=== PATIENT | male | born 1930 | race Caucasian/White ===

== ENCOUNTER 2018-06-04 13:57 | Inpatient (IN) | payer MEDICARE, OTHER ==
[2018-06-04] MEDS ORDERED: SODIUM CHLORIDE 0.9% 1,000 ML IV STA (14:31)
[2018-06-04] MEDS ORDERED: SODIUM CHLORIDE 0.9% 500 ML IV STA (14:31)
[2018-06-04 15:08] LABS: Basophils # (A) 0.1 k/uL (0-0.2); Basophils % (A) 1 %; Eosinophils # (A) 0.7 k/uL (0-0.7); Eosinophils % (A) 9 %; HCT 24.5 % (39.0-53.0); HGB 7.4 gm/dL (13.0-17.5); Hypochromasia Moderate; Lymphocytes % (A) 13 %; MCH 31.9 pg (25.0-35.0); MCHC 30.3 g/dL (31.0-37.0); MCV 105.2 fL (80.0-100.0); Macrocytosis Moderate; Monocytes # (A) 0.4 k/uL (0-1.0); Monocytes % (A) 5 %; Neutrophils # (A) 5.4 k/uL (1.3-7.7); Neutrophils % (A) 70 %; Platelet Count 215 k/uL (150-450); RBC 2.33 m/uL (4.30-5.90); RDW 13.7 % (11.5-15.5); WBC 7.7 k/uL (3.8-10.6)
[2018-06-04 15:15] LABS: INR 1.1 (<1.2); Prothrombin Time 10.9 sec (9.0-12.0)
[2018-06-04 15:16] LABS: Albumin 3.2 g/dL (3.5-5.0); Calcium 7.5 mg/dL (8.4-10.2); Potassium 5.8 mmol/L (3.5-5.1); Total Bilirubin 0.3 mg/dL (0.2-1.3); Total Protein 5.4 g/dL (6.3-8.2)
--- NOTE | 2018-06-04 15:24 | XR ---
EXAMINATION TYPE: XR chest 2V DATE OF EXAM: 06/04/2018 COMPARISON: Prior chest x-ray 09/05/2016 HISTORY: Weakness and dizziness TECHNIQUE: Frontal and lateral views of the chest are obtained. FINDINGS: There is no focal air space opacity, pleural effusion, or pneumothorax seen. The cardiac silhouette size is within normal limits. The osseous structures are intact. There are overlying car diac leads. Acromioclavicular joint arthropathy noted. IMPRESSION: No acute cardiopulmonary process.
--- NOTE | 2018-06-04 15:29 | CT ---
EXAMINATION TYPE: CT brain wo con DATE OF EXAM: 06/04/2018 COMPARISON: 09/15/2016 HISTORY: Weakness and confusion. CT DLP: 993.3 mGycm Automated exposure control for dose reduction was used. TECHNIQUE: CT scan of the head is performed without contrast. FINDINGS: There is no acute intracranial hemorrhage or midline shift identified. Stable punctate hy perattenuated focus within the right frontal lobe appears intraparenchymal but is unchanged from the exam of 09/05/2016. This therefore could relate to possible developmental venous anomaly or dystrophic cortical calcification. There is diffuse ventricular and sulcal prominence consistent with diffuse a ge-related cerebral atrophy. There is low-attenuation in the periventricular white matter consistent with chronic small vessel ischemic change. Mild mucosal thickening is seen within the ethmoid sinuse s. The globes are intact and the remaining visualized sinuses are clear. There is an old fracture def ormity of the left lamina papyracea. Small left frontal probable osteoma is present on image 15 of se [email or web address] [email or web address]. IMPRESSION: 1. No acute intracranial process. Chronic changes similar to the prior of 09/05/2016 including focus o f right frontal hyperattenuation that is unchanged and may represent a dystrophic calcification or de velopmental venous anomaly.
[2018-06-04 16:06] LABS: Appearance,Urine Clear (Clear); Bilirubin,Urine Negative (Negative); Blood,Urine Small (Negative); Color,Urine Yellow; Glucose,Urine (UA) Negative (Negative); Ketones,Urine Negative (Negative); Leukocyte Esterase,Urine Negative (Negative); Mucus,Urine Rare /hpf; Nitrite,Urine Negative (Negative); PH, Urine 5.5 (5.0-8.0); Protein,Urine 1+ (Negative); Urobilinogen,Urine <2.0 mg/dL (<2.0); WBC,Urine 1 /hpf (0-5)
--- NOTE | 2018-06-04 17:26 | ED ---
General Adult HPI - General Chief complaint: Dizziness Stated complaint: Confusion/weakness Time Seen by Provider: 06/04/18 14:29 Source: patient Mode of arrival: ambulatory Limitations: no limitations - History of Present Illness Initial comments: 88 years old male comes in with the dizziness feeling weak for the last 5 days he's is daughter said he has been sleeping more his energy is down he is a pretty active radiate he walks he works out, there are no new medications but he did add that he had a diarrhea off-and-on for a long time he denies any headache no chest pain or shortness of breath no abdominal pain no frequency urgency dysuria - Related Data Home Medications Medication Instructions Recorded Confirmed Naproxen [Naprosyn] 375 mg PO Q12HR 12/19/15 06/04/18 Perindopril Erbumine 12 mg PO DAILY 12/19/15 06/04/18 Simvastatin [Zocor] 20 mg PO HS 12/19/15 06/04/18 Cholecalciferol [Vitamin D3] 1,000 unit PO DAILY 09/05/16 06/04/18 Ferrous Sulfate [Feosol] 325 mg PO DAILY 09/05/16 06/04/18 Mayra Root 1 tab PO DAILY 09/05/16 06/04/18 Vitamin B Complex 1 cap PO DAILY 09/05/16 06/04/18 Krill Oil 500 mg PO DAILY 06/04/18 06/04/18 Omeprazole [PriLOSEC] 40 mg PO DAILY 06/04/18 06/04/18 Allergies Allergy/AdvReac Type Severity Reaction Status Date / Time No Known Allergies Allergy Verified 06/04/18 14:53 Review of Systems ROS Statement: Those systems with pertinent positive or pertinent negative responses have been documented in the HPI. ROS Other: All systems not noted in ROS Statement are negative. Past Medical History Past Medical History: Hyperlipidemia, Hypertension, Osteoarthritis (OA) Additional Past Medical History / Comment(s): bowel obstructions 3 or 4 times, cervical spine, hands arthiritis, back pain, asthma as child, sinusitis, diverticulitis, vitamin D deficiency. History of Any Multi-Drug Resistant Organisms: None Reported Past Surgical History: Adenoidectomy, Appendectomy, Bowel Resection, Joint Replacement, Tonsillectomy Additional Past Surgical History / Comment(s): bowel resections x 3, total R hip arthroplasty, cataract removal with lens implants bilaterally, colonoscopy, circumcism. Past Anesthesia/Blood Transfusion Reactions: No Reported Reaction Additional Past Anesthesia/Blood Transfusion Reaction / Comment(s): Pt has received blood without reaction. Past Psychological History: No Psychological Hx Reported Smoking Status: Former smoker Past Alcohol Use History: Occasional Past Drug Use History: None Reported - Past Family History Father Family Medical History: Coronary Artery Disease (CAD) Additional Family Medical History / Comment(s): Father at 75 of heart problems. Mother Family Medical History: No Reported History Additional Family Medical History / Comment(s): Mother was healthy. She at 71 yrs in MVA. General Exam - General Exam Comments Initial Comments: General: The patient is awake and alert, in no distress, and does not appear acutely ill. He does look a little pale and tired and very sharp for a RAKAN years old male Skin: Skin is warm and dry and no rashes or lesions are noted. Eye: Pupils are equal, round and reactive to light, extra-ocular movements are intact; there is normal conjunctiva bilaterally. Ears, nose, mouth and throat: There are moist mucous membranes and no oral lesions. Neck: The neck is supple, there is no tenderness or JVD. Cardiovascular: There is a regular rate and rhythm. No murmur, rub or gallop is appreciated. Respiratory: To auscultation bilateral, no wheezing no rhonchi no distress respiratory chavez noticed Gastrointestinal: Soft, non-distended, non-tender abdomen without masses or organomegaly noted. There is no rebound or guarding present. Bowel sounds are unremarkable. Back: There is no tenderness to palpation in the midline. There is no obvious deformity. Musculoskeletal: Normal ROM, no tenderness, There is no pedal edema. There is no calf tenderness or swelling. No cords were appreciated. Neurological: CN II-XII intact, Cranial nerves III through XII are intact. There are no obvious motor or sensory deficits. Coordination appears grossly intact. Speech is normal. Psychiatric: Cooperative, appropriate mood & affect, normal judgment. Limitations: no limitations Course Vital Signs 06/04/18 06/04/18 06/04/18 14:01 16:11 16:27 Temperature 98.0 F Pulse Rate 47 L 58 L Pulse Rate [ 66 Left Sitting Pulse Oximetery ] Pulse Rate [ 69 Left Standing Pulse Oximetery ] Pulse Rate [ 65 Left Supine Pulse Oximetery ] Respiratory 20 18 Rate Blood Pressure 93/51 92/51 Blood Pressure 120/58 [Right Arm Sitting] Blood Pressure 120/58 [Right Arm Standing] Blood Pressure 88/53 [Right Arm Supine] O2 Sat by Pulse 97 99 Oximetry 06/04/18 17:05 Temperature Pulse Rate 62 Pulse Rate [ Left Sitting Pulse Oximetery ] Pulse Rate [ Left Standing Pulse Oximetery ] Pulse Rate [ Left Supine Pulse Oximetery ] Respiratory 16 Rate Blood Pressure 104/52 Blood Pressure [Right Arm Sitting] Blood Pressure [Right Arm Standing] Blood Pressure [Right Arm Supine] O2 Sat by Pulse 100 Oximetry EKG Findings - EKG Comments: EKG Findings:: EKG is normal sinus rhythm with first-degree AV block ventricular rate is 68 ID interval is 210 QRS duration is 88 QT/QTc is 372/395. This EKG does not reveal any ST elevation or ST depression Medical Decision Making - Lab Data Result diagrams: 06/04/18 14:58 06/04/18 14:58 Lab Results 06/04/18 06/04/18 06/04/18 Range/Units 14:58 14:58 14:58 WBC 7.7 (3.8-10.6) k/uL RBC 2.33 L (4.30-5.90) m/uL Hgb 7.4 L (13.0-17.5) gm/dL Hct 24.5 L (39.0-53.0) % MCV 105.2 H (80.0-100.0) fL MCH 31.9 (25.0-35.0) pg MCHC 30.3 L (31.0-37.0) g/dL RDW 13.7 (11.5-15.5) % Plt Count 215 (150-450) k/uL Neutrophils % 70 % Lymphocytes % 13 % Monocytes % 5 % Eosinophils % 9 % Basophils % 1 % Neutrophils # 5.4 (1.3-7.7) k/uL Lymphocytes # 1.0 (1.0-4.8) k/uL Monocytes # 0.4 (0-1.0) k/uL Eosinophils # 0.7 (0-0.7) k/uL Basophils # 0.1 (0-0.2) k/uL Hypochromasia Moderate Macrocytosis Moderate PT (9.0-12.0) sec INR (<1.2) Sodium 143 (137-145) mmol/L Potassium 5.8 H (3.5-5.1) mmol/L Chloride 123 H* (98-107) mmol/L Carbon Dioxide 6 L* (22-30) mmol/L Anion Gap 14 mmol/L BUN 77 H (9-20) mg/dL Creatinine 5.50 H* (0.66-1.25) mg/dL Est GFR (CKD-EPI)AfAm 10 (>60 ml/min/1.73 sqM) Est GFR (CKD-EPI)NonAf 9 (>60 ml/min/1.73 sqM) Glucose 91 (74-99) mg/dL Plasma Lactic Acid Gustavo <0.5 L (0.7-2.0) mmol/L Calcium 7.5 L (8.4-10.2) mg/dL Total Bilirubin 0.3 (0.2-1.3) mg/dL AST 24 (17-59) U/L ALT 42 (21-72) U/L Alkaline Phosphatase 52 (38-126) U/L Troponin I (0.000-0.034) ng/mL Total Protein 5.4 L (6.3-8.2) g/dL Albumin 3.2 L (3.5-5.0) g/dL Urine Color Urine Appearance (Clear) Urine pH (5.0-8.0) Ur Specific [place] (1.001-1.035) Urine Protein (Negative) Urine Glucose (UA) (Negative) Urine Ketones (Negative) Urine Blood (Negative) Urine Nitrite (Negative) Urine Bilirubin (Negative) Urine Urobilinogen (<2.0) mg/dL Ur Leukocyte Esterase (Negative) Urine WBC (0-5) /hpf Urine Mucus (None) /hpf 06/04/18 06/04/18 06/04/18 Range/Units 14:58 14:58 15:55 WBC (3.8-10.6) k/uL RBC (4.30-5.90) m/uL Hgb (13.0-17.5) gm/dL Hct (39.0-53.0) % MCV (80.0-100.0) fL MCH (25.0-35.0) pg MCHC (31.0-37.0) g/dL RDW (11.5-15.5) % Plt Count (150-450) k/uL Neutrophils % % Lymphocytes % % Monocytes % % Eosinophils % % Basophils % % Neutrophils # (1.3-7.7) k/uL Lymphocytes # (1.0-4.8) k/uL Monocytes # (0-1.0) k/uL Eosinophils # (0-0.7) k/uL Basophils # (0-0.2) k/uL Hypochromasia Macrocytosis PT 10.9 (9.0-12.0) sec INR 1.1 (<1.2) Sodium (137-145) mmol/L Potassium (3.5-5.1) mmol/L Chloride (98-107) mmol/L Carbon Dioxide (22-30) mmol/L Anion Gap mmol/L BUN (9-20) mg/dL Creatinine (0.66-1.25) mg/dL Est GFR (CKD-EPI)AfAm (>60 ml/min/1.73 sqM) Est GFR (CKD-EPI)NonAf (>60 ml/min/1.73 sqM) Glucose (74-99) mg/dL Plasma Lactic Acid Gustavo (0.7-2.0) mmol/L Calcium (8.4-10.2) mg/dL Total Bilirubin (0.2-1.3) mg/dL AST (17-59) U/L ALT (21-72) U/L Alkaline Phosphatase (38-126) U/L Troponin I <0.012 (0.000-0.034) ng/mL Total Protein (6.3-8.2) g/dL Albumin (3.5-5.0) g/dL Urine Color Yellow Urine Appearance Clear (Clear) Urine pH 5.5 (5.0-8.0) Ur Specific [place] 1.010 (1.001-1.035) Urine Protein 1+ H (Negative) Urine Glucose (UA) Negative (Negative) Urine Ketones Negative (Negative) Urine Blood Small H (Negative) Urine Nitrite Negative (Negative) Urine Bilirubin Negative (Negative) Urine Urobilinogen <2.0 (<2.0) mg/dL Ur Leukocyte Esterase Negative (Negative) Urine WBC 1 (0-5) /hpf Urine Mucus Rare H (None) /hpf Critical Care Time Total Critical Care Time: 30 Critical Care Time: Plan reassessment noticed his hemoglobin is 7.4 previous about 16 months ago he was 11.1 she agrees 6 reflecting severe metabolic acidosis creatinine is 5.5. His creatinine [facility] and [facility] was 1.5-6 is unremarkable and head CT revealed no acute changes and he be admitted to Dr. Golden service with a nephrology consult he is can get aggressive fluid fluid resuscitation hopefully that would fix the hyperkalemia and metabolic acidosis will consult nephrology recent acute renal failure him a will go ahead and now transfuse her 1 unit because for the further hydration his hemoglobin is current for the last 7 Disposition Clinical Impression: Metabolic acidosis, Acute renal failure, Bradycardia, Hypotension Disposition: ADMITTED IP TO THIS HOSP Condition: Good Referrals: Garfield Hanna DO [Primary Care Provider] - 1-2 days
[2018-06-04] MEDS ORDERED: NALOXONE 0.4 MG/ML 1 ML VIAL IV PRN (17:27)
[2018-06-04] MEDS ORDERED: ONDANSETRON 4 MG/2 ML VIAL IVP PRN (17:27)
[2018-06-04] MEDS ORDERED: DEXTROSE 50%-WATER 50 ML SYRINGE IVP STA (17:50)
[2018-06-04] MEDS ORDERED: INSULIN REGULAR 100 UNIT/ML VIAL IV ONE (17:51)
[2018-06-04] MEDS ORDERED: SODIUM BICARBONATE 150 MEQ in DEXTROSE 5% IN WATER 1,000 ML IV ONE ×2 (18:00)
[2018-06-04] MEDS: SODIUM CHLORIDE 0.9% 1,000 ML IV SCH (18:07)
[2018-06-04 20:44] VITALS: BMI 22.1
[2018-06-04] MEDS ORDERED: ATROPINE SULFATE 0.1 MG/ML 10ML SYRINGE IV STA ×2 (23:21→23:34)
[2018-06-04] MEDS ORDERED: DOPamine DRIP 800 MG in DEXTROSE/WATER 1 500ML.BAG IV SCH (23:30)
[2018-06-04] MEDS: ATORVASTATIN 10 MG TAB PO SCH (23:38)
[2018-06-05 01:21] LABS: HCT 29.6 % (39.0-53.0); Hypochromasia Moderate; MCH 32.2 pg (25.0-35.0); MCHC 31.1 g/dL (31.0-37.0); MCV 103.8 fL (80.0-100.0); Macrocytosis Slight; Mean Platelet Volume 7.5; Platelet Count 221 k/uL (150-450); RBC 2.85 m/uL (4.30-5.90); RDW 14.3 % (11.5-15.5); WBC 7.4 k/uL (3.8-10.6)
[2018-06-05 01:22] LABS: HGB 9.2 gm/dL (13.0-17.5)
[2018-06-05] MEDS: SODIUM BICARBONATE 150 MEQ in DEXTROSE 5% IN WATER 1,000 ML IV SCH ×2 (02:42)
[2018-06-05 03:03] LABS: Glucose,Whole Blood 99 mg/dL (75-99)
[2018-06-05] MEDS: SODIUM CHLORIDE 0.9% 1,000 ML IV SCH ×3 (03:52→15:17)
[2018-06-05 05:10] LABS: Basophils # (A) 0.1 k/uL (0-0.2); Basophils % (A) 1 %; Eosinophils # (A) 0.7 k/uL (0-0.7); Eosinophils % (A) 7 %; HCT 28.7 % (39.0-53.0); HGB 8.9 gm/dL (13.0-17.5); Hypochromasia Slight; Lymphocytes # (A) 1.1 k/uL (1.0-4.8); Lymphocytes % (A) 11 %; MCH 31.6 pg (25.0-35.0); MCV 102.1 fL (80.0-100.0); Macrocytosis Slight; Mean Platelet Volume 7.3; Monocytes # (A) 0.7 k/uL (0-1.0); Monocytes % (A) 7 %; Neutrophils # (A) 7.3 k/uL (1.3-7.7); Neutrophils % (A) 73 %; Platelet Count 234 k/uL (150-450); RBC 2.81 m/uL (4.30-5.90); RDW 14.3 % (11.5-15.5); WBC 9.9 k/uL (3.8-10.6)
[2018-06-05 05:28] LABS: Albumin 3.3 g/dL (3.5-5.0); Calcium 7.6 mg/dL (8.4-10.2); Magnesium 1.2 mg/dL (1.6-2.3); Phosphorus 5.4 mg/dL (2.5-4.5); Potassium 4.2 mmol/L (3.5-5.1); Total Bilirubin 0.4 mg/dL (0.2-1.3); Total Protein 5.5 g/dL (6.3-8.2)
[2018-06-05] MEDS ORDERED: Magnesium Replacement Protocol 1 EACH MISC MISCELLANE PRN (05:36)
[2018-06-05] MEDS: MAGNESIUM SULFATE-D5W PMX 1 GM in DEXTROSE/WATER 1 100ML.BAG IVPB SCH ×3 (05:49→08:26)
[2018-06-05] MEDS: DOPamine DRIP 800 MG in DEXTROSE/WATER 1 500ML.BAG IV SCH (05:51)
[2018-06-05] MEDS ORDERED: ceFAZolin 1,000 MG in SODIUM CHLORIDE 0.9% IRRIGATIO 250 ML IRRIGATION ONE (08:04)
[2018-06-05] MEDS ORDERED: ceFAZolin IN SWFI 2 GM/20 ML SYRINGE IVP ONE (08:04)
[2018-06-05] MEDS ORDERED: SODIUM CHLORIDE 0.9% 1,000 ML IV SCH (08:15)
--- NOTE | 2018-06-05 08:40 | P.NPCON ---
History of Present Illness - Reason for Consult acute renal failure, metabolic acidosis - History of Present Illness Reason for consultation: Acute kidney injury History of present illness: Patient is a 88-year-old male seen in renal consultation for acute kidney injury and electrolyte imbalance. Patient presented to the hospital with generalized weakness and dizziness. His blood pressure was in the systolic 90s. He was noted to be in first-degree heart block. Potassium was 5.8 and bicarb level was 6. Creatinine was 5.5 on admission. Patient was subsequently started on sodium bicarbonate drip in the hyperkalemia was medically treated with IV insulin and D50. Potassium level is 4.2 this morning. Bicarb level is up to 10. Creatinine is down to 4.6. He is currently maintained on dopamine and is scheduled to get a pacemaker today. He admits to good urine output. Denies any hematuria or dysuria. He does admit to taking 1-2 tabs of Naprosyn on a daily basis for the last 10 years. He does have chronic kidney disease with creatinine in the range of 1.4-1.5. He is also maintained on lisinopril as an outpatient which is currently held. Overall he is feeling better. Patient is overall quite active for his age and exercises quite regularly. Vital signs are stable. General: The patient appeared well nourished and normally developed. HEENT: Head exam is unremarkable. Neck is without jugular venous distension. LUNGS: Lungs are clear to auscultation and percussion. Breath sounds decreased. HEART: Rate and Rhythm are regular. First and second heart sounds normal. No murmurs, rubs or gallops. ABDOMEN: Abdominal exam reveals normal bowel sounds. Non-tender and non- distended. No evidence of peritonitis. EXTREMITITES: No clubbing, cyanosis, or edema. Past Medical History Past Medical History: Hyperlipidemia, Hypertension, Osteoarthritis (OA), Prostate Disorder Additional Past Medical History / Comment(s): bowel obstructions 3 or 4 times, cervical spine, hands arthiritis, back pain, asthma as child, sinusitis, diverticulitis, vitamin D deficiency. History of Any Multi-Drug Resistant Organisms: None Reported Past Surgical History: Adenoidectomy, Appendectomy, Bowel Resection, Joint Replacement, Prostate Surgery, Tonsillectomy Additional Past Surgical History / Comment(s): bowel resections x 3, total R hip arthroplasty, cataract removal with lens implants bilaterally, colonoscopy, circumcism. Past Anesthesia/Blood Transfusion Reactions: No Reported Reaction Additional Past Anesthesia/Blood Transfusion Reaction / Comment(s): Pt has received blood without reaction. Past Psychological History: No Psychological Hx Reported Additional Psychological History / Comment(s): Pt resides alone. He has alot of family and friend support. 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 He uses no assistive device. He drives. Smoking Status: Former smoker Past Alcohol Use History: Occasional Additional Past Alcohol Use History / Comment(s): Pt quit smoking in 1990. He had smoked lighly for 30 yrs, usually 5-10 cigarettes a day. Past Drug Use History: None Reported - Past Family History Father Family Medical History: Coronary Artery Disease (CAD) Additional Family Medical History / Comment(s): Father at 75 of heart problems. Mother Family Medical History: No Reported History Additional Family Medical History / Comment(s): Mother was healthy. She at 71 yrs in MVA. Medications and Allergies Home Medications Medication Instructions Recorded Confirmed Type Naproxen [Naprosyn] 375 mg PO Q12HR 12/19/15 06/04/18 History Perindopril Erbumine 12 mg PO DAILY 12/19/15 06/04/18 History Simvastatin [Zocor] 20 mg PO HS 12/19/15 06/04/18 History Cholecalciferol [Vitamin D3] 1,000 unit PO DAILY 09/05/16 06/04/18 History Ferrous Sulfate [Feosol] 325 mg PO DAILY 09/05/16 06/04/18 History Mayra Root 1 tab PO DAILY 09/05/16 06/04/18 History Vitamin B Complex 1 cap PO DAILY 09/05/16 06/04/18 History Krill Oil 500 mg PO DAILY 06/04/18 06/04/18 History Omeprazole [PriLOSEC] 40 mg PO DAILY 06/04/18 06/04/18 History Allergies Allergy/AdvReac Type Severity Reaction Status Date / Time No Known Allergies Allergy Verified 06/04/18 14:53 Physical Exam Vitals: Vital Signs Temp Pulse Pulse Pulse Pulse Resp BP 06/05/18 07:00 51 L 22 140/55 06/05/18 06:30 52 L 20 136/54 06/05/18 06:00 60 23 06/05/18 05:30 53 L 19 122/70 06/05/18 05:00 59 L 18 152/59 06/05/18 04:30 55 L 15 119/70 06/05/18 04:00 69 46 H 94/52 06/05/18 03:40 66 06/05/18 03:35 97.6 F 51 L 21 165/64 06/05/18 00:00 96.7 F L 67 17 06/04/18 23:02 96.8 F L 54 L 16 104/46 06/04/18 21:03 96.8 F L 55 L 18 105/53 06/04/18 20:33 96.8 F L 58 L 18 95/54 06/04/18 20:23 96.8 F L 60 18 99/50 06/04/18 20:00 96.8 F L 60 16 06/04/18 18:20 97.2 F L 66 18 96/66 06/04/18 18:01 55 L 18 91/50 06/04/18 17:05 62 16 104/52 06/04/18 16:27 58 L 18 92/51 06/04/18 16:11 66 69 65 06/04/18 14:01 98.0 F 47 L 20 93/51 BP BP BP Pulse Ox 06/05/18 07:00 96 06/05/18 06:30 98 06/05/18 06:00 99 06/05/18 05:30 95 06/05/18 05:00 100 06/05/18 04:30 99 06/05/18 04:00 100 06/05/18 03:40 06/05/18 03:35 99 06/05/18 00:00 119/56 95 06/04/18 23:02 06/04/18 21:03 99 06/04/18 20:33 100 06/04/18 20:23 95 06/04/18 20:00 99/50 95 06/04/18 18:20 96 06/04/18 18:01 97 06/04/18 17:05 100 06/04/18 16:27 99 06/04/18 16:11 120/58 120/58 88/53 06/04/18 14:01 97 Intake and Output 06/04/18 06/05/18 06/05/18 22:59 06:59 14:59 Intake Total 200 1910 100 Output Total 280 460 200 Balance -80 1450 -100 Intake: IV 700 100 Dextrose 5% in Water 1, 600 000 ml @ 150 mls/hr IV . Q7H40M LORI with Sodium Bicarb (1 Meq/ml) 150 ml Rx#:[id number] Magnesium Sulfate-D5w Pmx 100 100 1 gm In Dextrose/Water 1 100ml.bag @ 100 mls/hr IVPB Q1H LORI Rx#: [id number] Intake, IV Titration 900 Amount Dextrose 5% in Water 1, 900 000 ml @ 150 mls/hr IV . Q7H40M ONE with Sodium Bicarb (1 Meq/ml) 150 ml Rx#:[id number] Oral 200 Blood Product 0 310 Rc As-1 Unit 0 310 [id number] Output: Urine 280 460 200 Other: Voiding Method Urinal Urinal # Bowel Movements 1 Weight 68.039 kg 71 kg Results - Lab Results Most recent lab results Calcium 7.6 mg/dL (8.4-10.2) L 06/05/18 04:42 Phosphorus 5.4 mg/dL (2.5-4.5) H 06/05/18 04:42 Magnesium 1.2 mg/dL (1.6-2.3) L 06/05/18 04:42 06/05/18 04:42 06/05/18 04:42 Assessment and Plan Plan: Assessment: 1. Nonoliguric acute kidney injury secondary to ATN secondary to hypotension and further worsened with the use of NSAIDs and ZARIA inhibitor. Creatinine was 5.5 on admission and is down to 4.6 today. 2. Chronic kidney disease stage III with baseline creatinine in the range of 1.4-1.5 secondary to nephrosclerosis. 3. Hyperkalemia secondary to acute kidney injury and metabolic acidosis. Resolved. 4. Metabolic acidosis secondary to acute kidney injury. Improving. 5. Bradycardia secondary to heart block scheduled for pacemaker today. Currently maintained on dopamine. 6. Anemia. Rule out iron deficiency. No signs of active bleeding. 7. Hypertension with chronic kidney disease. Controlled. 8. Hypomagnesemia from poor oral intake as well as GI losses. Patient admits to chronic diarrhea. Plan: Continue sodium bicarbonate drip to be run at 100 mL an hour. I will add oral sodium bicarbonate 650 mg twice daily. Check iron studies. Magnesium be replaced. Avoid nephrotoxic agents. Continue to hold lisinopril for now. Repeat electrolytes in the morning. Thank you for the consultation. I will continue to follow the patient with you during his hospital stay.
--- NOTE | 2018-06-05 08:42 | CONS ---
CONSULTATION CHIEF COMPLAINT: Exertional fatigue and tiredness. This is an 88-year-old gentleman with history of dyslipidemia, gastroesophageal reflux disease who exercises regularly, over the last 10 days has been finding himself more fatigued and tired and unable to do his regular routine of exercises. Yesterday his daughters asked him to come to the hospital where he was found to have symptomatic bradycardia for which he is admitted and Cardiology had been consulted. He has intermittent episodes of high-grade AV block with second-degree heart block with heart rates dropping into the 30s and 40s. I saw him early this morning. Patient did not have any syncope. I started him on dopamine and admitted him to ICU and since being admitted to the intensive care unit, the patient had been doing well. The patient has anemia with a hemoglobin of 7.4 and also has renal insufficiency which is probably related to the AV block. He denies chest pain. There is no prior history of coronary artery disease or congestive heart failure. There is no history of valvular heart disease. His TSH is normal at 4.1. PAST MEDICAL HISTORY: Negative for hypertension, diabetes, dyslipidemia. MEDICATIONS: Medications include simvastatin 20 mg daily, Prilosec 40 mg daily, Naprosyn, iron, vitamin B, and Krill Oil. ALLERGIES: There are no known drug allergies. FAMILY HISTORY: Negative for premature coronary artery disease. SOCIAL HISTORY: Negative for current smoking, EtOH abuse, or drug abuse. REVIEW OF SYSTEMS: HEENT is unremarkable. CARDIAC: As described above. RESPIRATORY: Negative. GI: Negative. GENITOURINARY: Significant for renal insufficiency. PSYCHOSOCIAL: Negative. ENDOCRINE: Negative. HEMATOLOGICAL: Negative. DERM: Negative. CONSTITUTIONAL: Negative. ONCOLOGICAL: Negative. Rest of the system review is not relevant. PHYSICAL EXAMINATION: On exam, he is comfortable at rest. Vital signs are stable. There is no jugular venous distention. Carotid upstroke is diminished. There is no bruit. Chest exam reveals good air entry bilaterally. Heart exam reveals first and second heart sounds. No gallop. Abdomen is soft. Examination of extremities did not reveal any edema. Peripheral pulses are felt. NURSE INTERN exam did not reveal focal neurological deficits. A chest x-ray does not reveal pulmonary congestion. Echo is pending at this time. ASSESSMENT: 1. Symptomatic second-degree heart block. 2. History of dyslipidemia. PLAN: Patient will undergo a permanent pacemaker today. His renal insufficiency is probably related to hypotension and hypoperfusion related to intermittent episodes of high-grade AV block with hypotension. I am going to treat him with gentle hydration and we will obtain a 2-D echo. SARAH BETH / BARB: [id number] /
--- NOTE | 2018-06-05 10:22 | ECHOF ---
Referral Reason:[facility] MEASUREMENTS -------- HEIGHT: 175.3 cm WEIGHT: 70.8 kg BP: RVIDd: 4.2 cm (< 3.3) IVSd: 1.3 cm (0.6 - 1.1) LVIDd: 3.7 cm (3.9 - 5.3) LVPWd: 1.3 cm (0.6 - 1.1) IVSs: 1.7 cm LVIDs: 2.2 cm LVPWs: 1.6 cm Ao Diam: 3.9 cm (2.0 - 3.7) AV Cusp: 1.7 cm (1.5 - 2.6) LA Diam: 2.3 cm (2.7 - 3.8) MV EXCURSION: 14.230 mm (> 18.000) MV EF SLOPE: 52 mm/s (70 - 150) EPSS: 0.5 cm MV E Franck: 1.00 m/s MV DecT: 262 ms MV A Franck: 1.08 m/s MV E/A Ratio: 0.93 AV maxP.70 mmHg AV meanP.60 mmHg RAP: 5.00 mmHg RVSP: 15.73 mmHg FINDINGS -------- Resting bradycardia (HR<60bpm). This was a technically good study. The left ventricular size is normal. There is mild concentric left ventricular hypertrophy. Overa ll left ventricular systolic function is normal with, an EF between 55 - 60 %. The right ventricle is severely enlarged. The left atrium is normal in size. The right atrium is normal in size. Aortic valve is trileaflet and is mildly thickened. There is mild aortic stenosis present. Peak/m nikhil gradient across the Aortic Valve is 17.70mmHg / 9.60mmHg. The mitral valve leaflets are mildly thickened. Mild mitral regurgitation is present. Mild tricuspid regurgitation present. The right ventricular systolic pressure, as measured by Doppl er, is 15.73mmHg. Pulmonic valve appears structurally normal. 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 The pericardium is normal. CONCLUSIONS -------- 1. Resting bradycardia (HR<60bpm). 2. This was a technically good study. 3. The left ventricular size is normal. 4. There is mild concentric left ventricular hypertrophy. 5. Overall left ventricular systolic function is normal with, an EF between 55 - 60 %. 6. The right ventricle is severely enlarged. 7. The left atrium is normal in size. 8. The right atrium is normal in size. 9. Aortic valve is trileaflet and is mildly thickened. 10. There is mild aortic stenosis present. 11. Peak/mean gradient across the Aortic Valve is 17.70mmHg / 9.60mmHg. 12. The mitral valve leaflets are mildly thickened. 13. Mild mitral regurgitation is present. 14. Mild tricuspid regurgitation present. 15. The right ventricular systolic pressure, as measured by Doppler, is 15.73mmHg. 16. Pulmonic valve appears structurally normal. 17. 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 Normal inferior vena cava with normal inspiratory collapse consistent with estimated right atrial pressure of 5 mmHg. 19. The pericardium is normal. [employer]BER: Sariah Rivers RDCS
--- NOTE | 2018-06-05 13:33 | P.HPIM ---
History of Present Illness 88-year-old pleasant gentleman came in with complaints of not feeling well and tired for about a week which is getting much and much worse or denied any nausea vomiting. Patient is found to have highly elevated BUN and creatinine is baseline creatinine is around 1.5 and patient with creatinine of 5.5 and now around 4.6 patient is on IV fluids and IV bicarbonate supplementation patient has severe acidosis with the BM going up to 73 and bicarbonate of 10 patient's potassium was elevated at 46 and patient was in and out of the first-degree AV block and secondary debridement type II AV block initially cardiology was planning on a pacemaker but patient was a symptomatically and that this is probably as a result of multiple other provided abnormalities including elevated potassium mostly contributing to the patient has hyperchloremia as well. Nephrology was consulted. Patient does take nonsteroidal anti- inflammatory set home for his pain and lisinopril both of which have contributed to his acute renal failure. Patient does have a urine output which is alert and liver. Review of Systems REVIEW OF SYSTEMS: CONSTITUTIONAL: As mentioned in HPI HEENT: No recent visual problems or hearing problems. Denied any sore throat. CARDIOVASCULAR: No chest pain, orthopnea, PND, no palpitations, no syncope. PULMONARY: No shortness of breath, no cough, no hemoptysis. GASTROINTESTINAL: No diarrhea, no nausea, no vomiting, no abdominal pain. Normoactive bowel sounds. NEUROLOGICAL: No headaches, no weakness, no numbness. HEMATOLOGICAL: Denies any bleeding or petechiae. GENITOURINARY: Denies any burning micturition, frequency, or urgency. MUSCULOSKELETAL/RHEUMATOLOGICAL: Denies any joint pain, swelling, or any muscle pain. ENDOCRINE: Denies any polyuria or polydipsia. The rest of the 14-point review of systems is negative. Past Medical History Past Medical History: Hyperlipidemia, Hypertension, Osteoarthritis (OA), Prostate Disorder Additional Past Medical History / Comment(s): bowel obstructions 3 or 4 times, cervical spine, hands arthiritis, back pain, asthma as child, sinusitis, diverticulitis, vitamin D deficiency. History of Any Multi-Drug Resistant Organisms: None Reported Past Surgical History: Adenoidectomy, Appendectomy, Bowel Resection, Joint Replacement, Prostate Surgery, Tonsillectomy Additional Past Surgical History / Comment(s): bowel resections x 3, total R hip arthroplasty, cataract removal with lens implants bilaterally, colonoscopy, circumcism. Past Anesthesia/Blood Transfusion Reactions: No Reported Reaction Additional Past Anesthesia/Blood Transfusion Reaction / Comment(s): Pt has received blood without reaction. Past Psychological History: No Psychological Hx Reported Additional Psychological History / Comment(s): Pt resides alone. He has alot of family and friend support. 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 He uses no assistive device. He drives. Smoking Status: Former smoker Past Alcohol Use History: Occasional Additional Past Alcohol Use History / Comment(s): Pt quit smoking in 1990. He had smoked lighly for 30 yrs, usually 5-10 cigarettes a day. Past Drug Use History: None Reported - Past Family History Father Family Medical History: Coronary Artery Disease (CAD) Additional Family Medical History / Comment(s): Father at 75 of heart problems. Mother Family Medical History: No Reported History Additional Family Medical History / Comment(s): Mother was healthy. She at 71 yrs in MVA. Medications and Allergies Home Medications Medication Instructions Recorded Confirmed Type Naproxen [Naprosyn] 375 mg PO Q12HR 12/19/15 06/04/18 History Perindopril Erbumine 12 mg PO DAILY 12/19/15 06/04/18 History Simvastatin [Zocor] 20 mg PO HS 12/19/15 06/04/18 History Cholecalciferol [Vitamin D3] 1,000 unit PO DAILY 09/05/16 06/04/18 History Ferrous Sulfate [Feosol] 325 mg PO DAILY 09/05/16 06/04/18 History Mayra Root 1 tab PO DAILY 09/05/16 06/04/18 History Vitamin B Complex 1 cap PO DAILY 09/05/16 06/04/18 History Krill Oil 500 mg PO DAILY 06/04/18 06/04/18 History Omeprazole [PriLOSEC] 40 mg PO DAILY 06/04/18 06/04/18 History Allergies Allergy/AdvReac Type Severity Reaction Status Date / Time No Known Allergies Allergy Verified 06/04/18 14:53 Physical Exam Vitals: Vital Signs Temp Pulse Pulse Pulse Pulse Pulse Resp 06/05/18 12:00 68 24 06/05/18 11:00 60 25 H 06/05/18 10:00 06/05/18 09:00 47 L 23 06/05/18 08:34 97.9 F 18 06/05/18 08:10 97.7 F 70 18 06/05/18 08:00 97.7 F 79 22 06/05/18 07:00 51 L 22 06/05/18 06:30 52 L 20 06/05/18 06:00 60 23 06/05/18 05:30 53 L 19 06/05/18 05:00 59 L 18 06/05/18 04:30 55 L 15 06/05/18 04:00 69 46 H 06/05/18 03:40 66 06/05/18 03:35 97.6 F 51 L 21 06/05/18 00:00 96.7 F L 67 17 06/04/18 23:02 96.8 F L 54 L 16 06/04/18 21:03 96.8 F L 55 L 18 06/04/18 20:33 96.8 F L 58 L 18 06/04/18 20:23 96.8 F L 60 18 06/04/18 20:00 96.8 F L 60 16 06/04/18 18:20 97.2 F L 66 18 06/04/18 18:01 55 L 18 06/04/18 17:05 62 16 06/04/18 16:27 58 L 18 06/04/18 16:11 66 69 65 06/04/18 14:01 98.0 F 47 L 20 BP BP BP BP Pulse Ox 06/05/18 12:00 114/57 100 06/05/18 11:00 114/57 100 06/05/18 10:00 96/55 06/05/18 09:00 82/50 98 06/05/18 08:34 92/56 06/05/18 08:10 92/56 06/05/18 08:00 130/47 98 06/05/18 07:00 140/55 96 06/05/18 06:30 136/54 98 06/05/18 06:00 99 06/05/18 05:30 122/70 95 06/05/18 05:00 152/59 100 06/05/18 04:30 119/70 99 06/05/18 04:00 94/52 100 06/05/18 03:40 06/05/18 03:35 165/64 99 06/05/18 00:00 119/56 95 06/04/18 23:02 104/46 06/04/18 21:03 105/53 99 06/04/18 20:33 95/54 100 06/04/18 20:23 99/50 95 06/04/18 20:00 99/50 95 06/04/18 18:20 96/66 96 06/04/18 18:01 91/50 97 06/04/18 17:05 104/52 100 06/04/18 16:27 92/51 99 06/04/18 16:11 120/58 120/58 88/53 06/04/18 14:01 93/51 97 Intake and Output 06/04/18 06/05/18 06/05/18 22:59 06:59 14:59 Intake Total 200 1910 600 Output Total 280 460 725 Balance -80 1450 -125 Intake: IV 700 600 Dextrose 5% in Water 1, 600 500 000 ml @ 150 mls/hr IV . Q7H40M LORI with Sodium Bicarb (1 Meq/ml) 150 ml Rx#:[id number] Magnesium Sulfate-D5w Pmx 100 100 1 gm In Dextrose/Water 1 100ml.bag @ 100 mls/hr IVPB Q1H LORI Rx#: [id number] Intake, IV Titration 900 Amount Dextrose 5% in Water 1, 900 000 ml @ 150 mls/hr IV . Q7H40M ONE with Sodium Bicarb (1 Meq/ml) 150 ml Rx#:[id number] Oral 200 Blood Product 0 310 Rc As-1 Unit 0 310 [id number] Output: Urine 280 460 725 Other: Voiding Method Urinal Urinal Urinal # Voids 1 # Bowel Movements 1 Weight 68.039 kg 71 kg PHYSICAL EXAMINATION: GENERAL: The patient is alert and oriented x3, not in any acute distress. Well developed, well nourished. HEENT: Pupils are round and equally reacting to light. EOMI. No scleral icterus. No conjunctival pallor. Normocephalic, atraumatic. No pharyngeal erythema. No thyromegaly. CARDIOVASCULAR: S1 and S2 present. No murmurs, rubs, or gallops. PULMONARY: Chest is clear to auscultation, no wheezing or crackles. ABDOMEN: Soft, nontender, nondistended, normoactive bowel sounds. No palpable organomegaly. MUSCULOSKELETAL: No joint swelling or deformity. EXTREMITIES: No cyanosis, clubbing, or pedal edema. NEUROLOGICAL: Gross neurological examination did not reveal any focal deficits. SKIN: No rashes. Results CBC & Chem 7: 06/05/18 04:42 06/05/18 04:42 Labs: Abnormal Lab Results - Last 24 Hours (Table) 06/04/18 06/04/18 06/04/18 Range/Units 14:58 14:58 14:58 RBC 2.33 L (4.30-5.90) m/uL Hgb 7.4 L (13.0-17.5) gm/dL Hct 24.5 L (39.0-53.0) % MCV 105.2 H (80.0-100.0) fL MCHC 30.3 L (31.0-37.0) g/dL Potassium 5.8 H (3.5-5.1) mmol/L Chloride 123 H* (98-107) mmol/L Carbon Dioxide 6 L* (22-30) mmol/L BUN 77 H (9-20) mg/dL Creatinine 5.50 H* (0.66-1.25) mg/dL Glucose (74-99) mg/dL Plasma Lactic Acid Gustavo <0.5 L (0.7-2.0) mmol/L Calcium 7.5 L (8.4-10.2) mg/dL Phosphorus (2.5-4.5) mg/dL Magnesium (1.6-2.3) mg/dL Total Protein 5.4 L (6.3-8.2) g/dL Albumin 3.2 L (3.5-5.0) g/dL Urine Protein (Negative) Urine Blood (Negative) Urine Mucus (None) /hpf Crossmatch 06/04/18 06/04/18 06/05/18 Range/Units 15:55 17:38 00:47 RBC 2.85 L (4.30-5.90) m/uL Hgb 9.2 L D (13.0-17.5) gm/dL Hct 29.6 L (39.0-53.0) % MCV 103.8 H (80.0-100.0) fL MCHC (31.0-37.0) g/dL Potassium (3.5-5.1) mmol/L Chloride (98-107) mmol/L Carbon Dioxide (22-30) mmol/L BUN (9-20) mg/dL Creatinine (0.66-1.25) mg/dL Glucose (74-99) mg/dL Plasma Lactic Acid Gustavo (0.7-2.0) mmol/L Calcium (8.4-10.2) mg/dL Phosphorus (2.5-4.5) mg/dL Magnesium (1.6-2.3) mg/dL Total Protein (6.3-8.2) g/dL Albumin (3.5-5.0) g/dL Urine Protein 1+ H (Negative) Urine Blood Small H (Negative) Urine Mucus Rare H (None) /hpf Crossmatch See Detail 06/05/18 06/05/18 Range/Units 04:42 04:42 RBC 2.81 L (4.30-5.90) m/uL Hgb 8.9 L (13.0-17.5) gm/dL Hct 28.7 L (39.0-53.0) % MCV 102.1 H (80.0-100.0) fL MCHC (31.0-37.0) g/dL Potassium (3.5-5.1) mmol/L Chloride 117 H (98-107) mmol/L Carbon Dioxide 10 L* (22-30) mmol/L BUN 73 H (9-20) mg/dL Creatinine 4.60 H (0.66-1.25) mg/dL Glucose 100 H (74-99) mg/dL Plasma Lactic Acid Gustavo (0.7-2.0) mmol/L Calcium 7.6 L (8.4-10.2) mg/dL Phosphorus 5.4 H (2.5-4.5) mg/dL Magnesium 1.2 L (1.6-2.3) mg/dL Total Protein 5.5 L (6.3-8.2) g/dL Albumin 3.3 L (3.5-5.0) g/dL Urine Protein (Negative) Urine Blood (Negative) Urine Mucus (None) /hpf Crossmatch Thrombosis Risk Factor Assmnt - Choose All That Apply Any of the Below Risk Factors Present?: No Other Risk Factors: No Thrombosis Risk Factor Assessment Level: Very Low Risk Assessment and Plan Plan: -Acute renal failure: Most probably prerenal azotemia, acute tubular necrosis nonoliguric cannot be ruled out and patient is getting IV fluids in the form of IV bicarbonate in D5. This is secondary to nonsteroidal anti-inflammatory medications and ZARIA inhibitor. 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
[2018-06-05] MEDS: B COMPLEX-VIT C-VIT E-ZINC 1 EACH TAB PO SCH (14:43)
[2018-06-05] MEDS: SODIUM BICARBONATE TAB 650 MG TAB PO SCH ×2 (14:43→20:41)
[2018-06-05] MEDS: CHOLECALCIFEROL 1,000 UNIT TAB PO SCH (14:43)
[2018-06-05] MEDS: FERROUS SULFATE 325 MG TAB PO SCH (14:44)
[2018-06-05] MEDS: PANTOPRAZOLE 40 MG TABLET PO SCH (14:44)
[2018-06-05] MEDS ORDERED: MAGNESIUM SULFATE-D5W PMX 1 GM in DEXTROSE/WATER 1 100ML.BAG IVPB SCH (15:00)
[2018-06-05 15:56] LABS: Iron Saturation 36.12 (15.00-50.00)
[2018-06-05 19:36] LABS: Hemoglobin A1C 4.3 % (4.0-6.0)
[2018-06-05] MEDS: ATORVASTATIN 10 MG TAB PO SCH (20:41)
[2018-06-06 04:50] LABS: Calcium 7.4 mg/dL (8.4-10.2); Magnesium 1.9 mg/dL (1.6-2.3); Phosphorus 4.4 mg/dL (2.5-4.5); Potassium 3.5 mmol/L (3.5-5.1)
[2018-06-06 05:00] LABS: Basophils # (A) 0.1 k/uL (0-0.2); Basophils % (A) 1 %; Eosinophils # (A) 0.6 k/uL (0-0.7); Eosinophils % (A) 7 %; HCT 26.4 % (39.0-53.0); HGB 8.7 gm/dL (13.0-17.5); Lymphocytes # (A) 0.9 k/uL (1.0-4.8); Lymphocytes % (A) 11 %; MCH 31.9 pg (25.0-35.0); MCHC 32.8 g/dL (31.0-37.0); MCV 97.3 fL (80.0-100.0); Mean Platelet Volume 7.3; Monocytes # (A) 0.7 k/uL (0-1.0); Monocytes % (A) 8 %; Neutrophils # (A) 6.1 k/uL (1.3-7.7); Neutrophils % (A) 73 %; Platelet Count 220 k/uL (150-450); RBC 2.72 m/uL (4.30-5.90); RDW 14.5 % (11.5-15.5); WBC 8.4 k/uL (3.8-10.6)
--- NOTE | 2018-06-06 07:04 | XR ---
EXAMINATION TYPE: XR chest 1V portable DATE OF EXAM: 06/06/2018 HISTORY: SOB. REFERENCE: Previous study dated 06/04/2018. FINDINGS: There are postsurgical changes on the right side of the neck. Heart size is upper limits of normal. Pleural spaces are clear. No focal airspace disease is seen. IMPRESSION: NO ACUTE CARDIOPULMONARY ABNORMALITY.
[2018-06-06] MEDS: SODIUM CHLORIDE 0.9% 1,000 ML IV SCH ×3 (07:12→17:29)
[2018-06-06] MEDS ORDERED: Potassium Replacement Protocol 1 EACH MISC MISCELLANE PRN (07:20)
[2018-06-06] MEDS: DOPamine DRIP 800 MG in DEXTROSE/WATER 1 500ML.BAG IV SCH (07:34)
[2018-06-06] MEDS: MAGNESIUM SULFATE-D5W PMX 1 GM in DEXTROSE/WATER 1 100ML.BAG IVPB SCH ×3 (07:52→12:11)
--- NOTE | 2018-06-06 07:52 | P.PN ---
Subjective Progress Note Date: 06/06/18 Principal diagnosis: Symptomatic bradycardia This is a pleasant 88-year-old gentleman who was admitted to the hospital yesterday with symptomatic bradycardia. He was found to be in high degree AV block. When I reviewed the rhythm strip today it seems that the patient is in complete heart block but he is maintaining a heart rate in the 50s and blood pressure, on dopamine. The patient was not on any AV sabrina guillermo agents before he presented to the hospital. The echocardiogram revealed normal LV function with mild aortic stenosis. Clinically he denies having any chest pain or discomfort, shortness of breath, dizziness or lightheadedness and he never had any syncope. When he presented to the hospital he was in acute on chronic renal failure. Nephrology on the case. The patient was going to have a permanent pacemaker yesterday but that is on hold at this point because we feel that the acute renal failure could be contributing to his heart block and bradycardia. Objective - Vital Signs Vital signs: Vital Signs Temp 98.1 F 06/06/18 04:00 Pulse 53 L 06/06/18 07:00 Resp 14 06/06/18 07:00 BP 133/66 06/06/18 07:00 Pulse Ox 98 06/06/18 07:00 Intake & Output 06/05/18 06/06/18 06/06/18 18:59 06:59 18:59 Intake Total 2530.765 5866 285.725 Output Total 875 850 Balance 667.163 350 285.725 Weight 71.2 kg Intake: IV 1400 1200 100 Dextrose 5% in Water 1, 1200 1200 100 000 ml @ 100 mls/hr IV . [id number] LORI with Sodium Bicarb (1 Meq/ml) 150 ml Rx#:[id number] Magnesium Sulfate-D5w Pmx 200 1 gm In Dextrose/Water 1 100ml.bag @ 100 mls/hr IVPB Q1H LORI Rx#: [id number] Intake, IV Titration 142.163 185.725 Amount DOPamine DRIP 800 mg In 142.163 185.725 Dextrose/Water 1 500ml. bag @ 2.5 MCG/KG/MIN 6.37 mls/hr IV .Q24H LORI Rx#: [id number] Output: Urine 875 850 Other: Voiding Method Urinal Toilet Urinal # Voids 1 2 # Bowel Movements 0 - Constitutional General appearance: Present: no acute distress - Respiratory Respiratory: bilateral: CTA - Cardiovascular Rhythm: regular Heart sounds: normal: S1, S2 - Labs CBC & Chem 7: 06/06/18 04:11 06/06/18 04:11 Labs: Abnormal Lab Results - Last 24 Hours (Table) 06/06/18 06/06/18 Range/Units 04:11 04:11 RBC 2.72 L (4.30-5.90) m/uL Hgb 8.7 L (13.0-17.5) gm/dL Hct 26.4 L (39.0-53.0) % Lymphocytes # 0.9 L (1.0-4.8) k/uL Chloride 110 H (98-107) mmol/L Carbon Dioxide 18 L (22-30) mmol/L BUN 66 H (9-20) mg/dL Creatinine 4.04 H (0.66-1.25) mg/dL Glucose 104 H (74-99) mg/dL Calcium 7.4 L (8.4-10.2) mg/dL Assessment and Plan Assessment: Assessment #1 advanced AV block. Third degree AV block #2 symptomatic bradycardia secondary to the above #3 acute on chronic renal failure #4 mild aortic stenosis Plan #1 continue the dopamine drip over the weekend #2 continue monitor the heart rhythm and the heart rate as well #3 possible permanent pacemaker on Friday if the patient did not get out of the complete heart block. Thank you for allowing us participate in his care and we'll continue following up with him
[2018-06-06] MEDS: SODIUM BICARBONATE 150 MEQ in DEXTROSE 5% IN WATER 1,000 ML IV SCH ×6 (07:53→08:13)
--- NOTE | 2018-06-06 08:41 | P.PN ---
Subjective Progress Note Date: 06/06/18 Principal diagnosis: This is an 88-year-old male seen in consultation because of acute kidney injury from hypotension from GI losses chronic diarrhea, Royal inhibitors and additionally nonsteroidal. He also had severe hyperkalemia as well as non-gap metabolic acidosis. Currently on IV D5W with bicarb drip as well as dopamine. He is awake alert oriented. He is feeling better no nausea vomiting. 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 No dizziness no chest pain no abdominal pain no fever chills. Does feel somewhat short of breath but improved significantly. He was able to eat normally yesterday. Objective - Vital Signs Vital signs: Vital Signs Temp 98.1 F 06/06/18 04:00 Pulse 53 L 06/06/18 07:00 Resp 14 06/06/18 07:00 BP 133/66 06/06/18 07:00 Pulse Ox 98 06/06/18 07:00 Intake & Output 06/05/18 06/06/18 06/06/18 18:59 06:59 18:59 Intake Total 9663.952 8075 285.725 Output Total 875 850 Balance 667.163 350 285.725 Weight 71.2 kg Intake: IV 1400 1200 100 Dextrose 5% in Water 1, 1200 1200 100 000 ml @ 100 mls/hr IV . [id number] LORI with Sodium Bicarb (1 Meq/ml) 150 ml Rx#:[id number] Magnesium Sulfate-D5w Pmx 200 1 gm In Dextrose/Water 1 100ml.bag @ 100 mls/hr IVPB Q1H LORI Rx#: [id number] Intake, IV Titration 142.163 185.725 Amount DOPamine DRIP 800 mg In 142.163 185.725 Dextrose/Water 1 500ml. bag @ 2.5 MCG/KG/MIN 6.37 mls/hr IV .Q24H LORI Rx#: [id number] Output: Urine 875 850 Other: Voiding Method Urinal Toilet Urinal # Voids 1 2 # Bowel Movements 0 On examination is awake alert oriented comfortable A chin exam no JVP neck is supple no facial asymmetry Lungs clear to auscultation percussion good air entry bilaterally. Heart sounds unremarkable for any murmur rub gallop. Abdomen soft nontender Extremity examination reveals no edema Neurologically awake alert oriented Normal sinus rhythm on the monitor. Currently on dopamine - Labs CBC & Chem 7: 06/06/18 04:11 06/06/18 04:11 Labs: Abnormal Lab Results - Last 24 Hours (Table) 06/06/18 06/06/18 Range/Units 04:11 04:11 RBC 2.72 L (4.30-5.90) m/uL Hgb 8.7 L (13.0-17.5) gm/dL Hct 26.4 L (39.0-53.0) % Lymphocytes # 0.9 L (1.0-4.8) k/uL Chloride 110 H (98-107) mmol/L Carbon Dioxide 18 L (22-30) mmol/L BUN 66 H (9-20) mg/dL Creatinine 4.04 H (0.66-1.25) mg/dL Glucose 104 H (74-99) mg/dL Calcium 7.4 L (8.4-10.2) mg/dL Assessment and Plan Assessment: Impression 1. Acute kidney injury from volume depletion from chronic diarrhea with additional low blood pressure from blood pressure medications including lisinopril and from use of nonsteroidals. Creatinine is improved urine output is picking up. 2. Hyperkalemia Kidney injury resolved. 3. Non-gap acidosis and a smaller amount of Acidosis from acute kidney injury, bicarb has improved to 18, gap is 15. Currently on IV bicarb. 4. Hypomagnesemia from GI losses improved with replacement 5. Echocardiogram shows 55-60% ejection fraction with right ventricular enlargement and no evidence of pulmonary hypertension 6. Anemia, secondary to see daily and ulceration is 36% on 06/05/2018 yesterday. Therefore no iron deficiency 7. Chronic kidney disease Baseline creatinine is 1.39 as of 03/26/2017 UA shows 1+ proteinuria. Likely nephrosclerosis. Recommendation. 1. Discontinue IV bicarbonate drip and maintain normal saline at 75 mL an hour. 2. Check orthostatic changes. 3. Sodium bicarb currently on 650 BID , will increase to 4 times a day. 4. Maintain strict I's and O's. 5. Consider discontinuation off dopamine as Ejection fraction is 55-60%
[2018-06-06] MEDS: PANTOPRAZOLE 40 MG TABLET PO SCH (08:46)
[2018-06-06] MEDS: B COMPLEX-VIT C-VIT E-ZINC 1 EACH TAB PO SCH (08:46)
[2018-06-06] MEDS: FERROUS SULFATE 325 MG TAB PO SCH (08:48)
[2018-06-06] MEDS: POTASSIUM CHLORIDE ER 20 MEQ TAB.ER PO SCH ×2 (08:49→12:13)
[2018-06-06] MEDS: SODIUM BICARBONATE TAB 650 MG TAB PO SCH ×4 (09:10→21:58)
[2018-06-06] MEDS: CHOLECALCIFEROL 1,000 UNIT TAB PO SCH (09:10)
[2018-06-06] MEDS: ATORVASTATIN 10 MG TAB PO SCH (20:35)
[2018-06-07 04:49] LABS: Basophils # (A) 0.1 k/uL (0-0.2); Basophils % (A) 1 %; Eosinophils # (A) 0.6 k/uL (0-0.7); Eosinophils % (A) 7 %; HCT 27.5 % (39.0-53.0); Lymphocytes # (A) 0.9 k/uL (1.0-4.8); Lymphocytes % (A) 11 %; MCHC 32.7 g/dL (31.0-37.0); MCV 97.8 fL (80.0-100.0); Mean Platelet Volume 7.1; Monocytes # (A) 0.7 k/uL (0-1.0); Monocytes % (A) 9 %; Neutrophils # (A) 5.5 k/uL (1.3-7.7); Neutrophils % (A) 71 %; Platelet Count 217 k/uL (150-450); RBC 2.81 m/uL (4.30-5.90); RDW 14.3 % (11.5-15.5); WBC 7.8 k/uL (3.8-10.6)
[2018-06-07 05:03] LABS: Calcium 7.3 mg/dL (8.4-10.2)
[2018-06-07] MEDS: DOPamine DRIP 800 MG in DEXTROSE/WATER 1 500ML.BAG IV SCH (06:35)
[2018-06-07] MEDS: FERROUS SULFATE 325 MG TAB PO SCH (08:28)
[2018-06-07] MEDS: PANTOPRAZOLE 40 MG TABLET PO SCH (08:28)
[2018-06-07] MEDS: CHOLECALCIFEROL 1,000 UNIT TAB PO SCH (08:28)
[2018-06-07] MEDS: B COMPLEX-VIT C-VIT E-ZINC 1 EACH TAB PO SCH (08:28)
[2018-06-07] MEDS: SODIUM BICARBONATE TAB 650 MG TAB PO SCH ×4 (08:28→23:45)
--- NOTE | 2018-06-07 09:47 | P.PN ---
Subjective Principal diagnosis: This is an 88-year-old male seen in consultation because of acute kidney injury from hypotension from GI losses chronic diarrhea( small bowel resection in the past) and , Royal inhibitors, complete heart block and additionally nonsteroidal. He also had severe hyperkalemia as well as non-gap metabolic acidosis. was on IV D5W with bicarb drip as well as dopamine because of the complete heart block. IV bicarbonate drip was discontinued yesterday he was started on oral bicarb. His creatinine continued to improve. He is awake alert oriented. He is feeling better no nausea vomiting. 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 No dizziness no chest pain no abdominal pain no fever chills. Does feel somewhat short of breath but improved significantly. He was able to eat normally yesterday and continues to eat about really more than 50% of his meals. He is on IV normal saline at 75 an hour.. Objective - Vital Signs Vital signs: Vital Signs Temp 98.1 F 06/07/18 08:00 Pulse 45 L 06/07/18 08:00 Resp 17 06/07/18 08:00 BP 150/70 06/07/18 08:00 Pulse Ox 92 L 06/07/18 07:00 Intake & Output 06/06/18 06/07/18 06/07/18 18:59 06:59 18:59 Intake Total 2553.750 825 150 Output Total 1325 245 Balance 2553.750 -500 -95 Weight 68.9 kg Intake: IV 1150 825 150 Dextrose 5% in Water 1, 200 000 ml @ 100 mls/hr IV . [id number] [facility] with Sodium Bicarb (1 Meq/ml) 150 ml Rx#:[id number] Magnesium Sulfate-D5w Pmx 200 1 gm In Dextrose/Water 1 100ml.bag @ 100 mls/hr IVPB Q1H [facility] Rx#: [id number] Sodium Chloride 0.9% 1, 750 825 150 000 ml @ 75 mls/hr IV . [id number] [facility] Rx#:[id number] Intake, IV Titration 393.750 Amount DOPamine DRIP 800 mg In 318.750 Dextrose/Water 1 500ml. bag @ 2.5 MCG/KG/MIN 6.37 mls/hr IV .Q24H [facility] Rx#: [id number] Sodium Chloride 0.9% 1, 75 000 ml @ 75 mls/hr IV . [id number] [facility] Rx#:[id number] Oral 1010 Output: Urine 1325 245 Other: Voiding Method Toilet Toilet Urinal # Voids 1 # Bowel Movements 1 Vital signs are stable. General: The patient appeared well nourished and normally developed. HEENT: Head exam is unremarkable. Neck is without jugular venous distension. LUNGS: Lungs are significant for some minimal wheezing at end of expiration, otherwise clear to auscultation and percussion. HEART: Rate and Rhythm are regular. First and second heart sounds normal. No murmurs, rubs or gallops. ABDOMEN: Abdominal exam reveals normal bowel sounds. Non-tender and non- distended. No evidence of peritonitis. EXTREMITITES: No clubbing, cyanosis, or edema. - Labs CBC & Chem 7: 06/07/18 03:57 06/07/18 03:57 Labs: Abnormal Lab Results - Last 24 Hours (Table) 06/07/18 06/07/18 Range/Units 03:57 03:57 RBC 2.81 L (4.30-5.90) m/uL Hgb 9.0 L (13.0-17.5) gm/dL Hct 27.5 L (39.0-53.0) % Lymphocytes # 0.9 L (1.0-4.8) k/uL Chloride 110 H (98-107) mmol/L Carbon Dioxide 19 L (22-30) mmol/L BUN 54 H (9-20) mg/dL Creatinine 3.70 H (0.66-1.25) mg/dL Glucose 100 H (74-99) mg/dL Calcium 7.3 L (8.4-10.2) mg/dL Assessment and Plan Assessment: Impression 1. Acute kidney injury from volume depletion from chronic diarrhea(small bowel resection in the past) with additional low blood pressure from blood pressure secondary to complete heart block, as well as medications including lisinopril and from use of nonsteroidals. Creatinine is improved urine output is picking up. 2. Hyperkalemia secondary to acute Kidney injury resolved. 3. Non-gap acidosis and a smaller amount of Acidosis from acute kidney injury, bicarb had improved to 18, gap is 15 as of yesterday when his intravenous bicarb drip was discontinued and he was started on oral bicarb, and the bicarb now is 19 and a gap is 12. 4. Hypomagnesemia from GI losses improved with replacement 5. Echocardiogram shows 55-60% ejection fraction with right ventricular enlargement and no evidence of pulmonary hypertension 6. Anemia, secondary to chronic kidney disease with iron saturation is 36% on 06/05/2018. 7. Chronic kidney disease Baseline creatinine is 1.39 as of 03/26/2017 UA shows 1+ proteinuria. Likely nephrosclerosis. 8. Complete heart block, not resolved after mild hyperkalemia has been resolved 3 days ago. Recommendation. 1. Discontinue IV normal saline and keep KVO at 25 mL an hour 2. Check orthostatic changes. 3. Continue Sodium bicarb currently on 650 4 times a day. 4. Maintain strict I's and O's. 5. Maintain daily electrolytes BUN/creatinine checks
--- NOTE | 2018-06-07 10:15 | XR ---
EXAMINATION TYPE: XR chest 1V DATE OF EXAM: 06/07/2018 HISTORY: chf. REFERENCE: Previous study dated 06/06/2018. FINDINGS: The lungs are clear. Pleural spaces are clear. Heart size is upper limits of normal. IMPRESSION: NO ACUTE CARDIOPULMONARY ABNORMALITY.
[2018-06-07] MEDS: SODIUM CHLORIDE 0.9% 1,000 ML IV SCH (11:02)
--- NOTE | 2018-06-07 12:01 | P.PN ---
Subjective Progress Note Date: 06/07/18 Principal diagnosis: Symptomatic bradycardia This is a pleasant 88-year-old gentleman who was admitted to the hospital yesterday with symptomatic bradycardia. He was found to be in high degree AV block. When I reviewed the rhythm strip today it seems that the patient is in complete heart block but he is maintaining a heart rate in the 50s and blood pressure, on dopamine. The patient was not on any AV sabrina guillermo agents before he presented to the hospital. The echocardiogram revealed normal LV function with mild aortic stenosis. Clinically he denies having any chest pain or discomfort, shortness of breath, dizziness or lightheadedness and he never had any syncope. When he presented to the hospital he was in acute on chronic renal failure. Nephrology on the case. The patient continues to be in complete heart block and continues to maintain heart rate in the 40s on dopamine drip. The creatinine has been trending down. He needs to have a permanent pacemaker implantation in the next 24-48 hours. Objective - Vital Signs Vital signs: Vital Signs Temp 98.1 F 06/07/18 08:00 Pulse 49 L 06/07/18 11:00 Resp 14 06/07/18 11:00 BP 144/57 06/07/18 11:00 Pulse Ox 99 06/07/18 11:00 Intake & Output 06/06/18 06/07/18 06/07/18 18:59 06:59 18:59 Intake Total 2553.750 825 320 Output Total 1325 345 Balance 2553.750 -500 -25 Weight 68.9 kg 68.9 kg Intake: IV 1150 825 320 Dextrose 5% in Water 1, 200 000 ml @ 100 mls/hr IV . [id number] [facility] with Sodium Bicarb (1 Meq/ml) 150 ml Rx#:[id number] Magnesium Sulfate-D5w Pmx 200 1 gm In Dextrose/Water 1 100ml.bag @ 100 mls/hr IVPB Q1H [facility] Rx#: [id number] Sodium Chloride 0.9% 1, 20 000 ml @ 20 mls/hr IV . Q24H [facility] Rx#:[id number] Sodium Chloride 0.9% 1, 750 825 300 000 ml @ 75 mls/hr IV . [id number] [facility] Rx#:[id number] Intake, IV Titration 393.750 Amount DOPamine DRIP 800 mg In 318.750 Dextrose/Water 1 500ml. bag @ 2.5 MCG/KG/MIN 6.37 mls/hr IV .Q24H [facility] Rx#: [id number] Sodium Chloride 0.9% 1, 75 000 ml @ 75 mls/hr IV . [id number] [facility] Rx#:[id number] Oral 1010 Output: Urine 1325 345 Other: Voiding Method Toilet Toilet Bedside Commode Urinal Urinal # Voids 1 # Bowel Movements 1 - Constitutional General appearance: Present: no acute distress - Respiratory Respiratory: bilateral: CTA - Cardiovascular Rhythm: regular Heart sounds: normal: S1, S2 - Labs CBC & Chem 7: 06/07/18 03:57 06/07/18 03:57 Labs: Abnormal Lab Results - Last 24 Hours (Table) 06/07/18 06/07/18 Range/Units 03:57 03:57 RBC 2.81 L (4.30-5.90) m/uL Hgb 9.0 L (13.0-17.5) gm/dL Hct 27.5 L (39.0-53.0) % Lymphocytes # 0.9 L (1.0-4.8) k/uL Chloride 110 H (98-107) mmol/L Carbon Dioxide 19 L (22-30) mmol/L BUN 54 H (9-20) mg/dL Creatinine 3.70 H (0.66-1.25) mg/dL Glucose 100 H (74-99) mg/dL Calcium 7.3 L (8.4-10.2) mg/dL Assessment and Plan Assessment: Assessment #1 advanced AV block. Third degree AV block #2 symptomatic bradycardia secondary to the above #3 acute on chronic renal failure #4 mild aortic stenosis Plan #1 continue the dopamine drip over the weekend #2 continue monitor the heart rhythm and the heart rate as well #3 permanent pacemaker on Friday if the patient did not get out of the complete heart block. Thank you for allowing us participate in his care and we'll continue following up with him
--- NOTE | 2018-06-07 15:51 | P.PN ---
Subjective Progress Note Date: 06/06/18 Principal diagnosis: Acute kidney injury Mr. Lezama is an 88-year-old male with a past medical history of hypertension, hyperlipidemia, prostate disorder coming in the hospital with a chief complaint of not feeling well and being tired for about 1 week. At the time of admission patient was found to have elevated BUN and creatinine and creatinine was 5.5 ( baseline 1-1.5). He was started on IV fluids and a bicarb drip. He was also found to have third-degree AV block and has been started on dopamine drip. Today patient is in the ICU lying comfortably in the bed appears to be no acute distress. Patient is still on 5 mics of dopamine drip and his heart rate is being maintained around 50s to 60s. Patient's creatinine has been slowly trending down. He still continues to feel weak and tired and also dizzy at times. Review of systems Constitutional; fatigue and weakness generalized Cardiovascular- no chest pain or palpitations but complains of dizziness at times Respiratory-No complaints of cough or difficulty in breathing GI_no abdominal pain nausea vomiting or diarrhea Objective - Vital Signs Vital signs: Vital Signs Temp 98.1 F 06/06/18 04:00 Pulse 49 L 06/06/18 11:00 Resp 16 06/06/18 11:00 BP 103/79 06/06/18 10:00 Pulse Ox 96 06/06/18 11:00 Intake & Output 06/05/18 06/06/18 06/06/18 18:59 06:59 18:59 Intake Total 2890.151 7158 714.500 Output Total 875 850 Balance 667.163 350 714.500 Weight 71.2 kg Intake: IV 1400 1200 200 Dextrose 5% in Water 1, 1200 1200 200 000 ml @ 100 mls/hr IV . [id number] [facility] with Sodium Bicarb (1 Meq/ml) 150 ml Rx#:[id number] Magnesium Sulfate-D5w Pmx 200 1 gm In Dextrose/Water 1 100ml.bag @ 100 mls/hr IVPB Q1H [facility] Rx#: [id number] Intake, IV Titration 142.163 304.500 Amount DOPamine DRIP 800 mg In 142.163 229.500 Dextrose/Water 1 500ml. bag @ 2.5 MCG/KG/MIN 6.37 mls/hr IV .Q24H [facility] Rx#: [id number] Sodium Chloride 0.9% 1, 75 000 ml @ 75 mls/hr IV . [id number] [facility] Rx#:[id number] Oral 210 Output: Urine 875 850 Other: Voiding Method Urinal Toilet Toilet Urinal # Voids 1 2 1 # Bowel Movements 0 1 - Exam GENERAL: The patient is alert and oriented x3, not in any acute distress. Well developed, well nourished. HEENT: Pupils are round and equally reacting to light. EOMI. No scleral icterus. No conjunctival pallor. Normocephalic, atraumatic. No pharyngeal erythema. No thyromegaly. CARDIOVASCULAR: S1 and S2 present. Bradycardia PULMONARY: Chest is clear to auscultation, no wheezing or crackles. ABDOMEN: Soft, nontender, nondistended, normoactive bowel sounds. No palpable organomegaly. MUSCULOSKELETAL: No joint swelling or deformity. EXTREMITIES: No cyanosis, clubbing, or pedal edema. NEUROLOGICAL: Gross neurological examination did not reveal any focal deficits. SKIN: No rashes. - Labs CBC & Chem 7: 06/06/18 04:11 06/06/18 12:43 Labs: Abnormal Lab Results - Last 24 Hours (Table) 06/06/18 06/06/18 Range/Units 04:11 04:11 RBC 2.72 L (4.30-5.90) m/uL Hgb 8.7 L (13.0-17.5) gm/dL Hct 26.4 L (39.0-53.0) % Lymphocytes # 0.9 L (1.0-4.8) k/uL Chloride 110 H (98-107) mmol/L Carbon Dioxide 18 L (22-30) mmol/L BUN 66 H (9-20) mg/dL Creatinine 4.04 H (0.66-1.25) mg/dL Glucose 104 H (74-99) mg/dL Calcium 7.4 L (8.4-10.2) mg/dL Assessment and Plan Assessment: ASSESSMENT Acute kidney injury - prerenal- history of chronic diarrhea Severe metabolic acidosis secondary to #1 Third-degree AV block Anemia of chronic kidney disease Hypertension Hyperkalemia Hyperphosphatemia Hypomagnesemia Mild protein calorie malnutrition Osteoarthritis multiple joints Prostrated disorder History of bowel obstructions status post bowel resection Plan: Patient to be continued on bicarbonate drip. He is on 5 mics of dopamine drip for third-degree heart block, his heart rate has been between 50s to 60s. All blood pressure medications and nephrotoxic agents have been on hold. We'll continue with the current medication regimen. Further recommendations to follow depending on the progress of the patient.
--- NOTE | 2018-06-07 15:51 | P.PN ---
Subjective Progress Note Date: 06/07/18 Principal diagnosis: Acute kidney injury Mr. Lezama is an 88-year-old male with a past medical history of hypertension, hyperlipidemia, prostate disorder coming in the hospital with a chief complaint of not feeling well and being tired for about 1 week. At the time of admission patient was found to have elevated BUN and creatinine and creatinine was 5.5 ( baseline 1-1.5). He was started on IV fluids and a bicarb drip. He was also found to have third-degree AV block and has been started on dopamine drip. Today patient is in the ICU lying comfortably in the bed appears to be no acute distress. Patient is still on 5 mics of dopamine drip and his heart rate is being maintained around 50s to 60s. Patient's creatinine has been slowly trending down. He still continues to feel weak and tired and also dizzy at times. Review of systems Constitutional; fatigue and weakness generalized Cardiovascular- no chest pain or palpitations but complains of dizziness at times Respiratory-No complaints of cough or difficulty in breathing GI-no abdominal pain nausea vomiting or diarrhea Objective - Vital Signs Vital signs: Vital Signs Temp 98.1 F 06/07/18 12:00 Pulse 64 06/07/18 15:00 Resp 21 06/07/18 15:00 BP 150/72 06/07/18 15:00 Pulse Ox 95 06/07/18 15:00 Intake & Output 06/06/18 06/07/18 06/07/18 18:59 06:59 18:59 Intake Total 2553.750 825 400 Output Total 1325 645 Balance 2553.750 -500 -245 Weight 68.9 kg 68.9 kg Intake: IV 1150 825 400 Dextrose 5% in Water 1, 200 000 ml @ 100 mls/hr IV . [id number] [facility] with Sodium Bicarb (1 Meq/ml) 150 ml Rx#:[id number] Magnesium Sulfate-D5w Pmx 200 1 gm In Dextrose/Water 1 100ml.bag @ 100 mls/hr IVPB Q1H [facility] Rx#: [id number] Sodium Chloride 0.9% 1, 100 000 ml @ 20 mls/hr IV . Q24H [facility] Rx#:[id number] Sodium Chloride 0.9% 1, 750 825 300 000 ml @ 75 mls/hr IV . [id number] [facility] Rx#:[id number] Intake, IV Titration 393.750 Amount DOPamine DRIP 800 mg In 318.750 Dextrose/Water 1 500ml. bag @ 2.5 MCG/KG/MIN 6.37 mls/hr IV .Q24H [facility] Rx#: [id number] Sodium Chloride 0.9% 1, 75 000 ml @ 75 mls/hr IV . [id number] [facility] Rx#:[id number] Oral 1010 Output: Urine 1325 645 Other: Voiding Method Toilet Toilet Bedside Commode Urinal Urinal # Voids 1 # Bowel Movements 1 - Exam GENERAL: The patient is alert and oriented x3, not in any acute distress. Well developed, well nourished. HEENT: Pupils are round and equally reacting to light. EOMI. No scleral icterus. No conjunctival pallor. Normocephalic, atraumatic. No pharyngeal erythema. No thyromegaly. CARDIOVASCULAR: S1 and S2 present. Bradycardia PULMONARY: Chest is clear to auscultation, no wheezing or crackles. ABDOMEN: Soft, nontender, nondistended, normoactive bowel sounds. No palpable organomegaly. MUSCULOSKELETAL: No joint swelling or deformity. EXTREMITIES: No cyanosis, clubbing, or pedal edema. NEUROLOGICAL: Gross neurological examination did not reveal any focal deficits. SKIN: No rashes. - Labs CBC & Chem 7: 06/07/18 03:57 06/07/18 03:57 Labs: Abnormal Lab Results - Last 24 Hours (Table) 06/07/18 06/07/18 Range/Units 03:57 03:57 RBC 2.81 L (4.30-5.90) m/uL Hgb 9.0 L (13.0-17.5) gm/dL Hct 27.5 L (39.0-53.0) % Lymphocytes # 0.9 L (1.0-4.8) k/uL Chloride 110 H (98-107) mmol/L Carbon Dioxide 19 L (22-30) mmol/L BUN 54 H (9-20) mg/dL Creatinine 3.70 H (0.66-1.25) mg/dL Glucose 100 H (74-99) mg/dL Calcium 7.3 L (8.4-10.2) mg/dL Assessment and Plan Assessment: ASSESSMENT Acute kidney injury - prerenal- history of chronic diarrhea Severe metabolic acidosis secondary to #1 Third-degree AV block Anemia of chronic kidney disease Hypertension Hyperkalemia Hyperphosphatemia Hypomagnesemia Mild protein calorie malnutrition Osteoarthritis multiple joints Prostrate disorder History of bowel obstructions status post bowel resection Plan:Bicarbonate drip has been discontinued. He is on 5 mics of dopamine drip for third-degree heart block, his heart rate has been between 50s to 60s. All blood pressure medications and nephrotoxic agents have been on hold. We'll continue with the current medication regimen. Further recommendations to follow depending on the progress of the patient. Treatment plan was discussed with the patient and her daughter at the bedside in detail today.
[2018-06-07] MEDS: ATORVASTATIN 10 MG TAB PO SCH (20:40)
[2018-06-08] MEDS: DOPamine DRIP 800 MG in DEXTROSE/WATER 1 500ML.BAG IV SCH (00:46)
[2018-06-08 04:18] LABS: Basophils % (A) 0 %; Eosinophils # (A) 0.6 k/uL (0-0.7); Eosinophils % (A) 6 %; HCT 28.3 % (39.0-53.0); HGB 9.1 gm/dL (13.0-17.5); Lymphocytes # (A) 0.8 k/uL (1.0-4.8); Lymphocytes % (A) 8 %; MCH 31.2 pg (25.0-35.0); MCHC 32.2 g/dL (31.0-37.0); MCV 97.1 fL (80.0-100.0); Mean Platelet Volume 6.8; Monocytes # (A) 0.9 k/uL (0-1.0); Monocytes % (A) 9 %; Neutrophils # (A) 7.3 k/uL (1.3-7.7); Neutrophils % (A) 75 %; Platelet Count 217 k/uL (150-450); RBC 2.92 m/uL (4.30-5.90); RDW 14.2 % (11.5-15.5); WBC 9.7 k/uL (3.8-10.6)
[2018-06-08 04:32] LABS: Calcium 7.5 mg/dL (8.4-10.2); Magnesium 1.7 mg/dL (1.6-2.3); Potassium 4.6 mmol/L (3.5-5.1)
[2018-06-08] MEDS: ACETAMINOPHEN TAB 325 MG TAB PO PRN (07:57)
--- NOTE | 2018-06-08 08:56 | P.PN ---
Subjective Progress Note Date: 06/08/18 Principal diagnosis: Symptomatic bradycardia This is a pleasant 88-year-old gentleman who was admitted to the hospital yesterday with symptomatic bradycardia. He was found to be in high degree AV block. When I reviewed the rhythm strip today it seems that the patient is in complete heart block but he is maintaining a heart rate in the 50s and blood pressure, on dopamine. The patient was not on any AV sabrina guillermo agents before he presented to the hospital. The echocardiogram revealed normal LV function with mild aortic stenosis. When he presented to the hospital he was in acute on chronic renal failure. Nephrology on the case. Clinically he denies having any chest pain or discomfort, shortness of breath, dizziness or lightheadedness and he never had any syncope. For the last 12 hours, he has been maintaining normal sinus rhythm and heart rate in the 80s. But he is on dopamine. I am going to DC the dopamine and monitor the heart rate for the next 12-24 hours and assess the need for pacemaker. Objective - Vital Signs Vital signs: Vital Signs Temp 97.9 F 06/08/18 04:00 Pulse 82 06/08/18 08:00 Resp 25 H 06/08/18 08:00 BP 154/84 06/08/18 08:00 Pulse Ox 97 06/08/18 08:00 Intake & Output 06/07/18 06/08/18 06/08/18 18:59 06:59 18:59 Intake Total 460 606.975 Output Total 645 1000 Balance -185 -393.025 Weight 68.9 kg Intake: IV 460 240 Sodium Chloride 0.9% 1, 160 240 000 ml @ 20 mls/hr IV . Q24H [facility] Rx#:[id number] Sodium Chloride 0.9% 1, 300 000 ml @ 75 mls/hr IV . [id number] [facility] Rx#:[id number] Intake, IV Titration 366.975 Amount DOPamine DRIP 800 mg In 366.975 Dextrose/Water 1 500ml. bag @ 2.5 MCG/KG/MIN 6.37 mls/hr IV .Q24H [facility] Rx#: [id number] Output: Urine 645 1000 Other: Voiding Method Bedside Commode Bedside Commode Urinal Urinal # Bowel Movements 1 1 - Constitutional General appearance: Present: no acute distress - Respiratory Respiratory: bilateral: CTA - Cardiovascular Rhythm: regular Heart sounds: normal: S1, S2 - Labs CBC & Chem 7: 06/08/18 03:44 06/08/18 03:44 Labs: Abnormal Lab Results - Last 24 Hours (Table) 06/05/18 06/08/18 06/08/18 Range/Units 04:42 03:44 03:44 RBC 2.92 L (4.30-5.90) m/uL Hgb 9.1 L (13.0-17.5) gm/dL Hct 28.3 L (39.0-53.0) % Lymphocytes # 0.8 L (1.0-4.8) k/uL BUN 53 H (9-20) mg/dL Creatinine 3.40 H (0.66-1.25) mg/dL Calcium 7.5 L (8.4-10.2) mg/dL Ferritin 421.3 H (22.0-322.0) ng/mL Assessment and Plan Assessment: Assessment #1 advanced AV block. Third degree AV block #2 symptomatic bradycardia secondary to the above #3 acute on chronic renal failure #4 mild aortic stenosis Plan #1 we'll DC the dopamine and continue monitor the heart rate and heart rhythm #2 we'll assess the need for pacemaker in the next 12-24 hours. Thank you for allowing us participate in his care and we'll continue following up with him
--- NOTE | 2018-06-08 11:56 | P.PN ---
Subjective Progress Note Date: 06/08/18 Mr. Lezama is an 88-year-old male with a past medical history of hypertension, hyperlipidemia, prostate disorder coming in the hospital with a chief complaint of not feeling well and being tired for about 1 week. At the time of admission patient was found to have elevated BUN and creatinine and creatinine was 5.5 ( baseline 1-1.5). He was started on IV fluids and a bicarb drip. He was also found to have third-degree AV block and has been started on dopamine drip. The patient was seen and examined at the bedside on rounds with Dr. Hanna. Patient states he is feeling better. He denies chest pain or pressure. Denies shortness of breath. He remains on a dopamine drip at 5mcg. Case discussed with Dr. Bernard who states patient may require PPM insertion tomorrow. Creatinine has improved to 3.40 from 3.70 yesterday. BUN is 53. Hemoglobin is 9.1. Objective - Vital Signs Vital signs: Vital Signs Temp 97.9 F 06/08/18 04:00 Pulse 82 06/08/18 08:00 Resp 25 H 06/08/18 08:00 BP 154/84 06/08/18 08:00 Pulse Ox 97 06/08/18 08:00 Intake & Output 06/07/18 06/08/18 06/08/18 18:59 06:59 18:59 Intake Total 460 606.975 Output Total 645 1000 Balance -185 -393.025 Weight 68.9 kg Intake: IV 460 240 Sodium Chloride 0.9% 1, 160 240 000 ml @ 20 mls/hr IV . Q24H [facility] Rx#:[id number] Sodium Chloride 0.9% 1, 300 000 ml @ 75 mls/hr IV . [id number] [facility] Rx#:[id number] Intake, IV Titration 366.975 Amount DOPamine DRIP 800 mg In 366.975 Dextrose/Water 1 500ml. bag @ 2.5 MCG/KG/MIN 6.37 mls/hr IV .Q24H [facility] Rx#: [id number] Output: Urine 645 1000 Other: Voiding Method Bedside Commode Bedside Commode Urinal Urinal # Bowel Movements 1 1 - Exam GENERAL: This is a 88-year-old male in no apparent distress at the time of examination. Pleasant and cooperative. HEENT: Head is atraumatic, normocephalic. Pupils are equal, round, and reactive to light. Sclerae anicteric. Conjunctivae are clear. Mucus membranes of the mouth are moist. Neck is supple. RESPIRATORY: Clear to ausculation. No wheezes, rales, or rhonchi. No use of accessory muscles. Patient maintaining oxygen saturation greater than 92%. No chest wall tenderness is noted on palpation or with deep breathing. CARDIOVASCULAR: Regular rate and rhythm. S1 and S2 noted. No JVD noted. No S3 or S4 noted. GASTROINTESTINAL: No distention noted. Abdomen soft and round. Normal active bowel sounds auscultated x 4 quadrants. No pain or tenderness noted upon palpation. INTEGUMENTARY: No cyanosis. No jaundice. No rashes noted. No cellulitis noted. EXTREMITIES: 2+ peripheral pulses. No evidence of peripheral edema. No calf tenderness noted. NEUROLOGIC: Cranial nerves II-XII intact. PSYCHIATRIC: Awake, alert, and oriented X 3. Appropriate affect. Intact judgement and insight. - Labs CBC & Chem 7: 06/08/18 03:44 06/08/18 03:44 Labs: Abnormal Lab Results - Last 24 Hours (Table) 06/05/18 06/08/18 06/08/18 Range/Units 04:42 03:44 03:44 RBC 2.92 L (4.30-5.90) m/uL Hgb 9.1 L (13.0-17.5) gm/dL Hct 28.3 L (39.0-53.0) % Lymphocytes # 0.8 L (1.0-4.8) k/uL BUN 53 H (9-20) mg/dL Creatinine 3.40 H (0.66-1.25) mg/dL Calcium 7.5 L (8.4-10.2) mg/dL Ferritin 421.3 H (22.0-322.0) ng/mL Assessment and Plan Plan: ASSESSMENT: Complete heart block, currently on dopamine drip, may require PPM Acute kidney injury, creatinine 5.5 on admission from volume depletion secondary to chronic diarrhea along with hypotension, lisinopril, and NSAIDs, improving Hyperkalemia, potassium 5.8 on admission, secondary to above, resolved Chronic kidney disease, baseline creatinine 1.39, nephro following History of bowel obstructions s/p small bowel resections with subsequent chronic diarrhea Anemia, secondary to chronic kidney disease, stable Hypomagnesemia, improved PLAN: Cardiology on consult. Appreciate recommendations and input Possible PPM within the next 24 hours Nephrology on consult. Appreciate recommendations and input Home meds as appropriate Monitor labs GI prophylaxis: Protonix 40 mg PO Daily DVT prophylaxis: SCDs to bilateral lower extremities Monitor vital signs and address as appropriate Further recommendations pending patient's course Nurse practitioner note has been reviewed by physician. Signing provider agrees with the documented findings, assessment, and plan of care.
[2018-06-08] MEDS: SODIUM BICARBONATE TAB 650 MG TAB PO SCH ×3 (14:42→21:04)
[2018-06-08] MEDS: CHOLECALCIFEROL 1,000 UNIT TAB PO SCH (14:45)
[2018-06-08] MEDS: FERROUS SULFATE 325 MG TAB PO SCH (14:46)
[2018-06-08] MEDS: B COMPLEX-VIT C-VIT E-ZINC 1 EACH TAB PO SCH (14:46)
[2018-06-08] MEDS: PANTOPRAZOLE 40 MG TABLET PO SCH (14:46)
[2018-06-08] MEDS ORDERED: MAGNESIUM SULFATE-D5W PMX 1 GM in DEXTROSE/WATER 1 100ML.BAG IVPB ONE (15:54)
--- NOTE | 2018-06-08 20:06 | PN ---
PROGRESS NOTE Patient is seen for followup for acute kidney injury. Renal function has improved with creatinine going down from about 5.51 on initial admission to 3.4 now. The patient had been on dopamine, which is now discontinued. His heart rate has been at about 70s and 60s now. The blood pressure, however, remains on the lower side. The patient has had good urine output. EXAMINATION: On examination this morning blood pressure was 121/77, heart rate about 65 per minute. Patient is afebrile. Examination of the heart: S1, S2. Examination lungs: Bilateral breath sounds are heard. Abdomen is soft, nontender. Examination lower extremities shows no significant edema. BRICK MOLDER HAND exam is grossly intact. LABS: Sodium 141, potassium 4.6, chloride 107, BUN 53, serum creatinine 3.4, hemoglobin 9.1 g/dL. ASSESSMENT: 1. Acute kidney injury secondary to hypotension hypoperfusion and some degree of hypovolemia, currently improved. IV fluids are now discontinued. The patient has had fair oral intake. 2. Hypokalemia associated acute kidney injury, now resolved. 3. Non anion gap metabolic acidosis from renal failure, now improved. 4. 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 5. Heart block not resolved after hyperkalemia was corrected. The patient is being followed by Cardiology. PLAN: Continue to avoid nephrotoxic agents. Consider pacemaker if patient remains bradycardic. I will continue with the sodium bicarb for now and repeat labs in a.m. MMODL / IJN: [id number] /
[2018-06-08] MEDS: ATORVASTATIN 10 MG TAB PO SCH (20:17)
[2018-06-09 04:06] LABS: Basophils # (A) 0.1 k/uL (0-0.2); Basophils % (A) 1 %; Eosinophils # (A) 0.5 k/uL (0-0.7); Eosinophils % (A) 6 %; HCT 24.2 % (39.0-53.0); Lymphocytes # (A) 1.1 k/uL (1.0-4.8); Lymphocytes % (A) 13 %; MCH 31.7 pg (25.0-35.0); MCHC 31.6 g/dL (31.0-37.0); MCV 100.4 fL (80.0-100.0); Macrocytosis Slight; Monocytes # (A) 0.8 k/uL (0-1.0); Monocytes % (A) 9 %; Neutrophils # (A) 6.3 k/uL (1.3-7.7); Neutrophils % (A) 70 %; Platelet Count 214 k/uL (150-450); RBC 2.41 m/uL (4.30-5.90); RDW 14.1 % (11.5-15.5)
[2018-06-09 04:07] LABS: HGB 7.6 gm/dL (13.0-17.5)
[2018-06-09] MEDS: ACETAMINOPHEN TAB 325 MG TAB PO PRN ×3 (04:24→20:37)
[2018-06-09 04:25] LABS: Calcium 7.5 mg/dL (8.4-10.2); Magnesium 1.8 mg/dL (1.6-2.3); Potassium 4.6 mmol/L (3.5-5.1)
[2018-06-09] MEDS: DOPamine DRIP 800 MG in DEXTROSE/WATER 1 500ML.BAG IV SCH ×2 (04:25→11:00)
[2018-06-09] MEDS: MAGNESIUM SULFATE-D5W PMX 1 GM in DEXTROSE/WATER 1 100ML.BAG IVPB SCH ×2 (06:32→07:55)
[2018-06-09] MEDS: SODIUM CHLORIDE 0.9% 1,000 ML IV SCH ×2 (07:11→13:53)
[2018-06-09] MEDS: CHOLECALCIFEROL 1,000 UNIT TAB PO SCH (07:55)
[2018-06-09] MEDS: FERROUS SULFATE 325 MG TAB PO SCH (07:56)
[2018-06-09] MEDS: PANTOPRAZOLE 40 MG TABLET PO SCH (07:56)
[2018-06-09] MEDS: B COMPLEX-VIT C-VIT E-ZINC 1 EACH TAB PO SCH (07:56)
[2018-06-09] MEDS: SODIUM BICARBONATE TAB 650 MG TAB PO SCH ×4 (07:56→22:55)
--- NOTE | 2018-06-09 08:08 | P.PN ---
Subjective Progress Note Date: 06/09/18 Principal diagnosis: Symptomatic bradycardia This is a pleasant 88-year-old gentleman who was admitted to the hospital yesterday with symptomatic bradycardia. He was found to be in high degree AV block. When I reviewed the rhythm strip today it seems that the patient is in complete heart block but he is maintaining a heart rate in the 50s and blood pressure, on dopamine. The patient was not on any AV sabrina guillermo agents before he presented to the hospital. The echocardiogram revealed normal LV function with mild aortic stenosis. When he presented to the hospital he was in acute on chronic renal failure. Nephrology on the case. Clinically he denies having any chest pain or discomfort, shortness of breath, dizziness or lightheadedness and he never had any syncope. For the last 24 hours, he has been maintaining normal sinus rhythm and heart rate in the 80s. He is off dopamine. The dopamine was stopped yesterday morning. I do feel that the patient probably does not need a permanent pacemaker at this point. He has been maintaining normal sinus rhythm with first -degree AV block. The creatinine continues to be around 3.5. The patient can be transferred out of the unit. Objective - Vital Signs Vital signs: Vital Signs Temp 98.2 F 06/09/18 04:00 Pulse 56 L 06/09/18 07:00 Resp 14 06/09/18 07:00 BP 117/63 06/09/18 07:00 Pulse Ox 97 06/09/18 07:00 Intake & Output 06/08/18 06/09/18 06/09/18 18:59 06:59 18:59 Intake Total 827.725 340 100 Output Total 425 225 Balance 827.725 -85 -125 Weight 69.7 kg Intake: IV 210 100 Sodium Chloride 0.9% 1, 210 100 000 ml @ 20 mls/hr IV . Q24H [facility] Rx#:[id number] Intake, IV Titration 117.725 100 Amount DOPamine DRIP 800 mg In 117.725 Dextrose/Water 1 500ml. bag @ 2.5 MCG/KG/MIN 6.37 mls/hr IV .Q24H [facility] Rx#: [id number] Magnesium Sulfate-D5w Pmx 100 1 gm In Dextrose/Water 1 100ml.bag @ 100 mls/hr IVPB Q1H [facility] Rx#: [id number] Oral 500 240 Output: Urine 425 225 Other: Voiding Method Bedside Commode Urinal # Voids 1 # Bowel Movements 1 - Constitutional General appearance: Present: no acute distress - Respiratory Respiratory: bilateral: CTA - Cardiovascular Rhythm: regular Heart sounds: normal: S1, S2 - Labs CBC & Chem 7: 06/09/18 03:40 06/09/18 03:40 Labs: Abnormal Lab Results - Last 24 Hours (Table) 06/09/18 06/09/18 Range/Units 03:40 03:40 RBC 2.41 L (4.30-5.90) m/uL Hgb 7.6 L D (13.0-17.5) gm/dL Hct 24.2 L (39.0-53.0) % MCV 100.4 H (80.0-100.0) fL Chloride 108 H (98-107) mmol/L Carbon Dioxide 20 L (22-30) mmol/L BUN 56 H (9-20) mg/dL Creatinine 3.50 H (0.66-1.25) mg/dL Calcium 7.5 L (8.4-10.2) mg/dL Assessment and Plan Assessment: Assessment #1 advanced AV block. Third degree AV block #2 symptomatic bradycardia secondary to the above #3 acute on chronic renal failure #4 mild aortic stenosis Plan # Continue holding any AV sabrina guillermo agents #2 the patient has been off dopamine for the last 24 hours and he has been maintaining normal sinus mechanism with first-degree AV block #3 probably there is no need for permanent pacemaker. The patient can be transferred out of the unit. We'll continue monitor the heart rhythm for additional 24 hours. Thank you for allowing us participate in his care and we'll continue following up with him
--- NOTE | 2018-06-09 12:30 | P.PN ---
Subjective Progress Note Date: 06/09/18 Mr. Lezama is an 88-year-old male with a past medical history of hypertension, hyperlipidemia, prostate disorder coming in the hospital with a chief complaint of not feeling well and being tired for about 1 week. At the time of admission patient was found to have elevated BUN and creatinine and creatinine was 5.5 ( baseline 1-1.5). He was started on IV fluids and a bicarb drip. He was also found to have third-degree AV block and has been started on dopamine drip. 06/08/2018 The patient was seen and examined at the bedside on rounds with Dr. Hanna. Patient states he is feeling better. He denies chest pain or pressure. Denies shortness of breath. He remains on a dopamine drip at 5mcg. Case discussed with Dr. Bernard who states patient may require PPM insertion tomorrow. Creatinine has improved to 3.40 from 3.70 yesterday. BUN is 53. Hemoglobin is 9.1. 06/09/2018 Patient examined this morning by Dr. Hanna at the bedside in the ICU. Patient has been off dopamine since yesterday. Has been maintaining SR overnight. Dr. Hanna spoke with Dr. Bernard who stated patient may not require pacemaker. However , patient recently was found to be in 2nd/3rd degree heart block with a heart rate in the 30s when sleeping. Dopamine was restarted. Patient to undergo PPM insertion tomorrow. Hemoglobin is 7.6 today, down from 7.1. No obvious signs of bleeding noted. Creatinine is 3.50 today. BUN 56. Nephro is following. Objective - Vital Signs Vital signs: Vital Signs Temp 98.2 F 06/09/18 08:00 Pulse 43 L 06/09/18 10:00 Resp 14 06/09/18 10:00 BP 105/43 06/09/18 10:00 Pulse Ox 95 06/09/18 10:00 Intake & Output 06/08/18 06/09/18 06/09/18 18:59 06:59 18:59 Intake Total 827.725 340 160 Output Total 425 225 Balance 827.725 -85 -65 Weight 69.7 kg Intake: IV 210 100 60 Sodium Chloride 0.9% 1, 210 100 60 000 ml @ 20 mls/hr IV . Q24H [facility] Rx#:[id number] Intake, IV Titration 117.725 100 Amount DOPamine DRIP 800 mg In 117.725 Dextrose/Water 1 500ml. bag @ 2.5 MCG/KG/MIN 6.37 mls/hr IV .Q24H [facility] Rx#: [id number] Magnesium Sulfate-D5w Pmx 100 1 gm In Dextrose/Water 1 100ml.bag @ 100 mls/hr IVPB Q1H [facility] Rx#: [id number] Oral 500 240 Output: Urine 425 225 Other: Voiding Method Bedside Commode Bedside Commode Urinal Urinal # Voids 1 1 # Bowel Movements 1 1 - Exam GENERAL: This is a 88-year-old male in no apparent distress at the time of examination. Pleasant and cooperative. HEENT: Head is atraumatic, normocephalic. Pupils are equal, round, and reactive to light. Sclerae anicteric. Conjunctivae are clear. Mucus membranes of the mouth are moist. Neck is supple. RESPIRATORY: Clear to ausculation. No wheezes, rales, or rhonchi. No use of accessory muscles. Patient maintaining oxygen saturation greater than 92%. No chest wall tenderness is noted on palpation or with deep breathing. CARDIOVASCULAR: Regular rate and rhythm at time of exam, however now in 2nd/3rd degree heart block. S1 and S2 noted. No JVD noted. No S3 or S4 noted. GASTROINTESTINAL: No distention noted. Abdomen soft and round. Normal active bowel sounds auscultated x 4 quadrants. No pain or tenderness noted upon palpation. INTEGUMENTARY: No cyanosis. No jaundice. No rashes noted. No cellulitis noted. EXTREMITIES: 2+ peripheral pulses. No evidence of peripheral edema. No calf tenderness noted. NEUROLOGIC: Cranial nerves II-XII intact. PSYCHIATRIC: Awake, alert, and oriented X 3. Appropriate affect. Intact judgement and insight. - Labs CBC & Chem 7: 06/09/18 03:40 06/09/18 03:40 Labs: Abnormal Lab Results - Last 24 Hours (Table) 06/09/18 06/09/18 Range/Units 03:40 03:40 RBC 2.41 L (4.30-5.90) m/uL Hgb 7.6 L D (13.0-17.5) gm/dL Hct 24.2 L (39.0-53.0) % MCV 100.4 H (80.0-100.0) fL Chloride 108 H (98-107) mmol/L Carbon Dioxide 20 L (22-30) mmol/L BUN 56 H (9-20) mg/dL Creatinine 3.50 H (0.66-1.25) mg/dL Calcium 7.5 L (8.4-10.2) mg/dL Assessment and Plan Plan: ASSESSMENT: Complete heart block, currently on dopamine drip, PPM insertion in near future Acute kidney injury, creatinine 5.5 on admission from volume depletion secondary to chronic diarrhea along with hypotension, lisinopril, and NSAIDs, improving Hyperkalemia, potassium 5.8 on admission, secondary to above, resolved Chronic kidney disease, baseline creatinine 1.39, nephro following History of bowel obstructions s/p small bowel resections with subsequent chronic diarrhea Anemia, secondary to chronic kidney disease, stable Hypomagnesemia, improved PLAN: Cardiology on consult. Appreciate recommendations and input PPM insertion tomorrow. NPO after midnight Nephrology on consult. Appreciate recommendations and input Home meds as appropriate Monitor labs GI prophylaxis: Protonix 40 mg PO Daily DVT prophylaxis: SCDs to bilateral lower extremities Monitor vital signs and address as appropriate Further recommendations pending patient's course Nurse practitioner note has been reviewed by physician. Signing provider agrees with the documented findings, assessment, and plan of care.
--- NOTE | 2018-06-09 12:31 | PN ---
PROGRESS NOTE Patient is seen for followup for acute kidney injury secondary to hypotension and hypoperfusion. Renal function improved slightly from admission with creatinine going down from 5.5 on admission to 3.5 now. Serum creatinine was 3.4 yesterday. Dopamine was turned off; however, heart rate went down into the 30s and patient is scheduled for pacemaker placement tomorrow. Hemoglobin was lower at 7.6 today. No evidence of active bleeding noted. Overall, patient feels fairly well. He has been eating. PHYSICAL EXAMINATION: Blood pressure is 105/43, heart rate 43-62 per minute. He is afebrile. Examination of the heart, S1, S2. Examination of the lungs, bilateral breath sounds are heard. Abdomen is soft, nontender. Examination of the lower extremities shows no evidence of edema. BILLBOARD ERECTOR exam is grossly intact. LABS: Shows sodium 139, potassium 4.6, chloride 108, BUN of 56, serum creatinine 3.5, hemoglobin 7.6 g/dL. ASSESSMENT: 1. Acute kidney injury secondary to hypotension and hypoperfusion, currently nonoliguric and improving. However, creatinine is about the same as yesterday. This may be secondary to repeat episode of bradycardia as well as a significant anemia with hemoglobin at 7.6. There are no nephrotoxic agents on board. Will continue with the dopamine and try to maintain adequate heart rate and blood pressure. Continue off of IV fluids. 2. Bradycardia. Schedule for pacemaker placement either today or tomorrow. 3. Non anion gap metabolic acidosis from renal failure, currently improved. 4. Hyperkalemia associated with acute kidney injury, currently resolved. 5. Anemia with no active bleeding noted. Rule out iron deficiency. PLAN: 1. Check iron studies for workup for anemia. MMODL / IJN: [id number] /
[2018-06-09] MEDS ORDERED: DARBEPOETIN ALFA 40 MCG/0.4 ML SYRINGE SQ SCH (13:00)
--- NOTE | 2018-06-09 14:30 | US ---
EXAMINATION TYPE: US kidneys/renal and bladder DATE OF EXAM: 06/09/2018 COMPARISON: CT 2016 CLINICAL HISTORY: RF. Renal failure, exam done portable. EXAM MEASUREMENTS: Right Kidney: 9.6 x 5.5 x 4.8 cm Left Kidney: 9.9 x 5.2 x 5.2 cm Right Kidney: multiple small cortical cysts with largest measuring 1.3cm Left Kidney: multiple small cortical cysts with largest measuring 1.1cm, 2.1 x 3.0 x 2.2cm cystic are a inferior pole Bladder: wnl Bilateral Jets seen: yes There is no evidence for hydronephrosis at this point in time. No nephrolithiasis is seen. Cortical medullary differentiation is maintained. Cystic focus in the medullary portion of the lower pole left kidney may represent a parapelvic cyst. Additional cortical cysts are suspected but are not clearly simple cystic due to technique. The urinary bladder is anechoic. Bilateral ureteral jets are seen. IMPRESSION: Exam is somewhat limited technically. Probable cortical cysts, parapelvic cyst as described. No defin ite hydronephrosis.
[2018-06-09] MEDS: ATORVASTATIN 10 MG TAB PO SCH (20:38)
[2018-06-10 05:10] LABS: Basophils # (A) 0.1 k/uL (0-0.2); Basophils % (A) 1 %; Eosinophils # (A) 0.6 k/uL (0-0.7); Eosinophils % (A) 6 %; HCT 27.2 % (39.0-53.0); HGB 8.6 gm/dL (13.0-17.5); Lymphocytes % (A) 10 %; MCH 31.1 pg (25.0-35.0); MCHC 31.7 g/dL (31.0-37.0); MCV 98.2 fL (80.0-100.0); Mean Platelet Volume 6.9; Monocytes # (A) 0.9 k/uL (0-1.0); Monocytes % (A) 9 %; Neutrophils # (A) 7.3 k/uL (1.3-7.7); Neutrophils % (A) 73 %; Platelet Count 253 k/uL (150-450); RBC 2.77 m/uL (4.30-5.90); RDW 13.8 % (11.5-15.5)
[2018-06-10 05:34] LABS: Calcium 8.1 mg/dL (8.4-10.2); Potassium 4.7 mmol/L (3.5-5.1)
[2018-06-10] MEDS ORDERED: ceFAZolin IN SWFI 2 GM/20 ML SYRINGE IVP ONE (09:10)
[2018-06-10] MEDS ORDERED: ceFAZolin 1,000 MG in SODIUM CHLORIDE 0.9% IRRIGATIO 250 ML IRRIGATION ONE (09:11)
[2018-06-10] MEDS ORDERED: LIDOCAINE 1% INJ 10MG/ML (20 ML MDV) ONE ×2 (09:35)
[2018-06-10] MEDS ORDERED: MIDAZOLAM 2 MG/2 ML VIAL ONE (09:50)
[2018-06-10] MEDS ORDERED: fentaNYL (PF) 50 MCG/ML 2 ML AMP ONE (09:50)
[2018-06-10] MEDS ORDERED: ONDANSETRON 4 MG/2 ML VIAL ONE (09:51)
[2018-06-10] MEDS ORDERED: LIDOCAINE 1% INJ 10MG/ML (20 ML MDV) SQ ONE (09:52)
[2018-06-10] MEDS ORDERED: ONDANSETRON 4 MG/2 ML VIAL IVP ONE (09:52)
[2018-06-10] MEDS ORDERED: MIDAZOLAM 2 MG/2 ML VIAL IVP ONE (09:55)
--- NOTE | 2018-06-10 10:48 | P.PCN ---
Date of Procedure: 06/10/18 Preoperative Diagnosis: High degree AV block with severe bradycardia and intermittent junctional rhythm Postoperative Diagnosis: The same Procedure(s) Performed: Permanent pacemaker implantation, dual-chamber Description of Procedure: HISTORY: This is a 88-year-old gentleman who was admitted to the hospital with hypotension and bradycardia with episodes of intermittent high degree AV block and intermittent junctional rhythm. Patient also had probably acute on chronic renal failure with acidosis. Patient was monitored on dopamine drip for several days. Though her creatinine and renal function improved somewhat, patient continued to have intermittent junctional rhythm and high degree AV block alternating with sinus rhythm with first-degree heart block. Patient is advised to have permanent pacemaker. CONSENT:I have discussed the risks, benefits and alternative therapies for the above-mentioned procedure and for both sedation/analgesia as well as necessary blood product administration, if indicated, as they pertain to this patient. The patient has indicated understanding and acceptance of the risks and procedures discussed. PROCEDURE: Patient was brought to the lab in a fasting state. Patient was prepped and draped in the usual fashion. Patient was given IV sedation with fentanyl and Versed. The skin below the left clavicle was infiltrated with lidocaine. An incision was made parallel to deltopectoral groove was deepened until the pectoral fascia was exposed. A pocket was created by blunt dissection and cautery. 2 sticks were performed blindly into extrathoracic portion of the axillary vein and 2 sheaths were advanced over the guidewires and left in subclavian vein. Conscious Sedation: Versed 0.5 mg Fentanyl 0 g Duration 45minutes LEADS: ATRIAL: This is manufactured by [employer]. Model number is [id number]. Serial number is [id number] VENTRICULAR: This is manufactured by [employer]. Model number is [id number]. Serial number is [id number] THE DEVICE: This is manufactured by [employer]. Model number is [id number] and the serial number is [id number]. The ventricular lead is maneuvered l with help of a straight and curved stylets into the left ventricle apical region. The lead was screwed in. Satisfactory position was obtained and threshold measurements were made. The atrial lead was then maneuvered into the right atrial appendage. And thresholds were obtained. THRESHOLDS: ATRIUM:. 0.5 at pulse width of 0.5. Impedance is 6 and 54. P-wave: 2.3 VENTRICLE:. The minimal patient threshold was less than 1 at pulse width of 0.5. The impedance is 955 R-wave:, 4.5 The leads and pulse generator remained in the pocket after it was washed with antibiotics. Pocket was closed in the usual fashion. The fascia was closed with 2-0 Prolene ,the subcutaneous tissue was closed with 3-0 Prolene and the skin was closed with 4-0 Prolene. PROGRAMMING: MODE: He AAIR with mode switch to DDDR. RATE: 60 to 130 OUTPUT: Atrium : 3.5V Ventricle: 3.5 V. FINAL IMPRESSION: #1 successful implantation of dual-chamber permanent pacemaker. The whole procedure was done under fluoroscopy COMPLICATIONS: None PLAN:. Patient will be monitored on the telemetry unit. Prophylactic antibiotics will be continued. Chest x-ray in the morning.
[2018-06-10] MEDS: CHOLECALCIFEROL 1,000 UNIT TAB PO SCH (11:26)
[2018-06-10] MEDS: B COMPLEX-VIT C-VIT E-ZINC 1 EACH TAB PO SCH (11:26)
[2018-06-10] MEDS: PANTOPRAZOLE 40 MG TABLET PO SCH (11:26)
[2018-06-10] MEDS: SODIUM BICARBONATE TAB 650 MG TAB PO SCH ×4 (11:26→22:01)
[2018-06-10] MEDS: FERROUS SULFATE 325 MG TAB PO SCH (11:27)
--- NOTE | 2018-06-10 11:56 | P.PN ---
Subjective Progress Note Date: 06/10/18 Principal diagnosis: Symptomatic bradycardia This is a pleasant 88-year-old gentleman who was admitted to the hospital yesterday with symptomatic bradycardia. He was found to be in high degree AV block. When I reviewed the rhythm strip today it seems that the patient is in complete heart block but he is maintaining a heart rate in the 50s and blood pressure, on dopamine. The patient was not on any AV sabrina guillermo agents before he presented to the hospital. The echocardiogram revealed normal LV function with mild aortic stenosis. When he presented to the hospital he was in acute on chronic renal failure. Nephrology on the case. The patient underwent a permanent pacemaker implantation today. He is doing good and he is asymptomatic. 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 The Hemoglobin continues to be around 8 and the creatinine continues to be on 3.5. Objective - Vital Signs Vital signs: Vital Signs Temp 98.9 F 06/10/18 08:00 Pulse 82 06/10/18 11:08 Resp 20 06/10/18 11:08 BP 114/62 06/10/18 11:08 Pulse Ox 97 06/10/18 11:08 Intake & Output 06/09/18 06/10/18 06/10/18 18:59 06:59 18:59 Intake Total 320 620 60 Output Total 1825 855 375 Balance -1505 -235 -315 Weight 67.2 kg 67.2 kg 67.9 kg Intake: IV 220 120 60 Sodium Chloride 0.9% 1, 220 120 60 000 ml @ 20 mls/hr IV . Q24H [facility] Rx#:[id number] Intake, IV Titration 100 Amount DOPamine DRIP 800 mg In 0 Dextrose/Water 1 500ml. bag @ 2.5 MCG/KG/MIN 6.37 mls/hr IV .Q24H [facility] Rx#: [id number] Magnesium Sulfate-D5w Pmx 100 1 gm In Dextrose/Water 1 100ml.bag @ 100 mls/hr IVPB Q1H [facility] Rx#: [id number] Oral 500 Output: Urine 1825 855 375 Other: Voiding Method Indwelling Catheter Indwelling Catheter Indwelling Catheter # Voids 1 # Bowel Movements 1 - Constitutional General appearance: Present: no acute distress - Respiratory Respiratory: bilateral: CTA - Cardiovascular Rhythm: regular Heart sounds: normal: S1, S2 - Labs CBC & Chem 7: 06/10/18 04:13 06/10/18 04:13 Labs: Abnormal Lab Results - Last 24 Hours (Table) 06/10/18 06/10/18 Range/Units 04:13 04:13 RBC 2.77 L (4.30-5.90) m/uL Hgb 8.6 L (13.0-17.5) gm/dL Hct 27.2 L (39.0-53.0) % Carbon Dioxide 20 L (22-30) mmol/L BUN 56 H (9-20) mg/dL Creatinine 3.50 H (0.66-1.25) mg/dL Calcium 8.1 L (8.4-10.2) mg/dL Assessment and Plan Assessment: Assessment #1 advanced AV block. Third degree AV block #2 symptomatic bradycardia secondary to the above #3 acute on chronic renal failure #4 mild aortic stenosis Plan #1 DC dopamine #2 continue monitor the heart rate and blood pressure #3 monitor the hemoglobin and kidney function #4 follow-up with the patient
[2018-06-10] MEDS ORDERED: IV FLUID CONTINUATION 1,000 ML IV ONE (12:37)
[2018-06-10] MEDS ORDERED: SODIUM CHLORIDE 0.9% 250 ML IV ONE (12:45)
--- NOTE | 2018-06-10 14:05 | P.PN ---
Subjective Progress Note Date: 06/10/18 Mr. Lezama is an 88-year-old male with a past medical history of hypertension, hyperlipidemia, prostate disorder coming in the hospital with a chief complaint of not feeling well and being tired for about 1 week. At the time of admission patient was found to have elevated BUN and creatinine and creatinine was 5.5 ( baseline 1-1.5). He was started on IV fluids and a bicarb drip. He was also found to have third-degree AV block and has been started on dopamine drip. 06/08/2018 The patient was seen and examined at the bedside on rounds with Dr. Hanna. Patient states he is feeling better. He denies chest pain or pressure. Denies shortness of breath. He remains on a dopamine drip at 5mcg. Case discussed with Dr. Bernard who states patient may require PPM insertion tomorrow. Creatinine has improved to 3.40 from 3.70 yesterday. BUN is 53. Hemoglobin is 9.1. 06/09/2018 Patient examined this morning by Dr. Hanna at the bedside in the ICU. Patient has been off dopamine since yesterday. Has been maintaining SR overnight. Dr. Hanna spoke with Dr. Bernard who stated patient may not require pacemaker. However , patient recently was found to be in 2nd/3rd degree heart block with a heart rate in the 30s when sleeping. Dopamine was restarted. Patient to undergo PPM insertion tomorrow. Hemoglobin is 7.6 today, down from 7.1. No obvious signs of bleeding noted. Creatinine is 3.50 today. BUN 56. Nephro is following. 06/10/2018 Patient examined this morning by Dr. Hanna. Patient is awake and alert. Remains in the ICU. Remains on dopamine drip. Patient is scheduled for permanent pacemaker insertion this morning. Creatinine remains at 3.50 today. BUN 56. Hemoglobin 8.6. Objective - Vital Signs Vital signs: Vital Signs Temp 98.9 F 06/10/18 08:00 Pulse 82 06/10/18 11:08 Resp 20 06/10/18 11:08 BP 114/62 06/10/18 11:08 Pulse Ox 97 06/10/18 11:08 Intake & Output 06/09/18 06/10/18 06/10/18 18:59 06:59 18:59 Intake Total 320 620 60 Output Total 1825 855 375 Balance -1505 -235 -315 Weight 67.2 kg 67.2 kg 67.9 kg Intake: IV 220 120 60 Sodium Chloride 0.9% 1, 220 120 60 000 ml @ 20 mls/hr IV . Q24H [facility] Rx#:[id number] Intake, IV Titration 100 Amount DOPamine DRIP 800 mg In 0 Dextrose/Water 1 500ml. bag @ 2.5 MCG/KG/MIN 6.37 mls/hr IV .Q24H [facility] Rx#: [id number] Magnesium Sulfate-D5w Pmx 100 1 gm In Dextrose/Water 1 100ml.bag @ 100 mls/hr IVPB Q1H [facility] Rx#: [id number] Oral 500 Output: Urine 7100 859 130 Other: Voiding Method Indwelling Catheter Indwelling Catheter Indwelling Catheter # Voids 1 # Bowel Movements 1 - Exam GENERAL: This is a 88-year-old male in no apparent distress at the time of examination. Pleasant and cooperative. HEENT: Head is atraumatic, normocephalic. Pupils are equal, round, and reactive to light. Sclerae anicteric. Conjunctivae are clear. Mucus membranes of the mouth are moist. Neck is supple. RESPIRATORY: Clear to ausculation. No wheezes, rales, or rhonchi. No use of accessory muscles. Patient maintaining oxygen saturation greater than 92%. No chest wall tenderness is noted on palpation or with deep breathing. CARDIOVASCULAR: Regular rate and rhythm. S1 and S2 noted. No JVD noted. No S3 or S4 noted. GASTROINTESTINAL: No distention noted. Abdomen soft and round. Normal active bowel sounds auscultated x 4 quadrants. No pain or tenderness noted upon palpation. INTEGUMENTARY: No cyanosis. No jaundice. No rashes noted. No cellulitis noted. EXTREMITIES: 2+ peripheral pulses. No evidence of peripheral edema. No calf tenderness noted. NEUROLOGIC: Cranial nerves II-XII intact. PSYCHIATRIC: Awake, alert, and oriented X 3. Appropriate affect. Intact judgement and insight. 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 Appreciate recommendations and input PPM insertion today Nephrology on consult. Appreciate recommendations and input Home meds as appropriate Monitor labs GI prophylaxis: Protonix 40 mg PO Daily DVT prophylaxis: SCDs to bilateral lower extremities Monitor vital signs and address as appropriate Further recommendations pending patient's course Nurse practitioner note has been reviewed by physician. Signing provider agrees with the documented findings, assessment, and plan of care.
[2018-06-10] MEDS: ceFAZolin IN SWFI 2 GM/20 ML SYRINGE IVP SCH ×2 (16:11→20:06)
[2018-06-10] MEDS: SODIUM CHLORIDE 0.9% 1,000 ML IV SCH (16:12)
[2018-06-10] MEDS: ATORVASTATIN 10 MG TAB PO SCH (20:06)
[2018-06-10] MEDS: ACETAMINOPHEN TAB 325 MG TAB PO PRN (22:01)
[2018-06-11] MEDS: ceFAZolin IN SWFI 2 GM/20 ML SYRINGE IVP SCH ×2 (01:32→08:49)
[2018-06-11] MEDS: ACETAMINOPHEN TAB 325 MG TAB PO PRN ×2 (04:02→23:07)
[2018-06-11 05:00] LABS: Basophils % (A) 0 %; Eosinophils # (A) 0.5 k/uL (0-0.7); Eosinophils % (A) 6 %; HCT 24.9 % (39.0-53.0); HGB 7.9 gm/dL (13.0-17.5); Hypochromasia Slight; Lymphocytes # (A) 0.9 k/uL (1.0-4.8); Lymphocytes % (A) 10 %; MCH 31.5 pg (25.0-35.0); MCHC 31.6 g/dL (31.0-37.0); MCV 99.8 fL (80.0-100.0); Mean Platelet Volume 6.9; Monocytes # (A) 0.8 k/uL (0-1.0); Monocytes % (A) 9 %; Neutrophils # (A) 6.5 k/uL (1.3-7.7); Neutrophils % (A) 73 %; Platelet Count 217 k/uL (150-450); RDW 13.9 % (11.5-15.5)
[2018-06-11 05:26] LABS: Calcium 7.9 mg/dL (8.4-10.2); Magnesium 1.6 mg/dL (1.6-2.3); Potassium 3.8 mmol/L (3.5-5.1)
[2018-06-11] MEDS: MAGNESIUM SULFATE-D5W PMX 1 GM in DEXTROSE/WATER 1 100ML.BAG IVPB SCH ×2 (06:21→08:49)
[2018-06-11] MEDS ORDERED: POTASSIUM CHLORIDE ER 20 MEQ TAB.ER PO SCH (07:00)
--- NOTE | 2018-06-11 08:35 | P.PN ---
Subjective Progress Note Date: 06/11/18 Principal diagnosis: Symptomatic bradycardia This is a pleasant 88-year-old gentleman who was admitted to the hospital yesterday with symptomatic bradycardia. He was found to be in high degree AV block. When I reviewed the rhythm strip today it seems that the patient is in complete heart block but he is maintaining a heart rate in the 50s and blood pressure, on dopamine. The patient was not on any AV sabrina guillermo agents before he presented to the hospital. The echocardiogram revealed normal LV function with mild aortic stenosis. When he presented to the hospital he was in acute on chronic renal failure. Nephrology on the case. The patient underwent a permanent pacemaker implantation yesterday. He is doing good and he is asymptomatic. Of dopamine for the last 24 hours. The patient can be transferred to selective floor. Objective - Vital Signs Vital signs: Vital Signs Temp 98.5 F 06/11/18 04:00 Pulse 68 06/11/18 07:00 Resp 20 06/11/18 07:00 BP 118/60 06/11/18 07:00 Pulse Ox 100 06/11/18 06:00 Intake & Output 06/10/18 06/11/18 06/11/18 18:59 06:59 18:59 Intake Total 841.800 970 20 Output Total 1195 700 150 Balance -353.200 270 -130 Weight 67.9 kg Intake: IV 570 220 20 Sodium Chloride 0.9% 1, 220 220 20 000 ml @ 20 mls/hr IV . Q24H [facility] Rx#:[id number] Sodium Chloride 0.9% 250 250 ml @ 999 mls/hr IV .Q16M [facility] Rx#:[id number] Intake, IV Titration 271.800 Amount DOPamine DRIP 800 mg In 271.800 Dextrose/Water 1 500ml. bag @ 2.5 MCG/KG/MIN 6.37 mls/hr IV .Q24H [facility] Rx#: [id number] Oral 750 Output: Urine 1195 700 150 Other: Voiding Method Indwelling Catheter Indwelling Catheter - Constitutional General appearance: Present: no acute distress - Respiratory Respiratory: bilateral: CTA - Cardiovascular Rhythm: regular Heart sounds: normal: S1, S2 - Labs CBC & Chem 7: 06/11/18 04:23 06/11/18 04:23 Labs: Abnormal Lab Results - Last 24 Hours (Table) 06/11/18 06/11/18 Range/Units 04:23 04:23 RBC 2.50 L (4.30-5.90) m/uL Hgb 7.9 L (13.0-17.5) gm/dL Hct 24.9 L (39.0-53.0) % Lymphocytes # 0.9 L (1.0-4.8) k/uL Sodium 135 L (137-145) mmol/L Carbon Dioxide 17 L (22-30) mmol/L BUN 49 H (9-20) mg/dL Creatinine 3.50 H (0.66-1.25) mg/dL Calcium 7.9 L (8.4-10.2) mg/dL Assessment and Plan Assessment: Assessment #1 advanced AV block. Third degree AV block #2 symptomatic bradycardia secondary to the above #3 acute on chronic renal failure #4 mild aortic stenosis Plan #1 the patient can be transferred into selective unit #2 continue monitor the heart rate and blood pressure #3 monitor the hemoglobin and kidney function #4 follow-up with the patient
[2018-06-11] MEDS: DOPamine DRIP 800 MG in DEXTROSE/WATER 1 500ML.BAG IV SCH (08:43)
[2018-06-11] MEDS: B COMPLEX-VIT C-VIT E-ZINC 1 EACH TAB PO SCH (08:49)
[2018-06-11] MEDS: SODIUM BICARBONATE TAB 650 MG TAB PO SCH (08:49)
[2018-06-11] MEDS: FERROUS SULFATE 325 MG TAB PO SCH (08:49)
[2018-06-11] MEDS: PANTOPRAZOLE 40 MG TABLET PO SCH (08:49)
[2018-06-11] MEDS: CHOLECALCIFEROL 1,000 UNIT TAB PO SCH (08:49)
--- NOTE | 2018-06-11 09:58 | XR ---
EXAMINATION TYPE: XR chest 2V DATE OF EXAM: 06/11/2018 COMPARISON: Prior chest 06/07/2018 HISTORY: Lead placement check TECHNIQUE: Frontal and lateral views of the chest are obtained. FINDINGS: Generator has been placed in the left pectoral region, there are leads in the right atrium and ventricle. No evident pneumothorax or pleural effusion. Cardiac mediastinal silhouette, pulmonar y vascularity and cookie are stable. Prominent lung volumes suggest COPD. IMPRESSION: No evident complication status post pacemaker placement. IMPRESSION: No acute cardiopulmonary process.
--- NOTE | 2018-06-11 10:00 | P.PN ---
Subjective Progress Note Date: 06/11/18 Mr. Lezama is an 88-year-old male with a past medical history of hypertension, hyperlipidemia, prostate disorder coming in the hospital with a chief complaint of not feeling well and being tired for about 1 week. At the time of admission patient was found to have elevated BUN and creatinine and creatinine was 5.5 ( baseline 1-1.5). He was started on IV fluids and a bicarb drip. He was also found to have third-degree AV block and has been started on dopamine drip. 06/08/2018 The patient was seen and examined at the bedside on rounds with Dr. Hanna. Patient states he is feeling better. He denies chest pain or pressure. Denies shortness of breath. He remains on a dopamine drip at 5mcg. Case discussed with Dr. Bernard who states patient may require PPM insertion tomorrow. Creatinine has improved to 3.40 from 3.70 yesterday. BUN is 53. Hemoglobin is 9.1. 06/09/2018 Patient examined this morning by Dr. Hanna at the bedside in the ICU. Patient has been off dopamine since yesterday. Has been maintaining SR overnight. Dr. Hanna spoke with Dr. Bernard who stated patient may not require pacemaker. However , patient recently was found to be in 2nd/3rd degree heart block with a heart rate in the 30s when sleeping. Dopamine was restarted. Patient to undergo PPM insertion tomorrow. Hemoglobin is 7.6 today, down from 7.1. No obvious signs of bleeding noted. Creatinine is 3.50 today. BUN 56. Nephro is following. 06/10/2018 Patient examined this morning by Dr. Hanna. Patient is awake and alert. Remains in the ICU. Remains on dopamine drip. Patient is scheduled for permanent pacemaker insertion this morning. Creatinine remains at 3.50 today. BUN 56. Hemoglobin 8.6. 06/11/2018 Patient seen and examined at the bedside. Patient underwent PPM insertion yesterday. Incision is healing well. No drainage. Vital signs remain stable. Creatinine remains at 3.50 today. Nephrology is following. Magnesium is 1.6 and is being replaced. Patient has indwelling urinary catheter due to retention. Patient is anxious to be discharged home. Objective - Vital Signs Vital signs: Vital Signs Temp 98.4 F 06/11/18 08:00 Pulse 68 06/11/18 09:00 Resp 14 06/11/18 09:00 BP 149/69 06/11/18 09:00 Pulse Ox 91 L 06/11/18 09:00 Intake & Output 06/10/18 06/11/18 06/11/18 18:59 06:59 18:59 Intake Total 841.800 970 220 Output Total 1195 700 250 Balance -353.200 270 -30 Weight 67.9 kg Intake: IV 570 220 220 Magnesium Sulfate-D5w Pmx 200 1 gm In Dextrose/Water 1 100ml.bag @ 100 mls/hr IVPB Q1H [facility] Rx#: [id number] Sodium Chloride 0.9% 1, 220 220 20 000 ml @ 20 mls/hr IV . Q24H [facility] Rx#:[id number] Sodium Chloride 0.9% 250 250 ml @ 999 mls/hr IV .Q16M [facility] Rx#:[id number] Intake, IV Titration 271.800 Amount DOPamine DRIP 800 mg In 271.800 Dextrose/Water 1 500ml. bag @ 2.5 MCG/KG/MIN 6.37 mls/hr IV .Q24H [facility] Rx#: [id number] Oral 750 Output: Urine 1195 700 250 Other: Voiding Method Indwelling Catheter Indwelling Catheter Indwelling Catheter - Exam GENERAL: This is a 88-year-old male in no apparent distress at the time of examination. Pleasant and cooperative. HEENT: Head is atraumatic, normocephalic. Pupils are equal, round, and reactive to light. Sclerae anicteric. Conjunctivae are clear. Mucus membranes of the mouth are moist. Neck is supple. RESPIRATORY: Clear to ausculation. No wheezes, rales, or rhonchi. No use of accessory muscles. Patient maintaining oxygen saturation greater than 92%. No chest wall tenderness is noted on palpation or with deep breathing. CARDIOVASCULAR: Regular rate and rhythm. S1 and S2 noted. No JVD noted. No S3 or S4 noted. GASTROINTESTINAL: No distention noted. Abdomen soft and round. Normal active bowel sounds auscultated x 4 quadrants. No pain or tenderness noted upon palpation. INTEGUMENTARY: No cyanosis. No jaundice. No rashes noted. No cellulitis noted. EXTREMITIES: 2+ peripheral pulses. No evidence of peripheral edema. No calf tenderness noted. NEUROLOGIC: Cranial nerves II-XII intact. PSYCHIATRIC: Awake, alert, and oriented X 3. Appropriate affect. Intact judgement and insight. - Labs CBC & Chem 7: 06/11/18 04:23 06/11/18 04:23 Labs: Abnormal Lab Results - Last 24 Hours (Table) 06/11/18 06/11/18 Range/Units 04:23 04:23 RBC 2.50 L (4.30-5.90) m/uL Hgb 7.9 L (13.0-17.5) gm/dL Hct 24.9 L (39.0-53.0) % Lymphocytes # 0.9 L (1.0-4.8) k/uL Sodium 135 L (137-145) mmol/L Carbon Dioxide 17 L (22-30) mmol/L BUN 49 H (9-20) mg/dL Creatinine 3.50 H (0.66-1.25) mg/dL Calcium 7.9 L (8.4-10.2) mg/dL Assessment and Plan Plan: ASSESSMENT: Complete heart block s/p PPM, POD #1 Acute kidney injury, creatinine 5.5 on admission from volume depletion secondary to chronic diarrhea along with hypotension, lisinopril, and NSAIDs, improving Hyperkalemia, potassium 5.8 on admission, secondary to above, resolved Chronic kidney disease, baseline creatinine 1.39, nephro following History of bowel obstructions s/p small bowel resections with subsequent chronic diarrhea Anemia, secondary to chronic kidney disease, stable Hypomagnesemia Urinary retention requiring indwelling urinary catheter PLAN: Cardiology on consult. Appreciate recommendations and input Anticipate transfer to selective care unit today Nephrology on consult. Appreciate recommendations and input Discontinue urinary catheter and attempt voiding trial Home meds as appropriate Monitor labs GI prophylaxis: Protonix 40 mg PO Daily DVT prophylaxis: SCDs to bilateral lower extremities Monitor vital signs and address as appropriate Further recommendations pending patient's course Possible discharge this afternoon or tomorrow depending consulting providers clearance Nurse practitioner note has been reviewed by physician. Signing provider agrees with the documented findings, assessment, and plan of care.
--- NOTE | 2018-06-11 10:21 | ECHOF ---
Referral Reason:r/o pericardial effusion MEASUREMENTS -------- HEIGHT: 175.3 cm WEIGHT: 67.6 kg BP: 132/66 FINDINGS -------- Paced rhythm. Limited Study Done to R/O Pericardial Effusion for Pacemaker done 06/10/2018. CONCLUSIONS -------- 1. Limited Study Done to R/O Pericardial Effusion for Pacemaker done 06/10/2018. BUSINESS SERVICES ASSOCIATE: Candida Terry RDCS
[2018-06-11] MEDS ORDERED: TAMSULOSIN 0.4 MG CAP.ER.24H PO STA (14:23)
--- NOTE | 2018-06-11 17:51 | PN ---
PROGRESS NOTE Patient is seen for followup for acute kidney injury. His renal function remains impaired, with serum creatinine staying at 3.5 mg/dL. On admission it was 5.5. Previous creatinine in 2017 was 1.5 and 1.39. Patient was admitted with hypotension and bradycardia. He is status post pacemaker. He has had good urine output. He has not received any nephrotoxic medications. He is currently off of IV fluids. On examination today, patient is comfortable. Blood pressure 124/67 and this morning 117/62, heart rate of 68 per minute. Patient is afebrile. EXAMINATION OF THE HEART: S1, S2. EXAMINATION OF LUNGS: Bilateral breath sounds are heard. ABDOMEN: Soft, non-tender. Examination of lower extremities shows no significant edema. 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 Labs show sodium 135, potassium 3.8, BUN 49, serum creatinine 3.5, hemoglobin 7.9 g/dL. ASSESSMENT: 1. Acute kidney injury secondary to hypotension, bradycardia, currently stable. Renal function is not worsening; however, it has not improved any further. Creatinine has been staying at 3.5. There are no nephrotoxic medications on board. Blood pressure is currently not low. Patient remains anemic, which can add to the acute kidney injury. He is off of IV fluids and he has had an indwelling Caceres catheter, which would rule out any urine retention. 2. Bradycardia, status post pacemaker placement. 3. Hyperkalemia on admission, currently improved. 4. Anemia with adequate iron studies, maintained on Aranesp. PLAN: Patient will need followup as outpatient. Continue with the sodium bicarb and Flomax and repeat labs in a.m. Patient can likely be discharged tomorrow with followup as outpatient. MMODL / IJN: [id number] /
[2018-06-11] MEDS: ATORVASTATIN 10 MG TAB PO SCH (22:43)
[2018-06-12 06:46] VITALS: TEMP 98.4
[2018-06-12] MEDS: PANTOPRAZOLE 40 MG TABLET PO SCH (06:48)
[2018-06-12 07:16] LABS: Basophils # (A) 0.1 k/uL (0-0.2); Basophils % (A) 1 %; Eosinophils # (A) 0.5 k/uL (0-0.7); Eosinophils % (A) 6 %; HCT 25.1 % (39.0-53.0); HGB 7.8 gm/dL (13.0-17.5); Hypochromasia Slight; Lymphocytes # (A) 0.9 k/uL (1.0-4.8); Lymphocytes % (A) 11 %; MCH 31.1 pg (25.0-35.0); MCHC 31.2 g/dL (31.0-37.0); MCV 99.5 fL (80.0-100.0); Mean Platelet Volume 7.2; Monocytes # (A) 0.8 k/uL (0-1.0); Monocytes % (A) 10 %; Neutrophils # (A) 5.6 k/uL (1.3-7.7); Neutrophils % (A) 71 %; Platelet Count 223 k/uL (150-450); RBC 2.52 m/uL (4.30-5.90); RDW 13.7 % (11.5-15.5); WBC 7.9 k/uL (3.8-10.6)
[2018-06-12 07:26] LABS: Potassium 4.2 mmol/L (3.5-5.1)
[2018-06-12] MEDS ORDERED: SODIUM CHLORIDE 0.9% 1,000 ML IV SCH (08:00)
[2018-06-12] MEDS: SODIUM CHLORIDE 0.9% 1,000 ML IV SCH ×2 (08:13→09:41)
[2018-06-12] MEDS: SODIUM BICARBONATE TAB 650 MG TAB PO SCH ×4 (08:13→12:40)
[2018-06-12] MEDS ORDERED: TAMSULOSIN 0.4 MG CAP.ER.24H PO SCH (08:30)
[2018-06-12] MEDS ORDERED: SODIUM CHLORIDE 0.9% 250 ML IV ONE (09:22)
[2018-06-12] MEDS: FERROUS SULFATE 325 MG TAB PO SCH (09:40)
[2018-06-12] MEDS: B COMPLEX-VIT C-VIT E-ZINC 1 EACH TAB PO SCH (09:40)
[2018-06-12] MEDS: CHOLECALCIFEROL 1,000 UNIT TAB PO SCH (09:40)
--- NOTE | 2018-06-12 11:51 | P.DS ---
Providers Date of admission: 06/04/18 17:27 Expected date of discharge: 06/12/18 Attending physician: Garfield Hanna Consults: 06/04/18 17:27 Consult Physician Stat Consulting Provider: Norbert Delacruz Consult Reason/Comments: Bradycardia Do you want consulting provider notified?: Yes Consult Physician Stat Consulting Provider: Brenda Leonardo Reason/Comments: Renal failure, metabolic acidosis, hyperkalemia Do you want consulting provider notified?: Yes Primary care physician: Garfield Hanna [facility] Course: Mr. Lezama is an 88-year-old male with a past medical history of hypertension, hyperlipidemia, prostate disorder coming in the hospital with a chief complaint of not feeling well and being tired for about 1 week. At the time of admission patient was found to have elevated BUN and creatinine and creatinine was 5.5 ( baseline 1-1.5). He was started on IV fluids and a bicarb drip. He was also found to have third-degree AV block and has been started on dopamine drip. The patient underwent permanent pacemaker insertion on 06/10/2018. He is hemodynamically stable. His creatinine has improved to 3.6-3.7. His ZARIA inhibitor has been discontinued. Patient encouraged to avoid NSAIDS. He is to remain on sodium bicarb tablets at the time of discharge and follow up outpatient with Dr. Leonardo. Patient to repeat BMP at follow up appointment with Dr. Hanna. Patient did have urinary retention while in the hospital. He required an indwelling urinary catheter. he was started on flomax. Catheter was discontinued and patient was able to void via urinal. He was deemed stable for discharge per Dr. Hanna. He is to follow up on an outpatient basis with Dr. Hanna, Dr. Leonardo, and Dr. Bernard DISCHARGE DIAGNOSIS: Complete heart block s/p PPM, POD #1 Acute kidney injury, creatinine 5.5 on admission from volume depletion secondary to chronic diarrhea along with hypotension, lisinopril, and NSAIDs, improving Hyperkalemia, potassium 5.8 on admission, secondary to above, resolved Chronic kidney disease, baseline creatinine 1.39, nephro following History of bowel obstructions s/p small bowel resections with subsequent chronic diarrhea Anemia, secondary to chronic kidney disease, stable Hypomagnesemia, improved with supplementation Urinary retention requiring indwelling urinary catheter, catheter now removed and patient voiding on his own, flomax started Nurse practitioner note has been reviewed by physician. Signing provider agrees with the documented findings, assessment, and plan of care. Patient Condition at Discharge: Stable Plan - Discharge Summary Discharge Rx Participant: Yes New Discharge Prescriptions: New Sodium Bicarbonate Tab 650 mg PO QID #120 tab Tamsulosin [Flomax] 0.4 mg PO PC-BRKFST #30 tab Continue Simvastatin [Zocor] 20 mg PO HS Ferrous Sulfate [Iron (65 MG Elemental)] 325 mg PO DAILY Cholecalciferol [Vitamin D3] 1,000 unit PO DAILY Vitamin B Complex 1 cap PO DAILY Mayra Root 1 tab PO DAILY Krill Oil 500 mg PO DAILY Omeprazole [PriLOSEC] 40 mg PO DAILY Discontinued Naproxen [Naprosyn] 375 mg PO Q12HR Perindopril Erbumine 12 mg PO DAILY Discharge Medication List Simvastatin [Zocor] 20 mg PO HS 12/19/15 [History] Cholecalciferol [Vitamin D3] 1,000 unit PO DAILY 09/05/16 [History] Ferrous Sulfate [Iron (65 MG Elemental)] 325 mg PO DAILY 09/05/16 [History] Mayra Root 1 tab PO DAILY 09/05/16 [History] Vitamin B Complex 1 cap PO DAILY 09/05/16 [History] Krill Oil 500 mg PO DAILY 06/04/18 [History] Omeprazole [PriLOSEC] 40 mg PO DAILY 06/04/18 [History] Sodium Bicarbonate Tab 650 mg PO QID #120 tab 06/12/18 [Rx] Tamsulosin [Flomax] 0.4 mg PO PC-BRKFST #30 tab 06/12/18 [Rx] Follow up Appointment(s)/Referral(s): Mohan Ang MD [STAFF PHYSICIAN] - 1 Week Brenda Leonardo MD [STAFF PHYSICIAN] - 1 Week Garfield Hanna DO [Primary Care Provider] - 06/19/18 2:00 pm (Friday) Activity/Diet/Wound Care/Special Instructions: Patient to have BMP to assess kidney function at follow up appointment with Dr. Hanna Discharge Disposition: HOME SELF-CARE
--- NOTE | 2018-06-12 12:34 | PN ---
PROGRESS NOTE Patient is seen for followup for acute kidney injury. He was admitted to the hospital with hypotension and bradycardia. He had been on dopamine. He is currently status post pacemaker. Serum creatinine improved from 5.5 on initial admission to about 3.5. Today it is at 3.7. Blood pressure remains on the lower side. There is no evidence of urine retention. Patient is not on any other nephrotoxic medications. His hemoglobin remains low and there is no active bleeding noted. He has been eating okay. Since his creatinine went up today, I will start him on gentle IV hydration. PHYSICAL EXAMINATION: This morning, blood pressure was 98/54. It looks like a repeat blood pressure was as low as 77/55 and following that we have a pressure of 137/70, heart rate 104 per minute, patient is afebrile. Examination of the, heart S1, S2. Examination of the lungs, bilateral breath sounds are heard. Abdomen is soft, nontender. Examination of the lower extremities shows no evidence of edema. 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 LABS: Reveal sodium of 137, potassium 4.2, chloride 109, BUN 50, serum creatinine 3.7, hemoglobin 7.8 g/dL. ASSESSMENT: 1. Acute kidney injury secondary to hypotension, hypoperfusion currently improved. However, serum creatinine is slightly higher than yesterday. There is no evidence of major fluid overload. I will start gentle IV hydration. We should repeat labs tomorrow. If he remains hypotensive, patient should probably not be discharged today. 2. Bradycardia status post pacemaker placement. 3. Anemia with no active bleeding noted. Iron saturation was not low. It was at 36%. Patient is maintained on Aranesp. 4. Chronic kidney disease with previous creatinine at 1.3-1.4 mg/dL in 2016 and 2017, mainly secondary to nephrosclerosis. UA shows 1+ protein. 5. Anemia with no active bleeding noted. Iron replete. Maintained on Protonix and maintained on Aranesp. 6. Metabolic acidosis, currently on oral sodium bicarb. 7. History of benign prostatic hypertrophy, currently on Flomax. PLAN: Start gentle IV hydration. Repeat labs in a.m.. MMODL / IJN: [id number] /
[2018-06-12 13:39] VITALS: BP 111/58; PULSE 82; RESP 16
--- NOTE | 2018-06-12 14:29 | P.PN ---
Subjective Progress Note Date: 06/12/18 A pleasant 88-year-old gentleman who was admitted to the hospital with symptomatic bradycardia. He was found to be in a high degree AV block. Rhythm strips are reviewed and showed complete heart block with heart rates in the 50s and adequate blood pressure and dopamine. The patient was not on any AV sabrina guillermo agents and subsequently underwent permanent pacemaker implantation. Initially this morning, patient's blood pressure was low with a systolic in the 80s shortly after patient sat up to the side of the bed. According to the patient he does have hypotension initially upon rising in the morning. Recheck blood pressure was in the 130s. Upon examination, patient is resting comfortably. He denies complaints of dizziness, lightheadedness, shortness of breath. Objective - Vital Signs Vital signs: Vital Signs Temp 98.4 F 06/12/18 08:00 Pulse 104 H 06/12/18 08:00 Resp 14 06/12/18 08:00 BP 137/70 06/12/18 08:30 Pulse Ox 95 06/12/18 08:16 Intake & Output 06/11/18 06/12/18 06/12/18 18:59 06:59 18:59 Intake Total 800 240 118 Output Total 500 0 Balance 300 240 118 Weight 67.9 kg 67.2 kg Intake: IV 320 Magnesium Sulfate-D5w Pmx 200 1 gm In Dextrose/Water 1 100ml.bag @ 100 mls/hr IVPB Q1H LORI Rx#: [id number] Sodium Chloride 0.9% 1, 120 000 ml @ 20 mls/hr IV . Q24H LORI Rx#:[id number] Oral 480 240 118 Output: Urine 500 0 Other: Voiding Method Urinal Urinal # Voids 1 1 - Exam PHYSICAL EXAMINATION: HEENT: Head is atraumatic, normocephalic. Pupils equal, round. Neck is supple. There is no elevated jugular venous pressure. HEART EXAMINATION: Heart sounds regular, S1 and S2 normal. No murmur or gallop heard. CHEST EXAMINATION: Lungs are clear to auscultation and precussion. No chest wall tenderness is noted on palpation or with deep breathing. LIC site with dressing dry and intact, no evidence of hematoma. ABDOMEN: Soft, nontender. Bowel sounds are heard. No organomegaly noted. EXTREMITIES: 2+ peripheral pulses with no evidence of peripheral edema and no calf tenderness noted. NEUROLOGIC patient is awake, alert and oriented x3. . 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 he will be discharged on Keflex 500 mg by mouth 3 times a day for 3 days. 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 He was counseled on site care and activity restrictions. He was also counseled on the importance of rising slowly from a supine or sitting position due to drop in blood pressure. PLASTIC SURGERY SPECIALIST note has been reviewed, I agree with a documented findings and plan of care. Patient was seen and examined.
[2018-06-12] MEDS ORDERED: PSYLLIUM HUSK 100% 6 GM PACKET PO SCH (15:00)
== END 2018-06-12 16:10 | disposition home or self-care (01) | DRG 242 ==
LOC: EC 13:57 → 6SEL 17:27 → 6ICU 06-05 03:33 → 6SEL 06-11 17:33
PROVIDERS: ADMIT Family Medicine; ATTEND Family Medicine
PROC: 30233N1 Transfusion of Nonautologous Red Blood Cells into Peripheral Vein, Percutaneous Approach (ICD-10-PCS; 2018-06-04)
PROC: 02HL3JZ Insertion of Pacemaker Lead into Left Ventricle, Percutaneous Approach (ICD-10-PCS; 2018-06-10)
PROC: 02H63JZ Insertion of Pacemaker Lead into Right Atrium, Percutaneous Approach (ICD-10-PCS; 2018-06-10)
PROC: 0JH606Z Insertion of Pacemaker, Dual Chamber into Chest Subcutaneous Tissue and Fascia, Open Approach (ICD-10-PCS; principal; 2018-06-10 09:15)
DX: I44.2 Atrioventricular block, complete (principal); N17.0 Acute kidney failure with tubular necrosis; E44.1 Mild protein-calorie malnutrition; E87.2 Acidosis; D63.1 Anemia in chronic kidney disease; E78.5 Hyperlipidemia, unspecified; E83.39 Other disorders of phosphorus metabolism; E83.42 Hypomagnesemia; E86.1 Hypovolemia; E87.5 Hyperkalemia; E87.8 Other disorders of electrolyte and fluid balance, not elsewhere classified; I12.9 Hypertensive chronic kidney disease with stage 1 through stage 4 chronic kidney disease, or unspecified chronic kidney disease; I35.0 Nonrheumatic aortic (valve) stenosis; I95.1 Orthostatic hypotension; K21.9 Gastro-esophageal reflux disease without esophagitis; K52.9 Noninfective gastroenteritis and colitis, unspecified; M15.9 Polyosteoarthritis, unspecified; N18.3 Chronic kidney disease, stage 3 (moderate); N40.1 Benign prostatic hyperplasia with lower urinary tract symptoms; R33.8 Other retention of urine; T39.395A Adverse effect of other nonsteroidal anti-inflammatory drugs [NSAID], initial encounter; T46.4X5A Adverse effect of angiotensin-converting-enzyme inhibitors, initial encounter; K57.90 Diverticulosis of intestine, part unspecified, without perforation or abscess without bleeding; E55.9 Vitamin D deficiency, unspecified; Z68.21 Body mass index [BMI] 21.0-21.9, adult; Z87.891 Personal history of nicotine dependence; Z96.641 Presence of right artificial hip joint; Z90.49 Acquired absence of other specified parts of digestive tract; Z79.899 Other long term (current) drug therapy; Z98.42 Cataract extraction status, left eye; Z98.41 Cataract extraction status, right eye; Z96.1 Presence of intraocular lens; Z82.49 Family history of ischemic heart disease and other diseases of the circulatory system; Y92.009 Unspecified place in unspecified non-institutional (private) residence as the place of occurrence of the external cause
CPT/HCPCS: 33208; 36415; 70450; 71045; 71046; 76770; 80048; 80053; 81001; 82728; 83036; 83540; 83550; 83605; 83735; 83880; 84100; 84132; 84484; 85025; 85027; 85610; 86850; 86900; 86901; 86920; 93005; 93306; 93308; 94760; 96361; 96365; 96375; 99291

== ENCOUNTER 2018-06-12 21:03 | Inpatient (IN) | payer MEDICARE, OTHER ==
[2018-06-12] MEDS ORDERED: ONDANSETRON 4 MG/2 ML VIAL IVP STA (21:16)
[2018-06-12] MEDS ORDERED: SODIUM CHLORIDE 0.9% 500 ML IV STA (21:16)
[2018-06-12] MEDS ORDERED: HYDROmorphone 0.5 MG/0.5 ML SYRINGE IVP STA (21:16)
--- NOTE | 2018-06-12 21:19 | ED ---
General Adult HPI - General Chief complaint: Abdominal Pain Stated complaint: Diarrhea Time Seen by Provider: 06/12/18 21:05 Source: patient, RN notes reviewed Mode of arrival: wheelchair Limitations: no limitations - History of Present Illness Initial comments: This is an 88-year-old male who presents emergency Department after having been discharged from the hospital today. Patient received a pacemaker while he was here. Patient states he had breakfast this morning and since then he has had abdominal pain. Patient states he had a bowel movement earlier this morning but none since. Patient states he did pass a little gas about 4:00 but no more gas since then. Patient states his some nausea but no vomiting. Patient denies fever chills. Patient states she's had multiple abdominal surgeries and bowel obstructions in the past. Patient states this does feel like a bowel obstruction to him. Patient denies any palpitations chest pain or difficulty breathing. Patient denies headache patient denies numbness weakness. Patient denies lightheadedness dizziness or near syncopal episode. - Related Data Home Medications Medication Instructions Recorded Confirmed Simvastatin [Zocor] 20 mg PO HS 12/19/15 06/12/18 Cholecalciferol [Vitamin D3] 1,000 unit PO DAILY 09/05/16 06/12/18 Ferrous Sulfate [Iron (65 MG 325 mg PO DAILY 09/05/16 06/12/18 Elemental)] Mayra Root 1 tab PO DAILY 09/05/16 06/12/18 Vitamin B Complex 1 cap PO DAILY 09/05/16 06/12/18 Krill Oil 500 mg PO DAILY 06/04/18 06/12/18 Omeprazole [PriLOSEC] 40 mg PO DAILY 06/04/18 06/12/18 Psyllium Husk 100% [Metamucil 6 gm PO ONCE 06/12/18 06/12/18 Packet] Previous Rx's Medication Instructions Recorded Cephalexin [Keflex] 500 mg PO TID #9 cap 06/12/18 Sodium Bicarbonate Tab 650 mg PO QID #120 tab 06/12/18 Tamsulosin [Flomax] 0.4 mg PO PC-BRKFST #30 tab 06/12/18 Allergies Allergy/AdvReac Type Severity Reaction Status Date / Time No Known Allergies Allergy Verified 06/12/18 21:24 Review of Systems ROS Statement: Those systems with pertinent positive or pertinent negative responses have been documented in the HPI. ROS Other: All systems not noted in ROS Statement are negative. Past Medical History Past Medical History: Hyperlipidemia, Hypertension, Osteoarthritis (OA), Prostate Disorder Additional Past Medical History / Comment(s): bowel obstructions 3 or 4 times, cervical spine, hands arthiritis, back pain, asthma as child, sinusitis, diverticulitis, vitamin D deficiency. History of Any Multi-Drug Resistant Organisms: None Reported Past Surgical History: Adenoidectomy, Appendectomy, Bowel Resection, Joint Replacement, Prostate Surgery, Tonsillectomy Additional Past Surgical History / Comment(s): bowel resections x 3, total R hip arthroplasty, cataract removal with lens implants bilaterally, colonoscopy, circumcism. Past Anesthesia/Blood Transfusion Reactions: No Reported Reaction Additional Past Anesthesia/Blood Transfusion Reaction / Comment(s): Pt has received blood without reaction. Past Psychological History: No Psychological Hx Reported Smoking Status: Former smoker Past Alcohol Use History: Occasional Past Drug Use History: None Reported - Past Family History Father Family Medical History: Coronary Artery Disease (CAD) Additional Family Medical History / Comment(s): Father at 75 of heart problems. Mother Family Medical History: No Reported History Additional Family Medical History / Comment(s): Mother was healthy. She at 71 yrs in MVA. General Exam - General Exam Comments Initial Comments: GENERAL: Patient is well-developed and well-nourished. Patient is nontoxic and well- hydrated and is in mild distress. ENT: Neck is soft and supple. No significant lymphadenopathy is noted. Oropharynx is clear. Moist mucous membranes. Neck has full range of motion without eliciting any pain. EYES: The sclera were anicteric and conjunctiva were pink and moist. Extraocular movements were intact and pupils were equal round and reactive to light. Eyelids were unremarkable. PULMONARY: Unlabored respirations. Good breath sounds bilaterally. No audible rales rhonchi or wheezing was noted. CARDIOVASCULAR: There is a regular rate and rhythm without any murmurs gallops or rubs. ABDOMEN: Soft and nontender with decreased bowel sounds. No palpable organomegaly was noted. There is no palpable pulsatile mass. Patient has no tenderness on palpation SKIN: Skin is clear with no lesions or rashes and otherwise unremarkable. NEUROLOGIC: Patient is alert and oriented x3. Cranial nerves II through XII are grossly intact. Motor and sensory are also intact. Normal speech, volume and content. Symmetrical smile. MUSCULOSKELETAL: Normal extremities with adequate strength and full range of motion. No lower extremity swelling or edema. No calf tenderness. LYMPHATICS: No significant lymphadenopathy is noted PSYCHIATRIC: Normal psychiatric evaluation. Normal interpersonal interactions appears functionally intact in deals appropriately with others. No signs of depression. No signs of anxiety Limitations: no limitations Course Vital Signs 06/12/18 06/12/18 06/12/18 21:06 22:40 23:37 Temperature 97.8 F Pulse Rate 84 72 64 Respiratory 18 16 16 Rate Blood Pressure 136/74 117/55 128/69 O2 Sat by Pulse 96 96 96 Oximetry Medical Decision Making - Medical Decision Making Patient's liver enzymes are elevated CAT scan of the abdomen did not show anything acute. Ultrasound did not show anything acute Hepatitis panel results were pending. I spoke with [facility] [place] Divisionist accepted the admission. Patient was admitted I wrote admitting orders. I consult the GI. - Lab Data Result diagrams: 06/12/18 21:22 06/12/18 21:22 Lab Results 06/12/18 06/12/18 06/12/18 Range/Units 21:22 21:22 21:22 WBC 8.9 (3.8-10.6) k/uL RBC 2.73 L (4.30-5.90) m/uL Hgb 8.6 L (13.0-17.5) gm/dL Hct 26.8 L (39.0-53.0) % MCV 98.3 (80.0-100.0) fL MCH 31.5 (25.0-35.0) pg MCHC 32.0 (31.0-37.0) g/dL RDW 13.9 (11.5-15.5) % Plt Count 246 (150-450) k/uL Neutrophils % 78 % Lymphocytes % 8 % Monocytes % 9 % Eosinophils % 3 % Basophils % 1 % Neutrophils # 6.9 (1.3-7.7) k/uL Lymphocytes # 0.7 L (1.0-4.8) k/uL Monocytes # 0.8 (0-1.0) k/uL Eosinophils # 0.2 (0-0.7) k/uL Basophils # 0.1 (0-0.2) k/uL Sodium 136 L (137-145) mmol/L Potassium 4.9 (3.5-5.1) mmol/L Chloride 104 (98-107) mmol/L Carbon Dioxide 19 L (22-30) mmol/L Anion Gap 13 mmol/L BUN 52 H (9-20) mg/dL Creatinine 3.60 H (0.66-1.25) mg/dL Est GFR (CKD-EPI)AfAm 16 (>60 ml/min/1.73 sqM) Est GFR (CKD-EPI)NonAf 14 (>60 ml/min/1.73 sqM) Glucose 104 H (74-99) mg/dL Plasma Lactic Acid Gustavo 0.8 (0.7-2.0) mmol/L Calcium 8.6 (8.4-10.2) mg/dL Total Bilirubin 2.0 H (0.2-1.3) mg/dL AST 1036 H (17-59) U/L ALT 119 H (21-72) U/L Alkaline Phosphatase 429 H (38-126) U/L Total Protein 5.8 L (6.3-8.2) g/dL Albumin 3.4 L (3.5-5.0) g/dL Amylase 97 (30-110) U/L Lipase 698 H (23-300) U/L Disposition Clinical Impression: Pancreatitis, Abdominal pain, Ileus, Hepatitis Disposition: ADMITTED IP TO THIS [facility] Referrals: Garfield Hanna DO [Primary Care Provider] - 1-2 days Time of Disposition: 23:53
[2018-06-12 21:31] LABS: Basophils # (A) 0.1 k/uL (0-0.2); Basophils % (A) 1 %; Eosinophils # (A) 0.2 k/uL (0-0.7); Eosinophils % (A) 3 %; HCT 26.8 % (39.0-53.0); HGB 8.6 gm/dL (13.0-17.5); Lymphocytes # (A) 0.7 k/uL (1.0-4.8); Lymphocytes % (A) 8 %; MCH 31.5 pg (25.0-35.0); MCV 98.3 fL (80.0-100.0); Mean Platelet Volume 7.2; Monocytes # (A) 0.8 k/uL (0-1.0); Monocytes % (A) 9 %; Neutrophils # (A) 6.9 k/uL (1.3-7.7); Neutrophils % (A) 78 %; Platelet Count 246 k/uL (150-450); RBC 2.73 m/uL (4.30-5.90); RDW 13.9 % (11.5-15.5); WBC 8.9 k/uL (3.8-10.6)
[2018-06-12 21:42] LABS: Albumin 3.4 g/dL (3.5-5.0); Calcium 8.6 mg/dL (8.4-10.2); Potassium 4.9 mmol/L (3.5-5.1); Total Protein 5.8 g/dL (6.3-8.2)
--- NOTE | 2018-06-12 22:46 | CT ---
EXAMINATION TYPE: CT abdomen pelvis wo con DATE OF EXAM: 06/12/2018 COMPARISON: 12/20/2015 HISTORY: Nausea and constipation. CT DLP: 973 mGycm Automated exposure control for dose reduction was used. TECHNIQUE: Multiple axial sections were obtained from the diaphragm to the floor the pelvis with no contrast. FINDINGS: There is coarse interstitial density at the lung bases consistent with fibrosis. There is no pleural effusion. There is no pericardial effusion. Liver shows no focal defect. There are clips from cholecystectomy. Spleen appears normal. There is no pancreatic mass. Bile ducts are not dilated. There is a 5 mm calcification in the region of the dist al common bile duct. There is stranding around the kidneys. There is some prominence of the left and right renal pelvis bu t the ureters are not dilated. There is a 2 cm cortical cyst on the medial left kidney. There is no r etroperitoneal adenopathy. There are multiple sigmoid diverticula. There is no evidence of diverticul itis. There is mild retained fecal material in the large bowel. There is gas-filled rectum. There are some small bowel distended loops with a few fluid levels. These measure up to 3 cm. There is no sign of free air. There is no ascites. Bladder distends smoothly. There is right hip prosthesis. There is no free fluid in the pelvis. I see no bony destructive process. There is no compression fracture. Th ere are small right renal cortical cysts. There is previous surgery on the right colon. There is no e vidence of an abscess. IMPRESSION: There is evidence of mild small bowel ileus. Small bowel is less dilated than old exam. Sigmoid diver ticulosis. Mild constipation. Mild prominence of the renal collecting systems consistent with previou s episodes of obstruction. There is clearing of a small calculus in the lower pole left kidney compar ed to old exam. Pulmonary fibrotic changes at the lung bases appear slightly worse than old exam. IMPRESSION:
--- NOTE | 2018-06-12 23:50 | US ---
EXAMINATION TYPE: US liver DATE OF EXAM: 06/12/2018 COMPARISON: NONE CLINICAL HISTORY: Pain. patient sleeping, pain per order EXAM MEASUREMENTS: Liver Length: 14.4 cm Gallbladder Wall: Surgically absent CBD: 0.6 cm Right Kidney: 9.0 x 4.6 x 5.2 cm Pancreas: limited portions seen appear wnl Liver: intercostal imaging due to bowel gas appears wnl Gallbladder: Surgically absent Evidence for sonographic Mata's sign: no CBD: wnl Right Kidney: multiple cystic areas seen, largest at inferior pole = 1.4cm IMPRESSION: There are multiple small right renal simple cortical cysts. No hydronephrosis. No focal l iver defect. No dilated ducts.
[2018-06-12] MEDS ORDERED: SODIUM CHLORIDE 0.9% 1,000 ML IV ONE (23:53)
[2018-06-13 03:26] LABS: Appearance,Urine Clear (Clear); Bacteria,Urine Rare /hpf; Bilirubin,Urine Negative (Negative); Blood,Urine Trace (Negative); Color,Urine Yellow; Glucose,Urine (UA) Negative (Negative); Ketones,Urine Negative (Negative); Leukocyte Esterase,Urine Negative (Negative); Mucus,Urine Rare /hpf; Nitrite,Urine Negative (Negative); PH, Urine 5.5 (5.0-8.0); Protein,Urine Trace (Negative); RBC,Urine <1 /hpf (0-5); Specific Gravity,Urine 1.009 (1.001-1.035); Squamous Epithelial Cell,Urine <1 /hpf (0-4); Urobilinogen,Urine <2.0 mg/dL (<2.0); WBC,Urine 1 /hpf (0-5)
[2018-06-13 06:34] LABS: Hepatitis A AB IgM Index 0.01; Hepatitis A Antibody IgM NEGATIVE
--- NOTE | 2018-06-13 11:36 | P.CRDCN ---
History of Present Illness Consult date: 06/13/18 Chief complaint: Abdominal discomfort History of present illness: This is a pleasant 88-year-old gentleman who just was discharged from the hospital after he was admitted with symptomatic bradycardia and evidence of advanced AV block where the patient received permanent pacemaker implantation and was discharged from the hospital in stable medical condition yesterday. The patient was discharged from 6 E. He presented back to the hospital complaining of abdominal discomfort started right after he arrived home. No nausea or vomiting. No fever or chills. No chest pain or chest discomfort. No shortness of breath. No dizziness or lightheadedness. And no syncope. The patient stated that he was unable to pass any gas is. Because of that he presented to the emergency room and initial diagnosed as was a small bowel obstruction which apparently has resolved. The patient stated that he was able to pass gas is now. His discomfort in the abdomen has resolved completely. From the cardiac vascular standpoint overview, the patient is stable. He is asymptomatic and he is hemodynamically stable. Past Medical History Past Medical History: Hyperlipidemia, Hypertension, Osteoarthritis (OA), Prostate Disorder Additional Past Medical History / Comment(s): bowel obstructions 3 or 4 times, cervical spine, hands arthiritis, back pain, asthma as child, sinusitis, diverticulitis, vitamin D deficiency. Heart Block... History of Any Multi-Drug Resistant Organisms: None Reported Past Surgical History: Adenoidectomy, Appendectomy, Bowel Resection, Joint Replacement, Prostate Surgery, Tonsillectomy Additional Past Surgical History / Comment(s): bowel resections x 3, total R hip arthroplasty, cataract removal with lens implants bilaterally, colonoscopy, circumcism. Pacemaker insertion Past Anesthesia/Blood Transfusion Reactions: No Reported Reaction Additional Past Anesthesia/Blood Transfusion Reaction / Comment(s): Pt has received blood without reaction. Past Psychological History: No Psychological Hx Reported Additional Psychological History / Comment(s): Pt resides alone. He has alot of family and friend support. 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 He uses no assistive device. He drives. Smoking Status: Former smoker Past Alcohol Use History: Occasional Additional Past Alcohol Use History / Comment(s): Pt quit smoking in 1990. He had smoked lighly for 30 yrs, usually 5-10 cigarettes a day. Past Drug Use History: None Reported - Past Family History Father Family Medical History: Coronary Artery Disease (CAD) Additional Family Medical History / Comment(s): Father at 75 of heart problems. Mother Family Medical History: No Reported History Additional Family Medical History / Comment(s): Mother was healthy. She at 71 yrs in MVA. Medications and Allergies Home Medications Medication Instructions Recorded Confirmed Type Simvastatin [Zocor] 20 mg PO HS 12/19/15 06/12/18 History Cholecalciferol [Vitamin D3] 1,000 unit PO DAILY 09/05/16 06/12/18 History Ferrous Sulfate [Iron (65 MG 325 mg PO DAILY 09/05/16 06/12/18 History Elemental)] Mayra Root 1 tab PO DAILY 09/05/16 06/12/18 History Vitamin B Complex 1 cap PO DAILY 09/05/16 06/12/18 History Krill Oil 500 mg PO DAILY 06/04/18 06/12/18 History Omeprazole [PriLOSEC] 40 mg PO DAILY 06/04/18 06/12/18 History Cephalexin [Keflex] 500 mg PO TID #9 cap 06/12/18 06/12/18 Rx Psyllium Husk 100% [Metamucil 6 gm PO ONCE 06/12/18 06/12/18 History Packet] Sodium Bicarbonate Tab 650 mg PO QID #120 tab 06/12/18 06/12/18 Rx Tamsulosin [Flomax] 0.4 mg PO PC-BRKFST #30 tab 06/12/18 06/12/18 Rx Allergies Allergy/AdvReac Type Severity Reaction Status Date / Time No Known Allergies Allergy Verified 06/12/18 21:24 Physical Exam Vitals: Vital Signs Temp Pulse Pulse Resp BP BP Pulse Ox 06/13/18 05:00 97.4 F L 80 16 122/57 96 06/13/18 01:25 98.6 F 99 16 106/59 95 06/13/18 00:27 97.9 F 98 18 137/64 97 06/12/18 23:37 64 16 128/69 96 06/12/18 22:40 72 16 117/55 96 06/12/18 21:06 97.8 F 84 18 136/74 96 Intake and Output 06/12/18 06/13/18 06/13/18 22:59 06:59 14:59 Intake Total 600 Balance 600 Intake: Intake, IV Titration 600 Amount Sodium Chloride 0.9% 1, 600 000 ml @ 100 mls/hr IV . Q10H ONE Rx#:[id number] Other: Voiding Method Toilet Toilet Urinal Urinal # Voids 2 Weight 70.76 kg - Constitutional General appearance: no acute distress - Respiratory Respiratory: bilateral: rales - Cardiovascular Rhythm: regular Heart sounds: normal: S1, S2 Abnormal Heart Sounds: systolic murmur Results 06/12/18 21:22 06/12/18 21:22 Cardiac Enzymes 06/12/18 Range/Units 21:22 AST 1036 H (17-59) U/L CBC 06/12/18 Range/Units 21:22 WBC 8.9 (3.8-10.6) k/uL RBC 2.73 L (4.30-5.90) m/uL Hgb 8.6 L (13.0-17.5) gm/dL Hct 26.8 L (39.0-53.0) % Plt Count 246 (150-450) k/uL Comprehensive Metabolic Panel 06/12/18 Range/Units 21:22 Sodium 136 L (137-145) mmol/L Potassium 4.9 (3.5-5.1) mmol/L Chloride 104 (98-107) mmol/L Carbon Dioxide 19 L (22-30) mmol/L BUN 52 H (9-20) mg/dL Creatinine 3.60 H (0.66-1.25) mg/dL Glucose 104 H (74-99) mg/dL Calcium 8.6 (8.4-10.2) mg/dL AST 1036 H (17-59) U/L ALT 119 H (21-72) U/L Alkaline Phosphatase 429 H (38-126) U/L Total Protein 5.8 L (6.3-8.2) g/dL Albumin 3.4 L (3.5-5.0) g/dL Intake and Output 06/12/18 06/13/18 06/13/18 22:59 06:59 14:59 Intake Total 600 Balance 600 Intake: Intake, IV Titration 600 Amount Sodium Chloride 0.9% 1, 600 000 ml @ 100 mls/hr IV . Q10H ONE Rx#:[id number] Other: Voiding Method Toilet Toilet Urinal Urinal # Voids 2 Weight 70.76 kg 06/12/18 21:22 06/12/18 21:22 Assessment and Plan Assessment: Assessment #1 abdominal discomfort which has resolved #2 possible small bowel obstruction which has resolved as well #3 status post permanent pacemaker implantation #4 chronic kidney disease seems to be stable #5 mild aortic stenosis #6 multiple comorbid conditions Plan #1 from the cardiovascular standpoint of view, the patient is asymptomatic #2 he is also hemodynamically stable at this point. #3 we'll continue following up with him on when necessary case. Thank you for allowing us participate in his care
[2018-06-13 12:11] LABS: Hepatitis B Core IgM Non-Reactive (Non-Reactive)
[2018-06-13] MEDS: SODIUM BICARBONATE TAB 650 MG TAB PO SCH ×2 (17:44→21:29)
[2018-06-13] MEDS: ATORVASTATIN 10 MG TAB PO SCH (21:29)
[2018-06-13] MEDS: SODIUM CHLORIDE 0.9% 1,000 ML IV SCH (21:29)
--- NOTE | 2018-06-13 22:06 | P.HPIM ---
History of Present Illness H&P Date: 06/13/18 Chief Complaint: Abdominal pain Patient is a 88-year-old male with a known history of hypertension, hyperlipidemia and history of pacemaker placement, discharged on 06/12/2018, and also previous history of bowel obstruction 3-4 times with bowel resections 3 presently ER with complaints of abdominal pain. Patient states he had breakfast this morning and since then he has had abdominal pain. Patient states he had a bowel movement earlier this morning but none since. Patient states he did pass a little gas about 4:00 but no more gas since then. Patient states his some nausea but no vomiting. Patient denies fever chills. Patient states she's had multiple abdominal surgeries and bowel obstructions in the past. Patient states this does feel like a bowel obstruction to him. Patient denies any palpitations chest pain or difficulty breathing. Patient denies headache patient denies numbness weakness. Patient denies lightheadedness dizziness or near syncopal episode. Patient is currently passing gas and bowel obstruction has resolved. Patient was also having elevated liver enzymes and lipase. CT of abdomen pelvis there is evidence of mild small bowel ileus. Small bowel is less dilated and old exam. Ultrasound liver there are multiple small right renal simple cortical cyst. No hydronephrosis. No focal liver defect. No dilated ducts. Hepatitis panel negative. Cardiology and GI was consulted. Review of Systems Constitutional: Patient denies any fever or chills . No generalized weakness or weight loss. Abdomen: Patient does have nausea and no episodes of vomiting. Abdominal pain left lower quadrant. No diarrhea. Cardiovascular: Patient denies any chest pain or short of breath no palpitations. Respiratory: patient denied any cough is from production. No shortness of breath Neurologic: Patient denied any numbness or tingling headache. Musculoskeletal: Patient denies any complaints of joint swelling or deformity. Skin: Negative Psychiatric: Negative Endocrine: No heat or cold intolerance. No recent weight gain. Genitourinary: No dysuria or hematuria. All other 14 point ROS negative except the above Past Medical History Past Medical History: Hyperlipidemia, Hypertension, Osteoarthritis (OA), Prostate Disorder Additional Past Medical History / Comment(s): bowel obstructions 3 or 4 times, cervical spine, hands arthiritis, back pain, asthma as child, sinusitis, diverticulitis, vitamin D deficiency. Heart Block... History of Any Multi-Drug Resistant Organisms: None Reported Past Surgical History: Adenoidectomy, Appendectomy, Bowel Resection, Joint Replacement, Prostate Surgery, Tonsillectomy Additional Past Surgical History / Comment(s): bowel resections x 3, total R hip arthroplasty, cataract removal with lens implants bilaterally, colonoscopy, circumcism. Pacemaker insertion Past Anesthesia/Blood Transfusion Reactions: No Reported Reaction Additional Past Anesthesia/Blood Transfusion Reaction / Comment(s): Pt has received blood without reaction. Past Psychological History: No Psychological Hx Reported Additional Psychological History / Comment(s): Pt resides alone. He has alot of family and friend support. 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 He uses no assistive device. He drives. Smoking Status: Former smoker Past Alcohol Use History: Occasional Additional Past Alcohol Use History / Comment(s): Pt quit smoking in 1990. He had smoked lighly for 30 yrs, usually 5-10 cigarettes a day. Past Drug Use History: None Reported - Past Family History Father Family Medical History: Coronary Artery Disease (CAD) Additional Family Medical History / Comment(s): Father at 75 of heart problems. Mother Family Medical History: No Reported History Additional Family Medical History / Comment(s): Mother was healthy. She at 71 yrs in MVA. Medications and Allergies Home Medications Medication Instructions Recorded Confirmed Type Simvastatin [Zocor] 20 mg PO HS 12/19/15 06/12/18 History Cholecalciferol [Vitamin D3] 1,000 unit PO DAILY 09/05/16 06/12/18 History Ferrous Sulfate [Iron (65 MG 325 mg PO DAILY 09/05/16 06/12/18 History Elemental)] Mayra Root 1 tab PO DAILY 09/05/16 06/12/18 History Vitamin B Complex 1 cap PO DAILY 09/05/16 06/12/18 History Krill Oil 500 mg PO DAILY 06/04/18 06/12/18 History Omeprazole [PriLOSEC] 40 mg PO DAILY 06/04/18 06/12/18 History Cephalexin [Keflex] 500 mg PO TID #9 cap 06/12/18 06/12/18 Rx Psyllium Husk 100% [Metamucil 6 gm PO ONCE 06/12/18 06/12/18 History Packet] Sodium Bicarbonate Tab 650 mg PO QID #120 tab 06/12/18 06/12/18 Rx Tamsulosin [Flomax] 0.4 mg PO PC-BRKFST #30 tab 06/12/18 06/12/18 Rx Allergies Allergy/AdvReac Type Severity Reaction Status Date / Time No Known Allergies Allergy Verified 06/12/18 21:24 Physical Exam Vitals: Vital Signs Temp Pulse Pulse Resp BP BP Pulse Ox 06/13/18 05:00 97.4 F L 80 16 122/57 96 06/13/18 01:25 98.6 F 99 16 106/59 95 06/13/18 00:27 97.9 F 98 18 137/64 97 06/12/18 23:37 64 16 128/69 96 06/12/18 22:40 72 16 117/55 96 06/12/18 21:06 97.8 F 84 18 136/74 96 Intake and Output 06/12/18 06/13/18 06/13/18 22:59 06:59 14:59 Intake Total 600 Balance 600 Intake: Intake, IV Titration 600 Amount Sodium Chloride 0.9% 1, 600 000 ml @ 100 mls/hr IV . Q10H ONE Rx#:[id number] Other: Voiding Method Toilet Toilet Urinal Urinal # Voids 2 Weight 70.76 kg PHYSICAL EXAMINATION: Patient is lying in the bed comfortably, no acute distress, awake alert and oriented.. HEENT: Normocephalic. Neck is supple. Pupils reactive. Nostrils clear. Oral cavity is moist. Ears reveal no drainage. Neck reveals no JVD, carotid bruits, or thyromegaly. CHEST EXAMINATION: Trachea is central. Symmetrical expansion. Lung edwards clear to auscultation and percussion. CARDIAC: Normal S1, S2 with no gallops. No murmurs ABDOMEN: Soft. Bowel sounds sluggish. No organomegaly. No abdominal bruits. Extremities: reveal no edema. No clubbing or cyanosis Neurologically awake, alert, oriented x3 with well-coordinated movements. No focal deficits noted Skin: No rash or skin lesions. Psychiatric: Coperative. Nonsuicidal Musculoskeletal: No joint swelling or deformity. Normal range of motion. Results CBC & Chem 7: 06/12/18 21:22 06/12/18 21:22 Labs: Abnormal Lab Results - Last 24 Hours (Table) 07/13/18 07/13/18 07/14/18 Range/Units 21:22 21:22 02:37 RBC 2.73 L (4.30-5.90) m/uL Hgb 8.6 L (13.0-17.5) gm/dL Hct 26.8 L (39.0-53.0) % Lymphocytes # 0.7 L (1.0-4.8) k/uL Sodium 136 L (137-145) mmol/L Carbon Dioxide 19 L (22-30) mmol/L BUN 52 H (9-20) mg/dL Creatinine 3.60 H (0.66-1.25) mg/dL Glucose 104 H (74-99) mg/dL Total Bilirubin 2.0 H (0.2-1.3) mg/dL AST 1036 H (17-59) U/L ALT 119 H (21-72) U/L Alkaline Phosphatase 429 H (38-126) U/L Total Protein 5.8 L (6.3-8.2) g/dL Albumin 3.4 L (3.5-5.0) g/dL Lipase 698 H (23-300) U/L Urine Protein Trace H (Negative) Urine Blood Trace H (Negative) Urine Bacteria Rare H (None) /hpf Urine Mucus Rare H (None) /hpf Thrombosis Risk Factor Assmnt - DVT/VTE Prophylaxis DVT/VTE Prophylaxis: Pharmacologic Prophylaxis ordered - Choose All That Apply Any of the Below Risk Factors Present?: Yes Each Risk Factor Represents 3 Points: Age 75 years or older Other congenital or acquired thrombophilia - If yes, enter type in comment: No Thrombosis Risk Factor Assessment Total Risk Factor Score: 3 Thrombosis Risk Factor Assessment Level: Moderate Risk Assessment and Plan Assessment: Acute small bowel ileus. Possible obstruction Elevated liver enzymes./Transaminitis. 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 On 06/11/2018 Chronic kidney disease with baseline creatinine 1.39 stage III Previous history of bowel resection due to obstruction multiple times Anemia of chronic disease Hypertension Hyperlipidemia Osteoarthritis History of diverticulitis Previous history of smoking DVT prophylaxis Plan: Patient be continued on IV hydration. Patient is able to pass gas now. Will be started on clear liquid diet. Hepatitis panel negative. GI was consulted. We'll repeat CMP tomorrow. Continue the pain management and bowel regimen. Continue with home medications and further recommendations based on the clinical course. Prognosis is guarded. Time with Patient: Greater than 30
[2018-06-14] MEDS: SODIUM CHLORIDE 0.9% 1,000 ML IV SCH ×2 (06:20→10:29)
[2018-06-14] MEDS: SODIUM BICARBONATE TAB 650 MG TAB PO SCH ×4 (08:08→21:07)
[2018-06-14] MEDS: PANTOPRAZOLE 40 MG TABLET PO SCH (08:08)
[2018-06-14] MEDS: CHOLECALCIFEROL 1,000 UNIT TAB PO SCH (08:08)
[2018-06-14] MEDS: B COMPLEX-VIT C-VIT E-ZINC 1 EACH TAB PO SCH (08:08)
[2018-06-14] MEDS: TAMSULOSIN 0.4 MG CAP.ER.24H PO SCH (08:08)
[2018-06-14 10:52] LABS: Albumin 3.1 g/dL (3.5-5.0); Calcium 8.1 mg/dL (8.4-10.2); Potassium 4.3 mmol/L (3.5-5.1); Total Bilirubin 1.4 mg/dL (0.2-1.3); Total Protein 5.4 g/dL (6.3-8.2)
--- NOTE | 2018-06-14 13:51 | P.PN ---
Subjective Progress Note Date: 06/14/18 Principal diagnosis: Small bowel ileus Patient is a 88-year-old male with a known history of hypertension, hyperlipidemia and history of pacemaker placement, discharged on 06/12/2018, and also previous history of bowel obstruction 3-4 times with bowel resections 3 presently ER with complaints of abdominal pain. Patient states he had breakfast this morning and since then he has had abdominal pain. Patient states he had a bowel movement earlier this morning but none since. Patient states he did pass a little gas about 4:00 but no more gas since then. Patient states his some nausea but no vomiting. Patient denies fever chills. Patient states she's had multiple abdominal surgeries and bowel obstructions in the past. Patient states this does feel like a bowel obstruction to him. Patient denies any palpitations chest pain or difficulty breathing. Patient denies headache patient denies numbness weakness. Patient denies lightheadedness dizziness or near syncopal episode. Patient is currently passing gas and bowel obstruction has resolved. Patient was also having elevated liver enzymes and lipase. CT of abdomen pelvis there is evidence of mild small bowel ileus. Small bowel is less dilated and old exam. Ultrasound liver there are multiple small right renal simple cortical cyst. No hydronephrosis. No focal liver defect. No dilated ducts. Hepatitis panel negative. Cardiology and GI was consulted. 06/14/2018 Patient says that his abdominal pain is much improved now. Tolerating liquid diet and was advanced to soft diet now. Liver enzymes are trending down. Patient is being followed by GI and cardiology. No complains of chest pain or shortness of breath. No fever no chills. No nausea no vomiting All other review of systems negative except the above. Active Medications Generic Name Dose Route Start Last Admin Trade Name Freq PRN Reason Stop Dose Admin Atorvastatin Calcium 10 mg 06/13/18 21:00 06/13/18 21:29 Lipitor PO 10 mg HS LORI Administration Cholecalciferol 1,000 unit 06/14/18 09:00 06/14/18 08:08 Vitamin D3 PO 1,000 unit DAILY LORI Administration Sodium Chloride 1,000 mls @ 75 mls/hr 06/13/18 13:45 06/14/18 10:29 Saline 0.9% IV 75 mls/hr .[id number] LORI Administration Pantoprazole Sodium 40 mg 06/14/18 07:30 06/14/18 08:08 Protonix PO 40 mg [id number] LORI Administration Sodium Bicarbonate 650 mg 06/13/18 18:00 06/14/18 13:03 Sodium Bicarbonate Tab PO 650 mg QID LORI Administration Tamsulosin HCl 0.4 mg 06/14/18 08:30 06/14/18 08:08 Flomax PO 0.4 mg PC-BRKFST LORI Administration Vitamin B Complex/Vit C/Vit E/Zinc 1 each 06/14/18 09:00 06/14/18 08:08 Z-Bec PO 1 each DAILY LORI Administration Objective - Vital Signs Vital signs: Vital Signs Temp 98.1 F 06/14/18 06:59 Pulse 64 06/14/18 06:59 Resp 16 06/14/18 06:59 BP 121/60 06/14/18 06:59 Pulse Ox 95 06/14/18 06:59 Intake & Output 06/13/18 06/14/18 06/14/18 18:59 06:59 18:59 Intake Total 800 600 Output Total 890 120 Balance -90 600 -120 Intake: Intake, IV Titration 800 600 Amount Sodium Chloride 0.9% 1, 800 000 ml @ 100 mls/hr IV . Q10H ONE Rx#:[id number] Sodium Chloride 0.9% 1, 600 000 ml @ 75 mls/hr IV . [id number] LORI Rx#:[id number] Output: Urine 890 120 Other: Voiding Method Toilet Toilet Toilet Urinal Urinal Urinal # Voids 2 # Bowel Movements 1 - Exam PHYSICAL EXAMINATION: Patient is lying in the bed comfortably, no acute distress, awake alert and oriented.. HEENT: Normocephalic. Neck is supple. Pupils reactive. Nostrils clear. Oral cavity is moist. Ears reveal no drainage. Neck reveals no JVD, carotid bruits, or thyromegaly. CHEST EXAMINATION: Trachea is central. Symmetrical expansion. Lung edwards clear to auscultation and percussion. CARDIAC: Normal S1, S2 with no gallops. No murmurs ABDOMEN: Soft. Bowel sounds sluggish. No organomegaly. No abdominal bruits. Extremities: reveal no edema. No clubbing or cyanosis Neurologically awake, alert, oriented x3 with well-coordinated movements. No focal deficits noted Skin: No rash or skin lesions. Psychiatric: Coperative. Nonsuicidal Musculoskeletal: No joint swelling or deformity. Normal range of motion. - Labs CBC & Chem 7: 06/12/18 21:22 06/14/18 10:25 Labs: Abnormal Lab Results - Last 24 Hours (Table) 06/14/18 Range/Units 10:25 Chloride 110 H (98-107) mmol/L Carbon Dioxide 20 L (22-30) mmol/L BUN 37 H (9-20) mg/dL Creatinine 3.17 H (0.66-1.25) mg/dL Calcium 8.1 L (8.4-10.2) mg/dL Total Bilirubin 1.4 H (0.2-1.3) mg/dL AST 474 H (17-59) U/L ALT 93 H (21-72) U/L Alkaline Phosphatase 541 H (38-126) U/L Total Protein 5.4 L (6.3-8.2) g/dL Albumin 3.1 L (3.5-5.0) g/dL Assessment and Plan Assessment: Acute small bowel ileus. Possible obstruction. Improved now started on diet. Elevated liver enzymes./Transaminitis. 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 On 06/11/2018 Chronic kidney disease with baseline creatinine 1.39 stage III Previous history of bowel resection due to obstruction multiple times Anemia of chronic disease Hypertension Hyperlipidemia Osteoarthritis History of diverticulitis Previous history of smoking DVT prophylaxis Plan: Patient be continued on IV hydration. Patient is able to pass gas now. Tolerated liquid diet and advance to soft.. Hepatitis panel negative. GI was consulted. We'll repeat CMP tomorrow. Continue the pain management and bowel regimen. Continue with home medications and further recommendations based on the clinical course. Prognosis is guarded. Time with Patient: Greater than 30
[2018-06-14] MEDS ORDERED: traMADol 50 MG TAB PO PRN (17:11)
[2018-06-14] MEDS: ATORVASTATIN 10 MG TAB PO SCH (21:07)
[2018-06-14 22:12] VITALS: RESP 18
[2018-06-15 06:31] VITALS: BP 108/56; PULSE 102; TEMP 98.3
[2018-06-15] MEDS: SODIUM BICARBONATE TAB 650 MG TAB PO SCH ×2 (08:19→13:32)
[2018-06-15] MEDS: B COMPLEX-VIT C-VIT E-ZINC 1 EACH TAB PO SCH (08:19)
[2018-06-15] MEDS: CHOLECALCIFEROL 1,000 UNIT TAB PO SCH (08:19)
[2018-06-15] MEDS: TAMSULOSIN 0.4 MG CAP.ER.24H PO SCH (08:19)
[2018-06-15] MEDS: PANTOPRAZOLE 40 MG TABLET PO SCH (08:19)
[2018-06-15 08:33] LABS: Albumin 2.6 g/dL (3.5-5.0); Calcium 7.7 mg/dL (8.4-10.2); Potassium 4.2 mmol/L (3.5-5.1); Total Bilirubin 0.8 mg/dL (0.2-1.3); Total Protein 4.6 g/dL (6.3-8.2)
[2018-06-15 08:45] LABS: Basophils # (A) 0.1 k/uL (0-0.2); Basophils % (A) 1 %; Eosinophils # (A) 0.6 k/uL (0-0.7); Eosinophils % (A) 8 %; HGB 7.3 gm/dL (13.0-17.5); Hypochromasia Marked; Lymphocytes # (A) 0.8 k/uL (1.0-4.8); Lymphocytes % (A) 12 %; MCH 30.9 pg (25.0-35.0); MCHC 30.4 g/dL (31.0-37.0); MCV 101.9 fL (80.0-100.0); Macrocytosis Slight; Mean Platelet Volume 7.1; Monocytes # (A) 0.7 k/uL (0-1.0); Monocytes % (A) 10 %; Neutrophils # (A) 4.9 k/uL (1.3-7.7); Neutrophils % (A) 68 %; Platelet Count 289 k/uL (150-450); RBC 2.35 m/uL (4.30-5.90); RDW 14.1 % (11.5-15.5); WBC 7.1 k/uL (3.8-10.6)
[2018-06-15 09:15] LABS: Amylase 35 U/L (30-110); Lipase 78 U/L (23-300)
--- NOTE | 2018-06-15 12:52 | P.DS ---
Providers Date of admission: 06/12/18 23:53 Expected date of discharge: 06/15/18 Attending physician: Hugh Laurent Consults: 06/12/18 23:53 Consult Physician Urgent Consulting Provider: Steven Bingham Consult Reason/Comments: Hepatitis, pancreatitis, ileus, abdominal pain Do you want consulting provider notified?: Yes Primary care physician: [facility] Course: 88-year-old male who was just discharged from the hospital on 2017 for NICK and third degree heart block requiring PPM insertion. The patient states he was discharged home and then began having abdominal pain and quit passing gas. The patient has had multiple abdominal surgeries and prior bowel obstructions, so he presented to the ER for further evaluation. The patient's liver enzymes were elevated at the time of admission. AST 1036 and ALT 119. Amylase was within normal limits at 97. Lipase was elevated at 698. CT abdomen and pelvis were completed revealing evidence of mild small bowel ileus, small bowel is less dilated than old exam. Sigmoid diverticulosis. US of liver was completed revealing multiple small right renal simple cortical cysts. No hydronephrosis. No focal liver defect. No dilated ducts. GI was consulted to evaluate patient. No acute intervention was recommended from their standpoint. Hepatitis panel was nonreactive. Liver enzymes are trending downward. The patient's abdominal pain has resolved. The patient has been up ambulating. The patient states he has had bowel movements since admission and feels he is back to his baseline. The patient was started on a clear liquid and advanced as tolerated. He was deemed stable for discharge. DISCHARGE DIAGNOSIS: Acute small bowel ileus, resolved at time of discharge Transaminitis, hepatitis panel negative, liver enzymes trending downward, etiology unknown Elevated lipase, etiology unknown, possible pancreatitis, resolved at time of discharge Recent hospitalization for complete heart block with permanent pacemaker insertion History of multiple bowel sections with multiple abdominal surgeries and bowel resections Chronic kidney disease, currently stage IV Anemia of chronic disease secondary to CKD Hypertension Hyperlipidemia History of urinary retention Nurse practitioner note has been reviewed by physician. Signing provider agrees with the documented findings, assessment, and plan of care. Plan - Discharge Summary Discharge Rx Participant: No New Discharge Prescriptions: Continue Simvastatin [Zocor] 20 mg PO HS Ferrous Sulfate [Iron (65 MG Elemental)] 325 mg PO DAILY Cholecalciferol [Vitamin D3] 1,000 unit PO DAILY Vitamin B Complex 1 cap PO DAILY Mayra Root 1 tab PO DAILY Krill Oil 500 mg PO DAILY Omeprazole [PriLOSEC] 40 mg PO DAILY Sodium Bicarbonate Tab 650 mg PO QID #120 tab Tamsulosin [Flomax] 0.4 mg PO PC-BRKFST #30 tab Psyllium Husk 100% [Metamucil Packet] 6 gm PO ONCE Discontinued Cephalexin [Keflex] 500 mg PO TID #9 cap Discharge Medication List Simvastatin [Zocor] 20 mg PO HS 12/19/15 [History] Cholecalciferol [Vitamin D3] 1,000 unit PO DAILY 09/05/16 [History] Ferrous Sulfate [Iron (65 MG Elemental)] 325 mg PO DAILY 09/05/16 [History] Mayra Root 1 tab PO DAILY 09/05/16 [History] Vitamin B Complex 1 cap PO DAILY 09/05/16 [History] Krill Oil 500 mg PO DAILY 06/04/18 [History] Omeprazole [PriLOSEC] 40 mg PO DAILY 06/04/18 [History] Psyllium Husk 100% [Metamucil Packet] 6 gm PO ONCE 06/12/18 [History] Sodium Bicarbonate Tab 650 mg PO QID #120 tab 06/12/18 [Rx] Tamsulosin [Flomax] 0.4 mg PO PC-BRKFST #30 tab 06/12/18 [Rx] Follow up Appointment(s)/Referral(s): Steven Bingham MD [STAFF PHYSICIAN] - 1 Week Garfield Hanna DO [Primary Care Provider] - 1-2 days [facility] Visiting Nurse, [NON-STAFF] - Activity/Diet/Wound Care/Special Instructions: Patient to repeat CMP and CBC at follow up appointment with Dr. Hanna Discharge Disposition: HOME SELF-CARE
--- NOTE | 2018-06-15 14:33 | P.CONS ---
History of Present Illness - Reason for Consult Consult date: 06/14/18 Pancreatitis/ileus. - History of Present Illness Patient is a 88-year-old male with a known history of hypertension, hyperlipidemia and history of pacemaker placement, discharged on 06/12/2018, and also previous history of bowel obstruction 3-4 times with bowel resections 3 presently ER with complaints of abdominal pain. Patient states he had breakfast this morning and since then he has had abdominal pain. Patient states he had a bowel movement earlier this morning but none since. Patient states he did pass a little gas about 4:00 but no more gas since then. Patient states his some nausea but no vomiting. Patient denies fever chills. Patient states she's had multiple abdominal surgeries and bowel obstructions in the past. Patient states this does feel like a bowel obstruction to him. Patient denies any palpitations chest pain or difficulty breathing. Patient denies headache patient denies numbness weakness. Patient denies lightheadedness dizziness or near syncopal episode. Patient is currently passing gas and bowel obstruction has resolved. Patient was also having elevated liver enzymes and lipase. CT of abdomen pelvis there is evidence of mild small bowel ileus. Small bowel is less dilated and old exam. Ultrasound liver there are multiple small right renal simple cortical cyst. No hydronephrosis. No focal liver defect. No dilated ducts. Hepatitis panel negative. Review of Systems Constitutional: Denies fever, chills or unintentional weight loss Neurologic: No headaches, double vision, slurring in the speech or other sensory or motor changes Cardiopulmonary: No chest pains, shortness of breath or palpitations Gastrointestinal: See present illness above Genitourinary: No hematuria, dysuria or frequency Musculoskeletal: No joint swelling or pain Skin: No rashes Endocrine: No diabetes or thyroid disease Hematologic: No bleeding tendency or anemia Psychiatry: No anxiety or depression Past Medical History Past Medical History: Hyperlipidemia, Hypertension, Osteoarthritis (OA), Prostate Disorder Additional Past Medical History / Comment(s): bowel obstructions 3 or 4 times, cervical spine, hands arthiritis, back pain, asthma as child, sinusitis, diverticulitis, vitamin D deficiency. Heart Block... History of Any Multi-Drug Resistant Organisms: None Reported Past Surgical History: Adenoidectomy, Appendectomy, Bowel Resection, Joint Replacement, Prostate Surgery, Tonsillectomy Additional Past Surgical History / Comment(s): bowel resections x 3, total R hip arthroplasty, cataract removal with lens implants bilaterally, colonoscopy, circumcism. Pacemaker insertion Past Anesthesia/Blood Transfusion Reactions: No Reported Reaction Additional Past Anesthesia/Blood Transfusion Reaction / Comm: Pt has received blood without reaction. Past Psychological History: No Psychological Hx Reported Additional Psychological History / Comment(s): Pt resides alone. He has alot of family and friend support. 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 He uses no assistive device. He drives. Smoking Status: Former smoker Past Alcohol Use History: Occasional Additional Past Alcohol Use History / Comment(s): Pt quit smoking in 1990. He had smoked lighly for 30 yrs, usually 5-10 cigarettes a day. Past Drug Use History: None Reported - Past Family History Father Family Medical History: Coronary Artery Disease (CAD) Additional Family Medical History / Comment(s): Father at 75 of heart problems. Mother Family Medical History: No Reported History Additional Family Medical History / Comment(s): Mother was healthy. She at 71 yrs in MVA. Medications and Allergies Home Medications Medication Instructions Recorded Confirmed Type Simvastatin [Zocor] 20 mg PO HS 12/19/15 06/12/18 History Cholecalciferol [Vitamin D3] 1,000 unit PO DAILY 09/05/16 06/12/18 History Ferrous Sulfate [Iron (65 MG 325 mg PO DAILY 09/05/16 06/12/18 History Elemental)] Mayra Root 1 tab PO DAILY 09/05/16 06/12/18 History Vitamin B Complex 1 cap PO DAILY 09/05/16 06/12/18 History Krill Oil 500 mg PO DAILY 06/04/18 06/12/18 History Omeprazole [PriLOSEC] 40 mg PO DAILY 06/04/18 06/12/18 History Psyllium Husk 100% [Metamucil 6 gm PO ONCE 06/12/18 06/12/18 History Packet] Sodium Bicarbonate Tab 650 mg PO QID #120 tab 06/12/18 06/12/18 Rx Tamsulosin [Flomax] 0.4 mg PO PC-BRKFST #30 tab 06/12/18 06/12/18 Rx Allergies Allergy/AdvReac Type Severity Reaction Status Date / Time No Known Allergies Allergy Verified 06/12/18 21:24 Physical Exam Vitals: Vital Signs Temp Pulse Resp BP Pulse Ox 06/14/18 06:59 98.1 F 64 16 121/60 95 06/13/18 21:15 97.9 F 72 18 117/69 94 L 06/13/18 14:18 97.8 F 63 16 111/58 96 Intake and Output 06/13/18 06/14/18 06/14/18 22:59 06:59 14:59 Intake Total 600 Output Total 350 120 Balance -350 600 -120 Intake: Intake, IV Titration 600 Amount Sodium Chloride 0.9% 1, 600 000 ml @ 75 mls/hr IV . [id number] [facility] Rx#:[id number] Output: Urine 350 120 Other: Voiding Method Toilet Toilet Toilet Urinal Urinal Urinal # Voids 1 2 # Bowel Movements 1 General: Appeared stated age, very pleasant in no acute distress Head and neck: Normocephalic and atraumatic, conjunctivae pink and sclerae are not icteric, mucous membranes moist and pink. No masses in the neck or tracheal shifts Lungs: Clear to auscultation with no dullness to percussion Heart: Regular, no murmurs, gallops or friction rubs Abdomen: Soft, no masses or organomegalies. No tenderness. Bowel sounds present Extremities: No clubbing, cyanosis or edema Neurologic: Alert and oriented 3. Cranial nerves grossly intact, no gross sensory or motor abnormalities Results CBC & Chem 7: 06/15/18 07:20 06/15/18 07:20 Labs: Abnormal Lab Results - Last 24 Hours (Table) 06/14/18 Range/Units 10:25 Chloride 110 H (98-107) mmol/L Carbon Dioxide 20 L (22-30) mmol/L BUN 37 H (9-20) mg/dL Creatinine 3.17 H (0.66-1.25) mg/dL Calcium 8.1 L (8.4-10.2) mg/dL Total Bilirubin 1.4 H (0.2-1.3) mg/dL AST 474 H (17-59) U/L ALT 93 H (21-72) U/L Alkaline Phosphatase 541 H (38-126) U/L Total Protein 5.4 L (6.3-8.2) g/dL Albumin 3.1 L (3.5-5.0) g/dL Assessment and Plan Assessment: Ileus, transaminitis and elevated lipase and this clinical setting, raises the possibility of hypotension and hypoperfusion and hyper-oxygenation. I doubt we are dealing with primary liver or pancreatic disease. Plan: I agree with current management. Will monitor the progress and the changes in his biochemical profile with supportive therapy. Further plans will be made accordingly.
--- NOTE | 2018-06-18 07:52 | CDI ---
Last Revision, October 2017 Documentation Clarification Form Date: 06/18/18 From: Mary Jane Agapito Inna Quinn, Balance Wheel Facer Hours-8:30 am & 5 pm M-Prakash Admit Date: 06/12/2018 11:53:00 PM Patient Name: Austin Lezama Visit Number: [id number] Discharge Date: 06/15/18 ATTENTION: The Clinical Documentation Specialists (CDI) and [facility] Coding Staff appreciate your assistance in clarifying documentation. Please respond to the clarification below the line at the bottom and electronically sign. The CDI & [facility] Coding staff will review the response and follow-up if needed. Please note: Queries are made part of the Legal Health Record. If you have any questions, please contact the author of this message via ITS. Dr. Garfield Hanna DS Documentation states recently discharged from the hospital on 06/12/18 for NICK and third degree heart block requiring PPM insertion. Currently has ileus, acute pancreatitis and HTN CKD Stage 4 Abnormal Cr: 3.60, 3.17, 3.01 Treatment: IV fluids Clinical significance of diagnostic testing and treatment CANNOT be assumed or coded without physician documentation of significance if any. Please clarify what abnormal laboratory signifies: Acute kidney injury Acute tubular necrosis Unable to determine Other, please specify Please continue to document in your progress notes and discharge summary in order to capture severity of illness and risk of mortality. Include clinical findings that support your diagnosis. MTDD
== END 2018-06-15 14:30 | disposition home health service (06) | DRG 388 ==
LOC: EC 21:03 → 5MS5E 23:53
PROVIDERS: ADMIT Family Medicine; ATTEND Family Medicine
DX: K56.7 Ileus, unspecified (principal); K85.90 Acute pancreatitis without necrosis or infection, unspecified; N18.4 Chronic kidney disease, stage 4 (severe); N17.9 Acute kidney failure, unspecified; D63.1 Anemia in chronic kidney disease; I35.0 Nonrheumatic aortic (valve) stenosis; N28.1 Cyst of kidney, acquired; I12.9 Hypertensive chronic kidney disease with stage 1 through stage 4 chronic kidney disease, or unspecified chronic kidney disease; E78.5 Hyperlipidemia, unspecified; K57.30 Diverticulosis of large intestine without perforation or abscess without bleeding; N42.9 Disorder of prostate, unspecified; E55.9 Vitamin D deficiency, unspecified; M19.042 Primary osteoarthritis, left hand; M19.041 Primary osteoarthritis, right hand; J45.909 Unspecified asthma, uncomplicated; R74.0 Nonspecific elevation of levels of transaminase and lactic acid dehydrogenase [LDH]; Z79.899 Other long term (current) drug therapy; Z95.0 Presence of cardiac pacemaker; Z90.49 Acquired absence of other specified parts of digestive tract; Z87.891 Personal history of nicotine dependence; Z96.641 Presence of right artificial hip joint; Z98.42 Cataract extraction status, left eye; Z98.41 Cataract extraction status, right eye; Z96.1 Presence of intraocular lens; Z82.49 Family history of ischemic heart disease and other diseases of the circulatory system
CPT/HCPCS: 36415; 74176; 76705; 80053; 80074; 81001; 82150; 83605; 83690; 85025; 96361; 96374; 96375; 99285

== ENCOUNTER → 2018-09-16 | Outpatient (CLI) | payer MEDICARE, OTHER ==
[2018-09-16 13:25] LABS: Amorphous Sediment,Urine Rare /hpf; Appearance,Urine Clear (Clear); Bilirubin,Urine Negative (Negative); Blood,Urine Trace (Negative); Calcium 8.3 mg/dL (8.4-10.2); Color,Urine Yellow; Glucose,Urine (UA) Negative (Negative); Ketones,Urine Negative (Negative); Leukocyte Esterase,Urine Negative (Negative); Mucus,Urine Rare /hpf; Nitrite,Urine Negative (Negative); Potassium 5.3 mmol/L (3.5-5.1); Protein,Urine Trace (Negative); Specific Gravity,Urine 1.011 (1.001-1.035); Urobilinogen,Urine <2.0 mg/dL (<2.0); WBC,Urine 2 /hpf (0-5)
[2018-09-16 13:36] LABS: Basophils % (A) 1 %; Eosinophils # (A) 0.4 k/uL (0-0.7); Eosinophils % (A) 6 %; HGB 7.5 gm/dL (13.0-17.5); Hypochromasia Marked; Lymphocytes # (A) 0.9 k/uL (1.0-4.8); Lymphocytes % (A) 14 %; MCH 31.4 pg (25.0-35.0); MCV 104.4 fL (80.0-100.0); Macrocytosis Slight; Mean Platelet Volume 7.3; Monocytes # (A) 0.4 k/uL (0-1.0); Monocytes % (A) 7 %; Neutrophils # (A) 4.5 k/uL (1.3-7.7); Neutrophils % (A) 70 %; Platelet Count 205 k/uL (150-450); RBC 2.39 m/uL (4.30-5.90); RDW 14.3 % (11.5-15.5); WBC 6.5 k/uL (3.8-10.6)
== END | disposition home or self-care (01) ==
LOC: LABWHC1 11:52
PROVIDERS: ATTEND Internal Medicine Nephrology
DX: N39.0 Urinary tract infection, site not specified (principal); D64.9 Anemia, unspecified; N17.9 Acute kidney failure, unspecified
CPT/HCPCS: 36415; 80048; 81001; 85025

== ENCOUNTER 2018-11-05 08:02 | Inpatient (IN) | payer MEDICARE, OTHER ==
[2018-11-05] MEDS ORDERED: ASPIRIN 81 MG PO STA (09:00)
[2018-11-05] MEDS ORDERED: NITROGLYCERIN OINT 1 INCH/GM PACKET TOPICAL STA (09:00)
--- NOTE | 2018-11-05 09:11 | ED ---
General Adult HPI - General Chief complaint: Recheck/Abnormal Lab/Rx Stated complaint: kidney problems Time Seen by Provider: 11/05/18 08:05 Source: patient, RN notes reviewed Mode of arrival: wheelchair Limitations: no limitations - History of Present Illness Initial comments: This is an 88-year-old male presents emergency department stating that he was told to come in last night because his kidney function was worse. Patient states he didn't want to drink is having no symptoms. Patient states he woke up this morning with chest pressure and he decided to come in to the emergency department. Patient denies any fever chills or cough per patient denies any difficulty breathing shortness of breath per patient denies any abdominal pain patient's nausea vomiting diarrhea. Patient states the pain does not radiate anywhere. Patient denies any leg swelling or calf pain. Patient states the pain is a pressure. Patient denies any diaphoretic episode with the chest pain. Patient states the pain does seem to worsen with lying down and taking a deep breath. - Related Data Home Medications Medication Instructions Recorded Confirmed Simvastatin [Zocor] 20 mg PO HS 12/19/15 11/05/18 Krill Oil 500 mg PO DAILY 06/04/18 11/05/18 Acetaminophen [Tylenol] 650 mg PO DAILY PRN 09/18/18 11/05/18 Sodium Bicarbonate Tab 1,300 mg PO Q4H 09/18/18 11/05/18 Isosorbide Mononitrate ER [Imdur] 15 mg PO DAILY 11/05/18 11/05/18 Metoprolol Succinate [Toprol XL] 12.5 mg PO DAILY 11/05/18 11/05/18 Psyllium Husk 100% [Metamucil 6 gm PO DAILY 11/05/18 11/05/18 Packet] Previous Rx's Medication Instructions Recorded Tamsulosin [Flomax] 0.4 mg PO PC-BRKFST #30 tab 06/12/18 Allergies Allergy/AdvReac Type Severity Reaction Status Date / Time No Known Allergies Allergy Verified 11/05/18 08:52 Review of Systems ROS Statement: Those systems with pertinent positive or pertinent negative responses have been documented in the HPI. ROS Other: All systems not noted in ROS Statement are negative. Past Medical History Past Medical History: Blood Disorder, Hyperlipidemia, Hypertension, Osteoarthritis (OA), Prostate Disorder Additional Past Medical History / Comment(s): bowel obstructions 3 or 4 times, cervical spine, hands arthiritis, back pain, asthma as child, sinusitis, diverticulitis, vitamin D deficiency. Heart Block. ANEMIA. History of Any Multi-Drug Resistant Organisms: None Reported Past Surgical History: Adenoidectomy, Appendectomy, Bowel Resection, Joint Replacement, Prostate Surgery, Tonsillectomy Additional Past Surgical History / Comment(s): bowel resections x 3, total R hip arthroplasty, cataract removal with lens implants bilaterally, colonoscopy, circumcism. Pacemaker insertion Past Anesthesia/Blood Transfusion Reactions: No Reported Reaction Additional Past Anesthesia/Blood Transfusion Reaction / Comment(s): Pt has received blood without reaction. Past Psychological History: No Psychological Hx Reported Smoking Status: Former smoker Past Drug Use History: None Reported - Past Family History Father Family Medical History: Coronary Artery Disease (CAD) Additional Family Medical History / Comment(s): Father at 75 of heart problems. Mother Family Medical History: No Reported History Additional Family Medical History / Comment(s): Mother was healthy. She at 71 yrs in MVA. General Exam - General Exam Comments Initial Comments: GENERAL: Patient is well-developed and well-nourished. Patient is nontoxic and well- hydrated and is in mild distress. ENT: Neck is soft and supple. No significant lymphadenopathy is noted. Oropharynx is clear. Moist mucous membranes. Neck has full range of motion without eliciting any pain. EYES: The sclera were anicteric and conjunctiva were pink and moist. Extraocular movements were intact and pupils were equal round and reactive to light. Eyelids were unremarkable. PULMONARY: Unlabored respirations. Good breath sounds bilaterally. No audible rales rhonchi or wheezing was noted. CARDIOVASCULAR: There is a regular rate and rhythm without any murmurs gallops or rubs. ABDOMEN: Soft and nontender with normal bowel sounds. SKIN: Skin is clear with no lesions or rashes and otherwise unremarkable. NEUROLOGIC: Patient is alert and oriented x3. Cranial nerves II through XII are grossly intact. Motor and sensory are also intact. Normal speech, volume and content. Symmetrical smile. MUSCULOSKELETAL: Normal extremities with adequate strength and full range of motion. LYMPHATICS: No significant lymphadenopathy is noted PSYCHIATRIC: Normal psychiatric evaluation. Limitations: no limitations Course Vital Signs 11/05/18 11/05/18 11/05/18 08:05 08:25 08:30 Temperature 97.3 F L Pulse Rate 74 88 Respiratory 16 18 Rate Blood Pressure 131/79 118/71 118/71 O2 Sat by Pulse 99 Oximetry 11/05/18 11/05/18 09:31 10:30 Temperature Pulse Rate 90 86 Respiratory 17 18 Rate Blood Pressure 147/90 120/84 O2 Sat by Pulse Oximetry Medical Decision Making - Medical Decision Making EKG shows sinus rhythm at 85 bpm IA interval is 286 QRS is 84 QT interval 376 QTC is 447. Patient's EKG shows no ST segment elevation or depression. Her repeat EKG was done and showed the patient in and out of 5 paced rhythm the rate was 75 beats a minute IA interval is 266 QRS is 86 QT interval 32 QTC is 426. Patient's EKG that was not patient did not show any ST segment elevation was unchanged from previous EKG. Chest x-ray shows no acute abnormality. I replace magnesium with 2 g of magnesium I spoke with Dr. Hanna she agreed to admit the patient admitted the patient I wrote admitting orders. - Lab Data Result diagrams: 11/05/18 08:40 11/05/18 08:40 Lab Results 11/05/18 11/05/18 11/05/18 Range/Units 08:40 08:40 08:40 WBC 7.5 (3.8-10.6) k/uL RBC 2.89 L (4.30-5.90) m/uL Hgb 9.2 L (13.0-17.5) gm/dL Hct 30.2 L (39.0-53.0) % MCV 104.6 H (80.0-100.0) fL MCH 32.0 (25.0-35.0) pg MCHC 30.6 L (31.0-37.0) g/dL RDW 14.2 (11.5-15.5) % Plt Count 240 (150-450) k/uL Neutrophils % 75 % Lymphocytes % 10 % Monocytes % 8 % Eosinophils % 5 % Basophils % 1 % Neutrophils # 5.6 (1.3-7.7) k/uL Lymphocytes # 0.7 L (1.0-4.8) k/uL Monocytes # 0.6 (0-1.0) k/uL Eosinophils # 0.3 (0-0.7) k/uL Basophils # 0.0 (0-0.2) k/uL Hypochromasia Marked Macrocytosis Moderate PT (9.0-12.0) sec INR (<1.2) APTT (22.0-30.0) sec Sodium 144 (137-145) mmol/L Potassium 4.7 (3.5-5.1) mmol/L Chloride 118 H (98-107) mmol/L Carbon Dioxide 8 L* (22-30) mmol/L Anion Gap 18 mmol/L BUN 99 H (9-20) mg/dL Creatinine 9.09 H* (0.66-1.25) mg/dL Est GFR (CKD-EPI)AfAm 5 (>60 ml/min/1.73 sqM) Est GFR (CKD-EPI)NonAf 5 (>60 ml/min/1.73 sqM) Glucose 92 (74-99) mg/dL Calcium 6.8 L (8.4-10.2) mg/dL Magnesium 0.9 L* (1.6-2.3) mg/dL Total Bilirubin 0.5 (0.2-1.3) mg/dL AST 31 (17-59) U/L ALT 33 (21-72) U/L Alkaline Phosphatase 72 (38-126) U/L Total Creatine Kinase 502 H (55-170) U/L CK-MB (CK-2) 9.2 H (0.0-2.4) ng/mL CK-MB (CK-2) Rel Index 1.8 Troponin I 0.045 H* (0.000-0.034) ng/mL Total Protein 6.4 (6.3-8.2) g/dL Albumin 3.5 (3.5-5.0) g/dL 11/05/18 Range/Units 08:40 WBC (3.8-10.6) k/uL RBC (4.30-5.90) m/uL Hgb (13.0-17.5) gm/dL Hct (39.0-53.0) % MCV (80.0-100.0) fL MCH (25.0-35.0) pg MCHC (31.0-37.0) g/dL RDW (11.5-15.5) % Plt Count (150-450) k/uL Neutrophils % % Lymphocytes % % Monocytes % % Eosinophils % % Basophils % % Neutrophils # (1.3-7.7) k/uL Lymphocytes # (1.0-4.8) k/uL Monocytes # (0-1.0) k/uL Eosinophils # (0-0.7) k/uL Basophils # (0-0.2) k/uL Hypochromasia Macrocytosis PT 12.1 H (9.0-12.0) sec INR 1.2 H (<1.2) APTT 27.5 (22.0-30.0) sec Sodium (137-145) mmol/L Potassium (3.5-5.1) mmol/L Chloride (98-107) mmol/L Carbon Dioxide (22-30) mmol/L Anion Gap mmol/L BUN (9-20) mg/dL Creatinine (0.66-1.25) mg/dL Est GFR (CKD-EPI)AfAm (>60 ml/min/1.73 sqM) Est GFR (CKD-EPI)NonAf (>60 ml/min/1.73 sqM) Glucose (74-99) mg/dL Calcium (8.4-10.2) mg/dL Magnesium (1.6-2.3) mg/dL Total Bilirubin (0.2-1.3) mg/dL AST (17-59) U/L ALT (21-72) U/L Alkaline Phosphatase (38-126) U/L Total Creatine Kinase (55-170) U/L CK-MB (CK-2) (0.0-2.4) ng/mL CK-MB (CK-2) Rel Index Troponin I (0.000-0.034) ng/mL Total Protein (6.3-8.2) g/dL Albumin (3.5-5.0) g/dL Disposition Clinical Impression: Acute on chronic renal failure, Chest pain, Hypomagnesemia Disposition: ADMITTED IP TO THIS [facility] Time of Disposition: 11:26
[2018-11-05 09:15] LABS: Basophils % (A) 1 %; Eosinophils # (A) 0.3 k/uL (0-0.7); Eosinophils % (A) 5 %; HCT 30.2 % (39.0-53.0); HGB 9.2 gm/dL (13.0-17.5); Hypochromasia Marked; Lymphocytes # (A) 0.7 k/uL (1.0-4.8); Lymphocytes % (A) 10 %; MCHC 30.6 g/dL (31.0-37.0); MCV 104.6 fL (80.0-100.0); Macrocytosis Moderate; Mean Platelet Volume 7.5; Monocytes # (A) 0.6 k/uL (0-1.0); Monocytes % (A) 8 %; Neutrophils # (A) 5.6 k/uL (1.3-7.7); Neutrophils % (A) 75 %; Platelet Count 240 k/uL (150-450); RBC 2.89 m/uL (4.30-5.90); RDW 14.2 % (11.5-15.5); WBC 7.5 k/uL (3.8-10.6)
[2018-11-05 09:23] LABS: INR 1.2 (<1.2); Partial Thromboplastin Time 27.5 sec (22.0-30.0); Prothrombin Time 12.1 sec (9.0-12.0)
[2018-11-05 09:24] LABS: Albumin 3.5 g/dL (3.5-5.0); Calcium 6.8 mg/dL (8.4-10.2); Potassium 4.7 mmol/L (3.5-5.1); Total Bilirubin 0.5 mg/dL (0.2-1.3); Total Protein 6.4 g/dL (6.3-8.2)
[2018-11-05 09:43] LABS: Magnesium 0.9 mg/dL (1.6-2.3)
--- NOTE | 2018-11-05 09:45 | XR ---
EXAMINATION TYPE: XR chest 2V DATE OF EXAM: 11/05/2018 COMPARISON: 06/11/2018 HISTORY: 80-year-old male with chest pain TECHNIQUE: PA and lateral views FINDINGS: Left anterior chest wall pacemaker generator with right atrial and right ventricular leads. Heart rem ains upper limits of normal in size with mild diffuse interstitial prominence. No consolidation, pneu mothorax, or pleural effusion. Strandy atelectasis in the lower lungs. Cholecystectomy clips. IMPRESSION: Stable appearance to the 2-lead pacemaker generator along the left chest wall. Borderline heart size. No acute process seen.
[2018-11-05 09:49] LABS: Creatine Kinase MB 9.2 ng/mL (0.0-2.4)
[2018-11-05 09:54] LABS: Troponin I 0.045 ng/mL (0.000-0.034)
[2018-11-05] MEDS: MAGNESIUM SULFATE-D5W PMX 1 GM in DEXTROSE/WATER 1 100ML.BAG IVPB SCH ×4 (12:28→18:05)
[2018-11-05] MEDS ORDERED: NITROGLYCERIN OINT 1 INCH/GM PACKET TOPICAL SCH (13:00)
[2018-11-05] MEDS: NITROGLYCERIN SL TABS 0.4 MG TAB SUBLINGUAL PRN ×2 (14:10→14:20)
[2018-11-05] MEDS ORDERED: ACETAMINOPHEN TAB 325 MG TAB PO PRN (14:13)
[2018-11-05] MEDS ORDERED: MORPHINE SULFATE 2 MG/ML SYRINGE IVP PRN (14:24)
[2018-11-05] MEDS ORDERED: HYDROcodone/APAP 5-325MG 1 EACH TAB PO PRN (14:24)
--- NOTE | 2018-11-05 15:42 | P.NPCON ---
History of Present Illness - Reason for Consult acute renal failure - History of Present Illness Reason for consultation: Acute kidney injury on chronic kidney disease History of present illness: Patient is a 88-year-old male seen in renal consultation for acute kidney injury on chronic kidney disease. Patient's creatinine in March 2017 was 1.39. Patient was admitted in May 2018 with acute kidney injury at that time his creatinine was 5.5 and improved to 3 with IV hydration. Patient had blood work done 2 days ago and was advised to go to the hospital due to worsening renal function. His creatinine 2 days ago was 8.8. Patient decided not to come to the hospital and was scheduled to receive IV hydration as an outpatient. However yesterday patient developed midsternal chest pain which he describes as pressure and decided to come to the hospital. He has been seen by cardiology and is started on IV heparin and nitro drip due to concern for an acute myocardial infarction. Oral intake has been fair. No vomiting or diarrhea. Denies shortness of breath. Chest x-ray is not suggestive of fluid overload. His bicarb is 8 and creatinine is 9.09 today. He admits to good urine output. No hematuria or dysuria. Denies use of NSAIDs. Vital signs are stable. General: The patient appeared well nourished and normally developed. HEENT: Head exam is unremarkable. Neck is without jugular venous distension. LUNGS: Lungs are clear to auscultation and percussion. Breath sounds decreased. HEART: Rate and Rhythm are regular. First and second heart sounds normal. No murmurs, rubs or gallops. ABDOMEN: Abdominal exam reveals normal bowel sounds. Non-tender and non- distended. No evidence of peritonitis. EXTREMITITES: No clubbing, cyanosis, or edema. Past Medical History Past Medical History: Blood Disorder, Hyperlipidemia, Hypertension, Osteoarthritis (OA), Prostate Disorder Additional Past Medical History / Comment(s): bowel obstructions 3 or 4 times, cervical spine, hands arthiritis, back pain, asthma as child, sinusitis, diverticulitis, vitamin D deficiency. Heart Block. ANEMIA. History of Any Multi-Drug Resistant Organisms: None Reported Past Surgical History: Adenoidectomy, Appendectomy, Bowel Resection, Joint Replacement, Prostate Surgery, Tonsillectomy Additional Past Surgical History / Comment(s): bowel resections x 3, total R hip arthroplasty, cataract removal with lens implants bilaterally, colonoscopy, circumcism. Pacemaker insertion Past Anesthesia/Blood Transfusion Reactions: No Reported Reaction Additional Past Anesthesia/Blood Transfusion Reaction / Comment(s): Pt has received blood without reaction. Type of Cardiac Device: Permanent Pacemaker Device Placement Date:: 06/11/18 Smoking Status: Former smoker - Past Family History Father Family Medical History: Coronary Artery Disease (CAD) Additional Family Medical History / Comment(s): Father at 75 of heart problems. Mother Family Medical History: No Reported History Additional Family Medical History / Comment(s): Mother was healthy. She at 71 yrs in MVA. Medications and Allergies Home Medications Medication Instructions Recorded Confirmed Type Simvastatin [Zocor] 20 mg PO HS 12/19/15 11/05/18 History Krill Oil 500 mg PO DAILY 06/04/18 11/05/18 History Tamsulosin [Flomax] 0.4 mg PO PC-BRKFST #30 tab 06/12/18 11/05/18 Rx Acetaminophen [Tylenol] 650 mg PO DAILY PRN 09/18/18 11/05/18 History Sodium Bicarbonate Tab 1,300 mg PO Q4H 09/18/18 11/05/18 History Isosorbide Mononitrate ER [Imdur] 15 mg PO DAILY 11/05/18 11/05/18 History Metoprolol Succinate [Toprol XL] 12.5 mg PO DAILY 11/05/18 11/05/18 History Psyllium Husk 100% [Metamucil 6 gm PO DAILY 11/05/18 11/05/18 History Packet] Allergies Allergy/AdvReac Type Severity Reaction Status Date / Time No Known Allergies Allergy Verified 11/05/18 08:52 Physical Exam Vitals: Vital Signs Temp Pulse Pulse Resp BP BP Pulse Ox 11/05/18 15:24 81 18 118/63 97 11/05/18 14:20 83 18 92/52 98 11/05/18 14:10 77 18 115/59 96 11/05/18 13:40 97 F L 81 18 126/69 98 11/05/18 13:00 90 18 124/65 11/05/18 12:30 19 112/56 11/05/18 12:00 84 18 114/67 11/05/18 11:31 91 17 103/80 11/05/18 10:30 86 18 120/84 11/05/18 09:31 90 17 147/90 11/05/18 08:30 88 18 118/71 11/05/18 08:25 118/71 11/05/18 08:05 97.3 F L 74 16 131/79 99 Intake and Output 11/05/18 11/05/18 11/05/18 06:59 14:59 22:59 Other: Weight 65.771 kg Results - Lab Results Most recent lab results Calcium 6.8 mg/dL (8.4-10.2) L 11/05/18 08:40 Magnesium 0.9 mg/dL (1.6-2.3) L* 11/05/18 08:40 11/05/18 08:40 11/05/18 08:40 Assessment and Plan Plan: Assessment: 1. Acute kidney injury mostly prerenal secondary to hypotension. Blood pressure was in the 90s on admission. Creatinine 9.09. Rule out retention and obstructive uropathy. 2. Chronic kidney disease. Creatinine in March 2017 was 1.39. Recently his creatinine has been in the range of 3-5. Etiology is nephrosclerosis. 3. Severe metabolic acidosis secondary to acute kidney injury. 4. Severe hypomagnesemia secondary to GI losses. Patient admits to chronic diarrhea. 5. Acute non-ST elevated myocardial infarction. Patient will be started on heparin and nitro drip per cardiology. Plan: Start bicarb drip at 100 mL an hour. Check urinalysis. Monitor postvoid residuals. Check renal ultrasound. Replace magnesium. 4 g IV today. Continue to assess on daily basis for need for renal replacement therapy. Thank you for the consultation. I will continue to follow patient with you during his hospital stay.
[2018-11-05 15:56] LABS: Creatine Kinase MB 7.4 ng/mL (0.0-2.4)
[2018-11-05] MEDS ORDERED: MAGNESIUM SULFATE-D5W PMX 1 GM in DEXTROSE/WATER 1 100ML.BAG IVPB SCH (16:00)
[2018-11-05] MEDS ORDERED: SODIUM BICARBONATE TAB 650 MG TAB PO SCH (16:00)
[2018-11-05] MEDS ORDERED: HEPARIN SODIUM,PORCINE 5,000 UNIT/ML 1 ML VIAL IV PRN (16:01)
[2018-11-05] MEDS ORDERED: HEPARIN SODIUM,PORCINE 5,000 UNIT/ML 1 ML VIAL IV ONE (16:01)
--- NOTE | 2018-11-05 16:07 | P.CRDCN ---
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 Patient actually refused to come to the hospital because he felt okay. This morning patient developed some chest discomfort which she described as a pressure sensation in the middle of his chest. EKG performed on arrival here showed a normal sinus rhythm with first- degree AV block, some ST depression was noted in the anterior lateral leads. Subsequent EKG showed an atrial paced rhythm with prolonged AV conduction. Chest x-ray showed stable appearance of the pacemaker leads, new acute process. Blood pressure 124/60, heart rate in the 70s to 80s, 98% on room air. White blood cell count 7.5, hemoglobin 9.2, platelet count 240. Sodium 144, potassium 4.7, chloride 118, CO2 8 creatinine 9.0 and BUN 99. Mag 0.9. Troponin 0.045. Shortly after arrival to the cardiac unit, patient started to complain of some midsternal chest pain which premature the emergency room had resolved itself. A repeat EKG was then performed which showed a normal sinus rhythm with first-degree AV block and ST-T wave changes noted in the anterior lateral leads. Patient was initiated on IV heparin as well as IV nitroglycerin drip. At this time we will just maximize his medications. did have an echocardiogram with Doppler study performed in May of this year which revealed a normal left ventricular systolic function. We will repeat an echo this admission as well. Past Medical History Past Medical History: Blood Disorder, Hyperlipidemia, Hypertension, Osteoarthritis (OA), Prostate Disorder Additional Past Medical History / Comment(s): bowel obstructions 3 or 4 times, cervical spine, hands arthiritis, back pain, asthma as child, sinusitis, diverticulitis, vitamin D deficiency. Heart Block. ANEMIA. History of Any Multi-Drug Resistant Organisms: None Reported Past Surgical History: Adenoidectomy, Appendectomy, Bowel Resection, Joint Replacement, Prostate Surgery, Tonsillectomy Additional Past Surgical History / Comment(s): bowel resections x 3, total R hip arthroplasty, cataract removal with lens implants bilaterally, colonoscopy, circumcism. Pacemaker insertion Past Anesthesia/Blood Transfusion Reactions: No Reported Reaction Additional Past Anesthesia/Blood Transfusion Reaction / Comment(s): Pt has received blood without reaction. Type of Cardiac Device: Permanent Pacemaker Device Placement Date:: 06/11/18 Smoking Status: Former smoker - Past Family History Father Family Medical History: Coronary Artery Disease (CAD) Additional Family Medical History / Comment(s): Father at 75 of heart problems. Mother Family Medical History: No Reported History Additional Family Medical History / Comment(s): Mother was healthy. She at 71 yrs in MVA. Medications and Allergies Home Medications Medication Instructions Recorded Confirmed Type Simvastatin [Zocor] 20 mg PO HS 12/19/15 11/05/18 History Krill Oil 500 mg PO DAILY 06/04/18 11/05/18 History Tamsulosin [Flomax] 0.4 mg PO PC-BRKFST #30 tab 06/12/18 11/05/18 Rx Acetaminophen [Tylenol] 650 mg PO DAILY PRN 09/18/18 11/05/18 History Sodium Bicarbonate Tab 1,300 mg PO Q4H 09/18/18 11/05/18 History Isosorbide Mononitrate ER [Imdur] 15 mg PO DAILY 11/05/18 11/05/18 History Metoprolol Succinate [Toprol XL] 12.5 mg PO DAILY 11/05/18 11/05/18 History Psyllium Husk 100% [Metamucil 6 gm PO DAILY 11/05/18 11/05/18 History Packet] Allergies Allergy/AdvReac Type Severity Reaction Status Date / Time No Known Allergies Allergy Verified 11/05/18 08:52 Physical Exam Vitals: Vital Signs Temp Pulse Pulse Resp BP BP Pulse Ox 11/05/18 15:24 81 18 118/63 97 11/05/18 14:20 83 18 92/52 98 11/05/18 14:10 77 18 115/59 96 11/05/18 13:40 97 F L 81 18 126/69 98 11/05/18 13:00 90 18 124/65 11/05/18 12:30 19 112/56 11/05/18 12:00 84 18 114/67 11/05/18 11:31 91 17 103/80 11/05/18 10:30 86 18 120/84 11/05/18 09:31 90 17 147/90 11/05/18 08:30 88 18 118/71 11/05/18 08:25 118/71 11/05/18 08:05 97.3 F L 74 16 131/79 99 Intake and Output 11/05/18 11/05/18 11/05/18 06:59 14:59 22:59 Other: Weight 65.771 kg PHYSICAL EXAMINATION: GENERAL: 88-year-old gentleman in no acute distress at the time of my examination HEENT: Head is atraumatic, normocephalic. Pupils equal, round. Sclera anicteric. Conjunctiva are clear. Mucous membranes of the mouth are moist. Neck is supple. There is no elevated jugular venous pressure. Carotid bruit is heard. HEART EXAMINATION: Heart S1 and S2 with soft systolic murmur is heard. CHEST EXAMINATION: And circumflex clear with mild diminished air entry to the bases. ABDOMEN: Soft, nontender. Bowel sounds are heard. No organomegaly noted. EXTREMITIES: 2+ peripheral pulses with no evidence of peripheral edema and no calf tenderness noted. NEUROLOGIC patient is awake, alert and oriented 3 . Results 11/05/18 08:40 11/05/18 08:40 Cardiac Enzymes 11/05/18 11/05/18 Range/Units 08:40 08:40 AST 31 (17-59) U/L CK-MB (CK-2) 9.2 H (0.0-2.4) ng/mL Troponin I 0.045 H* (0.000-0.034) ng/mL Coagulation 11/05/18 Range/Units 08:40 PT 12.1 H (9.0-12.0) sec APTT 27.5 (22.0-30.0) sec CBC 11/05/18 Range/Units 08:40 WBC 7.5 (3.8-10.6) k/uL RBC 2.89 L (4.30-5.90) m/uL Hgb 9.2 L (13.0-17.5) gm/dL Hct 30.2 L (39.0-53.0) % Plt Count 240 (150-450) k/uL Comprehensive Metabolic Panel 11/05/18 Range/Units 08:40 Sodium 144 (137-145) mmol/L Potassium 4.7 (3.5-5.1) mmol/L Chloride 118 H (98-107) mmol/L Carbon Dioxide 8 L* (22-30) mmol/L BUN 99 H (9-20) mg/dL Creatinine 9.09 H* (0.66-1.25) mg/dL Glucose 92 (74-99) mg/dL Calcium 6.8 L (8.4-10.2) mg/dL AST 31 (17-59) U/L ALT 33 (21-72) U/L Alkaline Phosphatase 72 (38-126) U/L Total Protein 6.4 (6.3-8.2) g/dL Albumin 3.5 (3.5-5.0) g/dL Current Medications Generic Name Dose Route Start Last Admin Trade Name Freq PRN Reason Stop Dose Admin Acetaminophen 650 mg 11/05/18 14:13 Tylenol Tab PO DAILY PRN MILD Pain Hydrocodone Bitart/Acetaminophen 1 each 11/05/18 14:24 [place] 5-325 PO Q6HR PRN Pain Scale 1 to 5 Aspirin 325 mg 11/06/18 09:00 Aspirin PO DAILY [facility] Atorvastatin Calcium 10 mg 11/05/18 21:00 Lipitor PO HS [facility] Sodium Bicarbonate 150 ml/ 1,150 mls @ 100 mls/hr 11/05/18 15:45 Dextrose/Water IV .[id number] [facility] Magnesium Sulfate/Dextrose 1 100 mls @ 100 mls/hr 11/05/18 16:00 gm/ IV Solution IVPB 11/05/18 17:59 Q1H [facility] Isosorbide Mononitrate 15 mg 11/06/18 09:00 Imdur PO DAILY [facility] Metoprolol Succinate 12.5 mg 11/06/18 09:00 Toprol Xl PO DAILY [facility] Morphine Sulfate 2 mg 11/05/18 14:24 11/05/18 14:54 Morphine Sulfate (Inj) IVP 2 mg Q4HR PRN Administration Pain Scale 6 to 10 Nitroglycerin 0.4 mg 11/05/18 11:27 11/05/18 14:20 Nitrostat SUBLINGUAL 0.4 mg Q5M PRN Administration Chest Pain Psyllium Hydrophilic Mucilloid 6 gm 11/06/18 09:00 Metamucil PO DAILY [facility] Tamsulosin HCl 0.4 mg 11/06/18 08:30 Flomax PO PC-BRKFST LORI Intake and Output 11/05/18 11/05/18 11/05/18 06:59 14:59 22:59 Other: Weight 65.771 kg Patient Weight 11/06/18 06:59 Weight 65.771 kg 11/05/18 08:40 11/05/18 08:40 EKG Interpretations (text) Initial EKG showed a normal sinus rhythm with first-degree AV block and mild ST depression noted in the anterior lateral leads. Subsequent EKG performed while the patient was having chest discomfort did show normal sinus rhythm with first- degree AV block and ST-T wave changes in the anterior lateral leads. Assessment and Plan Plan: Assessment and plan #1 acute on chronic kidney disease, creatinine 9.09, creatinine in March 2017 was 1.39. Nephrology following. #2 severe hypomagnesemia, patient does have chronic diarrhea #3 acute coronary syndrome, patient will be initiated on IV heparin and nitroglycerin. #4 hypertension #5 hyperlipidemia #6 prior pacemaker implantation Plan We will start the patient on IV heparin and IV nitroglycerin drips. Patient is also being started on bicarb by nephrology. Magnesium will be replaced. We will decrease the patient's aspirin to 81 mg daily, continue Lipitor, hold Imdur for now as we are starting the nitroglycerin drip. We'll also interrogate the patient's device while he is here. If blood pressure tolerates we will initiate low-dose beta guillermo. Further recommendations to follow. DNP note has been reviewed, I agree with a documented findings and plan of care. Patient was seen and examined.
[2018-11-05] MEDS ORDERED: NITROGLYCERIN-D5W PMX 50 MG in DEXTROSE/WATER 1 250ML.BAG IV SCH (16:15)
[2018-11-05 16:19] LABS: Troponin I 0.035 ng/mL (0.000-0.034)
[2018-11-05 17:22] LABS: Glucose,Whole Blood 107 mg/dL (75-99)
[2018-11-05] MEDS: HEPARIN SOD,PORK IN 0.45% NACL 25,000 UNIT in 0.45% NACL 1 500ML.BAG IV SCH (17:39)
[2018-11-05 17:55] LABS: Appearance,Urine Cloudy (Clear); Bacteria,Urine Rare /hpf; Bilirubin,Urine Negative (Negative); Blood,Urine Small (Negative); Color,Urine Yellow; Glucose,Urine (UA) Negative (Negative); Ketones,Urine Negative (Negative); Leukocyte Esterase,Urine Negative (Negative); Mucus,Urine Rare /hpf; Nitrite,Urine Negative (Negative); Protein,Urine Trace (Negative); Specific Gravity,Urine 1.008 (1.001-1.035); Squamous Epithelial Cell,Urine <1 /hpf (0-4); Urobilinogen,Urine <2.0 mg/dL (<2.0); WBC,Urine 2 /hpf (0-5)
[2018-11-05 18:00] LABS: Basophils % (A) 0 %; Eosinophils # (A) 0.1 k/uL (0-0.7); Eosinophils % (A) 1 %; HCT 29.1 % (39.0-53.0); HGB 8.7 gm/dL (13.0-17.5); Hypochromasia Marked; Lymphocytes # (A) 0.5 k/uL (1.0-4.8); Lymphocytes % (A) 5 %; MCH 32.2 pg (25.0-35.0); MCHC 29.9 g/dL (31.0-37.0); MCV 107.8 fL (80.0-100.0); Macrocytosis Moderate; Mean Platelet Volume 7.3; Monocytes # (A) 0.8 k/uL (0-1.0); Monocytes % (A) 8 %; Neutrophils # (A) 8.4 k/uL (1.3-7.7); Neutrophils % (A) 84 %; Platelet Count 219 k/uL (150-450); RDW 14.2 % (11.5-15.5); WBC 9.9 k/uL (3.8-10.6)
[2018-11-05 18:03] LABS: INR 1.2 (<1.2); Partial Thromboplastin Time 29.5 sec (22.0-30.0); Prothrombin Time 12.3 sec (9.0-12.0)
[2018-11-05] MEDS: DEXTROSE 5% IN WATER 1,000 ML with SODIUM BICARB (1 MEQ/ML) 150 ML IV SCH (19:37)
[2018-11-05 21:05] LABS: Glucose,Whole Blood 122 mg/dL (75-99)
[2018-11-05] MEDS: COLCHICINE 0.6 MG EACH PO SCH (21:29)
[2018-11-05] MEDS: ATORVASTATIN 10 MG TAB PO SCH (21:29)
--- NOTE | 2018-11-05 21:56 | US ---
EXAMINATION TYPE: US kidneys/renal and bladder DATE OF EXAM: 11/05/2018 COMPARISON: Ultrasound 06/12/2018 CLINICAL HISTORY: frances. EXAM MEASUREMENTS: Right Kidney: 9.8 x 4.9 x 4.5 cm Left Kidney: 10.6 x 5.7 x 5.4 cm Technically difficult exam due to being done portably. Right Kidney: Exophytic simple cyst measures 1.2 x 1.1 x 1.0 cm and another cyst measures 1.2 x 1.2 x 1.0 cm. Negative for hydronephrosis. No nephrolithiasis. Echogenic renal parenchyma redemonstrated. Left Kidney: Cyst measures 2.7 x 2.7 x 1.6 cm. Negative for hydronephrosis. No nephrolithiasis. Echo genic renal parenchyma redemonstrated. Bladder: wnl Bilateral Jets seen: only rt jet seen IMPRESSION: No acute process.
[2018-11-05 22:43] LABS: Creatine Kinase MB 7.2 ng/mL (0.0-2.4); Troponin I 0.031 ng/mL (0.000-0.034)
[2018-11-06 06:08] LABS: Glucose,Whole Blood 112 mg/dL (75-99)
[2018-11-06 07:48] LABS: Basophils % (A) 0 %; Eosinophils # (A) 0.2 k/uL (0-0.7); Eosinophils % (A) 2 %; HCT 24.4 % (39.0-53.0); HGB 7.4 gm/dL (13.0-17.5); Hypochromasia Moderate; Lymphocytes # (A) 0.8 k/uL (1.0-4.8); Lymphocytes % (A) 10 %; MCH 31.9 pg (25.0-35.0); MCHC 30.2 g/dL (31.0-37.0); MCV 105.6 fL (80.0-100.0); Macrocytosis Moderate; Mean Platelet Volume 7.6; Monocytes # (A) 0.8 k/uL (0-1.0); Monocytes % (A) 10 %; Neutrophils # (A) 5.6 k/uL (1.3-7.7); Neutrophils % (A) 75 %; Platelet Count 186 k/uL (150-450); RBC 2.31 m/uL (4.30-5.90); RDW 14.2 % (11.5-15.5); WBC 7.5 k/uL (3.8-10.6)
[2018-11-06 08:21] LABS: ALT 32 U/L (21-72); AST 23 U/L (17-59); Albumin 2.7 g/dL (3.5-5.0); Alkaline Phosphatase 63 U/L (38-126); Anion Gap 16 mmol/L; Blood Urea Nitrogen 99 mg/dL (9-20); Carbon Dioxide 13 mmol/L (22-30); Chloride 108 mmol/L (98-107); Cholesterol <50 mg/dL (<200); Glucose 108 mg/dL (74-99); HDL Cholesterol 28 mg/dL (40-60); LDL Cholesterol,Calculated 11 mg/dL (0-99); Magnesium 1.8 mg/dL (1.6-2.3); Potassium 4.1 mmol/L (3.5-5.1); Sodium 137 mmol/L (137-145); Total Bilirubin 0.3 mg/dL (0.2-1.3); Total Protein 5.1 g/dL (6.3-8.2); Triglycerides 55 mg/dL (<150)
[2018-11-06 08:50] LABS: Calcium 6.3 mg/dL (8.4-10.2)
[2018-11-06] MEDS ORDERED: ASPIRIN 325 MG TAB PO SCH (09:00)
[2018-11-06] MEDS: TAMSULOSIN 0.4 MG CAP.ER.24H PO SCH (09:10)
[2018-11-06] MEDS: COLCHICINE 0.6 MG EACH PO SCH ×2 (09:11→21:50)
[2018-11-06] MEDS: ASPIRIN 325 MG TAB PO SCH (09:11)
[2018-11-06] MEDS: PSYLLIUM HUSK 100% 6 GM PACKET PO SCH (09:12)
[2018-11-06] MEDS: METOPROLOL SUCCINATE (ER) 25 MG TAB.ER.24H PO SCH (09:12)
[2018-11-06] MEDS: DEXTROSE 5% IN WATER 1,000 ML with SODIUM BICARB (1 MEQ/ML) 150 ML IV SCH ×3 (09:20→20:02)
--- NOTE | 2018-11-06 11:03 | ECHOF ---
Referral Reason:LV function MEASUREMENTS -------- HEIGHT: 175.3 cm WEIGHT: 64.4 kg BP: IVSd: 1.5 cm (0.6 - 1.1) LVIDd: 3.3 cm (3.9 - 5.3) LVPWd: 1.8 cm (0.6 - 1.1) IVSs: 2.0 cm LVIDs: 2.9 cm LVPWs: 1.8 cm LA Diam: 3.6 cm (2.7 - 3.8) MV EXCURSION: 18.048 mm (> 18.000) MV EF SLOPE: 99 mm/s (70 - 150) EPSS: 1.7 cm MV E Franck: 1.16 m/s MV DecT: 197 ms MV A Franck: 0.82 m/s MV E/A Ratio: 1.41 RAP: 5.00 mmHg RVSP: 23.42 mmHg FINDINGS -------- Atrial fibrillation. Pacerwire seen in RV and RA. This was a technically adequate study. The left ventricular size is normal. There is moderate concentric left ventricular hypertrophy. O verall left ventricular systolic function is low-normal with, an EF between 50 - 55 %. The right ventricle is normal in size. The left atrial size is normal. The right atrial size is normal. There is mild aortic valve sclerosis. There is no evidence of aortic regurgitation. Mild mitral annular calcification present. Mild mitral regurgitation is present. Mild tricuspid regurgitation present. Right ventricular systolic pressure is normal at < 35 mmHg. The right ventricular systolic pressure, as measured by Doppler, is 23.42mmHg. Trace/mild (physiologic) pulmonic regurgitation. The aortic root size is normal. There is no pericardial effusion. CONCLUSIONS -------- 1. Atrial fibrillation. 2. Pacerwire seen in RV and RA. 3. The left ventricular size is normal. 4. There is moderate concentric left ventricular hypertrophy. 5. Overall left ventricular systolic function is low-normal with, an EF between 50 - 55 %. 6. The left atrial size is normal. 7. There is mild aortic valve sclerosis. 8. Mild mitral annular calcification present. 9. Mild mitral regurgitation is present. 10. Mild tricuspid regurgitation present. 11. Right ventricular systolic pressure is normal at < 35 mmHg. 12. Trace/mild (physiologic) pulmonic regurgitation. 13. The aortic root size is normal. 14. There is no pericardial effusion. TASSEL MAKING MACHINE OPERATOR: Candida Terry RDCS
[2018-11-06] MEDS: ISOSORBIDE MONONITRATE ER 15 MG TAB PO SCH (11:06)
[2018-11-06 12:15] LABS: Glucose,Whole Blood 164 mg/dL (75-99)
--- NOTE | 2018-11-06 13:06 | P.HPIM ---
History of Present Illness H&P Date: 11/06/18 Chief Complaint: chest pain 88-year-old male with a past medical history significant for multiple bowel obstructions with bowel resections, PPM insertion hyperlipidemia, hypertension, and CKD, who presented to the emergency room with a chief complaint of chest pain. Patient does report he was seen at his upper extremity surgeon office two days ago and was instructed to come to the emergency room but patient stated he felt fine and did not come to the ER. However, yesterday morning he woke up with chest pain and decided to come to the emergency room for further evaluation. Patient describes his pain as a burning sensation with occasional heaviness. Patient states the pain does not radiate to his arm or jaw. The pain is not constant. Patient reports it is intermittent. Patient denies dizziness or lightheadedness. Denies shortness of breath. Denies nausea or vomiting. Denies fever or chills. Chest x-ray completed in the emergency room revealed stable appearance of the 2 -lead pacemaker generator along the left chest wall. Borderline heart size. No acute process was visualized. Laboratory data upon admission reveals white count 7.5. Hemoglobin 9.2. Platelet count 240. Sodium 144. Potassium 4.7. BUN 99. Creatinine 9.09. Glucose 92. Magnesium 0.9. Troponin 0.045, 0.035, 0.031 Urinalysis reveals: cloudy urine, trace protein, small blood, rare bacteria and mucus. Negative for leukocyte esterase or nitrite. The patient was admitted to the hospital under the care of Dr. Hanna. Consultations were placed to cardiology and nephrology. REVIEW OF SYSTEMS: Those systems with pertinent positive or pertinent negative responses have been documented in the HPI PHYSICAL EXAM: GENERAL: This is a a 88 -year-old male in no apparent distress at the time of examination. Pleasant and cooperative. HEENT: Head is atraumatic, normocephalic. Pupils are equal, round, and reactive to light. Sclerae anicteric. Conjunctivae are clear. Mucus membranes of the mouth are moist. Neck is supple. RESPIRATORY: Clear to auscultation. No wheezes, rales, or rhonchi. No use of accessory muscles. Patient maintaining oxygen saturation greater than 92%. No chest wall tenderness is noted on palpation or with deep breathing. CARDIOVASCULAR: Regular rate and rhythm. S1 and S2 noted. Systolic murmur auscultated. No JVD noted. No S3 or S4 noted. GASTROINTESTINAL: No distention noted. Abdomen soft and round. Normal active bowel sounds auscultated x 4 quadrants. No pain or tenderness noted upon palpation. INTEGUMENTARY: No cyanosis. No jaundice. No rashes noted. No cellulitis noted. EXTREMITIES: 2+ peripheral pulses. No evidence of peripheral edema. No calf tenderness noted. NEUROLOGIC: Cranial nerves II-XII grossly intact. PSYCHIATRIC: Awake, alert, and oriented X 3. Appropriate affect. Intact judgement and insight. ASSESSMENT: Acute on chronic kidney disease, creatinine 9.09 on admission, most recent creatinine running 3.0-4.0 Anemia of chronic disease Metabolic acidosis secondary to NICK Chest pain and abnormal troponins, acute non-ST elevated myocardial infarction History of permanent pacemaker insertion, 2017 Chronic diarrhea due to multiple bowel obstructions with previous bowel resections Hypomagnesemia, improved with supplementation Hyperlipidemia Hypertension PLAN: Nephrology on consult. Appreciate recommendations and input Possible hemodialysis Continue bicarb drip per nephrology Cardiology on consult. Appreciate recommendations and input Echo ordered. Await results. Continue nitro drip and heparin drip per cardiology Home meds as appropriate Monitor labs GI/DVT prophylaxis Monitor vital signs and address as appropriate Discharge planning: Patient to return home when stable Further recommendations pending patient's course Nurse practitioner note has been reviewed by physician. Signing provider agrees with the documented findings, assessment, and plan of care. Past Medical History Past Medical History: Blood Disorder, Hyperlipidemia, Hypertension, Osteoarthritis (OA), Prostate Disorder Additional Past Medical History / Comment(s): bowel obstructions 3 or 4 times, cervical spine, hands arthiritis, back pain, asthma as child, sinusitis, diverticulitis, vitamin D deficiency. Heart Block. ANEMIA. History of Any Multi-Drug Resistant Organisms: None Reported Past Surgical History: Adenoidectomy, Appendectomy, Bowel Resection, Joint Replacement, Prostate Surgery, Tonsillectomy Additional Past Surgical History / Comment(s): bowel resections x 3, total R hip arthroplasty, cataract removal with lens implants bilaterally, colonoscopy, circumcism. Pacemaker insertion Past Anesthesia/Blood Transfusion Reactions: No Reported Reaction Additional Past Anesthesia/Blood Transfusion Reaction / Comment(s): Pt has received blood without reaction. Type of Cardiac Device: Permanent Pacemaker Device Placement Date:: 06/11/18 Smoking Status: Former smoker - Past Family History Father Family Medical History: Coronary Artery Disease (CAD) Additional Family Medical History / Comment(s): Father at 75 of heart problems. Mother Family Medical History: No Reported History Additional Family Medical History / Comment(s): Mother was healthy. She at 71 yrs in MVA. Medications and Allergies Home Medications Medication Instructions Recorded Confirmed Type Simvastatin [Zocor] 20 mg PO HS 12/19/15 11/05/18 History Krill Oil 500 mg PO DAILY 06/04/18 11/05/18 History Tamsulosin [Flomax] 0.4 mg PO PC-BRKFST #30 tab 06/12/18 11/05/18 Rx Acetaminophen [Tylenol] 650 mg PO DAILY PRN 09/18/18 11/05/18 History Sodium Bicarbonate Tab 1,300 mg PO Q4H 09/18/18 11/05/18 History Isosorbide Mononitrate ER [Imdur] 15 mg PO DAILY 11/05/18 11/05/18 History Metoprolol Succinate [Toprol XL] 12.5 mg PO DAILY 11/05/18 11/05/18 History Psyllium Husk 100% [Metamucil 6 gm PO DAILY 11/05/18 11/05/18 History Packet] Allergies Allergy/AdvReac Type Severity Reaction Status Date / Time No Known Allergies Allergy Verified 11/05/18 08:52 Physical Exam Vitals: Vital Signs Temp Pulse Pulse Resp BP BP Pulse Ox 11/06/18 08:45 97.7 F 63 16 104/53 99 11/06/18 04:00 97.5 F L 68 18 104/63 98 11/06/18 00:00 98.0 F 77 18 118/65 97 11/05/18 20:00 98.5 F 98 18 120/61 99 11/05/18 15:24 81 18 118/63 97 11/05/18 14:20 83 18 92/52 98 11/05/18 14:10 77 18 115/59 96 11/05/18 13:40 97 F L 81 18 126/69 98 11/05/18 13:00 90 18 124/65 11/05/18 12:30 19 112/56 11/05/18 12:00 84 18 114/67 11/05/18 11:31 91 17 103/80 Intake and Output 1211/06/18 11/06/18 22:59 06:59 14:59 Intake Total 240 Output Total 169 250 Balance 71 -250 Intake: Oral 240 Output: Urine 125 250 Post Void Residual 44 Other: Voiding Method Toilet Toilet Toilet Urinal Urinal # Voids 1 Weight 64.5 kg Results CBC & Chem 7: 11/06/18 07:12 11/06/18 07:12 Labs: Abnormal Lab Results - Last 24 Hours (Table) 11/05/18 11/05/18 11/05/18 Range/Units 14:59 16:58 16:58 RBC 2.70 L (4.30-5.90) m/uL Hgb 8.7 L (13.0-17.5) gm/dL Hct 29.1 L (39.0-53.0) % MCV 107.8 H (80.0-100.0) fL MCHC 29.9 L (31.0-37.0) g/dL Neutrophils # 8.4 H (1.3-7.7) k/uL Lymphocytes # 0.5 L (1.0-4.8) k/uL PT 12.3 H (9.0-12.0) sec INR 1.2 H (<1.2) APTT (22.0-30.0) sec Chloride (98-107) mmol/L Carbon Dioxide (22-30) mmol/L BUN (9-20) mg/dL Creatinine (0.66-1.25) mg/dL Glucose (74-99) mg/dL POC Glucose (mg/dL) (75-99) mg/dL Calcium (8.4-10.2) mg/dL Total Creatine Kinase 385 H (55-170) U/L CK-MB (CK-2) 7.4 H (0.0-2.4) ng/mL Troponin I 0.035 H* (0.000-0.034) ng/mL Total Protein (6.3-8.2) g/dL Albumin (3.5-5.0) g/dL HDL Cholesterol (40-60) mg/dL Urine Protein (Negative) Urine Blood (Negative) Urine Bacteria (None) /hpf Urine Mucus (None) /hpf 12/06/18 12/06/18 12/06/18 Range/Units 17:05 17:34 21:02 RBC (4.30-5.90) m/uL Hgb (13.0-17.5) gm/dL Hct (39.0-53.0) % MCV (80.0-100.0) fL MCHC (31.0-37.0) g/dL Neutrophils # (1.3-7.7) k/uL Lymphocytes # (1.0-4.8) k/uL PT (9.0-12.0) sec INR (<1.2) APTT (22.0-30.0) sec Chloride (98-107) mmol/L Carbon Dioxide (22-30) mmol/L BUN (9-20) mg/dL Creatinine (0.66-1.25) mg/dL Glucose (74-99) mg/dL POC Glucose (mg/dL) 107 H 122 H (75-99) mg/dL Calcium (8.4-10.2) mg/dL Total Creatine Kinase (55-170) U/L CK-MB (CK-2) (0.0-2.4) ng/mL Troponin I (0.000-0.034) ng/mL Total Protein (6.3-8.2) g/dL Albumin (3.5-5.0) g/dL HDL Cholesterol (40-60) mg/dL Urine Protein Trace H (Negative) Urine Blood Small H (Negative) Urine Bacteria Rare H (None) /hpf Urine Mucus Rare H (None) /hpf 11/05/18 11/05/18 11/06/18 Range/Units 21:39 21:39 06:06 RBC (4.30-5.90) m/uL Hgb (13.0-17.5) gm/dL Hct (39.0-53.0) % MCV (80.0-100.0) fL MCHC (31.0-37.0) g/dL Neutrophils # (1.3-7.7) k/uL Lymphocytes # (1.0-4.8) k/uL PT (9.0-12.0) sec INR (<1.2) APTT 61.5 H (22.0-30.0) sec Chloride (98-107) mmol/L Carbon Dioxide (22-30) mmol/L BUN (9-20) mg/dL Creatinine (0.66-1.25) mg/dL Glucose (74-99) mg/dL POC Glucose (mg/dL) 112 H (75-99) mg/dL Calcium (8.4-10.2) mg/dL Total Creatine Kinase 353 H (55-170) U/L CK-MB (CK-2) 7.2 H (0.0-2.4) ng/mL Troponin I (0.000-0.034) ng/mL Total Protein (6.3-8.2) g/dL Albumin (3.5-5.0) g/dL HDL Cholesterol (40-60) mg/dL Urine Protein (Negative) Urine Blood (Negative) Urine Bacteria (None) /hpf Urine Mucus (None) /hpf 11/06/18 11/06/18 11/06/18 Range/Units 07:12 07:12 07:12 RBC 2.31 L (4.30-5.90) m/uL Hgb 7.4 L (13.0-17.5) gm/dL Hct 24.4 L (39.0-53.0) % MCV 105.6 H (80.0-100.0) fL MCHC 30.2 L (31.0-37.0) g/dL Neutrophils # (1.3-7.7) k/uL Lymphocytes # 0.8 L (1.0-4.8) k/uL PT (9.0-12.0) sec INR (<1.2) APTT 50.6 H (22.0-30.0) sec Chloride 108 H (98-107) mmol/L Carbon Dioxide 13 L (22-30) mmol/L BUN 99 H (9-20) mg/dL Creatinine 8.86 H* (0.66-1.25) mg/dL Glucose 108 H (74-99) mg/dL POC Glucose (mg/dL) (75-99) mg/dL Calcium 6.3 L* (8.4-10.2) mg/dL Total Creatine Kinase (55-170) U/L CK-MB (CK-2) (0.0-2.4) ng/mL Troponin I (0.000-0.034) ng/mL Total Protein 5.1 L (6.3-8.2) g/dL Albumin 2.7 L (3.5-5.0) g/dL HDL Cholesterol 28 L (40-60) mg/dL Urine Protein (Negative) Urine Blood (Negative) Urine Bacteria (None) /hpf Urine Mucus (None) /hpf Thrombosis Risk Factor Assmnt - Choose All That Apply Any of the Below Risk Factors Present?: Yes Other Risk Factors: Yes Each Risk Factor Represents 3 Points: Age 75 years or older Other congenital or acquired thrombophilia - If yes, enter type in comment: No Thrombosis Risk Factor Assessment Total Risk Factor Score: 3 Thrombosis Risk Factor Assessment Level: Moderate Risk
--- NOTE | 2018-11-06 14:18 | P.PN ---
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 Patient actually refused to come to the hospital because he felt okay. This morning patient developed some chest discomfort which she described as a pressure sensation in the middle of his chest. EKG performed on arrival here showed a normal sinus rhythm with first- degree AV block, some ST depression was noted in the anterior lateral leads. Subsequent EKG showed an atrial paced rhythm with prolonged AV conduction. Chest x-ray showed stable appearance of the pacemaker leads, new acute process. Blood pressure 124/60, heart rate in the 70s to 80s, 98% on room air. White blood cell count 7.5, hemoglobin 9.2, platelet count 240. Sodium 144, potassium 4.7, chloride 118, CO2 8 creatinine 9.0 and BUN 99. Mag 0.9. Troponin 0.045. Shortly after arrival to the cardiac unit, patient started to complain of some midsternal chest pain which premature the emergency room had resolved itself. A repeat EKG was then performed which showed a normal sinus rhythm with first-degree AV block and ST-T wave changes noted in the anterior lateral leads. Patient was initiated on IV heparin as well as IV nitroglycerin drip. At this time we will just maximize his medications. Patient did have an echocardiogram with Doppler study performed in May of this year which revealed a normal left ventricular systolic function. We will repeat an echo this admission as well. 11/06/2018 Patient was seen and examined today, continues to have pain but only with deep breathing. He was initiated on colchicine by Dr. Larson yesterday. He does state that his pain is somewhat improved today. Blood pressure 102/60 with a heart rate in the 60s, 97% on 2 L of oxygen. White blood cell count 7.5 , hemoglobin 7.4, platelet count 186. Sodium 137, potassium 4.1, BUN 99, creatinine 8.8. Magnesium level I.8 today. Echocardiogram with Doppler study was performed which revealed an ejection fraction of 50-55%. No evidence of pericardial effusion. Objective - Vital Signs Vital signs: Vital Signs Temp 97.7 F 11/06/18 11:20 Pulse 63 11/06/18 11:20 Resp 18 11/06/18 11:20 BP 102/68 11/06/18 11:20 Pulse Ox 97 11/06/18 11:20 Intake & Output 11/05/18 11/06/18 11/06/18 18:59 06:59 18:59 Intake Total 240 Output Total 44 375 250 Balance 196 -375 -250 Weight 65.771 kg 64.5 kg Intake: Oral 240 Output: Urine 375 250 Post Void Residual 44 Other: Voiding Method Toilet Toilet Urinal Urinal # Voids 1 - Exam PHYSICAL EXAMINATION: GENERAL: 88-year-old gentleman in no acute distress at the time of my examination HEENT: Head is atraumatic, normocephalic. Pupils equal, round. Sclera anicteric. Conjunctiva are clear. Mucous membranes of the mouth are moist. Neck is supple. There is no elevated jugular venous pressure. Carotid bruit is heard. HEART EXAMINATION: Heart S1 and S2 with soft systolic murmur is heard. CHEST EXAMINATION: And circumflex clear with mild diminished air entry to the bases. ABDOMEN: Soft, nontender. Bowel sounds are heard. No organomegaly noted. EXTREMITIES: 2+ peripheral pulses with no evidence of peripheral edema and no calf tenderness noted. NEUROLOGIC patient is awake, alert and oriented 3 - Labs CBC & Chem 7: 11/06/18 07:12 11/06/18 07:12 Labs: Abnormal Lab Results - Last 24 Hours (Table) 11/05/18 11/05/18 11/05/18 Range/Units 14:59 16:58 16:58 RBC 2.70 L (4.30-5.90) m/uL Hgb 8.7 L (13.0-17.5) gm/dL Hct 29.1 L (39.0-53.0) % MCV 107.8 H (80.0-100.0) fL MCHC 29.9 L (31.0-37.0) g/dL Neutrophils # 8.4 H (1.3-7.7) k/uL Lymphocytes # 0.5 L (1.0-4.8) k/uL PT 12.3 H (9.0-12.0) sec INR 1.2 H (<1.2) APTT (22.0-30.0) sec Chloride (98-107) mmol/L Carbon Dioxide (22-30) mmol/L BUN (9-20) mg/dL Creatinine (0.66-1.25) mg/dL Glucose (74-99) mg/dL POC Glucose (mg/dL) (75-99) mg/dL Calcium (8.4-10.2) mg/dL Total Creatine Kinase 385 H (55-170) U/L CK-MB (CK-2) 7.4 H (0.0-2.4) ng/mL Troponin I 0.035 H* (0.000-0.034) ng/mL Total Protein (6.3-8.2) g/dL Albumin (3.5-5.0) g/dL HDL Cholesterol (40-60) mg/dL Urine Protein (Negative) Urine Blood (Negative) Urine Bacteria (None) /hpf Urine Mucus (None) /hpf 11/05/18 11/05/18 11/05/18 Range/Units 17:05 17:34 21:02 RBC (4.30-5.90) m/uL Hgb (13.0-17.5) gm/dL Hct (39.0-53.0) % MCV (80.0-100.0) fL MCHC (31.0-37.0) g/dL Neutrophils # (1.3-7.7) k/uL Lymphocytes # (1.0-4.8) k/uL PT (9.0-12.0) sec INR (<1.2) APTT (22.0-30.0) sec Chloride (98-107) mmol/L Carbon Dioxide (22-30) mmol/L BUN (9-20) mg/dL Creatinine (0.66-1.25) mg/dL Glucose (74-99) mg/dL POC Glucose (mg/dL) 107 H 122 H (75-99) mg/dL Calcium (8.4-10.2) mg/dL Total Creatine Kinase (55-170) U/L CK-MB (CK-2) (0.0-2.4) ng/mL Troponin I (0.000-0.034) ng/mL Total Protein (6.3-8.2) g/dL Albumin (3.5-5.0) g/dL HDL Cholesterol (40-60) mg/dL Urine Protein Trace H (Negative) Urine Blood Small H (Negative) Urine Bacteria Rare H (None) /hpf Urine Mucus Rare H (None) /hpf 11/05/18 11/05/18 11/06/18 Range/Units 21:39 21:39 06:06 RBC (4.30-5.90) m/uL Hgb (13.0-17.5) gm/dL Hct (39.0-53.0) % MCV (80.0-100.0) fL MCHC (31.0-37.0) g/dL Neutrophils # (1.3-7.7) k/uL Lymphocytes # (1.0-4.8) k/uL PT (9.0-12.0) sec INR (<1.2) APTT 61.5 H (22.0-30.0) sec Chloride (98-107) mmol/L Carbon Dioxide (22-30) mmol/L BUN (9-20) mg/dL Creatinine (0.66-1.25) mg/dL Glucose (74-99) mg/dL POC Glucose (mg/dL) 112 H (75-99) mg/dL Calcium (8.4-10.2) mg/dL Total Creatine Kinase 353 H (55-170) U/L CK-MB (CK-2) 7.2 H (0.0-2.4) ng/mL Troponin I (0.000-0.034) ng/mL Total Protein (6.3-8.2) g/dL Albumin (3.5-5.0) g/dL HDL Cholesterol (40-60) mg/dL Urine Protein (Negative) Urine Blood (Negative) Urine Bacteria (None) /hpf Urine Mucus (None) /hpf 11/06/18 11/06/18 11/06/18 Range/Units 07:12 07:12 07:12 RBC 2.31 L (4.30-5.90) m/uL Hgb 7.4 L (13.0-17.5) gm/dL Hct 24.4 L (39.0-53.0) % MCV 105.6 H (80.0-100.0) fL MCHC 30.2 L (31.0-37.0) g/dL Neutrophils # (1.3-7.7) k/uL Lymphocytes # 0.8 L (1.0-4.8) k/uL PT (9.0-12.0) sec INR (<1.2) APTT 50.6 H (22.0-30.0) sec Chloride 108 H (98-107) mmol/L Carbon Dioxide 13 L (22-30) mmol/L BUN 99 H (9-20) mg/dL Creatinine 8.86 H* (0.66-1.25) mg/dL Glucose 108 H (74-99) mg/dL POC Glucose (mg/dL) (75-99) mg/dL Calcium 6.3 L* (8.4-10.2) mg/dL Total Creatine Kinase (55-170) U/L CK-MB (CK-2) (0.0-2.4) ng/mL Troponin I (0.000-0.034) ng/mL Total Protein 5.1 L (6.3-8.2) g/dL Albumin 2.7 L (3.5-5.0) g/dL HDL Cholesterol 28 L (40-60) mg/dL Urine Protein (Negative) Urine Blood (Negative) Urine Bacteria (None) /hpf Urine Mucus (None) /hpf 11/06/18 Range/Units 12:13 RBC (4.30-5.90) m/uL Hgb (13.0-17.5) gm/dL Hct (39.0-53.0) % MCV (80.0-100.0) fL MCHC (31.0-37.0) g/dL Neutrophils # (1.3-7.7) k/uL Lymphocytes # (1.0-4.8) k/uL PT (9.0-12.0) sec INR (<1.2) APTT (22.0-30.0) sec Chloride (98-107) mmol/L Carbon Dioxide (22-30) mmol/L BUN (9-20) mg/dL Creatinine (0.66-1.25) mg/dL Glucose (74-99) mg/dL POC Glucose (mg/dL) 164 H (75-99) mg/dL Calcium (8.4-10.2) mg/dL Total Creatine Kinase (55-170) U/L CK-MB (CK-2) (0.0-2.4) ng/mL Troponin I (0.000-0.034) ng/mL Total Protein (6.3-8.2) g/dL Albumin (3.5-5.0) g/dL HDL Cholesterol (40-60) mg/dL Urine Protein (Negative) Urine Blood (Negative) Urine Bacteria (None) /hpf Urine Mucus (None) /hpf Assessment and Plan Plan: Assessment and plan #1 acute on chronic kidney disease, creatinine 9.09, creatinine in March 2017 was 1.39. Nephrology following. #2 severe hypomagnesemia, patient does have chronic diarrhea #3 chest pain, pleuritic in nature, rule out possible pericarditis. #4 hypertension #5 hyperlipidemia #6 prior pacemaker implantation Plan Echocardiogram with Doppler study was performed which revealed a normal left ventricular systolic function. No evidence of any pericardial effusion. We will request a sed rate and CRP level. Discontinue nitroglycerin drip DNP note has been reviewed, I agree with a documented findings and plan of care. Patient was seen and examined.
[2018-11-06 16:27] LABS: Glucose,Whole Blood 133 mg/dL (75-99)
[2018-11-06] MEDS ORDERED: CALCIUM GLUCONATE 2,000 MG in SODIUM CHLORIDE 0.9% 100 ML IVPB ONE (17:54)
[2018-11-06] MEDS: HEPARIN SOD,PORK IN 0.45% NACL 25,000 UNIT in 0.45% NACL 1 500ML.BAG IV SCH (18:40)
--- NOTE | 2018-11-06 18:54 | PN ---
PROGRESS NOTE Patient is seen for followup for acute kidney injury which appears to be mainly prerenal. The patient was maintained on IV fluids as an outpatient and his serum creatinine had gone down to about 4 mg/dL in August. The patient's outpatient IV fluids were discontinued about 2 weeks ago and his serum creatinine was elevated again. He was going to be scheduled for outpatient IV hydration. However, patient was admitted as he was complaining of chest pain. He is now maintained on IV fluids. Serum creatinine is slightly lower. The patient has had good urine output. Ultrasound of the kidney shows no evidence of hydronephrosis. The patient was also severely acidotic and he is currently maintained on IV bicarb and there is some improvement in his acidosis. PHYSICAL EXAMINATION: On examination today, blood pressure was 102/68, heart rate 63 per minute. He is afebrile. Examination of the heart S1, S2. Examination of the lungs bilateral breath sounds are heard. Abdomen is soft, nontender. Examination lower extremities shows no evidence of edema. FACE BOSS exam is grossly intact. LAB: Shows sodium 137, potassium 4.1, chloride 108, CO2 is 13, BUN 99, serum creatinine 8.86, calcium 6.3, hemoglobin 7.4 g/dL. ASSESSMENT: 1. Acute kidney injury prerenal currently improving slowly with IV hydration. His UA is quite benign and there is no evidence of hydronephrosis on the ultrasound. I will continue with the IV fluids. The patient is not significantly uremic. We can wait for a renal replacement therapy. There is no indication to start renal replacement therapy at this time unless the renal function does not improve over the next few days. 2. Severe metabolic acidosis and anion gap. Currently maintained on IV bicarb, slowly improving. 3. Anemia with continued drop in hemoglobin. The patient will be maintained on Aranesp. We will also check iron profile. 4. History of benign prostatic hypertrophy. PLAN: Continue with IV bicarb. Repeat labs in a.m. Check phosphorus levels and patient will be set up for IV fluids as outpatient. Check stool for occult blood. Check iron studies and start Aranesp. MMODL / IJN: [id number] /
[2018-11-06] MEDS ORDERED: DARBEPOETIN ALFA 60 MCG/0.3 ML SYRINGE SQ SCH (21:00)
[2018-11-06 21:31] LABS: Glucose,Whole Blood 112 mg/dL (75-99)
[2018-11-06] MEDS: ATORVASTATIN 10 MG TAB PO SCH (21:50)
[2018-11-07 06:22] LABS: Glucose,Whole Blood 122 mg/dL (75-99)
[2018-11-07 06:35] LABS: Basophils % (A) 0 %; Eosinophils # (A) 0.3 k/uL (0-0.7); Eosinophils % (A) 4 %; HCT 24.3 % (39.0-53.0); HGB 7.5 gm/dL (13.0-17.5); Hypochromasia Slight; Lymphocytes # (A) 0.8 k/uL (1.0-4.8); Lymphocytes % (A) 11 %; MCH 31.8 pg (25.0-35.0); MCHC 30.9 g/dL (31.0-37.0); MCV 103.1 fL (80.0-100.0); Macrocytosis Slight; Mean Platelet Volume 8.2; Monocytes # (A) 0.8 k/uL (0-1.0); Monocytes % (A) 11 %; Neutrophils # (A) 5.1 k/uL (1.3-7.7); Neutrophils % (A) 72 %; Platelet Count 202 k/uL (150-450); RBC 2.36 m/uL (4.30-5.90); RDW 14.2 % (11.5-15.5); WBC 7.1 k/uL (3.8-10.6)
[2018-11-07 06:49] LABS: Albumin 2.6 g/dL (3.5-5.0); Calcium 6.5 mg/dL (8.4-10.2); Magnesium 1.4 mg/dL (1.6-2.3); Phosphorus 6.9 mg/dL (2.5-4.5); Potassium 3.7 mmol/L (3.5-5.1); Total Bilirubin 0.3 mg/dL (0.2-1.3)
[2018-11-07] MEDS: COLCHICINE 0.6 MG EACH PO SCH ×2 (09:18→20:13)
[2018-11-07] MEDS: DEXTROSE 5% IN WATER 1,000 ML with SODIUM BICARB (1 MEQ/ML) 150 ML IV SCH ×2 (09:19→20:13)
[2018-11-07] MEDS: ASPIRIN 325 MG TAB PO SCH (09:20)
[2018-11-07] MEDS: ISOSORBIDE MONONITRATE ER 15 MG TAB PO SCH (09:20)
[2018-11-07] MEDS: TAMSULOSIN 0.4 MG CAP.ER.24H PO SCH (09:20)
[2018-11-07] MEDS: METOPROLOL SUCCINATE (ER) 25 MG TAB.ER.24H PO SCH (09:20)
[2018-11-07] MEDS: PSYLLIUM HUSK 100% 6 GM PACKET PO SCH (09:21)
[2018-11-07 10:35] LABS: Iron Saturation 8.1 (15.00-50.00)
[2018-11-07 11:19] LABS: Glucose,Whole Blood 128 mg/dL (75-99)
--- NOTE | 2018-11-07 11:28 | P.PN ---
Subjective Patient is seen in follow-up for acute kidney injury. Renal function is not significantly improved with creatinine at 8.35 today. He is nonoliguric. Denies nausea or vomiting. Oral intake is fair. He is maintained on bicarb drip at 100 mL an hour. Vital signs are stable. General: The patient appeared well nourished and normally developed. HEENT: Head exam is unremarkable. Neck is without jugular venous distension. LUNGS: Lungs are clear to auscultation and percussion. Breath sounds decreased. HEART: Rate and Rhythm are regular. First and second heart sounds normal. No murmurs, rubs or gallops. ABDOMEN: Abdominal exam reveals normal bowel sounds. Non-tender and non- distended. No evidence of peritonitis. EXTREMITITES: No clubbing, cyanosis, or edema. Objective - Vital Signs Vital signs: Vital Signs Temp 97.7 F 11/07/18 08:40 Pulse 70 11/07/18 08:40 Resp 16 11/07/18 08:40 BP 109/68 11/07/18 08:40 Pulse Ox 96 11/07/18 09:10 Intake & Output 11/06/18 11/07/18 11/07/18 18:59 06:59 18:59 Intake Total 394.763 191.201 Output Total 250 502 2 Balance 144.763 -310.799 -2 Weight 70 kg Intake: Intake, IV Titration 394.763 191.201 Amount Heparin Sod,Pork in 0.45% 394.763 191.201 NaCl 25,000 unit In 0.45 % NaCl 1 500ml.bag @ 12 UNITS/KG/HR 15.78 mls/hr IV .Q24H [facility] Rx#: [id number] Output: Urine 250 500 Stool 2 2 Other: Voiding Method Toilet Toilet Toilet Urinal Urinal Urinal - Labs CBC & Chem 7: 11/07/18 05:39 11/07/18 05:39 Labs: Abnormal Lab Results - Last 24 Hours (Table) 11/06/18 11/06/18 11/06/18 Range/Units 07:12 07:12 12:13 RBC (4.30-5.90) m/uL Hgb (13.0-17.5) gm/dL Hct (39.0-53.0) % MCV (80.0-100.0) fL MCHC (31.0-37.0) g/dL Lymphocytes # (1.0-4.8) k/uL ESR 48 H (0-15) mm/hr APTT (22.0-30.0) sec Sodium (137-145) mmol/L Carbon Dioxide (22-30) mmol/L BUN (9-20) mg/dL Creatinine (0.66-1.25) mg/dL Glucose (74-99) mg/dL POC Glucose (mg/dL) 164 H (75-99) mg/dL Calcium (8.4-10.2) mg/dL Phosphorus (2.5-4.5) mg/dL Magnesium (1.6-2.3) mg/dL Iron (65-175) ug/dL TIBC (228-460) ug/dL Iron Saturation (15.00-50.00) C-Reactive Protein 61.3 H (<10.0) mg/L Total Protein (6.3-8.2) g/dL Albumin (3.5-5.0) g/dL 11/06/18 11/06/18 11/07/18 Range/Units 16:23 21:28 05:39 RBC (4.30-5.90) m/uL Hgb (13.0-17.5) gm/dL Hct (39.0-53.0) % MCV (80.0-100.0) fL MCHC (31.0-37.0) g/dL Lymphocytes # (1.0-4.8) k/uL ESR (0-15) mm/hr APTT (22.0-30.0) sec Sodium (137-145) mmol/L Carbon Dioxide (22-30) mmol/L BUN (9-20) mg/dL Creatinine (0.66-1.25) mg/dL Glucose (74-99) mg/dL POC Glucose (mg/dL) 133 H 112 H (75-99) mg/dL Calcium (8.4-10.2) mg/dL Phosphorus (2.5-4.5) mg/dL Magnesium (1.6-2.3) mg/dL Iron 17 L (65-175) ug/dL TIBC 210 L (228-460) ug/dL Iron Saturation 8.10 L (15.00-50.00) C-Reactive Protein (<10.0) mg/L Total Protein (6.3-8.2) g/dL Albumin (3.5-5.0) g/dL 11/07/18 11/07/18 11/07/18 Range/Units 05:39 05:39 05:39 RBC 2.36 L (4.30-5.90) m/uL Hgb 7.5 L (13.0-17.5) gm/dL Hct 24.3 L (39.0-53.0) % MCV 103.1 H (80.0-100.0) fL MCHC 30.9 L (31.0-37.0) g/dL Lymphocytes # 0.8 L (1.0-4.8) k/uL ESR (0-15) mm/hr APTT 44.1 H (22.0-30.0) sec Sodium 136 L (137-145) mmol/L Carbon Dioxide 18 L (22-30) mmol/L BUN 100 H (9-20) mg/dL Creatinine 8.35 H* (0.66-1.25) mg/dL Glucose 101 H (74-99) mg/dL POC Glucose (mg/dL) (75-99) mg/dL Calcium 6.5 L (8.4-10.2) mg/dL Phosphorus 6.9 H (2.5-4.5) mg/dL Magnesium 1.4 L (1.6-2.3) mg/dL Iron (65-175) ug/dL TIBC (228-460) ug/dL Iron Saturation (15.00-50.00) C-Reactive Protein (<10.0) mg/L Total Protein 5.0 L (6.3-8.2) g/dL Albumin 2.6 L (3.5-5.0) g/dL 11/07/18 11/07/18 Range/Units 06:18 11:17 RBC (4.30-5.90) m/uL Hgb (13.0-17.5) gm/dL Hct (39.0-53.0) % MCV (80.0-100.0) fL MCHC (31.0-37.0) g/dL Lymphocytes # (1.0-4.8) k/uL ESR (0-15) mm/hr APTT (22.0-30.0) sec Sodium (137-145) mmol/L Carbon Dioxide (22-30) mmol/L BUN (9-20) mg/dL Creatinine (0.66-1.25) mg/dL Glucose (74-99) mg/dL POC Glucose (mg/dL) 122 H 128 H (75-99) mg/dL Calcium (8.4-10.2) mg/dL Phosphorus (2.5-4.5) mg/dL Magnesium (1.6-2.3) mg/dL Iron (65-175) ug/dL TIBC (228-460) ug/dL Iron Saturation (15.00-50.00) C-Reactive Protein (<10.0) mg/L Total Protein (6.3-8.2) g/dL Albumin (3.5-5.0) g/dL Assessment and Plan Plan: Assessment: 1. Acute kidney injury mostly prerenal secondary to hypotension. Blood pressure was in the 90s on admission. Creatinine 9.09 on admission and is 8.35 today. Only mild improvement in kidney function. No evidence of hydronephrosis noted. No signs of uremia at this time. UA is quite benign with only trace proteinuria. 2. Chronic kidney disease. Creatinine in March 2017 was 1.39. Recently his creatinine has been in the range of 3-5. Etiology is nephrosclerosis. 3. Severe metabolic acidosis secondary to acute kidney injury. Improving the bicarbonate. 4. Severe hypomagnesemia secondary to GI losses. Patient admits to chronic diarrhea. Improved post replacement but still on the lower side. 5. Acute non-ST elevated myocardial infarction. Patient will be started on heparin and nitro drip per cardiology. 6. Anemia of chronic kidney disease. Iron deficiency noted. Maintained on Aranesp. 7. Hyperphosphatemia secondary to acute kidney injury. Plan: Maintain bicarb drip at 100 mL an hour. Replace magnesium. 2 g IV today. Ferrlecit IV 3 doses. Add PhosLo. Continue to assess on daily basis for need for renal replacement therapy. No urgent need at this time.
[2018-11-07] MEDS: CALCIUM ACETATE 667 MG CAP PO SCH ×2 (12:40→17:46)
[2018-11-07] MEDS: MAGNESIUM SULFATE-D5W PMX 1 GM in DEXTROSE/WATER 1 100ML.BAG IVPB SCH ×2 (12:40→13:39)
--- NOTE | 2018-11-07 13:53 | P.PN ---
Subjective On-call hospitalist covering for Dr. Hanna over the weekend This is a pleasant 88 years old female with past medical history of hyperlipidemia, hypertension, ulcer arthritis, recurrent bowel obstruction, chronic back pain and hand arthritis,Patient presents originally with chest pressure. On admission patient was found to have acute kidney injury with worsening creatinine from 1.3 last year to 5.5 in 05/2018. And blood work during this admission showed worsening creatinine to 9.0, and currently 8.35. His been evaluated by nephrology team and is currently on bicarbonate drip. With ongoing workup. He is been evaluated for need for renal replacement therapy. Also cardiology evaluated the patient for possible pleuritic chest pain for pericarditis. His been treated with colchicine with partial improvement in his chest pain. He had normal ejection fraction on echocardiogram with no evidence of pericardial effusion. Nitroglycerin drip was started but then stopped later on. Today patient states that his diarrhea is easing down to 34 times per day. No abdominal pain or nausea vomiting. And he was looks more comfortable with no dyspnea or chest pain. Check for C. diff : Pending Objective - Vital Signs Vital signs: Vital Signs Temp 97.7 F 11/07/18 08:40 Pulse 60 11/07/18 11:50 Resp 16 11/07/18 11:50 BP 90/58 11/07/18 11:50 Pulse Ox 94 L 11/07/18 11:50 Intake & Output 11/06/18 11/07/18 11/07/18 18:59 06:59 18:59 Intake Total 394.763 191.201 Output Total 250 502 2 Balance 144.763 -310.799 -2 Weight 70 kg Intake: Intake, IV Titration 394.763 191.201 Amount Heparin Sod,Pork in 0.45% 394.763 191.201 NaCl 25,000 unit In 0.45 % NaCl 1 500ml.bag @ 12 UNITS/KG/HR 15.78 mls/hr IV .Q24H [facility] Rx#: [id number] Output: Urine 250 500 Stool 2 2 Other: Voiding Method Toilet Toilet Toilet Urinal Urinal Urinal - Exam GENERAL: The patient is alert and oriented x3, not in any acute distress. Well developed, well nourished. HEENT: Pupils are round and equally reacting to light. EOMI. No scleral icterus. No conjunctival pallor. Normocephalic, atraumatic. No pharyngeal erythema. No thyromegaly. CARDIOVASCULAR: S1 and S2 present. No murmurs, rubs, or gallops. PULMONARY: Chest is clear to auscultation, no wheezing or crackles. ABDOMEN: Soft, nontender, nondistended, normoactive bowel sounds. No palpable organomegaly. MUSCULOSKELETAL: No joint swelling or deformity. EXTREMITIES: No cyanosis, clubbing, or pedal edema. NEUROLOGICAL: Gross neurological examination did not reveal any focal deficits. SKIN: No rashes. - Labs CBC & Chem 7: 11/07/18 05:39 11/07/18 05:39 Labs: Abnormal Lab Results - Last 24 Hours (Table) 11/06/18 11/06/18 11/06/18 Range/Units 07:12 07:12 16:23 RBC (4.30-5.90) m/uL Hgb (13.0-17.5) gm/dL Hct (39.0-53.0) % MCV (80.0-100.0) fL MCHC (31.0-37.0) g/dL Lymphocytes # (1.0-4.8) k/uL ESR 48 H (0-15) mm/hr APTT (22.0-30.0) sec Sodium (137-145) mmol/L Carbon Dioxide (22-30) mmol/L BUN (9-20) mg/dL Creatinine (0.66-1.25) mg/dL Glucose (74-99) mg/dL POC Glucose (mg/dL) 133 H (75-99) mg/dL Calcium (8.4-10.2) mg/dL Phosphorus (2.5-4.5) mg/dL Magnesium (1.6-2.3) mg/dL Iron (65-175) ug/dL TIBC (228-460) ug/dL Iron Saturation (15.00-50.00) C-Reactive Protein 61.3 H (<10.0) mg/L Total Protein (6.3-8.2) g/dL Albumin (3.5-5.0) g/dL 11/06/18 11/07/18 11/07/18 Range/Units 21:28 05:39 05:39 RBC 2.36 L (4.30-5.90) m/uL Hgb 7.5 L (13.0-17.5) gm/dL Hct 24.3 L (39.0-53.0) % MCV 103.1 H (80.0-100.0) fL MCHC 30.9 L (31.0-37.0) g/dL Lymphocytes # 0.8 L (1.0-4.8) k/uL ESR (0-15) mm/hr APTT (22.0-30.0) sec Sodium (137-145) mmol/L Carbon Dioxide (22-30) mmol/L BUN (9-20) mg/dL Creatinine (0.66-1.25) mg/dL Glucose (74-99) mg/dL POC Glucose (mg/dL) 112 H (75-99) mg/dL Calcium (8.4-10.2) mg/dL Phosphorus (2.5-4.5) mg/dL Magnesium (1.6-2.3) mg/dL Iron 17 L (65-175) ug/dL TIBC 210 L (228-460) ug/dL Iron Saturation 8.10 L (15.00-50.00) C-Reactive Protein (<10.0) mg/L Total Protein (6.3-8.2) g/dL Albumin (3.5-5.0) g/dL 11/07/18 11/07/18 11/07/18 Range/Units 05:39 05:39 06:18 RBC (4.30-5.90) m/uL Hgb (13.0-17.5) gm/dL Hct (39.0-53.0) % MCV (80.0-100.0) fL MCHC (31.0-37.0) g/dL Lymphocytes # (1.0-4.8) k/uL ESR (0-15) mm/hr APTT 44.1 H (22.0-30.0) sec Sodium 136 L (137-145) mmol/L Carbon Dioxide 18 L (22-30) mmol/L BUN 100 H (9-20) mg/dL Creatinine 8.35 H* (0.66-1.25) mg/dL Glucose 101 H (74-99) mg/dL POC Glucose (mg/dL) 122 H (75-99) mg/dL Calcium 6.5 L (8.4-10.2) mg/dL Phosphorus 6.9 H (2.5-4.5) mg/dL Magnesium 1.4 L (1.6-2.3) mg/dL Iron (65-175) ug/dL TIBC (228-460) ug/dL Iron Saturation (15.00-50.00) C-Reactive Protein (<10.0) mg/L Total Protein 5.0 L (6.3-8.2) g/dL Albumin 2.6 L (3.5-5.0) g/dL 11/07/18 Range/Units 11:17 RBC (4.30-5.90) m/uL Hgb (13.0-17.5) gm/dL Hct (39.0-53.0) % MCV (80.0-100.0) fL MCHC (31.0-37.0) g/dL Lymphocytes # (1.0-4.8) k/uL ESR (0-15) mm/hr APTT (22.0-30.0) sec Sodium (137-145) mmol/L Carbon Dioxide (22-30) mmol/L BUN (9-20) mg/dL Creatinine (0.66-1.25) mg/dL Glucose (74-99) mg/dL POC Glucose (mg/dL) 128 H (75-99) mg/dL Calcium (8.4-10.2) mg/dL Phosphorus (2.5-4.5) mg/dL Magnesium (1.6-2.3) mg/dL Iron (65-175) ug/dL TIBC (228-460) ug/dL Iron Saturation (15.00-50.00) C-Reactive Protein (<10.0) mg/L Total Protein (6.3-8.2) g/dL Albumin (3.5-5.0) g/dL Assessment and Plan Assessment: Acute and chronic kidney disease. Been followed by nephrology team for evaluation for possible renal replacement therapy Severe hypomagnesemia, being replaced Chest pain, pleuritic. Evaluated by cardiology for possible pericarditis Diarrhea. Rule out C. diff History of essential hypertension History of hyperlipidemia Anemia which could be multifactorial Plan: This is a pleasant 88 years old male who presents because of acute on chronic kidney disease and chest pain suspicious for pericarditis. [employer] are following the patient. Continue with pain management and anti- inflammatory therapy. Nephrology team evaluated the patient for possible renal replacement therapy. Labs and medication were reviewed.. Continue same treatment. Continue with symptomatic treatment. Resume home medication. Monitor lytes and vitals. DVT and GI prophylaxis. Further recommendations of the clinical course of the patient DVT prophylaxis: Subcutaneous heparin GI Prophylaxis: Pepcid PT/OT: Pending Prognosis is guarded
[2018-11-07] MEDS: SODIUM FERRIC GLUCONAT-SUCROSE 125 MG in SODIUM CHLORIDE 0.9% 100 ML IVPB SCH (15:03)
--- NOTE | 2018-11-07 16:01 | PN ---
PROGRESS NOTE This is a gentleman with acute on chronic renal failure with a significantly elevated creatinine; also had episodes of chest pain, but the troponin profile does not suggest any significant myocardial injury. He is resting comfortably, feeling much better today. There was a question of pericarditis, but EKG does not support this much. He is on colchicine with clinical improvement. There is no evidence of any rub. I am recommending that we discontinue IV heparin and place him on subcutaneous heparin. His vitals are stable. There is JVD of 1 cm. No carotid bruit. S1, S2 heard normally. Short systolic murmur noted. No rub. Lungs reveal improved air entry. Abdomen and lower extremity exam is unchanged. MMODL / IJN: [id number] /
[2018-11-07 16:24] LABS: Glucose,Whole Blood 125 mg/dL (75-99)
[2018-11-07] MEDS: FAMOTIDINE 20 MG/2 ML VIAL IV SCH (20:13)
[2018-11-07] MEDS: ATORVASTATIN 10 MG TAB PO SCH (20:13)
[2018-11-07] MEDS: HEPARIN SODIUM,PORCINE 5,000 UNIT/ML 1 ML VIAL SQ SCH (20:14)
[2018-11-07 21:12] LABS: Glucose,Whole Blood 123 mg/dL (75-99)
[2018-11-08 06:28] LABS: Glucose,Whole Blood 109 mg/dL (75-99)
[2018-11-08 06:37] LABS: Basophils % (A) 1 %; Eosinophils # (A) 0.4 k/uL (0-0.7); Eosinophils % (A) 7 %; HCT 21.8 % (39.0-53.0); HGB 7.1 gm/dL (13.0-17.5); Lymphocytes # (A) 0.8 k/uL (1.0-4.8); Lymphocytes % (A) 15 %; MCH 32.4 pg (25.0-35.0); MCHC 32.3 g/dL (31.0-37.0); MCV 100.4 fL (80.0-100.0); Macrocytosis Slight; Monocytes # (A) 0.6 k/uL (0-1.0); Monocytes % (A) 12 %; Neutrophils # (A) 3.3 k/uL (1.3-7.7); Neutrophils % (A) 64 %; Platelet Count 192 k/uL (150-450); RBC 2.18 m/uL (4.30-5.90); RDW 14.2 % (11.5-15.5); WBC 5.1 k/uL (3.8-10.6)
[2018-11-08] MEDS: CALCIUM ACETATE 667 MG CAP PO SCH ×3 (06:47→17:08)
[2018-11-08 06:55] LABS: Albumin 2.4 g/dL (3.5-5.0); Magnesium 1.8 mg/dL (1.6-2.3); Phosphorus 6.3 mg/dL (2.5-4.5); Total Bilirubin 0.3 mg/dL (0.2-1.3); Total Protein 4.6 g/dL (6.3-8.2)
[2018-11-08 07:27] LABS: Calcium 6.1 mg/dL (8.4-10.2)
[2018-11-08] MEDS: PSYLLIUM HUSK 100% 6 GM PACKET PO SCH (08:48)
[2018-11-08] MEDS: DEXTROSE 5% IN WATER 1,000 ML with SODIUM BICARB (1 MEQ/ML) 150 ML IV SCH ×2 (08:55→23:52)
[2018-11-08] MEDS: FAMOTIDINE 20 MG/2 ML VIAL IV SCH ×2 (08:56→19:54)
[2018-11-08] MEDS: METOPROLOL SUCCINATE (ER) 25 MG TAB.ER.24H PO SCH (08:56)
[2018-11-08] MEDS: HEPARIN SODIUM,PORCINE 5,000 UNIT/ML 1 ML VIAL SQ SCH ×2 (08:56→19:54)
[2018-11-08] MEDS: TAMSULOSIN 0.4 MG CAP.ER.24H PO SCH (08:57)
[2018-11-08] MEDS: ISOSORBIDE MONONITRATE ER 15 MG TAB PO SCH (08:57)
[2018-11-08] MEDS: COLCHICINE 0.6 MG EACH PO SCH ×2 (08:57→22:21)
[2018-11-08] MEDS: ASPIRIN 81 MG PO SCH (08:57)
[2018-11-08] MEDS ORDERED: POTASSIUM CHLORIDE ER 20 MEQ TAB.ER PO STA (10:14)
[2018-11-08] MEDS ORDERED: CALCIUM GLUCONATE 1,000 MG in SODIUM CHLORIDE 0.9% 100 ML IVPB ONE (10:30)
[2018-11-08] MEDS: SODIUM FERRIC GLUCONAT-SUCROSE 125 MG in SODIUM CHLORIDE 0.9% 100 ML IVPB SCH (10:44)
--- NOTE | 2018-11-08 11:12 | P.PN ---
Subjective Patient is seen in follow-up for acute kidney injury. Renal function is not significantly improved with creatinine at 7.86 today. He is nonoliguric. Denies nausea or vomiting. Oral intake is fair. He is maintained on bicarb drip at 100 mL an hour. Vital signs are stable. General: The patient appeared well nourished and normally developed. HEENT: Head exam is unremarkable. Neck is without jugular venous distension. LUNGS: Lungs are clear to auscultation and percussion. Breath sounds decreased. HEART: Rate and Rhythm are regular. First and second heart sounds normal. No murmurs, rubs or gallops. ABDOMEN: Abdominal exam reveals normal bowel sounds. Non-tender and non- distended. No evidence of peritonitis. EXTREMITITES: No clubbing, cyanosis, or edema. Objective - Vital Signs Vital signs: Vital Signs Temp 98.3 F 11/08/18 08:20 Pulse 64 11/08/18 08:20 Resp 18 11/08/18 08:20 BP 100/61 11/08/18 08:20 Pulse Ox 95 11/08/18 08:55 Intake & Output 11/07/18 11/08/18 11/08/18 18:59 06:59 18:59 Intake Total 1544 Output Total 1502 500 Balance 42 -500 Weight 67.3 kg Intake: Intake, IV Titration 1100 Amount Dextrose 5% in Water 1, 800 000 ml @ 100 mls/hr IV . [id number] LORI with Sodium Bicarb (1 Meq/ml) 150 ml Rx#:[id number] Magnesium Sulfate-D5w Pmx 200 1 gm In Dextrose/Water 1 100ml.bag @ 100 mls/hr IVPB Q1H LORI Rx#: [id number] Sodium Ferric Gluconat- 100 Sucrose 125 mg In Sodium Chloride 0.9% 100 ml @ 100 mls/hr IVPB DAILY LORI Rx#:[id number] Oral 444 Output: Urine 1500 500 Stool 2 Other: Voiding Method Toilet Toilet Toilet Urinal Urinal Urinal - Labs CBC & Chem 7: 11/08/18 05:42 11/08/18 05:42 Labs: Abnormal Lab Results - Last 24 Hours (Table) 11/07/18 11/07/18 11/07/18 Range/Units 11:17 16:22 21:08 RBC (4.30-5.90) m/uL Hgb (13.0-17.5) gm/dL Hct (39.0-53.0) % MCV (80.0-100.0) fL Lymphocytes # (1.0-4.8) k/uL Sodium (137-145) mmol/L Potassium (3.5-5.1) mmol/L Chloride (98-107) mmol/L BUN (9-20) mg/dL Creatinine (0.66-1.25) mg/dL POC Glucose (mg/dL) 128 H 125 H 123 H (75-99) mg/dL Calcium (8.4-10.2) mg/dL Phosphorus (2.5-4.5) mg/dL Total Protein (6.3-8.2) g/dL Albumin (3.5-5.0) g/dL 11/08/18 11/08/18 11/08/18 Range/Units 05:42 05:42 06:08 RBC 2.18 L (4.30-5.90) m/uL Hgb 7.1 L (13.0-17.5) gm/dL Hct 21.8 L (39.0-53.0) % MCV 100.4 H (80.0-100.0) fL Lymphocytes # 0.8 L (1.0-4.8) k/uL Sodium 135 L (137-145) mmol/L Potassium 3.0 L (3.5-5.1) mmol/L Chloride 97 L (98-107) mmol/L BUN 95 H (9-20) mg/dL Creatinine 7.86 H* (0.66-1.25) mg/dL POC Glucose (mg/dL) 109 H (75-99) mg/dL Calcium 6.1 L* (8.4-10.2) mg/dL Phosphorus 6.3 H (2.5-4.5) mg/dL Total Protein 4.6 L (6.3-8.2) g/dL Albumin 2.4 L (3.5-5.0) g/dL Assessment and Plan Plan: Assessment: 1. Acute kidney injury mostly prerenal secondary to hypotension. Blood pressure was in the 90s on admission. Creatinine 9.09 on admission and is 7.86 today. Only mild improvement in kidney function. No evidence of hydronephrosis noted. No signs of uremia at this time. UA is quite benign with only trace proteinuria. 2. Chronic kidney disease. Creatinine in March 2017 was 1.39. Recently his creatinine has been in the range of 3-5. Etiology is nephrosclerosis. 3. Severe metabolic acidosis secondary to acute kidney injury. Improving with IV bicarbonate. 4. Severe hypomagnesemia secondary to GI losses. Patient admits to chronic diarrhea. Improved post replacement. 5. Acute non-ST elevated myocardial infarction. Cardiology following. 6. Anemia of chronic kidney disease. Iron deficiency noted. Maintained on Aranesp. 7. Hyperphosphatemia secondary to acute kidney injury maintained on PhosLo. 8. Hypocalcemia secondary to acute kidney injury. Corrected calcium is 7.3. Plan: Maintain bicarb drip at 100 mL an hour. Ferrlecit IV 3 doses. Second dose today. 1 g IV calcium today. Replace potassium. 60 mg today. Continue to assess on daily basis for need for renal replacement therapy. No urgent need at this time but will likely need to start in the next 24-48 hours if no improvement in renal function.
[2018-11-08 11:37] LABS: Glucose,Whole Blood 135 mg/dL (75-99)
[2018-11-08 16:30] LABS: Glucose,Whole Blood 143 mg/dL (75-99)
[2018-11-08] MEDS: ATORVASTATIN 10 MG TAB PO SCH (19:54)
[2018-11-08 21:23] LABS: Glucose,Whole Blood 119 mg/dL (75-99)
[2018-11-08] MEDS ORDERED: BENZOCAINE/MENTHOL LOZENG 1 EACH LOZENGE MUCOUS MEM PRN (21:54)
[2018-11-08] MEDS ORDERED: LEVOFLOXACIN 500MG-D5W PMX 500 MG in DEXTROSE/WATER 1 100ML.BAG IVPB STA (22:11)
[2018-11-08] MEDS ORDERED: LEVOFLOXACIN 500MG-D5W PMX 500 MG in DEXTROSE/WATER 1 100ML.BAG IVPB SCH (22:15)
--- NOTE | 2018-11-09 00:28 | P.PN ---
Subjective On-call hospitalist covering for Dr. Hanna over the weekend This is a pleasant 88 years old female with past medical history of hyperlipidemia, hypertension, ulcer arthritis, recurrent bowel obstruction, chronic back pain and hand arthritis,Patient presents originally with chest pressure. On admission patient was found to have acute kidney injury with worsening creatinine from 1.3 last year to 5.5 in 05/2018. And blood work during this admission showed worsening creatinine to 9.0, and currently 8.35. His been evaluated by nephrology team and is currently on bicarbonate drip. With ongoing workup. He is been evaluated for need for renal replacement therapy. Also cardiology evaluated the patient for possible pleuritic chest pain for pericarditis. His been treated with colchicine with partial improvement in his chest pain. He had normal ejection fraction on echocardiogram with no evidence of pericardial effusion. Nitroglycerin drip was started but then stopped later on. Today patient states that his diarrhea is easing down to 34 times per day. No abdominal pain or nausea vomiting. And he was looks more comfortable with no dyspnea or chest pain. Check for C. diff : Pending 11/08/2018 Patient is seen and examined by me at bedside. He is lying in bed comfortable no complaint. No chest pain or dyspnea. No urinary complaints or change in bowel habits. No fever. No nausea vomiting. Abdominal exam looks benign. Vital stable. Hemoglobin is a little the low side at 7.1 Creatinine is trending down slowly from 8.3 to 7.8. C. diff is negative. Several consultants are following the patient including deposition operator and sports therapist. No need for urgent dialysis at this time. Occult Blood in stool: Pending Vit B12 & folate : pending Dr. Hanna and his team resume the care of the patient tomorrow. Objective - Vital Signs Vital signs: Vital Signs Temp 98.3 F 11/08/18 08:20 Pulse 64 11/08/18 08:20 Resp 18 11/08/18 08:20 BP 100/61 11/08/18 08:20 Pulse Ox 95 11/08/18 08:55 Intake & Output 11/07/18 11/08/18 11/08/18 18:59 06:59 18:59 Intake Total 1544 Output Total 1502 500 Balance 42 -500 Weight 67.3 kg Intake: Intake, IV Titration 1100 Amount Dextrose 5% in Water 1, 800 000 ml @ 100 mls/hr IV . [id number] LORI with Sodium Bicarb (1 Meq/ml) 150 ml Rx#:[id number] Magnesium Sulfate-D5w Pmx 200 1 gm In Dextrose/Water 1 100ml.bag @ 100 mls/hr IVPB Q1H LORI Rx#: [id number] Sodium Ferric Gluconat- 100 Sucrose 125 mg In Sodium Chloride 0.9% 100 ml @ 100 mls/hr IVPB DAILY LORI Rx#:[id number] Oral 444 Output: Urine 1500 500 Stool 2 Other: Voiding Method Toilet Toilet Toilet Urinal Urinal Urinal - Exam GENERAL: The patient is alert and oriented x3, not in any acute distress. Well developed, well nourished. HEENT: Pupils are round and equally reacting to light. EOMI. No scleral icterus. No conjunctival pallor. Normocephalic, atraumatic. No pharyngeal erythema. No thyromegaly. CARDIOVASCULAR: S1 and S2 present. No murmurs, rubs, or gallops. PULMONARY: Chest is clear to auscultation, no wheezing or crackles. ABDOMEN: Soft, nontender, nondistended, normoactive bowel sounds. No palpable organomegaly. MUSCULOSKELETAL: No joint swelling or deformity. EXTREMITIES: No cyanosis, clubbing, or pedal edema. NEUROLOGICAL: Gross neurological examination did not reveal any focal deficits. SKIN: No rashes. - Labs CBC & Chem 7: 11/08/18 05:42 11/08/18 05:42 Labs: Abnormal Lab Results - Last 24 Hours (Table) 11/07/18 11/07/18 11/08/18 Range/Units 16:22 21:08 05:42 RBC 2.18 L (4.30-5.90) m/uL Hgb 7.1 L (13.0-17.5) gm/dL Hct 21.8 L (39.0-53.0) % MCV 100.4 H (80.0-100.0) fL Lymphocytes # 0.8 L (1.0-4.8) k/uL Sodium (137-145) mmol/L Potassium (3.5-5.1) mmol/L Chloride (98-107) mmol/L BUN (9-20) mg/dL Creatinine (0.66-1.25) mg/dL POC Glucose (mg/dL) 125 H 123 H (75-99) mg/dL Calcium (8.4-10.2) mg/dL Phosphorus (2.5-4.5) mg/dL Total Protein (6.3-8.2) g/dL Albumin (3.5-5.0) g/dL 11/08/18 11/08/18 11/08/18 Range/Units 05:42 06:08 11:34 RBC (4.30-5.90) m/uL Hgb (13.0-17.5) gm/dL Hct (39.0-53.0) % MCV (80.0-100.0) fL Lymphocytes # (1.0-4.8) k/uL Sodium 135 L (137-145) mmol/L Potassium 3.0 L (3.5-5.1) mmol/L Chloride 97 L (98-107) mmol/L BUN 95 H (9-20) mg/dL Creatinine 7.86 H* (0.66-1.25) mg/dL POC Glucose (mg/dL) 109 H 135 H (75-99) mg/dL Calcium 6.1 L* (8.4-10.2) mg/dL Phosphorus 6.3 H (2.5-4.5) mg/dL Total Protein 4.6 L (6.3-8.2) g/dL Albumin 2.4 L (3.5-5.0) g/dL Assessment and Plan Assessment: Acute and chronic kidney disease. Been followed by nephrology team for evaluation for possible renal replacement therapy Severe hypomagnesemia, being replaced Chest pain, pleuritic. Evaluated by cardiology for possible pericarditis Diarrhea. Rule out C. diff History of essential hypertension History of hyperlipidemia Anemia which could be multifactorial Plan: This is a pleasant 88 years old male who presents because of acute on chronic kidney disease and chest pain suspicious for pericarditis. Deposition Operator and cartilage are following the patient. Continue with pain management and anti- inflammatory therapy. Nephrology team evaluated the patient for possible renal replacement therapy. Labs and medication were reviewed.. Continue same treatment. Continue with symptomatic treatment. Resume home medication. Monitor lytes and vitals. DVT and GI prophylaxis. Further recommendations of the clinical course of the patient DVT prophylaxis: Subcutaneous heparin GI Prophylaxis: Pepcid PT/OT: Pending Prognosis is guarded
[2018-11-09] MEDS: CALCIUM ACETATE 667 MG CAP PO SCH ×3 (06:30→18:41)
[2018-11-09 08:08] LABS: Basophils % (A) 1 %; Eosinophils # (A) 0.4 k/uL (0-0.7); Eosinophils % (A) 7 %; HCT 25.7 % (39.0-53.0); HGB 7.9 gm/dL (13.0-17.5); Hypochromasia Slight; Lymphocytes # (A) 0.6 k/uL (1.0-4.8); Lymphocytes % (A) 11 %; MCH 30.6 pg (25.0-35.0); MCHC 30.6 g/dL (31.0-37.0); MCV 100.1 fL (80.0-100.0); Mean Platelet Volume 7.6; Monocytes # (A) 0.6 k/uL (0-1.0); Monocytes % (A) 10 %; Neutrophils % (A) 70 %; Platelet Count 239 k/uL (150-450); RBC 2.57 m/uL (4.30-5.90); RDW 13.9 % (11.5-15.5); WBC 5.7 k/uL (3.8-10.6)
[2018-11-09 08:19] LABS: Albumin 2.7 g/dL (3.5-5.0); Calcium 6.5 mg/dL (8.4-10.2); Magnesium 1.6 mg/dL (1.6-2.3); Potassium 3.4 mmol/L (3.5-5.1); Total Bilirubin 0.3 mg/dL (0.2-1.3)
--- NOTE | 2018-11-09 08:38 | XR ---
EXAMINATION TYPE: XR chest 2V DATE OF EXAM: 11/09/2018 COMPARISON: 11/05/2018 TECHNIQUE: PA and lateral views submitted. HISTORY: Shortness of breath FINDINGS: Cardiac device is seen and there is hyperinflation. Subsegmental changes at both lung bases. Atherosc lerotic change aorta. Small bilateral effusions. Hypertrophic and degenerative change of the spine. A rthropathy of the AC joints. IMPRESSION: 1. Bilateral consolidation small effusion. Mild central venous congestion not excluded correlate clin ically to exclude pneumonia.
[2018-11-09] MEDS: IPRATROPIUM-ALBUTEROL 3 ML NEB INHALATION SCH ×4 (09:12→19:40)
[2018-11-09] MEDS: COLCHICINE 0.6 MG EACH PO SCH ×2 (09:49→21:52)
[2018-11-09] MEDS: PSYLLIUM HUSK 100% 6 GM PACKET PO SCH (09:49)
[2018-11-09] MEDS: ISOSORBIDE MONONITRATE ER 15 MG TAB PO SCH (09:50)
[2018-11-09] MEDS: METOPROLOL SUCCINATE (ER) 25 MG TAB.ER.24H PO SCH (09:50)
[2018-11-09] MEDS: LORATADINE 10 MG TAB PO SCH (09:50)
[2018-11-09] MEDS: TAMSULOSIN 0.4 MG CAP.ER.24H PO SCH (09:50)
[2018-11-09] MEDS: HEPARIN SODIUM,PORCINE 5,000 UNIT/ML 1 ML VIAL SQ SCH ×2 (09:51→20:55)
[2018-11-09] MEDS: FAMOTIDINE 20 MG/2 ML VIAL IV SCH (09:51)
[2018-11-09] MEDS: ASPIRIN 81 MG PO SCH (09:51)
[2018-11-09] MEDS: SODIUM FERRIC GLUCONAT-SUCROSE 125 MG in SODIUM CHLORIDE 0.9% 100 ML IVPB SCH (09:51)
[2018-11-09] MEDS: DEXTROSE 5% IN WATER 1,000 ML with SODIUM BICARB (1 MEQ/ML) 150 ML IV SCH (12:47)
[2018-11-09] MEDS: CYANOCOBALAMIN 500 MCG TAB PO SCH (12:47)
[2018-11-09] MEDS: SODIUM CHLORIDE 0.9% 1,000 ML IV SCH ×2 (12:48→21:52)
[2018-11-09] MEDS ORDERED: POTASSIUM CHLORIDE ER 20 MEQ TAB.ER PO STA (17:17)
[2018-11-09 18:49] LABS: Folate, Serum 9.3 ng/mL
[2018-11-09] MEDS: ATORVASTATIN 10 MG TAB PO SCH (20:55)
--- NOTE | 2018-11-09 22:20 | PN ---
PROGRESS NOTE Patient is seen for followup for chronic kidney disease and acute kidney injury. Patient has been maintained on IV fluids. Serum creatinine has improved to some degree, although not significantly. However, patient states he is feeling good and denies any chest pains. He denies any shortness of breath. Patient has walked. He, however, did have an emesis this morning. He was able to tolerate dinner very well. Patient has been talked to regarding possibly starting renal replacement therapy. At this time he does not have significant uremic symptoms and continues to have good urine output. There is no evidence of hydronephrosis on the ultrasound, and with some improvement in his renal function I have advised him and his family that we can continue to maintain patient on IV fluids as outpatient and start dialysis if the serum creatinine does not improve further. On examination this morning, blood pressure was 116/58, heart rate of 65 per minute. He is afebrile. EXAMINATION OF THE HEART: S1, S2. EXAMINATION OF LUNGS: Bilateral breath sounds are heard. ABDOMEN: Soft, non-tender. Examination of lower extremities shows no significant edema. CSR RETAIL exam is grossly intact. Labs show sodium 134, potassium 3.4, chloride 92, BUN 92, serum creatinine 7.62, hemoglobin 7.9 g/dL. ASSESSMENT: 1. Acute kidney injury, prerenal, currently somewhat improved. Serum creatinine had been at around 4 prior to this acute episode. Patient was maintained on IV fluids as outpatient, and the fluids were discontinued about 2 weeks prior to his deterioration. Since patient is not uremic, we can continue to wait, and start dialysis as outpatient if the renal function does not improve. 2. Severe metabolic acidosis associated with progressive renal failure, currently maintained on IV bicarb. 3. Chronic kidney disease secondary to nephrosclerosis and increased fluid losses through the ostomy. 4. Elevated troponin, clinically not with myocardial infarction. Patient is being followed by Cardiology. PLAN: Discontinue bicarb. Switch to normal saline. Repeat labs in a.m. If renal function continues to improve, we can discharge the patient and start dialysis as outpatient if there is no further improvement. Currently patient is not uremic and there is no clinical evidence of uremic pericarditis. He did have an have an emesis this morning, and if patient is not able to tolerate his oral intake throughout the day, we may need to start dialysis this admission. This has been discussed with the patient and his family. MMODL / IJN: [id number] /
[2018-11-10] MEDS: CALCIUM ACETATE 667 MG CAP PO SCH ×2 (06:39→11:45)
[2018-11-10] MEDS: SODIUM CHLORIDE 0.9% 1,000 ML IV SCH (06:41)
[2018-11-10 07:35] VITALS: RESP 16
[2018-11-10 08:08] LABS: Basophils % (A) 1 %; Eosinophils # (A) 0.3 k/uL (0-0.7); Eosinophils % (A) 6 %; HGB 7.9 gm/dL (13.0-17.5); Hypochromasia Slight; Lymphocytes # (A) 0.7 k/uL (1.0-4.8); Lymphocytes % (A) 13 %; MCH 30.8 pg (25.0-35.0); MCHC 30.4 g/dL (31.0-37.0); MCV 101.3 fL (80.0-100.0); Macrocytosis Slight; Mean Platelet Volume 7.8; Monocytes # (A) 0.6 k/uL (0-1.0); Monocytes % (A) 11 %; Neutrophils # (A) 3.8 k/uL (1.3-7.7); Neutrophils % (A) 69 %; Platelet Count 252 k/uL (150-450); RBC 2.57 m/uL (4.30-5.90); RDW 13.8 % (11.5-15.5); WBC 5.5 k/uL (3.8-10.6)
[2018-11-10] MEDS: IPRATROPIUM-ALBUTEROL 3 ML NEB INHALATION SCH (08:15)
[2018-11-10 08:28] LABS: Albumin 2.8 g/dL (3.5-5.0); Calcium 6.5 mg/dL (8.4-10.2); Potassium 3.5 mmol/L (3.5-5.1); Total Bilirubin 0.3 mg/dL (0.2-1.3); Total Protein 5.1 g/dL (6.3-8.2)
[2018-11-10] MEDS: LORATADINE 10 MG TAB PO SCH (08:30)
[2018-11-10] MEDS: ASPIRIN 81 MG PO SCH (08:30)
[2018-11-10] MEDS: PSYLLIUM HUSK 100% 6 GM PACKET PO SCH (08:30)
[2018-11-10] MEDS: HEPARIN SODIUM,PORCINE 5,000 UNIT/ML 1 ML VIAL SQ SCH (08:31)
[2018-11-10] MEDS: METOPROLOL SUCCINATE (ER) 25 MG TAB.ER.24H PO SCH (08:31)
[2018-11-10] MEDS: TAMSULOSIN 0.4 MG CAP.ER.24H PO SCH (08:31)
[2018-11-10] MEDS: ISOSORBIDE MONONITRATE ER 15 MG TAB PO SCH (08:33)
[2018-11-10] MEDS: COLCHICINE 0.6 MG EACH PO SCH (08:33)
[2018-11-10] MEDS: SODIUM FERRIC GLUCONAT-SUCROSE 125 MG in SODIUM CHLORIDE 0.9% 100 ML IVPB SCH (08:36)
[2018-11-10] MEDS ORDERED: FAMOTIDINE 20 MG TAB PO SCH (09:00)
--- NOTE | 2018-11-10 09:20 | P.PN ---
Subjective Progress Note Date: 11/09/18 88-year-old male with a past medical history significant for multiple bowel obstructions with bowel resections, PPM insertion hyperlipidemia, hypertension, and CKD, who presented to the emergency room with a chief complaint of chest pain. 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 However, yesterday morning he woke up with chest pain and decided to come to the emergency room for further evaluation. Patient describes his pain as a burning sensation with occasional heaviness. Patient states the pain does not radiate to his arm or jaw. The pain is not constant. Patient reports it is intermittent. Patient denies dizziness or lightheadedness. Denies shortness of breath. Denies nausea or vomiting. Denies fever or chills. Chest x-ray completed in the emergency room revealed stable appearance of the 2 -lead pacemaker generator along the left chest wall. Borderline heart size. No acute process was visualized. Laboratory data upon admission reveals white count 7.5. Hemoglobin 9.2. Platelet count 240. Sodium 144. Potassium 4.7. BUN 99. Creatinine 9.09. Glucose 92. Magnesium 0.9. Troponin 0.045, 0.035, 0.031 Urinalysis reveals: cloudy urine, trace protein, small blood, rare bacteria and mucus. Negative for leukocyte esterase or nitrite. The patient was admitted to the hospital under the care of Dr. Hanna. Consultations were placed to cardiology and nephrology. 11/09/2018 Patient examined at the bedside this morning with Dr. Hanna. Patient is awake and alert. Patient is ambulating independently in his room. He denies chest pain. He denies shortness of breath. He does complain of a nonproductive cough. Nephrology is following. Creatinine this morning is 7.62. He remains on a bicarb drip. He is receiving iron infusion this morning. Potassium 3.4. PHYSICAL EXAM: GENERAL: This is a a 88 -year-old male in no apparent distress at the time of examination. Pleasant and cooperative. HEENT: Head is atraumatic, normocephalic. Pupils are equal, round, and reactive to light. Sclerae anicteric. Conjunctivae are clear. Mucus membranes of the mouth are moist. Neck is supple. RESPIRATORY: Clear to auscultation. No wheezes, rales, or rhonchi. No use of accessory muscles. Patient maintaining oxygen saturation greater than 92%. No chest wall tenderness is noted on palpation or with deep breathing. CARDIOVASCULAR: Regular rate and rhythm. S1 and S2 noted. Systolic murmur auscultated. No JVD noted. No S3 or S4 noted. GASTROINTESTINAL: No distention noted. Abdomen soft and round. Normal active bowel sounds auscultated x 4 quadrants. No pain or tenderness noted upon palpation. INTEGUMENTARY: No cyanosis. No jaundice. No rashes noted. No cellulitis noted. EXTREMITIES: 2+ peripheral pulses. No evidence of peripheral edema. No calf tenderness noted. NEUROLOGIC: Cranial nerves II-XII grossly intact. PSYCHIATRIC: Awake, alert, and oriented X 3. Appropriate affect. Intact judgement and insight. 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 Appreciate recommendations and input Possible hemodialysis Continue bicarb drip per nephrology Cardiology on consult. Appreciate recommendations and input Home meds as appropriate Monitor labs GI/DVT prophylaxis Monitor vital signs and address as appropriate Discharge planning: Patient to return home when stable Further recommendations pending patient's course Nurse practitioner note has been reviewed by physician. Signing provider agrees with the documented findings, assessment, and plan of care. Objective - Vital Signs Vital signs: Vital Signs Temp 97.9 F 11/09/18 08:00 Pulse 64 11/09/18 09:25 Resp 18 11/09/18 09:25 BP 116/58 11/09/18 08:00 Pulse Ox 96 11/09/18 09:12 Intake & Output 11/08/18 11/09/18 11/09/18 18:59 06:59 18:59 Intake Total 1222 240 Output Total 700 Balance 1222 -700 240 Weight 68 kg Intake: Intake, IV Titration 1000 Amount Calcium Gluconate 1,000 100 mg In Sodium Chloride 0.9 % 100 ml @ 100 mls/hr IVPB ONCE ONE Rx#: [id number] Dextrose 5% in Water 1, 800 000 ml @ 100 mls/hr IV . [id number] LORI with Sodium Bicarb (1 Meq/ml) 150 ml Rx#:[id number] Sodium Ferric Gluconat- 100 Sucrose 125 mg In Sodium Chloride 0.9% 100 ml @ 100 mls/hr IVPB DAILY LORI Rx#:[id number] Oral 222 240 Output: Urine 700 Other: Voiding Method Toilet Toilet Urinal Urinal # Voids 2 - Labs CBC & Chem 7: 11/09/18 07:45 11/09/18 07:45 Labs: Abnormal Lab Results - Last 24 Hours (Table) 11/08/18 11/08/18 11/09/18 Range/Units 16:27 21:15 07:45 RBC 2.57 L (4.30-5.90) m/uL Hgb 7.9 L (13.0-17.5) gm/dL Hct 25.7 L (39.0-53.0) % MCV 100.1 H (80.0-100.0) fL MCHC 30.6 L (31.0-37.0) g/dL Lymphocytes # 0.6 L (1.0-4.8) k/uL Sodium (137-145) mmol/L Potassium (3.5-5.1) mmol/L Chloride (98-107) mmol/L BUN (9-20) mg/dL Creatinine (0.66-1.25) mg/dL Glucose (74-99) mg/dL POC Glucose (mg/dL) 143 H 119 H (75-99) mg/dL Calcium (8.4-10.2) mg/dL Total Protein (6.3-8.2) g/dL Albumin (3.5-5.0) g/dL 11/09/18 Range/Units 07:45 RBC (4.30-5.90) m/uL Hgb (13.0-17.5) gm/dL Hct (39.0-53.0) % MCV (80.0-100.0) fL MCHC (31.0-37.0) g/dL Lymphocytes # (1.0-4.8) k/uL Sodium 134 L (137-145) mmol/L Potassium 3.4 L (3.5-5.1) mmol/L Chloride 92 L (98-107) mmol/L BUN 92 H (9-20) mg/dL Creatinine 7.62 H* (0.66-1.25) mg/dL Glucose 105 H (74-99) mg/dL POC Glucose (mg/dL) (75-99) mg/dL Calcium 6.5 L (8.4-10.2) mg/dL Total Protein 5.0 L (6.3-8.2) g/dL Albumin 2.7 L (3.5-5.0) g/dL
--- NOTE | 2018-11-10 09:29 | P.DS ---
Providers Date of admission: 11/05/18 11:27 Expected date of discharge: 11/10/18 Attending physician: Garfield Hanna Consults: 11/05/18 11:27 Consult Physician Urgent Consulting Provider: [facility] Consult Reason/Comments: Chest pain Do you want consulting provider notified?: Yes 11/05/18 12:38 Consult Physician Urgent Consulting Provider: Brenda Leonardo Consult Reason/Comments: Acute on chronic renal failure Do you want consulting provider notified?: Yes Primary care physician: Garfield Hanna Hospital Course: 8-year-old male with a past medical history significant for multiple bowel obstructions with bowel resections, PPM insertion hyperlipidemia, hypertension, and CKD, who presented to the emergency room with a chief complaint of chest pain. 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 However, yesterday morning he woke up with chest pain and decided to come to the emergency room for further evaluation. Patient describes his pain as a burning sensation with occasional heaviness. Patient states the pain does not radiate to his arm or jaw. The pain is not constant. Patient reports it is intermittent. Patient denies dizziness or lightheadedness. Denies shortness of breath. Denies nausea or vomiting. Denies fever or chills. Chest x-ray completed in the emergency room revealed stable appearance of the 2 -lead pacemaker generator along the left chest wall. Borderline heart size. No acute process was visualized. Laboratory data upon admission reveals white count 7.5. Hemoglobin 9.2. Platelet count 240. Sodium 144. Potassium 4.7. BUN 99. Creatinine 9.09. Glucose 92. Magnesium 0.9. Troponin 0.045, 0.035, 0.031 Urinalysis reveals: cloudy urine, trace protein, small blood, rare bacteria and mucus. Negative for leukocyte esterase or nitrite. The patient was admitted to the hospital under the care of Dr. Hanna. Consultations were placed to cardiology and nephrology. 11/09/2018 Patient examined at the bedside this morning with Dr. Hanna. Patient is awake and alert. Patient is ambulating independently in his room. He denies chest pain. He denies shortness of breath. He does complain of a nonproductive cough. Nephrology is following. Creatinine this morning is 7.62. He remains on a bicarb drip. He is receiving iron infusion this morning. Potassium 3.4. 11/10/2018 Patient examined at the bedside. His creatinine is 7.44 today, down from 7.62 yesterday. Bicarb drip was discontinued. Patient continues to make urine. He denies further episodes of vomiting. Tolerating PO intake well. He is stable for discharge home today. He will follow up with nephrology outpatient and may need to begin dialysis outpatient per Dr. Leonardo. 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 Signing provider agrees with the documented findings, assessment, and plan of care. Patient Condition at Discharge: Stable Plan - Discharge Summary Discharge Rx Participant: No New Discharge Prescriptions: New Aspirin 81 mg PO DAILY #30 chew Calcium Acetate [PhosLo] 667 mg PO TID-W/MEALS #90 cap Levofloxacin [Levaquin] 250 mg PO Q48H #4 tablet Loratadine [Claritin] 10 mg PO DAILY #30 tab Continue Simvastatin [Zocor] 20 mg PO HS Krill Oil 500 mg PO DAILY Tamsulosin [Flomax] 0.4 mg PO PC-BRKFST #30 tab Sodium Bicarbonate Tab 1,300 mg PO Q4H Acetaminophen [Tylenol] 650 mg PO DAILY PRN PRN Reason: Pain Metoprolol Succinate [Toprol XL] 12.5 mg PO DAILY Isosorbide Mononitrate ER [Imdur] 15 mg PO DAILY Psyllium Husk 100% [Metamucil Packet] 6 gm PO DAILY Discharge Medication List Simvastatin [Zocor] 20 mg PO HS 12/19/15 [History] Krill Oil 500 mg PO DAILY 06/04/18 [History] Tamsulosin [Flomax] 0.4 mg PO PC-BRKFST #30 tab 06/12/18 [Rx] Acetaminophen [Tylenol] 650 mg PO DAILY PRN 09/18/18 [History] Sodium Bicarbonate Tab 1,300 mg PO Q4H 09/18/18 [History] Isosorbide Mononitrate ER [Imdur] 15 mg PO DAILY 11/05/18 [History] Metoprolol Succinate [Toprol XL] 12.5 mg PO DAILY 11/05/18 [History] Psyllium Husk 100% [Metamucil Packet] 6 gm PO DAILY 11/05/18 [History] Aspirin 81 mg PO DAILY #30 chew 11/10/18 [Rx] Calcium Acetate [PhosLo] 667 mg PO TID-W/MEALS #90 cap 11/10/18 [Rx] Levofloxacin [Levaquin] 250 mg PO Q48H #4 tablet 11/10/18 [Rx] Loratadine [Claritin] 10 mg PO DAILY #30 tab 11/10/18 [Rx] Follow up Appointment(s)/Referral(s): Brenda Leonardo MD [STAFF PHYSICIAN] - 1 Week Garfield Hanna DO [Primary Care Provider] - 1 Week Patient Instructions/Handouts: Chronic Kidney Disease (DC), Dialysis Diet (DC) Activity/Diet/Wound Care/Special Instructions: Patient may be discharged when cleared by nephrology Discharge Disposition: HOME SELF-CARE
[2018-11-10] MEDS: CYANOCOBALAMIN 500 MCG TAB PO SCH (11:45)
[2018-11-10 12:00] VITALS: BP 138/84; PULSE 76; TEMP 98.1
[2018-11-10] MEDS ORDERED: LEVOFLOXACIN 250MG-D5W PMX 250 MG in DEXTROSE/WATER 1 50ML.BAG IVPB SCH (22:15)
--- NOTE | 2018-11-10 22:16 | PN ---
PROGRESS NOTE Patient is seen this morning for followup for acute kidney injury on top of chronic kidney disease. Patient stated ate his breakfast and last night's dinner fairly well. He continues to have good urine output. He denies any chest pains. He denies shortness of breath. Patient is maintained on IV fluids at 120 mL/hour. He continues to have loose bowel movements after his abdominal and bowel surgery. On examination, blood pressure this morning was 137/70, heart rate 62 per minute. Patient is afebrile. EXAMINATION OF THE HEART: S1, S2. EXAMINATION OF LUNGS: Bilateral breath sounds are heard. ABDOMEN: Soft, non-tender. Examination of lower extremities shows no evidence of edema. SURGICAL TECHNOLOGY INSTRUCTOR exam is grossly intact. Labs this morning showed sodium 133, potassium 3.5, BUN 81, serum creatinine 7.4, hemoglobin 7.9 g/dL. ASSESSMENT: 1. Chronic kidney disease, stage V, with acute kidney injury, mainly prerenal, slowly improving with IV fluids. Patient will be discharged home today with plans for IV fluids as outpatient. He will receive his first saline bolus on and labs will be repeated again on Friday. Patient and his family were advised that if his renal function is not further improved, he will need to start dialysis. He is agreeable. 2. Anemia of chronic disease with no active bleeding noted. Patient is maintained on Aranesp. His iron levels were low and patient has received IV iron as well. PLAN: Patient can be discharged. He will have outpatient IV fluids starting and then repeat labs on Friday, and if renal function is not better, patient will need to start dialysis. This will be arranged for as outpatient. MMODL / IJN: [id number] /
== END 2018-11-10 13:17 | disposition home or self-care (01) | DRG 682 ==
LOC: EC 08:02 → 3SCARD 11:27
PROVIDERS: ADMIT Family Medicine; ATTEND Family Medicine
DX: N17.9 Acute kidney failure, unspecified (principal); J18.9 Pneumonia, unspecified organism; I12.0 Hypertensive chronic kidney disease with stage 5 chronic kidney disease or end stage renal disease; E87.2 Acidosis; N18.5 Chronic kidney disease, stage 5; I95.9 Hypotension, unspecified; E11.22 Type 2 diabetes mellitus with diabetic chronic kidney disease; E83.42 Hypomagnesemia; E83.39 Other disorders of phosphorus metabolism; D63.1 Anemia in chronic kidney disease; I35.0 Nonrheumatic aortic (valve) stenosis; E83.51 Hypocalcemia; G89.29 Other chronic pain; M54.9 Dorsalgia, unspecified; K52.9 Noninfective gastroenteritis and colitis, unspecified; E61.1 Iron deficiency; E87.6 Hypokalemia; I44.0 Atrioventricular block, first degree; E78.5 Hyperlipidemia, unspecified; J45.909 Unspecified asthma, uncomplicated; E55.9 Vitamin D deficiency, unspecified; N40.0 Benign prostatic hyperplasia without lower urinary tract symptoms; M19.042 Primary osteoarthritis, left hand; R77.8 Other specified abnormalities of plasma proteins; M19.041 Primary osteoarthritis, right hand; Z79.899 Other long term (current) drug therapy; Z87.891 Personal history of nicotine dependence; Z95.0 Presence of cardiac pacemaker; Z90.49 Acquired absence of other specified parts of digestive tract; Z96.641 Presence of right artificial hip joint; Z98.42 Cataract extraction status, left eye; Z98.41 Cataract extraction status, right eye; Z96.1 Presence of intraocular lens; Z82.49 Family history of ischemic heart disease and other diseases of the circulatory system
CPT/HCPCS: 36415; 71046; 76770; 80053; 80061; 81001; 82550; 82553; 82607; 82746; 83540; 83550; 83735; 84100; 84484; 85025; 85027; 85610; 85652; 85730; 86140; 87324; 87502; 93005; 93306; 94640; 94760; 96365; 96372; 99285

== ENCOUNTER 2018-12-21 07:12 | Inpatient (IN) | payer MEDICARE, OTHER ==
[2018-12-21] MEDS ORDERED: SODIUM CHLORIDE 0.9% 1,000 ML IV STA ×2 (07:55)
[2018-12-21] MEDS ORDERED: ACETAMINOPHEN IV (For NPO) 1,000 MG in EMPTY BAG 1 BAG IVPB STA (07:55)
--- NOTE | 2018-12-21 08:01 | ED ---
General Adult HPI - General Chief complaint: Abdominal Pain Stated complaint: abd pain Time Seen by Provider: 12/21/18 07:44 Source: patient, RN notes reviewed Mode of arrival: EMS Limitations: no limitations - History of Present Illness Initial comments: Patient's an 88-year-old male presented to the emergency room today by EMS, with multiple complaints. He does admit to chills and shakes that started last night. States they have stopped at this time. He does admit that he's had some back pain but is more comfortable now. He also admits that he is having some lower abdominal pain which is still present. He states that saws family doctor was diagnosed with a hernia was most follow-up the surgeons coming week. Patient states still expressing pain in the lower abdomen. Patient does admit that he recently started dialysis 3 weeks ago. He states had decreased urine output but states he has been making urine still. Patient denies any other complaints or symptoms at this time. Patient denies any recent fever, chills, shortness of breath, chest pain, nausea or vomiting, headaches or visual changes, or any other complaints. - Related Data Home Medications Medication Instructions Recorded Confirmed Simvastatin [Zocor] 20 mg PO HS 12/19/15 12/21/18 Krill Oil 500 mg PO DAILY 06/04/18 12/21/18 Acetaminophen [Tylenol] 650 mg PO DAILY PRN 09/18/18 12/21/18 Isosorbide Mononitrate ER [Imdur] 15 mg PO DAILY 11/05/18 12/21/18 Metoprolol Succinate [Toprol XL] 12.5 mg PO DAILY 11/05/18 12/21/18 Psyllium Husk 100% [Metamucil 6 gm PO DAILY 11/05/18 12/21/18 Packet] Previous Rx's Medication Instructions Recorded Tamsulosin [Flomax] 0.4 mg PO PC-BRKFST #30 tab 06/12/18 Aspirin 81 mg PO DAILY #30 chew 11/10/18 Loratadine [Claritin] 10 mg PO DAILY #30 tab 11/10/18 Allergies Allergy/AdvReac Type Severity Reaction Status Date / Time No Known Allergies Allergy Verified 12/21/18 07:50 Review of Systems ROS Statement: Those systems with pertinent positive or pertinent negative responses have been documented in the HPI. ROS Other: All systems not noted in ROS Statement are negative. Past Medical History Past Medical History: Blood Disorder, Dialysis, Hyperlipidemia, Hypertension, Osteoarthritis (OA), Prostate Disorder Additional Past Medical History / Comment(s): bowel obstructions 3 or 4 times, cervical spine, hands arthiritis, back pain, asthma as child, sinusitis, diverticulitis, vitamin D deficiency. Heart Block. ANEMIA. History of Any Multi-Drug Resistant Organisms: None Reported Past Surgical History: Adenoidectomy, Appendectomy, Bowel Resection, Joint Replacement, Prostate Surgery, Tonsillectomy Additional Past Surgical History / Comment(s): bowel resections x 3, total R hip arthroplasty, cataract removal with lens implants bilaterally, colonoscopy, circumcism. Pacemaker insertion Past Anesthesia/Blood Transfusion Reactions: No Reported Reaction Additional Past Anesthesia/Blood Transfusion Reaction / Comment(s): Pt has received blood without reaction. Type of Cardiac Device: Permanent Pacemaker Device Placement Date:: 06/11/18 Past Psychological History: No Psychological Hx Reported Smoking Status: Former smoker Past Alcohol Use History: Occasional Past Drug Use History: None Reported - Past Family History Father Family Medical History: Coronary Artery Disease (CAD) Additional Family Medical History / Comment(s): Father at 75 of heart problems. Mother Family Medical History: No Reported History Additional Family Medical History / Comment(s): Mother was healthy. She at 71 yrs in MVA. General Exam - General Exam Comments Initial Comments: General: The patient is awake and alert, in no distress, and does not appear acutely ill. Eye: There is normal conjunctiva bilaterally. No signs of icterus. Neck: The neck is supple, there is no tenderness or JVD. Cardiovascular: There is a regular rate and rhythm. No murmur, rub or gallop is appreciated. Respiratory: Lungs are clear to auscultation, respirations are non-labored, breath sounds are equal. No wheezes, stridor, rales, or rhonchi. Gastrointestinal: Admits soft on palpation. Patient does have tenderness. Umbilical. No rebound tenderness guarding or CVA tenderness. Musculoskeletal: Normal ROM, no tenderness. Strength 5/5. Sensation intact. Pulses equal bilaterally 2+. Neurological: A&O x 3. CN II-XII intact, There are no obvious motor or sensory deficits. Coordination appears grossly intact. Speech is normal. Skin: Skin is warm and dry and no rashes or lesions are noted. Psychiatric: Cooperative, appropriate mood & affect, normal judgment. Limitations: no limitations Course Vital Signs 12/21/18 12/21/18 12/21/18 07:16 08:01 09:14 Temperature 101.2 F H Pulse Rate 87 73 72 Respiratory 18 18 18 Rate Blood Pressure 144/89 127/62 86/46 O2 Sat by Pulse 97 95 94 L Oximetry 12/21/18 12/21/18 09:52 10:20 Temperature 99.2 F Pulse Rate 84 59 L Respiratory 18 18 Rate Blood Pressure 102/57 87/48 O2 Sat by Pulse 97 95 Oximetry Medical Decision Making - Medical Decision Making Patient 88-year-old male presented to the emergency room for some low back pain and abdominal pain. He denies any back pain at this time does admit to some discomfort in the lower abdomen was concerned for hernia had seen his family doctor was supposed to follow-up with general surgeon. Patient does admit that he's felt dizzy here in the emergency room and states his blood pressure has been low in the past. Patient's blood pressure was stable at triage and has been running now is over 40s. Patient will be given 500 mL bolus. Patient does have a history of dialysis on Mondays, Wednesdays, Fridays is due for dialysis later today. Troponin was elevated at 0.070. This is felt likely due to his elevated kidney function. He denies any chest pain. Patient hemoglobin 7.7 and has had similar findings in the past. No elevated white count. Patient did have fever at triage 101.2. Given Tylenol here in emergency room. Patient started on antibiotics for sepsis given 2 g Rocephin. Patient will be admitted to the hospital for sepsis of unknown origin at this time with consult to nephrology and infectious disease. - Lab Data Result diagrams: 12/21/18 07:47 12/21/18 07:47 Lab Results 12/21/18 12/21/18 12/21/18 Range/Units 07:47 07:47 07:47 WBC 7.6 (3.8-10.6) k/uL RBC 2.53 L (4.30-5.90) m/uL Hgb 7.7 L (13.0-17.5) gm/dL Hct 25.1 L (39.0-53.0) % MCV 98.9 (80.0-100.0) fL MCH 30.4 (25.0-35.0) pg MCHC 30.8 L (31.0-37.0) g/dL RDW 15.7 H (11.5-15.5) % Plt Count 149 L (150-450) k/uL Neutrophils % 92 % Lymphocytes % 3 % Monocytes % 2 % Eosinophils % 2 % Basophils % 0 % Neutrophils # 7.0 (1.3-7.7) k/uL Lymphocytes # 0.2 L (1.0-4.8) k/uL Monocytes # 0.2 (0-1.0) k/uL Eosinophils # 0.2 (0-0.7) k/uL Basophils # 0.0 (0-0.2) k/uL Hypochromasia Marked Macrocytosis Slight PT (9.0-12.0) sec INR (<1.2) APTT (22.0-30.0) sec Sodium 141 (137-145) mmol/L Potassium 4.2 (3.5-5.1) mmol/L Chloride 110 H (98-107) mmol/L Carbon Dioxide 25 (22-30) mmol/L Anion Gap 6 mmol/L BUN 23 H (9-20) mg/dL Creatinine 5.66 H (0.66-1.25) mg/dL Est GFR (CKD-EPI)AfAm 10 (>60 ml/min/1.73 sqM) Est GFR (CKD-EPI)NonAf 8 (>60 ml/min/1.73 sqM) Glucose 76 (74-99) mg/dL Plasma Lactic Acid Gustavo (0.7-2.0) mmol/L Calcium 8.0 L (8.4-10.2) mg/dL Total Bilirubin 0.5 (0.2-1.3) mg/dL AST 28 (17-59) U/L ALT 28 (21-72) U/L Alkaline Phosphatase 73 (38-126) U/L Total Creatine Kinase 136 (55-170) U/L CK-MB (CK-2) 2.0 (0.0-2.4) ng/mL CK-MB (CK-2) Rel Index 1.5 Troponin I 0.070 H* (0.000-0.034) ng/mL Total Protein 4.9 L (6.3-8.2) g/dL Albumin 2.7 L (3.5-5.0) g/dL Lipase 62 (23-300) U/L Urine Color Urine Appearance (Clear) Urine pH (5.0-8.0) Ur Specific [place] (1.001-1.035) Urine Protein (Negative) Urine Glucose (UA) (Negative) Urine Ketones (Negative) Urine Blood (Negative) Urine Nitrite (Negative) Urine Bilirubin (Negative) Urine Urobilinogen (<2.0) mg/dL Ur Leukocyte Esterase (Negative) Urine RBC (0-5) /hpf Urine Mucus (None) /hpf 12/21/18 12/21/18 12/21/18 Range/Units 07:47 07:47 09:45 WBC (3.8-10.6) k/uL RBC (4.30-5.90) m/uL Hgb (13.0-17.5) gm/dL Hct (39.0-53.0) % MCV (80.0-100.0) fL MCH (25.0-35.0) pg MCHC (31.0-37.0) g/dL RDW (11.5-15.5) % Plt Count (150-450) k/uL Neutrophils % % Lymphocytes % % Monocytes % % Eosinophils % % Basophils % % Neutrophils # (1.3-7.7) k/uL Lymphocytes # (1.0-4.8) k/uL Monocytes # (0-1.0) k/uL Eosinophils # (0-0.7) k/uL Basophils # (0-0.2) k/uL Hypochromasia Macrocytosis PT 12.2 H (9.0-12.0) sec INR 1.2 H (<1.2) APTT 24.0 (22.0-30.0) sec Sodium (137-145) mmol/L Potassium (3.5-5.1) mmol/L Chloride (98-107) mmol/L Carbon Dioxide (22-30) mmol/L Anion Gap mmol/L BUN (9-20) mg/dL Creatinine (0.66-1.25) mg/dL Est GFR (CKD-EPI)AfAm (>60 ml/min/1.73 sqM) Est GFR (CKD-EPI)NonAf (>60 ml/min/1.73 sqM) Glucose (74-99) mg/dL Plasma Lactic Acid Gustavo 1.9 (0.7-2.0) mmol/L Calcium (8.4-10.2) mg/dL Total Bilirubin (0.2-1.3) mg/dL AST (17-59) U/L ALT (21-72) U/L Alkaline Phosphatase (38-126) U/L Total Creatine Kinase (55-170) U/L CK-MB (CK-2) (0.0-2.4) ng/mL CK-MB (CK-2) Rel Index Troponin I (0.000-0.034) ng/mL Total Protein (6.3-8.2) g/dL Albumin (3.5-5.0) g/dL Lipase (23-300) U/L Urine Color Light Yellow Urine Appearance Clear (Clear) Urine pH 6.5 (5.0-8.0) Ur Specific [place] 1.007 (1.001-1.035) Urine Protein 2+ H (Negative) Urine Glucose (UA) Negative (Negative) Urine Ketones Negative (Negative) Urine Blood Small H (Negative) Urine Nitrite Negative (Negative) Urine Bilirubin Negative (Negative) Urine Urobilinogen <2.0 (<2.0) mg/dL Ur Leukocyte Esterase Small H (Negative) Urine RBC 2 (0-5) /hpf Urine Mucus Rare H (None) /hpf Disposition Clinical Impression: Sepsis, Fever, Hypotension Disposition: ADMITTED IP TO THIS [facility] Condition: Stable Referrals: Garfield Hanna DO [Primary Care Provider] - 1-2 days Time of Disposition: 10:34
[2018-12-21 08:12] LABS: Basophils % (A) 0 %; Eosinophils # (A) 0.2 k/uL (0-0.7); Eosinophils % (A) 2 %; HCT 25.1 % (39.0-53.0); HGB 7.7 gm/dL (13.0-17.5); Hypochromasia Marked; Lymphocytes # (A) 0.2 k/uL (1.0-4.8); Lymphocytes % (A) 3 %; MCH 30.4 pg (25.0-35.0); MCHC 30.8 g/dL (31.0-37.0); MCV 98.9 fL (80.0-100.0); Macrocytosis Slight; Mean Platelet Volume 7.4; Monocytes # (A) 0.2 k/uL (0-1.0); Monocytes % (A) 2 %; Neutrophils % (A) 92 %; Platelet Count 149 k/uL (150-450); RBC 2.53 m/uL (4.30-5.90); RDW 15.7 % (11.5-15.5); WBC 7.6 k/uL (3.8-10.6)
[2018-12-21 08:19] LABS: INR 1.2 (<1.2); Prothrombin Time 12.2 sec (9.0-12.0)
[2018-12-21 08:26] LABS: Albumin 2.7 g/dL (3.5-5.0); Potassium 4.2 mmol/L (3.5-5.1); Total Bilirubin 0.5 mg/dL (0.2-1.3); Total Protein 4.9 g/dL (6.3-8.2)
[2018-12-21 09:05] LABS: Troponin I 0.07 ng/mL (0.000-0.034)
--- NOTE | 2018-12-21 09:09 | XR ---
EXAMINATION TYPE: XR chest 2V DATE OF EXAM: 12/21/2018 COMPARISON: 11/09/2018 HISTORY: 88-year-old male with fever TECHNIQUE: AP and lateral views FINDINGS: Left anterior chest wall pacemaker generator with right atrial and right ventricular leads. Right-tierra ed double-lumen hemodialysis catheter with tips in the lower SVC/cavoatrial junction region. Heart gianfranco rderline enlarged. Diffuse interstitial densities, increased from prior along with small bilateral pl eural effusions with bibasilar opacities. IMPRESSION: Correlate for fluid overload with early interstitial pulmonary edema. Small pleural effusions with ad jacent atelectasis and/or consolidation. Right-sided hemodialysis catheter.
--- NOTE | 2018-12-21 09:18 | CT ---
EXAMINATION TYPE: CT abdomen pelvis wo con DATE OF EXAM: 12/21/2018 HISTORY: Abdominal pain not further specified per order. Abdominal and back pain which taking per rigo hnologist. CT DLP: 476.9 mGycm. Automated Exposure Control for Dose Reduction was Utilized. TECHNIQUE: CT scan of the abdomen and pelvis is performed without oral or IV contrast. COMPARISON: CT abdomen pelvis June 12, 2018. FINDINGS: Within the limitations of a non-contrast study, the following observations are made. LUNG BASES: There is redemonstration of partial visualization of dual lead pacemaker. Heart size is u pper limits of normal. There are new at least small bilateral pleural effusions with associated compr essive atelectasis. LIVER/GB: Cholecystectomy clips are redemonstrated. Small amount of ascites surrounds the liver PANCREAS: Focal calcification near pancreatic head axial image 36 is unchanged from prior study. SPLEEN: New ascites along superior lateral margin is present. ADRENALS: No significant abnormality is seen. KIDNEYS: There are small nonobstructing renal calculi seen bilaterally, identified 5-6 calculi measur ing 3 mm or smaller throughout the right kidney in 3-4 calculi measuring 3 mm or smaller scattered th roughout the left kidney. There is persistent prominent left renal pelvis with suspected lower pole l eft parapelvic cysts. No hydroureter to suggest hydronephrosis is evident. There is interval resoluti on of right-sided hydronephrosis. Central parapelvic cysts or pole level right kidney is felt present . A few scattered cysts throughout both kidneys are again seen. Increasing perinephric fluid is noted . Stable right-sided pelvic phleboliths. No intraluminal calculus and poorly distended bladder. BOWEL: Evaluation bowel is suboptimal secondary to lack of enteric contrast. Stomach is poorly disten ded and thus suboptimally evaluated. There is no suspicious small bowel dilatation. Surgical sutures from partial colectomy right midabdomen are redemonstrated near axial image 49. There is mild promine nce of fecal material throughout the colon. Diverticula throughout the colon are present. GENITAL ORGANS: Central calcifications are seen in not enlarged prostate gland. LYMPH NODES: No greater than 1cm abdominal or pelvic lymph nodes are appreciated. OSSEOUS STRUCTURES: Metallic hardware from right hip arthroplasty causes streak artifact limiting amy luation of pelvic structures. There is moderate to severe multilevel spurring in the thoracolumbar sp ine. OTHER: There is new moderate to severe diffuse soft tissue anasarca. Mild calcified plaque of aorta e xtends into branch vessels. IMPRESSION: 1. New moderate to severe diffuse soft tissue anasarca. New mild ascites and small bilateral pleural effusions. Correlate for fluid overload state. 2. Overall nonobstructive bowel gas pattern. Mild diffuse colonic fecal stasis is present. Evidence o f prior bowel surgery redemonstrated. 3. Small nonobstructing renal calculi bilaterally felt present on current study appeared new from jorge or study but no hydronephrosis or obstructing ureter calculi clearly seen on current study.
[2018-12-21] MEDS ORDERED: cefTRIAXone 2,000 MG in SODIUM CHLORIDE 0.9% 100 ML IVPB STA (09:43)
[2018-12-21 10:21] LABS: Appearance,Urine Clear (Clear); Bilirubin,Urine Negative (Negative); Blood,Urine Small (Negative); Color,Urine Light Yellow; Glucose,Urine (UA) Negative (Negative); Ketones,Urine Negative (Negative); Leukocyte Esterase,Urine Small (Negative); Mucus,Urine Rare /hpf; Nitrite,Urine Negative (Negative); PH, Urine 6.5 (5.0-8.0); Protein,Urine 2+ (Negative); RBC,Urine 2 /hpf (0-5); Specific Gravity,Urine 1.007 (1.001-1.035); Urobilinogen,Urine <2.0 mg/dL (<2.0)
[2018-12-21] MEDS ORDERED: SODIUM CHLORIDE 0.9% 500 ML 500 ML IV STA (10:30)
[2018-12-21] MEDS ORDERED: ONDANSETRON 4 MG/2 ML VIAL IVP PRN (10:45)
[2018-12-21] MEDS ORDERED: NALOXONE 0.4 MG/ML 1 ML VIAL IV PRN (10:45)
[2018-12-21] MEDS ORDERED: SODIUM CHLORIDE 0.9% 1,000 ML IV ONE (10:45)
--- NOTE | 2018-12-21 10:52 | ED ---
Medical Decision Making - Lab Data Result diagrams: 12/21/18 07:47 12/21/18 07:47 Lab Results 12/21/18 12/21/18 12/21/18 Range/Units 07:47 07:47 07:47 WBC 7.6 (3.8-10.6) k/uL RBC 2.53 L (4.30-5.90) m/uL Hgb 7.7 L (13.0-17.5) gm/dL Hct 25.1 L (39.0-53.0) % MCV 98.9 (80.0-100.0) fL MCH 30.4 (25.0-35.0) pg MCHC 30.8 L (31.0-37.0) g/dL RDW 15.7 H (11.5-15.5) % Plt Count 149 L (150-450) k/uL Neutrophils % 92 % Lymphocytes % 3 % Monocytes % 2 % Eosinophils % 2 % Basophils % 0 % Neutrophils # 7.0 (1.3-7.7) k/uL Lymphocytes # 0.2 L (1.0-4.8) k/uL Monocytes # 0.2 (0-1.0) k/uL Eosinophils # 0.2 (0-0.7) k/uL Basophils # 0.0 (0-0.2) k/uL Hypochromasia Marked Macrocytosis Slight PT (9.0-12.0) sec INR (<1.2) APTT (22.0-30.0) sec Sodium 141 (137-145) mmol/L Potassium 4.2 (3.5-5.1) mmol/L Chloride 110 H (98-107) mmol/L Carbon Dioxide 25 (22-30) mmol/L Anion Gap 6 mmol/L BUN 23 H (9-20) mg/dL Creatinine 5.66 H (0.66-1.25) mg/dL Est GFR (CKD-EPI)AfAm 10 (>60 ml/min/1.73 sqM) Est GFR (CKD-EPI)NonAf 8 (>60 ml/min/1.73 sqM) Glucose 76 (74-99) mg/dL Plasma Lactic Acid Gustavo (0.7-2.0) mmol/L Calcium 8.0 L (8.4-10.2) mg/dL Total Bilirubin 0.5 (0.2-1.3) mg/dL AST 28 (17-59) U/L ALT 28 (21-72) U/L Alkaline Phosphatase 73 (38-126) U/L Total Creatine Kinase 136 (55-170) U/L CK-MB (CK-2) 2.0 (0.0-2.4) ng/mL CK-MB (CK-2) Rel Index 1.5 Troponin I 0.070 H* (0.000-0.034) ng/mL Total Protein 4.9 L (6.3-8.2) g/dL Albumin 2.7 L (3.5-5.0) g/dL Lipase 62 (23-300) U/L Urine Color Urine Appearance (Clear) Urine pH (5.0-8.0) Ur Specific [place] (1.001-1.035) Urine Protein (Negative) Urine Glucose (UA) (Negative) Urine Ketones (Negative) Urine Blood (Negative) Urine Nitrite (Negative) Urine Bilirubin (Negative) Urine Urobilinogen (<2.0) mg/dL Ur Leukocyte Esterase (Negative) Urine RBC (0-5) /hpf Urine Mucus (None) /hpf 12/21/18 12/21/18 12/21/18 Range/Units 07:47 07:47 09:45 WBC (3.8-10.6) k/uL RBC (4.30-5.90) m/uL Hgb (13.0-17.5) gm/dL Hct (39.0-53.0) % MCV (80.0-100.0) fL MCH (25.0-35.0) pg MCHC (31.0-37.0) g/dL RDW (11.5-15.5) % Plt Count (150-450) k/uL Neutrophils % % Lymphocytes % % Monocytes % % Eosinophils % % Basophils % % Neutrophils # (1.3-7.7) k/uL Lymphocytes # (1.0-4.8) k/uL Monocytes # (0-1.0) k/uL Eosinophils # (0-0.7) k/uL Basophils # (0-0.2) k/uL Hypochromasia Macrocytosis PT 12.2 H (9.0-12.0) sec INR 1.2 H (<1.2) APTT 24.0 (22.0-30.0) sec Sodium (137-145) mmol/L Potassium (3.5-5.1) mmol/L Chloride (98-107) mmol/L Carbon Dioxide (22-30) mmol/L Anion Gap mmol/L BUN (9-20) mg/dL Creatinine (0.66-1.25) mg/dL Est GFR (CKD-EPI)AfAm (>60 ml/min/1.73 sqM) Est GFR (CKD-EPI)NonAf (>60 ml/min/1.73 sqM) Glucose (74-99) mg/dL Plasma Lactic Acid Gustavo 1.9 (0.7-2.0) mmol/L Calcium (8.4-10.2) mg/dL Total Bilirubin (0.2-1.3) mg/dL AST (17-59) U/L ALT (21-72) U/L Alkaline Phosphatase (38-126) U/L Total Creatine Kinase (55-170) U/L CK-MB (CK-2) (0.0-2.4) ng/mL CK-MB (CK-2) Rel Index Troponin I (0.000-0.034) ng/mL Total Protein (6.3-8.2) g/dL Albumin (3.5-5.0) g/dL Lipase (23-300) U/L Urine Color Light Yellow Urine Appearance Clear (Clear) Urine pH 6.5 (5.0-8.0) Ur Specific [place] 1.007 (1.001-1.035) Urine Protein 2+ H (Negative) Urine Glucose (UA) Negative (Negative) Urine Ketones Negative (Negative) Urine Blood Small H (Negative) Urine Nitrite Negative (Negative) Urine Bilirubin Negative (Negative) Urine Urobilinogen <2.0 (<2.0) mg/dL Ur Leukocyte Esterase Small H (Negative) Urine RBC 2 (0-5) /hpf Urine Mucus Rare H (None) /hpf Disposition Clinical Impression: Sepsis, Fever, Hypotension, CHF (congestive heart failure), Anasarca Disposition: ADMITTED IP TO THIS [facility] Condition: Stable Referrals: Garfield Hanna DO [Primary Care Provider] - 1-2 days
--- NOTE | 2018-12-21 11:46 | P.NPCON ---
History of Present Illness - Reason for Consult end stage renal disease - History of Present Illness Reason for consultation: End-stage renal disease History of present illness: Patient is a 88-year-old male seen in consultation for end-stage renal disease. He is maintained on hemodialysis on a Friday schedule via right chest permacath. Patient states he woke up at 4 AM and was shivering. Patient states he had the shakes for 3 hours and decided to come to the hospital. He did not check his temperature at home. In the ER he was noted to have a temperature of 101.2F. He denies any cough. Denies vomiting. He does admit to chronic diarrhea. Blood pressures have been low and he has received 500 mL bolus of normal saline. However his chest x-ray is suggestive of fluid overload. He denies shortness of breath. No chest pain. Oral intake has been good. Last hemodialysis was on Friday. He is due for dialysis today. Vital signs are stable. General: The patient appeared well nourished and normally developed. HEENT: Head exam is unremarkable. Neck is without jugular venous distension. LUNGS: Lungs are clear to auscultation and percussion. Breath sounds decreased. HEART: Rate and Rhythm are regular. First and second heart sounds normal. No murmurs, rubs or gallops. ABDOMEN: Abdominal exam reveals normal bowel sounds. Non-tender and non- distended. No evidence of peritonitis. EXTREMITITES: No clubbing, cyanosis, or edema. Past Medical History Past Medical History: Blood Disorder, Dialysis, Hyperlipidemia, Hypertension, Osteoarthritis (OA), Prostate Disorder Additional Past Medical History / Comment(s): bowel obstructions 3 or 4 times, cervical spine, hands arthiritis, back pain, asthma as child, sinusitis, diverticulitis, vitamin D deficiency. Heart Block. ANEMIA. History of Any Multi-Drug Resistant Organisms: None Reported Past Surgical History: Adenoidectomy, Appendectomy, Bowel Resection, Joint Replacement, Prostate Surgery, Tonsillectomy Additional Past Surgical History / Comment(s): bowel resections x 3, total R hip arthroplasty, cataract removal with lens implants bilaterally, colonoscopy, circumcism. Pacemaker insertion Past Anesthesia/Blood Transfusion Reactions: No Reported Reaction Additional Past Anesthesia/Blood Transfusion Reaction / Comment(s): Pt has received blood without reaction. Type of Cardiac Device: Permanent Pacemaker Device Placement Date:: 06/11/18 Past Psychological History: No Psychological Hx Reported Smoking Status: Former smoker Past Alcohol Use History: Occasional Past Drug Use History: None Reported - Past Family History Father Family Medical History: Coronary Artery Disease (CAD) Additional Family Medical History / Comment(s): Father at 75 of heart problems. Mother Family Medical History: No Reported History Additional Family Medical History / Comment(s): Mother was healthy. She at 71 yrs in MVA. Medications and Allergies Home Medications Medication Instructions Recorded Confirmed Type Simvastatin [Zocor] 20 mg PO HS 12/19/15 12/21/18 History Krill Oil 500 mg PO DAILY 06/04/18 12/21/18 History Tamsulosin [Flomax] 0.4 mg PO PC-BRKFST #30 tab 06/12/18 12/21/18 Rx Acetaminophen [Tylenol] 650 mg PO DAILY PRN 09/18/18 12/21/18 History Isosorbide Mononitrate ER [Imdur] 15 mg PO DAILY 11/05/18 12/21/18 History Metoprolol Succinate [Toprol XL] 12.5 mg PO DAILY 11/05/18 12/21/18 History Psyllium Husk 100% [Metamucil 6 gm PO DAILY 11/05/18 12/21/18 History Packet] Aspirin 81 mg PO DAILY #30 chew 11/10/18 12/21/18 Rx Loratadine [Claritin] 10 mg PO DAILY #30 tab 11/10/18 12/21/18 Rx Allergies Allergy/AdvReac Type Severity Reaction Status Date / Time No Known Allergies Allergy Verified 12/21/18 07:50 Physical Exam Vitals: Vital Signs Temp Pulse Resp BP Pulse Ox 12/21/18 11:07 59 L 18 104/57 95 12/21/18 10:20 99.2 F 59 L 18 87/48 95 12/21/18 09:52 84 18 102/57 97 12/21/18 09:14 72 18 86/46 94 L 12/21/18 08:01 73 18 127/62 95 12/21/18 07:16 101.2 F H 87 18 144/89 97 Intake and Output 12/20/18 12/21/18 12/21/18 22:59 06:59 14:59 Other: Weight 69.853 kg Results - Lab Results Most recent lab results Calcium 8.0 mg/dL (8.4-10.2) L 12/21/18 07:47 12/21/18 07:47 12/21/18 07:47 Assessment and Plan Plan: Assessment: 1. End-stage renal disease maintained on hemodialysis on a Friday schedule via right chest permacath. 2. Fever and hypotension with concern for sepsis. Unclear source. 3. Anemia of chronic kidney disease. Rule out iron deficiency. 4. History of BPH. Plan: Hemodialysis today. May repeat another 500 mL bolus of normal saline. Avoid aggressive IV hydration due to vascular congestion noted on imaging. Follow-up cultures. Infectious disease has been consulted. Check phosphorus level. Add Aranesp. Check iron studies. Check cortisol level. Add midodrine. Thank you for the consultation. I will continue to follow the patient with you during his hospital stay.
--- NOTE | 2018-12-21 13:18 | P.CONS ---
History of Present Illness - Reason for Consult Consult date: 12/21/18 Sepsis - History of Present Illness This is an 88-year-old male patient gives history of having chills and shakes last evening along with back pain. He also complains of decreased urine output and only dribbling a few drops each time but no dysuria. He states he really has not had significant urine output in the past 24 hours. He states his appetite is okay and unchanged. He has had some balance problems but does not use a walker at home. He has not had any recent falls. He is on hemodialysis for the past 3 weeks on Friday. He has not missed any treatments. 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 He states that his PCP told him he has a hernia but he is a poor candidate for surgical interventions. Patient came into [facility] emergency center for evaluation. Temperature max 101.2, white count 7.6, hemoglobin 7.7, platelet count 149, BUN 23 and creatinine 5.6. Troponin 0.070, albumin 2.7, lactic acid 1.9, lipase 62. Urinalysis was clear, blood small leukoesterase small, white count 9. Urine and blood cultures have status received. Chest x-ray shows correlate for fluid overload. Small pleural effusions with adjacent atelectasis and/or consolidation in right HD catheter. He underwent CAT scan of the abdomen and pelvis without contrast that revealed new moderate to severe diffuse soft tissue anasarca. New mild ascites and small bilateral pleural effusions correlate for fluid overload state. Overall nonobstructive bowel gas pattern. Mild diffuse colonic fecal stasis present. Evidence of prior bowel surgery redemonstrated. Small nonobstructing renal calculi bilaterally. New from prior study but no hydronephrosis or obstructing ureter calculi clearly seen. Patient received 1 dose of IV Rocephin, 1/2 L of IV fluid, IV Tylenol, consult with nephrology and patient to be admitted to the cardiac stepdown unit. Dr. Del Valle has evaluated the patient and ordered hemodialysis today. Review of Systems All systems: negative Constitutional: Reports chills, Reports fatigue, Reports fever, Denies anorexia , Denies poor appetite, Denies weight loss Eyes: denies blurred vision, denies pain Ears, nose, mouth and throat: Denies dental pain, Denies dysphagia, Denies headache, Denies mouth pain, Denies sore throat, Denies vertigo Cardiovascular: Denies chest pain, Denies dyspnea on exertion, Denies edema, Denies leg edema, Denies lightheadedness, Denies shortness of breath, Denies syncope Respiratory: Denies cough, Denies cough with sputum, Denies dyspnea, Denies excessive sputum, Denies hemoptysis, Denies home oxygen, Denies wheezing Gastrointestinal: Denies abdominal pain, Denies diarrhea, Denies loss of appetite, Denies nausea, Denies vomiting Genitourinary: Reports urinary hesitancy, Reports urinary retention, Denies dysuria, Denies hematuria Musculoskeletal: Reports gait dysfunction, Reports muscle weakness, Denies frequent falls, Denies myalgias Integumentary: Denies pruritus, Denies rash, Denies wounds Neurological: Reports gait dysfunction, Denies aphasia, Denies change in mentation, Denies confusion, Denies head injury, Denies headaches, Denies numbness, Denies seizures, Denies weakness Psychiatric: Denies anxiety, Denies depression Endocrine: Denies fatigue, Denies weight change Past Medical History Past Medical History: Blood Disorder, Dialysis, Hyperlipidemia, Hypertension, Osteoarthritis (OA), Prostate Disorder, Renal Disease Additional Past Medical History / Comment(s): ESRD with hemodialysis which started about 3 weeks ago, anemia, heart block with pacer, arthritis in hands, neck, back pain, bowel obstructions, diverticulitis, vitamin D deficiency, BPH with surgery, asthma as a child, sinusitis. History of Any Multi-Drug Resistant Organisms: None Reported Past Surgical History: Adenoidectomy, Appendectomy, Bowel Resection, Joint Replacement, Pacemaker, Prostate Surgery, Tonsillectomy Additional Past Surgical History / Comment(s): R sided permacath, bowel resections x 3/lysis of adhesions, total R hip arthroplasty, cataract removal with lens implants bilaterally, colonoscopy, circumcism Past Anesthesia/Blood Transfusion Reactions: No Reported Reaction Additional Past Anesthesia/Blood Transfusion Reaction / Comm: Pt has received blood without reaction. Type of Cardiac Device: Permanent Pacemaker Device Placement Date:: 06/11/18 Past Psychological History: No Psychological Hx Reported Additional Psychological History / Comment(s): Pt resides alone at [facility]. He has a daughter that lives in [place] and helps him and friends that also help. 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 He uses no assistive device. He drives. Smoking Status: Former smoker Past Alcohol Use History: Occasional Additional Past Alcohol Use History / Comment(s): Pt quit smoking in 1990. He had smoked lighly for 30 yrs, usually 5-10 cigarettes a day. Occasional alcohol intake. Patient lives alone in a [facility] and has a cat named Radha Cummins. He served in [employer] for 23 years and traveled all over the world. He did serve in [employer] No recent travel. 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 Past Drug Use History: None Reported - Past Family History Father Family Medical History: Coronary Artery Disease (CAD) Additional Family Medical History / Comment(s): Father at 75 of heart problems. Mother Family Medical History: No Reported History Additional Family Medical History / Comment(s): Mother was healthy. She at 71 yrs in MVA. Medications and Allergies Home Medications Medication Instructions Recorded Confirmed Type Simvastatin [Zocor] 20 mg PO HS 12/19/15 12/21/18 History Krill Oil 500 mg PO DAILY 06/04/18 12/21/18 History Tamsulosin [Flomax] 0.4 mg PO PC-BRKFST #30 tab 06/12/18 12/21/18 Rx Acetaminophen [Tylenol] 650 mg PO DAILY PRN 09/18/18 12/21/18 History Isosorbide Mononitrate ER [Imdur] 15 mg PO DAILY 11/05/18 12/21/18 History Metoprolol Succinate [Toprol XL] 12.5 mg PO DAILY 11/05/18 12/21/18 History Psyllium Husk 100% [Metamucil 6 gm PO DAILY 11/05/18 12/21/18 History Packet] Aspirin 81 mg PO DAILY #30 chew 11/10/18 12/21/18 Rx Loratadine [Claritin] 10 mg PO DAILY #30 tab 11/10/18 12/21/18 Rx Allergies Allergy/AdvReac Type Severity Reaction Status Date / Time No Known Allergies Allergy Verified 12/21/18 07:50 Physical Exam Vitals: Vital Signs Temp Pulse Resp BP Pulse Ox 12/21/18 12:29 64 18 107/59 97 12/21/18 11:07 59 L 18 104/57 95 12/21/18 10:20 99.2 F 59 L 18 87/48 95 12/21/18 09:52 84 18 102/57 97 12/21/18 09:14 72 18 86/46 94 L 12/21/18 08:01 73 18 127/62 95 12/21/18 07:16 101.2 F H 87 18 144/89 97 Intake and Output 12/20/18 12/21/18 12/21/18 22:59 06:59 14:59 Other: Weight 69.853 kg Gen: This is an 88-year-old male. He is sitting up on the ER stretcher and is eating lunch. He appears to be in no acute distress. No difficulty swallowing. Daughter is at bedside. HEENT: Head is atraumatic, normocephalic. Pupils equal, round. Sclerae is anicteric. Conjunctiva pink. Mucous members of the mouth are moist. No oropharyngeal edema or erythema. NECK: Supple. No JVD. No lymphadenopathy. No thyromegaly. LUNGS: Clear to auscultation. No wheezes or rhonchi. No intercostal retractions. HEART: Regular rate and rhythm. No murmur. ABDOMEN: Soft. Bowel sounds are present. No masses. No tenderness. EXTREMITIES: No pedal edema. No calf tenderness. Dorsalis pedis weak bilaterally. NEUROLOGICAL: Patient is awake, alert and oriented x3. Cranial nerves 2 through 12 are grossly intact. Results Results: Laboratory Results WBC 7.6 k/uL (3.8-10.6) 12/21/18 07:47 RBC 2.53 m/uL (4.30-5.90) L 12/21/18 07:47 Hgb 7.7 gm/dL (13.0-17.5) L 12/21/18 07:47 Hct 25.1 % (39.0-53.0) L 12/21/18 07:47 MCV 98.9 fL (80.0-100.0) 12/21/18 07:47 MCH 30.4 pg (25.0-35.0) 12/21/18 07:47 MCHC 30.8 g/dL (31.0-37.0) L 12/21/18 07:47 RDW 15.7 % (11.5-15.5) H 12/21/18 07:47 Plt Count 149 k/uL (150-450) L 12/21/18 07:47 Neutrophils % 92 % 12/21/18 07:47 Lymphocytes % 3 % 12/21/18 07:47 Monocytes % 2 % 12/21/18 07:47 Eosinophils % 2 % 12/21/18 07:47 Basophils % 0 % 12/21/18 07:47 Neutrophils # 7.0 k/uL (1.3-7.7) 12/21/18 07:47 Lymphocytes # 0.2 k/uL (1.0-4.8) L 12/21/18 07:47 Monocytes # 0.2 k/uL (0-1.0) 12/21/18 07:47 Eosinophils # 0.2 k/uL (0-0.7) 12/21/18 07:47 Basophils # 0.0 k/uL (0-0.2) 12/21/18 07:47 Hypochromasia Marked 12/21/18 07:47 Macrocytosis Slight 12/21/18 07:47 PT 12.2 sec (9.0-12.0) H 12/21/18 07:47 INR 1.2 (<1.2) H 12/21/18 07:47 APTT 24.0 sec (22.0-30.0) 12/21/18 07:47 Sodium 141 mmol/L (137-145) 12/21/18 07:47 Potassium 4.2 mmol/L (3.5-5.1) 12/21/18 07:47 Chloride 110 mmol/L (98-107) H 12/21/18 07:47 Carbon Dioxide 25 mmol/L (22-30) 12/21/18 07:47 Anion Gap 6 mmol/L 12/21/18 07:47 BUN 23 mg/dL (9-20) H 12/21/18 07:47 Creatinine 5.66 mg/dL (0.66-1.25) H 12/21/18 07:47 Est GFR (CKD-EPI)AfAm 10 (>60 ml/min/1.73 sqM) 12/21/18 07:47 Est GFR (CKD-EPI)NonAf 8 (>60 ml/min/1.73 sqM) 12/21/18 07:47 Glucose 76 mg/dL (74-99) 12/21/18 07:47 Plasma Lactic Acid Gustavo 1.9 mmol/L (0.7-2.0) 12/21/18 07:47 Calcium 8.0 mg/dL (8.4-10.2) L 12/21/18 07:47 Total Bilirubin 0.5 mg/dL (0.2-1.3) 12/21/18 07:47 AST 28 U/L (17-59) 12/21/18 07:47 ALT 28 U/L (21-72) 12/21/18 07:47 Alkaline Phosphatase 73 U/L (38-126) 12/21/18 07:47 Total Creatine Kinase 136 U/L (55-170) 12/21/18 07:47 CK-MB (CK-2) 2.0 ng/mL (0.0-2.4) 12/21/18 07:47 CK-MB (CK-2) Rel Index 1.5 12/21/18 07:47 Troponin I 0.070 ng/mL (0.000-0.034) H* 12/21/18 07:47 Total Protein 4.9 g/dL (6.3-8.2) L 12/21/18 07:47 Albumin 2.7 g/dL (3.5-5.0) L 12/21/18 07:47 Lipase 62 U/L (23-300) 12/21/18 07:47 Urine Color Light Yellow 12/21/18 09:45 Urine Appearance Clear (Clear) 12/21/18 09:45 Urine pH 6.5 (5.0-8.0) 12/21/18 09:45 Ur Specific [place] 1.007 (1.001-1.035) 12/21/18 09:45 Urine Protein 2+ (Negative) H 12/21/18 09:45 Urine Glucose (UA) Negative (Negative) 12/21/18 09:45 Urine Ketones Negative (Negative) 12/21/18 09:45 Urine Blood Small (Negative) H 12/21/18 09:45 Urine Nitrite Negative (Negative) 12/21/18 09:45 Urine Bilirubin Negative (Negative) 12/21/18 09:45 Urine Urobilinogen <2.0 mg/dL (<2.0) 12/21/18 09:45 Ur Leukocyte Esterase Small (Negative) H 12/21/18 09:45 Urine RBC 2 /hpf (0-5) 12/21/18 09:45 Urine WBC 9 /hpf (0-5) H 12/21/18 09:45 Urine Mucus Rare /hpf (None) H 12/21/18 09:45 CBC & Chem 7: 12/21/18 07:47 12/21/18 07:47 Labs: Abnormal Lab Results - Last 24 Hours (Table) 12/21/18 12/21/18 12/21/18 Range/Units 07:47 07:47 07:47 RBC 2.53 L (4.30-5.90) m/uL Hgb 7.7 L (13.0-17.5) gm/dL Hct 25.1 L (39.0-53.0) % MCHC 30.8 L (31.0-37.0) g/dL RDW 15.7 H (11.5-15.5) % Plt Count 149 L (150-450) k/uL Lymphocytes # 0.2 L (1.0-4.8) k/uL PT (9.0-12.0) sec INR (<1.2) Chloride 110 H (98-107) mmol/L BUN 23 H (9-20) mg/dL Creatinine 5.66 H (0.66-1.25) mg/dL Calcium 8.0 L (8.4-10.2) mg/dL Troponin I 0.070 H* (0.000-0.034) ng/mL Total Protein 4.9 L (6.3-8.2) g/dL Albumin 2.7 L (3.5-5.0) g/dL Urine Protein (Negative) Urine Blood (Negative) Ur Leukocyte Esterase (Negative) Urine WBC (0-5) /hpf Urine Mucus (None) /hpf 12/21/18 12/21/18 Range/Units 07:47 09:45 RBC (4.30-5.90) m/uL Hgb (13.0-17.5) gm/dL Hct (39.0-53.0) % MCHC (31.0-37.0) g/dL RDW (11.5-15.5) % Plt Count (150-450) k/uL Lymphocytes # (1.0-4.8) k/uL PT 12.2 H (9.0-12.0) sec INR 1.2 H (<1.2) Chloride (98-107) mmol/L BUN (9-20) mg/dL Creatinine (0.66-1.25) mg/dL Calcium (8.4-10.2) mg/dL Troponin I (0.000-0.034) ng/mL Total Protein (6.3-8.2) g/dL Albumin (3.5-5.0) g/dL Urine Protein 2+ H (Negative) Urine Blood Small H (Negative) Ur Leukocyte Esterase Small H (Negative) Urine WBC 9 H (0-5) /hpf Urine Mucus Rare H (None) /hpf Assessment and Plan Plan: This is an 88-year-old male who presented to the hospital with fever along with chills and shakes that seemed to have resolved. There is concern for sepsis of unclear etiology. Patient did receive IV fluids and Rocephin in the emergency center. Blood and urine cultures are in process. Patient does complain of full bladder and only able to dribble a few drops each time he attempts to urinate. Bladder scan to be done and straight cath if necessary. Continue supportive care. Further medications patient presses. The above dictated assessment and findings were discussed with Dr. Gonzalez. The impression and plan of care have been directed as dictated. Karyn Romo nurse practitioner acting as scribe for Dr. Gonzalez.
[2018-12-21] MEDS: DARBEPOETIN ALFA 40 MCG/0.4 ML SYRINGE SQ SCH (14:25)
[2018-12-21] MEDS: MIDODRINE 5 MG TAB PO SCH ×2 (14:26→16:56)
[2018-12-21] MEDS: ACETAMINOPHEN TAB 325 MG TAB PO PRN (17:15)
[2018-12-21] MEDS ORDERED: VANCOMYCIN IV PER PHARMACY 1 EACH MISC MISCELLANE PRN (17:52)
[2018-12-21] MEDS ORDERED: VANCOMYCIN 1,500 MG in SODIUM CHLORIDE 0.9% 250 ML IVPB ONE (18:30)
[2018-12-21 19:02] LABS: Iron Saturation 51.17 (15.00-50.00)
[2018-12-21] MEDS ORDERED: ACETAMINOPHEN TAB 325 MG TAB PO PRN (21:49)
[2018-12-21] MEDS: TAMSULOSIN 0.4 MG CAP.ER.24H PO SCH (23:08)
[2018-12-21] MEDS: ATORVASTATIN 10 MG TAB PO SCH (23:08)
--- NOTE | 2018-12-21 23:25 | P.CON ---
Consult Note - . Consult date: 12/21/18 Assessment/Plan:: This is an 88-year-old male patient gives history of having chills and shakes last evening along with back pain. He also complains of decreased urine output and only dribbling a few drops each time but no dysuria. He states he really has not had significant urine output in the past 24 hours. He states his appetite is okay and unchanged. He has had some balance problems but does not use a walker at home. He has not had any recent falls. He is on hemodialysis for the past 3 weeks on Friday. He has not missed any treatments. 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 He states that his PCP told him he has a hernia but he is a poor candidate for surgical interventions. Patient came into [facility] emergency center for evaluation. Temperature max 101.2, white count 7.6, hemoglobin 7.7, platelet count 149, BUN 23 and creatinine 5.6. Troponin 0.070, albumin 2.7, lactic acid 1.9, lipase 62. Urinalysis was clear, blood small leukoesterase small, white count 9. Urine and blood cultures have status received. Chest x-ray shows correlate for fluid overload. Small pleural effusions with adjacent atelectasis and/or consolidation in right HD catheter. He underwent CAT scan of the abdomen and pelvis without contrast that revealed new moderate to severe diffuse soft tissue anasarca. New mild ascites and small bilateral pleural effusions correlate for fluid overload state. Overall nonobstructive bowel gas pattern. Mild diffuse colonic fecal stasis present. Evidence of prior bowel surgery redemonstrated. Small nonobstructing renal calculi bilaterally. New from prior study but no hydronephrosis or obstructing ureter calculi clearly seen. Patient received 1 dose of IV Rocephin, 1/2 L of IV fluid, IV Tylenol, consult with nephrology and patient to be admitted to the cardiac stepdown unit. Dr. Del Valle has evaluated the patient and ordered hemodialysis today.Please see the consult note is dictated by nurse practitioner Mrs. Karyn Romo. This elderly male is receiving hemodialysis. Has evidence of the volume overload with concerns to underlying sepsis. There is evidence of positive urine culture as well as positive blood culture with likelihood of sepsis from urinary system. He received Rocephin will add in vancomycin for now given the gram-positive nature of the sepsis. Follow blood cultures will be obtained, depending on pathogen will determine if there is concerns to infection of his hemodialysis catheter. Continue supportive care doing well with hemodialysis is not having hypotension and monitor. I agree with evaluation, assessment and plan is dictated by nurse practitioner Mrs. Karyn Romo.
[2018-12-22] MEDS: MIDODRINE 5 MG TAB PO SCH ×3 (06:35→16:32)
[2018-12-22 06:58] LABS: Anisocytosis Slight; Basophils % (A) 0 %; Eosinophils # (A) 0.1 k/uL (0-0.7); Eosinophils % (A) 1 %; HCT 23.6 % (39.0-53.0); HGB 7.2 gm/dL (13.0-17.5); Hypochromasia Marked; Lymphocytes # (A) 0.4 k/uL (1.0-4.8); Lymphocytes % (A) 3 %; MCH 30.5 pg (25.0-35.0); MCHC 30.4 g/dL (31.0-37.0); MCV 100.2 fL (80.0-100.0); Macrocytosis Slight; Mean Platelet Volume 7.8; Monocytes # (A) 0.5 k/uL (0-1.0); Monocytes % (A) 4 %; Neutrophils # (A) 11.1 k/uL (1.3-7.7); Neutrophils % (A) 91 %; Platelet Count 110 k/uL (150-450); RBC 2.35 m/uL (4.30-5.90); RDW 16.2 % (11.5-15.5); WBC 12.2 k/uL (3.8-10.6)
[2018-12-22 07:19] LABS: Albumin 2.4 g/dL (3.5-5.0); Calcium 7.4 mg/dL (8.4-10.2); Phosphorus 2.8 mg/dL (2.5-4.5); Potassium 3.9 mmol/L (3.5-5.1); Total Bilirubin 0.4 mg/dL (0.2-1.3); Total Protein 4.6 g/dL (6.3-8.2)
[2018-12-22] MEDS: PSYLLIUM HUSK 100% 6 GM PACKET PO SCH (08:21)
[2018-12-22] MEDS: TAMSULOSIN 0.4 MG CAP.ER.24H PO SCH (08:40)
[2018-12-22] MEDS: ACETAMINOPHEN TAB 325 MG TAB PO PRN ×2 (08:40→23:07)
[2018-12-22] MEDS: METOPROLOL SUCCINATE (ER) 25 MG TAB.ER.24H PO SCH (08:40)
[2018-12-22] MEDS: ISOSORBIDE MONONITRATE ER 15 MG TAB PO SCH (08:40)
[2018-12-22] MEDS: LORATADINE 10 MG TAB PO SCH (08:40)
[2018-12-22] MEDS: ASPIRIN 81 MG PO SCH (08:40)
[2018-12-22] MEDS ORDERED: VANCOMYCIN 1,250 MG in SODIUM CHLORIDE 0.9% 250 ML IVPB ONE (12:00)
--- NOTE | 2018-12-22 12:05 | P.PN ---
Subjective Patient is seen in follow-up for end-stage renal disease. He is maintained on hemodialysis on a Friday schedule via permacath. Currently resting in bed. No chest pain or shortness of breath. Blood culture positive for staph aureus. He is maintained on IV vancomycin. Vital signs are stable. General: The patient appeared well nourished and normally developed. HEENT: Head exam is unremarkable. Neck is without jugular venous distension. LUNGS: Lungs are clear to auscultation and percussion. Breath sounds decreased. HEART: Rate and Rhythm are regular. First and second heart sounds normal. No murmurs, rubs or gallops. ABDOMEN: Abdominal exam reveals normal bowel sounds. Non-tender and non- distended. No evidence of peritonitis. EXTREMITITES: No clubbing, cyanosis, or edema. Objective - Vital Signs Vital signs: Vital Signs Temp 97.5 F L 12/22/18 08:00 Pulse 73 12/22/18 08:00 Resp 18 12/22/18 08:00 BP 176/90 12/22/18 08:00 Pulse Ox 95 12/22/18 11:20 Intake & Output 12/21/18 12/22/18 12/22/18 18:59 06:59 18:59 Intake Total 1170 0 Balance 1170 0 Weight 69.853 kg 72.4 kg Intake: IV 220 normal saline 220 Intake, IV Titration 250 Amount Vancomycin 1,500 mg In 250 Sodium Chloride 0.9% 250 ml @ 125 mls/hr IVPB ONCE ONE Rx#:[id number] Oral 300 0 Blood Product 400 Other: Voiding Method Toilet Toilet # Voids 2 # Bowel Movements 1 1 - Labs CBC & Chem 7: 12/22/18 06:36 12/22/18 06:36 Labs: Abnormal Lab Results - Last 24 Hours (Table) 12/21/18 12/22/18 12/22/18 Range/Units 07:47 06:36 06:36 WBC 12.2 H (3.8-10.6) k/uL RBC 2.35 L (4.30-5.90) m/uL Hgb 7.2 L (13.0-17.5) gm/dL Hct 23.6 L (39.0-53.0) % MCV 100.2 H (80.0-100.0) fL MCHC 30.4 L (31.0-37.0) g/dL RDW 16.2 H (11.5-15.5) % Plt Count 110 L (150-450) k/uL Neutrophils # 11.1 H (1.3-7.7) k/uL Lymphocytes # 0.4 L (1.0-4.8) k/uL Sodium 135 L (137-145) mmol/L Creatinine 3.57 H (0.66-1.25) mg/dL Calcium 7.4 L (8.4-10.2) mg/dL TIBC 213 L (228-460) ug/dL Iron Saturation 51.17 H (15.00-50.00) Ferritin 837.5 H (22.0-322.0) ng/mL Total Protein 4.6 L (6.3-8.2) g/dL Albumin 2.4 L (3.5-5.0) g/dL Microbiology - Last 24 Hours (Table) 12/21/18 09:45 Urine Culture - Final Urine,Voided 12/21/18 07:47 Blood Culture Gram Stain - Preliminary Blood Blood Culture - Preliminary Staphylococcus aureus 12/21/18 07:47 Blood Culture - Final Blood Assessment and Plan Plan: Assessment: 1. End-stage renal disease maintained on hemodialysis on a Friday schedule via right chest permacath. 2. Fever and hypotension with concern for sepsis. Noted to have staph aureus bacteremia. Potential source permacath. Infectious disease following. 3. Anemia of chronic kidney disease. Iron replete. Maintained on Aranesp. 4. History of BPH. Plan: Hemodialysis tomorrow. Phosphorus level at goal. Follow-up cultures. I will also check a set of culture from the catheter.
[2018-12-22 14:32] VITALS: BMI 23.6
--- NOTE | 2018-12-22 19:58 | P.HPIM ---
History of Present Illness H&P Date: 12/22/18 Chief Complaint: Mental status changes This is a pleasant 88-year-old white male was admitted to [facility] through the emergency department with acute status changes related to metabolic encephalopathy and sepsis. He is currently undergoing renal dialysis 3 days a week and he was doing well he developed some confusion weakness and chills. He states he did the wrong thing by put nylon blanket instead to come in to the hospital at the clinic for an evaluation. Review of Systems GENERAL: Patient admits to fevers and chills chills. EYES: Denies blurred vision. Denies vision changes. Denies eye pain. EARS, NOSE, MOUTH, & THROAT: Denies headache. Denies sore throat. Denies ear pain. RESPIRATORY: Denies cough. Denies shortness of breath. Denies sputum production. Denies hemoptysis. CARDIOVASCULAR: Denies chest pain or pressure. Denies palpitations. Denies arrhythmias. GASTROINTESTINAL: Patient initially complained of lower abdominal pain abdominal pain. Admits to chronic diarrhea diarrhea. Denies constipation. Denies nausea. Denies vomiting. Denies heartburn. Denies blood in the stool. GENITOURINARY: Denies urinary frequency. Denies burning. Denies dysuria. Denies cloudy urine. Denies blood in the urine. MUSCULOSKELETAL: Denies myalgias. Denies joint swelling. Denies decreased range of motion beyond patients baseline. INTEGUMENTARY: Denies pruitis. Denies rash. PSYCHIATRIC: Denies suicidal or homicial ideations. ENDOCRINE: Denies weight change. Denies polydipsia. Denies polyuria. HEMATOLOGIC: Denies bleeding disorders. Past Medical History Past Medical History: Blood Disorder, Dialysis, Hyperlipidemia, Hypertension, Osteoarthritis (OA), Prostate Disorder, Renal Disease Additional Past Medical History / Comment(s): ESRD with hemodialysis which started about 3 weeks ago, anemia, heart block with pacer, arthritis in hands, neck, back pain, bowel obstructions, diverticulitis, vitamin D deficiency, BPH with surgery, asthma as a child, sinusitis. History of Any Multi-Drug Resistant Organisms: None Reported Past Surgical History: Adenoidectomy, Appendectomy, Bowel Resection, Joint Replacement, Pacemaker, Prostate Surgery, Tonsillectomy Additional Past Surgical History / Comment(s): R sided permacath, bowel resections x 3/lysis of adhesions, total R hip arthroplasty, cataract removal with lens implants bilaterally, colonoscopy, circumcism Past Anesthesia/Blood Transfusion Reactions: No Reported Reaction Additional Past Anesthesia/Blood Transfusion Reaction / Comment(s): Pt has received blood without reaction. Type of Cardiac Device: Permanent Pacemaker Device Placement Date:: 06/11/18 Past Psychological History: No Psychological Hx Reported Additional Psychological History / Comment(s): Pt resides alone at [facility]. He has a daughter that lives in [place] and helps him and friends that also help. 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 He uses no assistive device. He drives. Smoking Status: Former smoker Past Alcohol Use History: Occasional Additional Past Alcohol Use History / Comment(s): Pt quit smoking in 1990. He had smoked lighly for 30 yrs, usually 5-10 cigarettes a day. Occasional alcohol intake. Patient lives alone in a [facility] and has a cat named Radha Cummins. He served in [employer] for 23 years and traveled all over the world. He did serve in [employer] No recent travel. 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 Past Drug Use History: None Reported - Past Family History Father Family Medical History: Coronary Artery Disease (CAD) Additional Family Medical History / Comment(s): Father at 75 of heart problems. Mother Family Medical History: No Reported History Additional Family Medical History / Comment(s): Mother was healthy. She at 71 yrs in [facility]. Medications and Allergies Home Medications Medication Instructions Recorded Confirmed Type Simvastatin [Zocor] 20 mg PO HS 12/19/15 12/21/18 History Krill Oil 500 mg PO DAILY 06/04/18 12/21/18 History Tamsulosin [Flomax] 0.4 mg PO PC-BRKFST #30 tab 06/12/18 12/21/18 Rx Acetaminophen [Tylenol] 650 mg PO DAILY PRN 09/18/18 12/21/18 History Isosorbide Mononitrate ER [Imdur] 15 mg PO DAILY 11/05/18 12/21/18 History Metoprolol Succinate [Toprol XL] 12.5 mg PO DAILY 11/05/18 12/21/18 History Psyllium Husk 100% [Metamucil 6 gm PO DAILY 11/05/18 12/21/18 History Packet] Aspirin 81 mg PO DAILY #30 chew 12/11/18 01/21/19 Rx Loratadine [Claritin] 10 mg PO DAILY #30 tab 11/10/18 12/21/18 Rx Allergies Allergy/AdvReac Type Severity Reaction Status Date / Time No Known Allergies Allergy Verified 12/21/18 07:50 Physical Exam Osteopathic Statement: *. No significant issues noted on an osteopathic structural exam other than those noted in the History and Physical/Consult. Vitals: Vital Signs Temp Pulse Resp BP Pulse Ox 12/22/18 16:00 98.0 F 61 18 159/84 96 12/22/18 12:00 98.4 F 60 18 126/71 95 12/22/18 11:20 95 12/22/18 08:00 97.5 F L 73 18 176/90 97 12/22/18 04:00 61 17 12/22/18 03:59 99.1 F 61 17 146/68 99 12/22/18 00:00 61 17 12/21/18 23:57 98.6 F 61 17 125/64 97 12/21/18 20:00 98.3 F 62 18 120/67 98 Intake and Output 12/22/18 12/22/18 12/22/18 06:59 14:59 22:59 Intake Total 1170 1070 360 Balance 1170 1070 360 Intake: IV 220 normal saline 220 Intake, IV Titration 250 950 Amount Sodium Chloride 0.9% 1, 700 000 ml @ 100 mls/hr IV . Q10H STA Rx#:[id number] Vancomycin 1,250 mg In 250 Sodium Chloride 0.9% 250 ml @ 125 mls/hr IVPB ONCE ONE Rx#:[id number] Vancomycin 1,500 mg In 250 Sodium Chloride 0.9% 250 ml @ 125 mls/hr IVPB ONCE ONE Rx#:[id number] Oral 300 120 360 Blood Product 400 Other: Voiding Method Toilet Toilet Toilet # Voids 2 3 # Bowel Movements 1 Weight 72.4 kg 72.4 kg Results CBC & Chem 7: 12/22/18 06:36 12/22/18 06:36 Labs: Abnormal Lab Results - Last 24 Hours (Table) 12/22/18 12/22/18 Range/Units 06:36 06:36 WBC 12.2 H (3.8-10.6) k/uL RBC 2.35 L (4.30-5.90) m/uL Hgb 7.2 L (13.0-17.5) gm/dL Hct 23.6 L (39.0-53.0) % MCV 100.2 H (80.0-100.0) fL MCHC 30.4 L (31.0-37.0) g/dL RDW 16.2 H (11.5-15.5) % Plt Count 110 L (150-450) k/uL Neutrophils # 11.1 H (1.3-7.7) k/uL Lymphocytes # 0.4 L (1.0-4.8) k/uL Sodium 135 L (137-145) mmol/L Creatinine 3.57 H (0.66-1.25) mg/dL Calcium 7.4 L (8.4-10.2) mg/dL Total Protein 4.6 L (6.3-8.2) g/dL Albumin 2.4 L (3.5-5.0) g/dL Microbiology - Last 24 Hours (Table) 12/21/18 09:45 Urine Culture - Final Urine,Voided 12/21/18 07:47 Blood Culture Gram Stain - Preliminary Blood Blood Culture - Preliminary Staphylococcus aureus 12/21/18 07:47 Blood Culture - Final Blood Thrombosis Risk Factor Assmnt - Choose All That Apply Any of the Below Risk Factors Present?: Yes Each Factor Represents 1 point: Heart failure (<1month), Sepsis (< 1month) Other Risk Factors: Yes Each Risk Factor Represents 3 Points: Age 75 years or older Other congenital or acquired thrombophilia - If yes, enter type in comment: No Thrombosis Risk Factor Assessment Total Risk Factor Score: 5 Thrombosis Risk Factor Assessment Level: High Risk Assessment and Plan Assessment: 1. Acute sepsis. Mental status changes secondary to metabolic encephalopathy. End-stage renal disease chronic kidney failure requiring renal dialysis 3 times a week. Chronic diarrhea with currently large amounts fecal stasis. Multiple abdominal surgeries. Advanced age. 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 Generalized anasarca with evidence of fluid overload. Plan: Plan is to admit patient consultation by infectious disease and nephrology in progress. Will require dialysis. Await final cultures. Continue prophylaxis antibiotic therapy overall prognosis is guarded secondary to patient's advanced age and multiple cold morbidities patient wishes to be a DO NOT RESUSCITATE. We 'll continue to follow patient's progress Time with Patient: Greater than 30
[2018-12-22] MEDS: ATORVASTATIN 10 MG TAB PO SCH (20:17)
--- NOTE | 2018-12-22 23:06 | P.PN ---
Subjective Progress Note Date: 12/22/18 This is an 88-year-old male patient gives history of having chills and shakes last evening along with back pain. He also complains of decreased urine output and only dribbling a few drops each time but no dysuria. He states he really has not had significant urine output in the past 24 hours. He states his appetite is okay and unchanged. He has had some balance problems but does not use a walker at home. He has not had any recent falls. He is on hemodialysis for the past 3 weeks on Friday. He has not missed any treatments. 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 He states that his PCP told him he has a hernia but he is a poor candidate for surgical interventions. Patient came into [facility] emergency center for evaluation. Temperature max 101.2, white count 7.6, hemoglobin 7.7, platelet count 149, BUN 23 and creatinine 5.6. Troponin 0.070, albumin 2.7, lactic acid 1.9, lipase 62. Urinalysis was clear, blood small leukoesterase small, white count 9. Urine and blood cultures have status received. Chest x-ray shows correlate for fluid overload. Small pleural effusions with adjacent atelectasis and/or consolidation in right HD catheter. He underwent CAT scan of the abdomen and pelvis without contrast that revealed new moderate to severe diffuse soft tissue anasarca. New mild ascites and small bilateral pleural effusions correlate for fluid overload state. Overall nonobstructive bowel gas pattern. Mild diffuse colonic fecal stasis present. Evidence of prior bowel surgery redemonstrated. Small nonobstructing renal calculi bilaterally. New from prior study but no hydronephrosis or obstructing ureter calculi clearly seen. Patient received 1 dose of IV Rocephin, 1/2 L of IV fluid, IV Tylenol, consult with nephrology and patient to be admitted to the cardiac stepdown unit. Dr. Del Valle has evaluated the patient and ordered hemodialysis today. 12/22/2018 patient is feeling slightly better. He describes feeling very poorly at home with the rigors. Relates they felt like when he had malaria and he was in [place] when he was in the . We discussed that bacterial infection some malaria often have similar feeling. There is no evidence of the positive blood culture with staph. 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 Objective - Vital Signs Vital signs: Vital Signs Temp 97.9 F 12/22/18 20:00 Pulse 69 12/22/18 20:00 Resp 17 12/22/18 20:00 BP 162/85 12/22/18 20:00 Pulse Ox 95 12/22/18 20:00 Intake & Output 12/22/18 12/22/18 12/23/18 06:59 18:59 06:59 Intake Total 1170 1430 400 Balance 1170 1430 400 Weight 72.4 kg 72.4 kg Intake: IV 220 normal saline 220 Intake, IV Titration 250 950 Amount Sodium Chloride 0.9% 1, 700 000 ml @ 100 mls/hr IV . Q10H STA Rx#:[id number] Vancomycin 1,250 mg In 250 Sodium Chloride 0.9% 250 ml @ 125 mls/hr IVPB ONCE ONE Rx#:[id number] Vancomycin 1,500 mg In 250 Sodium Chloride 0.9% 250 ml @ 125 mls/hr IVPB ONCE ONE Rx#:[id number] Oral 300 480 400 Blood Product 400 Other: Voiding Method Toilet Toilet Toilet # Voids 2 3 # Bowel Movements 1 - Exam Gen: This is an 88-year-old male. He is sitting up on the ER stretcher and is eating lunch. He appears to be in no acute distress. No difficulty swallowing. Daughter is at bedside. HEENT: Head is atraumatic, normocephalic. Pupils equal, round. Sclerae is anicteric. Conjunctiva pink. Mucous members of the mouth are moist. No oropharyngeal edema or erythema. NECK: Supple. No JVD. No lymphadenopathy. No thyromegaly. LUNGS: Clear to auscultation. No wheezes or rhonchi. No intercostal retractions. HEART: Regular rate and rhythm. No murmur. ABDOMEN: Soft. Bowel sounds are present. No masses. No tenderness. EXTREMITIES: No pedal edema. No calf tenderness. Dorsalis pedis weak bilaterally. NEUROLOGICAL: Patient is awake, alert and oriented x3 - Labs CBC & Chem 7: 12/22/18 06:36 12/22/18 06:36 Labs: Abnormal Lab Results - Last 24 Hours (Table) 12/22/18 12/22/18 Range/Units 06:36 06:36 WBC 12.2 H (3.8-10.6) k/uL RBC 2.35 L (4.30-5.90) m/uL Hgb 7.2 L (13.0-17.5) gm/dL Hct 23.6 L (39.0-53.0) % MCV 100.2 H (80.0-100.0) fL MCHC 30.4 L (31.0-37.0) g/dL RDW 16.2 H (11.5-15.5) % Plt Count 110 L (150-450) k/uL Neutrophils # 11.1 H (1.3-7.7) k/uL Lymphocytes # 0.4 L (1.0-4.8) k/uL Sodium 135 L (137-145) mmol/L Creatinine 3.57 H (0.66-1.25) mg/dL Calcium 7.4 L (8.4-10.2) mg/dL Total Protein 4.6 L (6.3-8.2) g/dL Albumin 2.4 L (3.5-5.0) g/dL Microbiology - Last 24 Hours (Table) 12/21/18 09:45 Urine Culture - Final Urine,Voided 12/21/18 07:47 Blood Culture Gram Stain - Preliminary Blood Blood Culture - Preliminary Staphylococcus aureus Laboratory Results WBC 12.2 k/uL (3.8-10.6) H 12/22/18 06:36 RBC 2.35 m/uL (4.30-5.90) L 12/22/18 06:36 Hgb 7.2 gm/dL (13.0-17.5) L 12/22/18 06:36 Hct 23.6 % (39.0-53.0) L 12/22/18 06:36 MCV 100.2 fL (80.0-100.0) H 12/22/18 06:36 MCH 30.5 pg (25.0-35.0) 12/22/18 06:36 MCHC 30.4 g/dL (31.0-37.0) L 12/22/18 06:36 RDW 16.2 % (11.5-15.5) H 12/22/18 06:36 Plt Count 110 k/uL (150-450) L 12/22/18 06:36 Neutrophils % 91 % 12/22/18 06:36 Lymphocytes % 3 % 12/22/18 06:36 Monocytes % 4 % 12/22/18 06:36 Eosinophils % 1 % 12/22/18 06:36 Basophils % 0 % 12/22/18 06:36 Neutrophils # 11.1 k/uL (1.3-7.7) H 12/22/18 06:36 Lymphocytes # 0.4 k/uL (1.0-4.8) L 12/22/18 06:36 Monocytes # 0.5 k/uL (0-1.0) 12/22/18 06:36 Eosinophils # 0.1 k/uL (0-0.7) 12/22/18 06:36 Basophils # 0.0 k/uL (0-0.2) 12/22/18 06:36 Hypochromasia Marked 12/22/18 06:36 Anisocytosis Slight 12/22/18 06:36 Macrocytosis Slight 12/22/18 06:36 PT 12.2 sec (9.0-12.0) H 12/21/18 07:47 INR 1.2 (<1.2) H 12/21/18 07:47 APTT 24.0 sec (22.0-30.0) 12/21/18 07:47 Sodium 135 mmol/L (137-145) L 12/22/18 06:36 Potassium 3.9 mmol/L (3.5-5.1) 12/22/18 06:36 Chloride 104 mmol/L (98-107) 12/22/18 06:36 Carbon Dioxide 25 mmol/L (22-30) 12/22/18 06:36 Anion Gap 6 mmol/L 12/22/18 06:36 BUN 17 mg/dL (9-20) 12/22/18 06:36 Creatinine 3.57 mg/dL (0.66-1.25) H 12/22/18 06:36 Est GFR (CKD-EPI)AfAm 17 (>60 ml/min/1.73 sqM) 12/22/18 06:36 Est GFR (CKD-EPI)NonAf 14 (>60 ml/min/1.73 sqM) 12/22/18 06:36 Glucose 84 mg/dL (74-99) 12/22/18 06:36 Plasma Lactic Acid Gustavo 1.9 mmol/L (0.7-2.0) 12/21/18 07:47 Calcium 7.4 mg/dL (8.4-10.2) L 12/22/18 06:36 Phosphorus 2.8 mg/dL (2.5-4.5) 12/22/18 06:36 Iron 109 ug/dL (65-175) 12/21/18 07:47 TIBC 213 ug/dL (228-460) L 12/21/18 07:47 Iron Saturation 51.17 (15.00-50.00) H 12/21/18 07:47 Ferritin 837.5 ng/mL (22.0-322.0) H 12/21/18 07:47 Total Bilirubin 0.4 mg/dL (0.2-1.3) 12/22/18 06:36 AST 26 U/L (17-59) 12/22/18 06:36 ALT 28 U/L (21-72) 12/22/18 06:36 Alkaline Phosphatase 64 U/L (38-126) 12/22/18 06:36 Total Creatine Kinase 136 U/L (55-170) 12/21/18 07:47 CK-MB (CK-2) 2.0 ng/mL (0.0-2.4) 12/21/18 07:47 CK-MB (CK-2) Rel Index 1.5 12/21/18 07:47 Troponin I 0.070 ng/mL (0.000-0.034) H* 12/21/18 07:47 NT-Pro-B Natriuret Pep 93269 pg/mL 12/21/18 07:47 Total Protein 4.6 g/dL (6.3-8.2) L 12/22/18 06:36 Albumin 2.4 g/dL (3.5-5.0) L 12/22/18 06:36 Lipase 62 U/L (23-300) 12/21/18 07:47 Cortisol 21 ug/dL 12/22/18 06:36 Urine Color Light Yellow 12/21/18 09:45 Urine Appearance Clear (Clear) 12/21/18 09:45 Urine pH 6.5 (5.0-8.0) 12/21/18 09:45 Ur Specific [place] 1.007 (1.001-1.035) 12/21/18 09:45 Urine Protein 2+ (Negative) H 12/21/18 09:45 Urine Glucose (UA) Negative (Negative) 12/21/18 09:45 Urine Ketones Negative (Negative) 12/21/18 09:45 Urine Blood Small (Negative) H 12/21/18 09:45 Urine Nitrite Negative (Negative) 12/21/18 09:45 Urine Bilirubin Negative (Negative) 12/21/18 09:45 Urine Urobilinogen <2.0 mg/dL (<2.0) 12/21/18 09:45 Ur Leukocyte Esterase Small (Negative) H 12/21/18 09:45 Urine RBC 2 /hpf (0-5) 12/21/18 09:45 Urine WBC 9 /hpf (0-5) H 12/21/18 09:45 Urine Mucus Rare /hpf (None) H 12/21/18 09:45 Microbiology 12/21/18 09:45 Urine,Voided Urine Culture - Final 12/21/18 07:47 Blood Blood Culture Gram Stain - Preliminary 12/21/18 07:47 Blood Blood Culture - Preliminary Staphylococcus aureus 12/21/18 07:47 Blood Blood Culture - Final Assessment and Plan (1) Staphylococcal sepsis Narrative/Plan: This elderly male is receiving hemodialysis. Has evidence of the volume overload with concerns to underlying sepsis. There is evidence of positive urine culture as well as positive blood culture with likelihood of sepsis from urinary system. He received Rocephin will add in vancomycin for now given the gram-positive nature of the sepsis. Follow blood cultures will be obtained, depending on pathogen will determine if there is concerns to infection of his hemodialysis catheter. 12/22/2018 patient is feeling slightly better today. The rigors have improved. Patient's daughter is present and we go over the data that there is a positive blood culture with what appears to be staph aureus. If further cultures are positive then the concern will be to an infected hemodialysis catheter. If that's the case he will then receive further hemodialysis here. Then the current dialysis catheter will be removed. He'll be given a short break off of IV access. The new catheter will be placed for him to continue his course of vancomycin therapy at the dialysis center over the next 4 weeks. Current Visit: Yes Status: Acute Code(s): A41.2 - SEPSIS DUE TO UNSPECIFIED STAPHYLOCOCCUS SNOMED Code(s): 184144306 (2) End-stage renal disease on hemodialysis Current Visit: Yes Status: Acute Code(s): N18.6 - END STAGE RENAL DISEASE; Z99.2 - DEPENDENCE ON RENAL DIALYSIS SNOMED Code(s): 975501074
[2018-12-23] MEDS: MIDODRINE 5 MG TAB PO SCH ×3 (06:22→16:12)
[2018-12-23 06:28] LABS: Anisocytosis Slight; Basophils % (A) 0 %; Eosinophils # (A) 0.3 k/uL (0-0.7); Eosinophils % (A) 3 %; HCT 24.5 % (39.0-53.0); HGB 7.3 gm/dL (13.0-17.5); Hypochromasia Marked; Lymphocytes # (A) 0.5 k/uL (1.0-4.8); Lymphocytes % (A) 5 %; MCH 29.8 pg (25.0-35.0); MCHC 29.7 g/dL (31.0-37.0); MCV 100.5 fL (80.0-100.0); Macrocytosis Slight; Monocytes # (A) 0.4 k/uL (0-1.0); Monocytes % (A) 4 %; Neutrophils # (A) 7.3 k/uL (1.3-7.7); Neutrophils % (A) 85 %; Platelet Count 102 k/uL (150-450); RBC 2.43 m/uL (4.30-5.90); RDW 16.2 % (11.5-15.5); WBC 8.5 k/uL (3.8-10.6)
[2018-12-23 06:37] LABS: Calcium 7.4 mg/dL (8.4-10.2); Potassium 3.7 mmol/L (3.5-5.1)
[2018-12-23] MEDS: LORATADINE 10 MG TAB PO SCH (08:30)
[2018-12-23] MEDS: PSYLLIUM HUSK 100% 6 GM PACKET PO SCH (08:30)
[2018-12-23] MEDS: METOPROLOL SUCCINATE (ER) 25 MG TAB.ER.24H PO SCH (08:30)
[2018-12-23] MEDS: ISOSORBIDE MONONITRATE ER 15 MG TAB PO SCH (08:31)
[2018-12-23] MEDS: TAMSULOSIN 0.4 MG CAP.ER.24H PO SCH (08:32)
[2018-12-23] MEDS: ASPIRIN 81 MG PO SCH (08:37)
[2018-12-23 09:12] LABS: Vancomycin,Random 20.3 ug/mL
[2018-12-23] MEDS: ACETAMINOPHEN TAB 325 MG TAB PO PRN ×2 (09:40→19:48)
--- NOTE | 2018-12-23 11:48 | P.PN ---
Subjective Patient is seen in follow-up for end-stage renal disease. He is maintained on hemodialysis on a Friday schedule via permacath. Currently resting in bed. No chest pain or shortness of breath. Blood culture positive for staph aureus. He is maintained on IV vancomycin. No active complaints at this time. Vital signs are stable. General: The patient appeared well nourished and normally developed. HEENT: Head exam is unremarkable. Neck is without jugular venous distension. LUNGS: Lungs are clear to auscultation and percussion. Breath sounds decreased. HEART: Rate and Rhythm are regular. First and second heart sounds normal. No murmurs, rubs or gallops. ABDOMEN: Abdominal exam reveals normal bowel sounds. Non-tender and non- distended. No evidence of peritonitis. EXTREMITITES: No clubbing, cyanosis, or edema. Objective - Vital Signs Vital signs: Vital Signs Temp 97.6 F 12/23/18 08:41 Pulse 71 12/23/18 11:29 Resp 20 12/23/18 11:29 BP 166/86 12/23/18 11:29 Pulse Ox 98 12/23/18 11:29 Intake & Output 12/22/18 12/23/18 12/23/18 18:59 06:59 18:59 Intake Total 1430 1120 220 Balance 1430 1120 220 Weight 72.4 kg 76.1 kg Intake: IV 220 normal saline 220 Intake, IV Titration 950 Amount Sodium Chloride 0.9% 1, 700 000 ml @ 100 mls/hr IV . Q10H STA Rx#:[id number] Vancomycin 1,250 mg In 250 Sodium Chloride 0.9% 250 ml @ 125 mls/hr IVPB ONCE ONE Rx#:[id number] Oral 480 900 220 Other: Voiding Method Toilet Toilet Toilet # Voids 3 3 - Labs CBC & Chem 7: 12/23/18 05:56 12/23/18 05:56 Labs: Abnormal Lab Results - Last 24 Hours (Table) 12/23/18 12/23/18 Range/Units 05:56 05:56 RBC 2.43 L (4.30-5.90) m/uL Hgb 7.3 L (13.0-17.5) gm/dL Hct 24.5 L (39.0-53.0) % MCV 100.5 H (80.0-100.0) fL MCHC 29.7 L (31.0-37.0) g/dL RDW 16.2 H (11.5-15.5) % Plt Count 102 L (150-450) k/uL Lymphocytes # 0.5 L (1.0-4.8) k/uL Sodium 135 L (137-145) mmol/L BUN 28 H (9-20) mg/dL Creatinine 4.74 H (0.66-1.25) mg/dL Calcium 7.4 L (8.4-10.2) mg/dL Microbiology - Last 24 Hours (Table) 12/21/18 07:47 Blood Culture Gram Stain - Final Blood Blood Culture - Final Staphylococcus aureus 12/21/18 09:45 Urine Culture - Final Urine,Voided Assessment and Plan Plan: Assessment: 1. End-stage renal disease maintained on hemodialysis on a Friday schedule via right chest permacath. 2. Fever and hypotension with concern for sepsis. Noted to have staph aureus bacteremia. Potential source permacath. Infectious disease following. 3. Anemia of chronic kidney disease. Iron replete. Maintained on Aranesp. 4. History of BPH. Plan: Hemodialysis today. Phosphorus level at goal. Follow-up cultures. Maribeth require removal of permacath pending cultures.
[2018-12-23] MEDS ORDERED: VANCOMYCIN 1,250 MG in SODIUM CHLORIDE 0.9% 250 ML IVPB ONE (16:00)
[2018-12-23] MEDS: ATORVASTATIN 10 MG TAB PO SCH (19:48)
--- NOTE | 2018-12-23 19:59 | P.PN ---
Subjective Progress Note Date: 12/23/18 Patient is doing well today he has no more fever or chills he admits to feeling stronger and may want to walk today he has less abdominal pain. He is currently on IV hydration and IV antibiotics and he has scheduled dialysis today Objective - Vital Signs Vital signs: Vital Signs Temp 97.6 F 12/23/18 19:38 Pulse 64 12/23/18 19:38 Resp 18 12/23/18 19:38 BP 145/83 12/23/18 19:38 Pulse Ox 96 12/23/18 19:38 Intake & Output 12/23/18 12/23/18 12/24/18 06:59 18:59 06:59 Intake Total 1120 1050 Balance 1120 1050 Weight 76.1 kg Intake: IV 220 normal saline 220 Intake, IV Titration 250 Amount Vancomycin 1,250 mg In 250 Sodium Chloride 0.9% 250 ml @ 125 mls/hr IVPB ONCE ONE Rx#:[id number] Oral 900 800 Other: Voiding Method Toilet Toilet # Voids 3 - Exam GENERAL: Well-appearing, undernourished and in no acute distress. HEAD: Atraumatic, normocephalic. EYES: Pupils equal round and reactive to light, extraocular movements intact, sclera anicteric, conjunctiva are normal. ENT:nares patent, oropharynx clear without exudates. Moist mucous membranes. Heart of hearing with hearing aids out at this time NECK: Normal range of motion, supple without lymphadenopathy or JVD, no thyromegaly LUNGS: Slight wheezes bilateral HEART: Regular rate and rhythm without murmurs, rubs or gallops.S1S2 Normal ABDOMEN: Soft, nontender, normoactive bowel sounds. No guarding, no rebound. No masses appreciated. Multiple scars noted EXTREMITIES: range of motion ok for age, +2 edema. No clubbing or cyanosis. NEUROLOGICAL: Cranial nerves II through XII grossly intact. Normal speech, normal gait. PSYCH: Normal mood, normal affect. SKIN: Warm, Dry, normal turgor, no rashes or lesions noted. - Labs CBC & Chem 7: 12/23/18 05:56 12/23/18 05:56 Labs: Abnormal Lab Results - Last 24 Hours (Table) 12/23/18 12/23/18 Range/Units 05:56 05:56 RBC 2.43 L (4.30-5.90) m/uL Hgb 7.3 L (13.0-17.5) gm/dL Hct 24.5 L (39.0-53.0) % MCV 100.5 H (80.0-100.0) fL MCHC 29.7 L (31.0-37.0) g/dL RDW 16.2 H (11.5-15.5) % Plt Count 102 L (150-450) k/uL Lymphocytes # 0.5 L (1.0-4.8) k/uL Sodium 135 L (137-145) mmol/L BUN 28 H (9-20) mg/dL Creatinine 4.74 H (0.66-1.25) mg/dL Calcium 7.4 L (8.4-10.2) mg/dL Microbiology - Last 24 Hours (Table) 12/22/18 14:37 Blood Culture - Preliminary Blood No Growth after 24 hours 12/22/18 15:48 Blood Culture Gram Stain - Preliminary Blood Blood Culture - Preliminary Presumptive Staph aureus 12/22/18 15:48 Blood Culture - Final Blood 12/21/18 07:47 Blood Culture Gram Stain - Final Blood Blood Culture - Final Staphylococcus aureus Assessment and Plan Assessment: 1. Acute sepsis. Mental status changes secondary to metabolic encephalopathy. End-stage renal disease chronic kidney failure requiring renal dialysis 3 times a week. Chronic diarrhea with currently large amounts fecal stasis. Multiple abdominal surgeries. Advanced age. 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 Generalized anasarca with evidence of fluid overload. Plan: Continued consultation by infectious disease and nephrology in progress. Will require dialysis for today. Await final cultures. Continue prophylaxis antibiotic therapy overall prognosis is guarded secondary to patient's advanced age and multiple cold morbidities patient wishes to be a DO NOT RESUSCITATE. We 'll continue to follow patient's progress Time with Patient: Greater than 30
[2018-12-24] MEDS: MIDODRINE 5 MG TAB PO SCH ×3 (03:22→15:20)
[2018-12-24 06:52] LABS: Anisocytosis Slight; Basophils % (A) 0 %; Eosinophils # (A) 0.4 k/uL (0-0.7); Eosinophils % (A) 6 %; HCT 24.3 % (39.0-53.0); HGB 7.4 gm/dL (13.0-17.5); Hypochromasia Marked; Lymphocytes # (A) 0.6 k/uL (1.0-4.8); Lymphocytes % (A) 9 %; MCH 29.8 pg (25.0-35.0); MCHC 30.2 g/dL (31.0-37.0); MCV 98.5 fL (80.0-100.0); Macrocytosis Slight; Mean Platelet Volume 8.4; Monocytes # (A) 0.4 k/uL (0-1.0); Monocytes % (A) 6 %; Neutrophils # (A) 4.9 k/uL (1.3-7.7); Neutrophils % (A) 77 %; Platelet Count 110 k/uL (150-450); RBC 2.47 m/uL (4.30-5.90); RDW 16.2 % (11.5-15.5); WBC 6.3 k/uL (3.8-10.6)
[2018-12-24 07:06] LABS: Calcium 7.4 mg/dL (8.4-10.2); Potassium 3.5 mmol/L (3.5-5.1)
[2018-12-24] MEDS: ACETAMINOPHEN TAB 325 MG TAB PO PRN (07:56)
[2018-12-24] MEDS: TAMSULOSIN 0.4 MG CAP.ER.24H PO SCH (08:59)
[2018-12-24] MEDS: ASPIRIN 81 MG PO SCH (08:59)
[2018-12-24] MEDS: ISOSORBIDE MONONITRATE ER 15 MG TAB PO SCH (08:59)
[2018-12-24] MEDS: METOPROLOL SUCCINATE (ER) 25 MG TAB.ER.24H PO SCH (08:59)
[2018-12-24] MEDS: LORATADINE 10 MG TAB PO SCH (08:59)
[2018-12-24] MEDS: PSYLLIUM HUSK 100% 6 GM PACKET PO SCH (08:59)
--- NOTE | 2018-12-24 11:27 | P.PN ---
Subjective Patient is seen in follow-up for end-stage renal disease. He is maintained on hemodialysis on a Friday schedule via permacath. Currently resting in bed. No chest pain or shortness of breath. Blood culture positive for staph aureus. He is maintained on IV vancomycin. No active complaints at this time. Tolerated hemodialysis well yesterday. Vital signs are stable. General: The patient appeared well nourished and normally developed. HEENT: Head exam is unremarkable. Neck is without jugular venous distension. LUNGS: Lungs are clear to auscultation and percussion. Breath sounds decreased. HEART: Rate and Rhythm are regular. First and second heart sounds normal. No murmurs, rubs or gallops. ABDOMEN: Abdominal exam reveals normal bowel sounds. Non-tender and non- distended. No evidence of peritonitis. EXTREMITITES: No clubbing, cyanosis, or edema. Objective - Vital Signs Vital signs: Vital Signs Temp 97.5 F L 12/24/18 10:02 Pulse 62 12/24/18 10:02 Resp 18 12/24/18 10:04 BP 164/92 12/24/18 10:02 Pulse Ox 99 12/24/18 10:02 Intake & Output 12/23/18 12/24/18 12/24/18 18:59 06:59 18:59 Intake Total 1050 320 240 Output Total 400 Balance 1050 -80 240 Weight 72.4 kg Intake: IV 320 normal saline 320 Intake, IV Titration 250 Amount Vancomycin 1,250 mg In 250 Sodium Chloride 0.9% 250 ml @ 125 mls/hr IVPB ONCE ONE Rx#:[id number] Oral 800 240 Output: Urine 400 Other: Voiding Method Toilet Toilet Toilet # Voids 1 - Labs CBC & Chem 7: 12/24/18 06:32 12/24/18 06:32 Labs: Abnormal Lab Results - Last 24 Hours (Table) 12/24/18 12/24/18 Range/Units 06:32 06:32 RBC 2.47 L (4.30-5.90) m/uL Hgb 7.4 L (13.0-17.5) gm/dL Hct 24.3 L (39.0-53.0) % MCHC 30.2 L (31.0-37.0) g/dL RDW 16.2 H (11.5-15.5) % Plt Count 110 L (150-450) k/uL Lymphocytes # 0.6 L (1.0-4.8) k/uL Sodium 135 L (137-145) mmol/L Creatinine 3.38 H (0.66-1.25) mg/dL Calcium 7.4 L (8.4-10.2) mg/dL Microbiology - Last 24 Hours (Table) 12/22/18 14:37 Blood Culture - Preliminary Blood No Growth after 24 hours 12/22/18 15:48 Blood Culture Gram Stain - Preliminary Blood Blood Culture - Preliminary Presumptive Staph aureus 12/22/18 15:48 Blood Culture - Final Blood 12/21/18 07:47 Blood Culture Gram Stain - Final Blood Blood Culture - Final Staphylococcus aureus Assessment and Plan Plan: Assessment: 1. End-stage renal disease maintained on hemodialysis on a Friday schedule via right chest permacath. 2. Fever and hypotension with concern for sepsis. Noted to have staph aureus bacteremia. Potential source permacath. Infectious disease following. 3. Anemia of chronic kidney disease. Iron replete. Maintained on Aranesp. 4. History of BPH. Plan: Hemodialysis tomorrow. Phosphorus level at goal. Follow-up cultures. Maribeth require removal of permacath pending cultures.
[2018-12-24] MEDS ORDERED: ceFAZolin 1,000 MG in DEXTROSE/WATER 1 50ML.BAG IVPB SCH (12:00)
[2018-12-24] MEDS ORDERED: ceFAZolin IN SWFI 2 GM/20 ML SYRINGE IVP SCH (12:00)
[2018-12-24] MEDS: ATORVASTATIN 10 MG TAB PO SCH (20:19)
--- NOTE | 2018-12-24 20:30 | P.PN ---
Subjective Progress Note Date: 12/24/18 Patient is doing well today he has no more fever or chills he admits to feeling stronger and may want to walk today he has less abdominal pain. He is currently on IV hydration and IV antibiotics and he has scheduled dialysis today he continues to improve. Currently awaiting final diagnoses to see if he needs to have the permacath pulled with dialysis and antibiotics or permacath stays to be determined. Objective - Vital Signs Vital signs: Vital Signs Temp 97.7 F 12/24/18 19:20 Pulse 60 12/24/18 19:20 Resp 18 12/24/18 19:20 BP 170/87 12/24/18 19:20 Pulse Ox 97 12/24/18 19:20 Intake & Output 12/24/18 12/24/18 12/25/18 06:59 18:59 06:59 Intake Total 320 480 Output Total 400 Balance -80 480 Weight 72.4 kg Intake: IV 320 normal saline 320 Oral 480 Output: Urine 400 Other: Voiding Method Toilet Toilet # Voids 1 2 - Exam GENERAL: Well-appearing, undernourished and in no acute distress. HEAD: Atraumatic, normocephalic. EYES: Pupils equal round and reactive to light, extraocular movements intact, sclera anicteric, conjunctiva are normal. ENT:nares patent, oropharynx clear without exudates. Moist mucous membranes. Heart of hearing with hearing aids out at this time NECK: Normal range of motion, supple without lymphadenopathy or JVD, no thyromegaly LUNGS: Slight wheezes bilateral HEART: Regular rate and rhythm without murmurs, rubs or gallops.S1S2 Normal ABDOMEN: Soft, nontender, normoactive bowel sounds. No guarding, no rebound. No masses appreciated. Multiple scars noted EXTREMITIES: range of motion ok for age, +2 edema. No clubbing or cyanosis. NEUROLOGICAL: Cranial nerves II through XII grossly intact. Normal speech, normal gait. PSYCH: Normal mood, normal affect. SKIN: Warm, Dry, normal turgor, no rashes or lesions noted. - Labs CBC & Chem 7: 12/24/18 06:32 12/24/18 06:32 Labs: Abnormal Lab Results - Last 24 Hours (Table) 12/24/18 12/24/18 Range/Units 06:32 06:32 RBC 2.47 L (4.30-5.90) m/uL Hgb 7.4 L (13.0-17.5) gm/dL Hct 24.3 L (39.0-53.0) % MCHC 30.2 L (31.0-37.0) g/dL RDW 16.2 H (11.5-15.5) % Plt Count 110 L (150-450) k/uL Lymphocytes # 0.6 L (1.0-4.8) k/uL Sodium 135 L (137-145) mmol/L Creatinine 3.38 H (0.66-1.25) mg/dL Calcium 7.4 L (8.4-10.2) mg/dL Microbiology - Last 24 Hours (Table) 12/22/18 14:37 Blood Culture - Preliminary Blood No Growth after 48 hours 12/23/18 14:30 Blood Culture - Preliminary Blood No Growth after 24 hours 12/22/18 15:48 Blood Culture Gram Stain - Final Blood Blood Culture - Final Staphylococcus aureus Assessment and Plan Assessment: 1. Acute sepsis. Mental status changes secondary to metabolic encephalopathy. End-stage renal disease chronic kidney failure requiring renal dialysis 3 times a week. Chronic diarrhea with currently large amounts fecal stasis. Multiple abdominal surgeries. Advanced age. 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 Generalized anasarca with evidence of fluid overload. Plan: Continued consultation by infectious disease and nephrology in progress. Will require dialysis for today. Await final cultures. Continue prophylaxis antibiotic therapy overall prognosis is guarded secondary to patient's advanced age and multiple cold morbidities patient wishes to be a DO NOT RESUSCITATE. We 'll continue to follow patient's progress
[2018-12-25] MEDS: ACETAMINOPHEN TAB 325 MG TAB PO PRN ×3 (00:56→14:10)
[2018-12-25] MEDS: MIDODRINE 5 MG TAB PO SCH ×3 (07:46→16:45)
[2018-12-25 08:13] LABS: Calcium 7.5 mg/dL (8.4-10.2); Potassium 3.6 mmol/L (3.5-5.1)
[2018-12-25 08:52] LABS: Vancomycin,Random 21.9 ug/mL
[2018-12-25] MEDS: TAMSULOSIN 0.4 MG CAP.ER.24H PO SCH (08:54)
[2018-12-25] MEDS: ASPIRIN 81 MG PO SCH (09:01)
[2018-12-25] MEDS: ISOSORBIDE MONONITRATE ER 15 MG TAB PO SCH (09:01)
[2018-12-25] MEDS: LORATADINE 10 MG TAB PO SCH (09:01)
[2018-12-25] MEDS: PSYLLIUM HUSK 100% 6 GM PACKET PO SCH (09:02)
[2018-12-25] MEDS: METOPROLOL SUCCINATE (ER) 25 MG TAB.ER.24H PO SCH (09:02)
--- NOTE | 2018-12-25 09:21 | P.PN ---
Subjective Patient is seen in follow-up for end-stage renal disease. He is maintained on hemodialysis on a Friday schedule via permacath. Currently resting in bed. No chest pain or shortness of breath. Blood culture positive for staph aureus. He is maintained on IV vancomycin. No active complaints at this time. Blood pressures have been high and he is maintained on midodrine. Vital signs are stable. General: The patient appeared well nourished and normally developed. HEENT: Head exam is unremarkable. Neck is without jugular venous distension. LUNGS: Lungs are clear to auscultation and percussion. Breath sounds decreased. HEART: Rate and Rhythm are regular. First and second heart sounds normal. No murmurs, rubs or gallops. ABDOMEN: Abdominal exam reveals normal bowel sounds. Non-tender and non- distended. No evidence of peritonitis. EXTREMITITES: No clubbing, cyanosis, or edema. Objective - Vital Signs Vital signs: Vital Signs Temp 97.7 F 12/25/18 07:15 Pulse 70 12/25/18 07:15 Resp 16 12/25/18 07:15 BP 187/94 12/25/18 07:15 Pulse Ox 96 12/25/18 07:15 Intake & Output 12/24/18 12/25/18 12/25/18 18:59 06:59 18:59 Intake Total 480 840 180 Balance 480 840 180 Weight 71.9 kg Intake: Oral 480 840 180 Other: Voiding Method Toilet Toilet # Voids 2 3 # Bowel Movements 2 - Labs CBC & Chem 7: 12/24/18 06:32 12/25/18 07:00 Labs: Abnormal Lab Results - Last 24 Hours (Table) 12/25/18 Range/Units 07:00 BUN 22 H (9-20) mg/dL Creatinine 4.89 H (0.66-1.25) mg/dL Glucose 103 H (74-99) mg/dL Calcium 7.5 L (8.4-10.2) mg/dL Microbiology - Last 24 Hours (Table) 12/22/18 15:48 Blood Culture Gram Stain - Final Blood Blood Culture - Final Staphylococcus aureus 12/22/18 14:37 Blood Culture - Preliminary Blood No Growth after 48 hours 12/23/18 14:30 Blood Culture - Preliminary Blood No Growth after 24 hours Assessment and Plan Plan: Assessment: 1. End-stage renal disease maintained on hemodialysis on a Friday schedule via right chest permacath. 2. Fever and hypotension with concern for sepsis. Noted to have staph aureus bacteremia. Potential source permacath. Infectious disease following. 3. Anemia of chronic kidney disease. Iron replete. Maintained on Aranesp. 4. History of BPH. Plan: Hemodialysis today. Phosphorus level at goal. Follow-up cultures. To hold midodrine if systolic blood pressure greater than 120.
[2018-12-25] MEDS: ceFAZolin 1,000 MG in DEXTROSE/WATER 1 50ML.BAG IVPB SCH (14:10)
[2018-12-25] MEDS: hydrALAZINE HCL 20 MG/ML 1 ML VIAL IVP PRN (21:03)
[2018-12-25] MEDS: ATORVASTATIN 10 MG TAB PO SCH (21:03)
--- NOTE | 2018-12-25 22:36 | P.PN ---
Subjective Progress Note Date: 12/24/18 This is an 88-year-old male patient gives history of having chills and shakes last evening along with back pain. He also complains of decreased urine output and only dribbling a few drops each time but no dysuria. He states he really has not had significant urine output in the past 24 hours. He states his appetite is okay and unchanged. He has had some balance problems but does not use a walker at home. He has not had any recent falls. He is on hemodialysis for the past 3 weeks on Friday. He has not missed any treatments. 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 He states that his PCP told him he has a hernia but he is a poor candidate for surgical interventions. Patient came into [facility] emergency center for evaluation. Temperature max 101.2, white count 7.6, hemoglobin 7.7, platelet count 149, BUN 23 and creatinine 5.6. Troponin 0.070, albumin 2.7, lactic acid 1.9, lipase 62. Urinalysis was clear, blood small leukoesterase small, white count 9. Urine and blood cultures have status received. Chest x-ray shows correlate for fluid overload. Small pleural effusions with adjacent atelectasis and/or consolidation in right HD catheter. He underwent CAT scan of the abdomen and pelvis without contrast that revealed new moderate to severe diffuse soft tissue anasarca. New mild ascites and small bilateral pleural effusions correlate for fluid overload state. Overall nonobstructive bowel gas pattern. Mild diffuse colonic fecal stasis present. Evidence of prior bowel surgery redemonstrated. Small nonobstructing renal calculi bilaterally. New from prior study but no hydronephrosis or obstructing ureter calculi clearly seen. Patient received 1 dose of IV Rocephin, 1/2 L of IV fluid, IV Tylenol, consult with nephrology and patient to be admitted to the cardiac stepdown unit. Dr. Del Valle has evaluated the patient and ordered hemodialysis today. 12/22/2018 patient is feeling slightly better. He describes feeling very poorly at home with the rigors. Relates they felt like when he had malaria and he was in [place] when he was in the . We discussed that bacterial infection some malaria often have similar feeling. There is no evidence of the positive blood culture with staph. This is related to the silver solution mixer because of potential concerns to infection of the hemodialysis catheter. 12/24/2018 patient does feel better. It is discussed with patient and family the likelihood that the dialysis catheter is a source of the infection. However we do have a blood cultures is now becoming negative. Objective - Vital Signs Vital signs: Vital Signs Temp 97.9 F 12/25/18 19:46 Pulse 65 12/25/18 21:02 Resp 20 12/25/18 19:46 BP 190/85 12/25/18 21:02 Pulse Ox 98 12/25/18 19:46 Intake & Output 12/25/18 12/25/18 12/26/18 06:59 18:59 06:59 Intake Total 840 180 Balance 840 180 Weight 71.9 kg Intake: Oral 840 180 Other: Voiding Method Toilet Toilet # Voids 3 2 1 # Bowel Movements 2 1 - Exam Gen: This is an 88-year-old male. He is sitting up on the ER stretcher and is eating lunch. He appears to be in no acute distress. No difficulty swallowing. Daughter is at bedside. HEENT: Head is atraumatic, normocephalic. Pupils equal, round. Sclerae is anicteric. Conjunctiva pink. Mucous members of the mouth are moist. No oropharyngeal edema or erythema. NECK: Supple. No JVD. No lymphadenopathy. No thyromegaly. LUNGS: Clear to auscultation. No wheezes or rhonchi. No intercostal retractions. HEART: Regular rate and rhythm. No murmur. ABDOMEN: Soft. Bowel sounds are present. No masses. No tenderness. EXTREMITIES: No pedal edema. No calf tenderness. Dorsalis pedis weak bilaterally. NEUROLOGICAL: Patient is awake, alert and oriented x3 - Labs CBC & Chem 7: 12/24/18 06:32 12/25/18 07:00 Labs: Abnormal Lab Results - Last 24 Hours (Table) 12/25/18 Range/Units 07:00 BUN 22 H (9-20) mg/dL Creatinine 4.89 H (0.66-1.25) mg/dL Glucose 103 H (74-99) mg/dL Calcium 7.5 L (8.4-10.2) mg/dL Microbiology - Last 24 Hours (Table) 12/22/18 14:37 Blood Culture - Final Blood 12/23/18 14:30 Blood Culture - Preliminary Blood No Growth after 48 hours 12/22/18 15:48 Blood Culture Gram Stain - Final Blood Blood Culture - Final Staphylococcus aureus Assessment and Plan (1) Staphylococcal sepsis Narrative/Plan: This elderly male is receiving hemodialysis. Has evidence of the volume overload with concerns to underlying sepsis. There is evidence of positive urine culture as well as positive blood culture with likelihood of sepsis from urinary system. He received Rocephin will add in vancomycin for now given the gram-positive nature of the sepsis. Follow blood cultures will be obtained, depending on pathogen will determine if there is concerns to infection of his hemodialysis catheter. 12/22/2018 patient is feeling slightly better today. The rigors have improved. Patient's daughter is present and we go over the data that there is a positive blood culture with what appears to be staph aureus. If further cultures are positive then the concern will be to an infected hemodialysis catheter. If that's the case he will then receive further hemodialysis here. Then the current dialysis catheter will be removed. He'll be given a short break off of IV access. The new catheter will be placed for him to continue his course of vancomycin therapy at the dialysis center over the next 4 weeks. 12/24/2018 the patient is feeling somewhat better. There are the 2 positive blood cultures for MSSA and now the third blood culture is negative so far. If third culture does remain negative and then consider catheter salvage although there is a somewhat high rate of failure. Given the patient's advanced age and access issues it is certainly at least worth a try to salvage the catheter. Can also work with the pharmacy for antibiotic lock solution in between vancomycin treatments. However if the third culture does become positive would then need to have the catheter removed. Current Visit: Yes Status: Acute Code(s): A41.2 - SEPSIS DUE TO UNSPECIFIED STAPHYLOCOCCUS SNOMED Code(s): 765186132 (2) End-stage renal disease on hemodialysis Current Visit: Yes Status: Acute Code(s): N18.6 - END STAGE RENAL DISEASE; Z99.2 - DEPENDENCE ON RENAL DIALYSIS SNOMED Code(s): 257641656
--- NOTE | 2018-12-26 00:10 | P.PN ---
Subjective Progress Note Date: 12/25/18 Patient is doing well today he has no more fever or chills he admits to feeling stronger and may want to walk today he has less abdominal pain. He is currently on IV hydration and IV antibiotics and he has scheduled dialysis today he continues to improve. Currently awaiting final diagnoses to see if he needs to have the permacath pulled with dialysis and antibiotics or permacath stays to be determined. Further culture results pending. Patient otherwise feels well wants to start moving more. Objective - Vital Signs Vital signs: Vital Signs Temp 97.9 F 12/25/18 19:46 Pulse 71 12/25/18 22:22 Resp 20 12/25/18 19:46 BP 173/73 12/25/18 22:22 Pulse Ox 98 12/25/18 19:46 Intake & Output 12/25/18 12/25/18 12/26/18 06:59 18:59 06:59 Intake Total 840 180 Balance 840 180 Weight 71.9 kg Intake: Oral 840 180 Other: Voiding Method Toilet Toilet # Voids 3 2 1 # Bowel Movements 2 1 - Exam GENERAL: Well-appearing, undernourished and in no acute distress. HEAD: Atraumatic, normocephalic. EYES: Pupils equal round and reactive to light, extraocular movements intact, sclera anicteric, conjunctiva are normal. ENT:nares patent, oropharynx clear without exudates. Moist mucous membranes. Heart of hearing with hearing aids out at this time NECK: Normal range of motion, supple without lymphadenopathy or JVD, no thyromegaly LUNGS: Slight wheezes bilateral HEART: Regular rate and rhythm without murmurs, rubs or gallops.S1S2 Normal ABDOMEN: Soft, nontender, normoactive bowel sounds. No guarding, no rebound. No masses appreciated. Multiple scars noted EXTREMITIES: range of motion ok for age, +2 edema. No clubbing or cyanosis. NEUROLOGICAL: Cranial nerves II through XII grossly intact. Normal speech, normal gait. PSYCH: Normal mood, normal affect. SKIN: Warm, Dry, normal turgor, no rashes or lesions noted. - Labs CBC & Chem 7: 12/24/18 06:32 12/25/18 07:00 Labs: Abnormal Lab Results - Last 24 Hours (Table) 01/25/19 Range/Units 07:00 BUN 22 H (9-20) mg/dL Creatinine 4.89 H (0.66-1.25) mg/dL Glucose 103 H (74-99) mg/dL Calcium 7.5 L (8.4-10.2) mg/dL Microbiology - Last 24 Hours (Table) 12/22/18 14:37 Blood Culture - Final Blood 12/23/18 14:30 Blood Culture - Preliminary Blood No Growth after 48 hours 12/22/18 15:48 Blood Culture Gram Stain - Final Blood Blood Culture - Final Staphylococcus aureus Assessment and Plan Assessment: 1. Acute sepsis. Mental status changes secondary to metabolic encephalopathy. End-stage renal disease chronic kidney failure requiring renal dialysis 3 times a week. Chronic diarrhea with currently large amounts fecal stasis. Multiple abdominal surgeries. Advanced age. 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 Generalized anasarca with evidence of fluid overload. Staphylococcus sepsis. Plan: Continued consultation by infectious disease and nephrology in progress. Will require dialysis for today. Await final cultures. Continue prophylaxis antibiotic therapy overall prognosis is guarded secondary to patient's advanced age and multiple cold morbidities patient wishes to be a DO NOT RESUSCITATE. We 'll continue to follow patient's progress
[2018-12-26] MEDS: ACETAMINOPHEN TAB 325 MG TAB PO PRN (01:47)
[2018-12-26] MEDS ORDERED: LIDOCAINE 1% INJ 10MG/ML (20 ML MDV) SQ ONE (07:00)
[2018-12-26] MEDS: ISOSORBIDE MONONITRATE ER 15 MG TAB PO SCH (07:57)
[2018-12-26] MEDS: METOPROLOL SUCCINATE (ER) 25 MG TAB.ER.24H PO SCH (07:57)
[2018-12-26] MEDS: LORATADINE 10 MG TAB PO SCH (07:58)
[2018-12-26] MEDS: TAMSULOSIN 0.4 MG CAP.ER.24H PO SCH (07:58)
[2018-12-26] MEDS: PSYLLIUM HUSK 100% 6 GM PACKET PO SCH (07:58)
[2018-12-26] MEDS ORDERED: VANCOMYCIN 1,250 MG in SODIUM CHLORIDE 0.9% 250 ML IVPB ONE (09:00)
[2018-12-26 09:12] LABS: Calcium 7.6 mg/dL (8.4-10.2); Potassium 3.5 mmol/L (3.5-5.1)
--- NOTE | 2018-12-26 10:29 | PCN ---
PROCEDURE NOTE PREOPERATIVE DIAGNOSIS: Infected right IJ dialysis catheter. POSTOPERATIVE DIAGNOSIS: PROCEDURE: Removal of the catheter. PROCEDURE: Patient was seen in his room. This patient has an infected catheter, right IJ for dialysis. The patient's right side of the neck and chest was prepped and draped in the usual sterile manner and 1% lidocaine plain infiltrated. A small incision was made at the exit site of the catheter. Catheter was removed. Tip of the catheter was sent for culture and sensitivity. The incision was closed with 5-0 nylon. Dressing was applied. Patient tolerated the procedure well. MMODL / IJN: [id number] /
[2018-12-26] MEDS: ASPIRIN 81 MG PO SCH (11:35)
[2018-12-26] MEDS: hydrALAZINE HCL 20 MG/ML 1 ML VIAL IVP PRN (22:10)
[2018-12-26] MEDS: ATORVASTATIN 10 MG TAB PO SCH (22:10)
[2018-12-27] MEDS: hydrALAZINE HCL 20 MG/ML 1 ML VIAL IVP PRN ×2 (02:02→20:00)
[2018-12-27 07:45] LABS: Anisocytosis Slight; Basophils % (A) 1 %; Eosinophils # (A) 0.2 k/uL (0-0.7); Eosinophils % (A) 3 %; HCT 25.1 % (39.0-53.0); HGB 7.7 gm/dL (13.0-17.5); Hypochromasia Marked; Lymphocytes # (A) 0.6 k/uL (1.0-4.8); Lymphocytes % (A) 10 %; MCH 30.8 pg (25.0-35.0); MCHC 30.7 g/dL (31.0-37.0); MCV 100.3 fL (80.0-100.0); Macrocytosis Slight; Mean Platelet Volume 7.1; Monocytes # (A) 0.4 k/uL (0-1.0); Monocytes % (A) 7 %; Neutrophils # (A) 4.7 k/uL (1.3-7.7); Neutrophils % (A) 78 %; Platelet Count 152 k/uL (150-450); RDW 17.4 % (11.5-15.5); WBC 6.1 k/uL (3.8-10.6)
[2018-12-27 08:28] LABS: Calcium 7.9 mg/dL (8.4-10.2); Potassium 3.5 mmol/L (3.5-5.1)
[2018-12-27] MEDS: TAMSULOSIN 0.4 MG CAP.ER.24H PO SCH (09:22)
[2018-12-27] MEDS: ASPIRIN 81 MG PO SCH (09:22)
[2018-12-27] MEDS: ISOSORBIDE MONONITRATE ER 15 MG TAB PO SCH (09:22)
[2018-12-27] MEDS: METOPROLOL SUCCINATE (ER) 25 MG TAB.ER.24H PO SCH (09:22)
[2018-12-27] MEDS: PSYLLIUM HUSK 100% 6 GM PACKET PO SCH (09:22)
[2018-12-27] MEDS: LORATADINE 10 MG TAB PO SCH (09:22)
--- NOTE | 2018-12-27 09:37 | P.PN ---
Subjective Progress Note Date: 12/26/18 82-year-old admitted the for sepsis from bacteremia from his hemodialysis access in the right subclavian area patient's urinalysis catheter was removed. Patient last positive blood cultures her on this month. Patient has MSSA patient is presently on both vancomycin and ceftezole and as per infectious disease patient is otherwise feeling well and patient probably on Friday will have another hemodialysis access and probably can be discharged after renal replacement therapy. Constitutional: Denied any fatigue denied any fever. Cardio vascular: denied any chest pain, palpitations Gastrointestinal denied any nausea vomiting Pulmonary: Denied any shortness of breath cough Neurologic denied any new focal deficits All inpatient medications were reviewed and appropriate changes in these medications as dictated in the interval history and assessment and plan. Objective - Vital Signs Vital signs: Vital Signs Temp 97.9 F 12/27/18 01:00 Pulse 70 12/27/18 03:45 Resp 16 12/27/18 03:45 BP 117/60 12/27/18 03:45 Pulse Ox 94 L 12/27/18 01:00 Intake & Output 12/26/18 12/27/18 12/27/18 18:59 06:59 18:59 Intake Total 590 Balance 590 Weight 68.5 kg Intake: Oral 590 Other: # Voids 2 - Exam PHYSICAL EXAMINATION: GENERAL: The patient is alert and oriented x3, not in any acute distress. Well developed, well nourished. HEENT: Pupils are round and equally reacting to light. EOMI. No scleral icterus. No conjunctival pallor. Normocephalic, atraumatic. No pharyngeal erythema. No thyromegaly. CARDIOVASCULAR: S1 and S2 present. No murmurs, rubs, or gallops. PULMONARY: Chest is clear to auscultation, no wheezing or crackles. ABDOMEN: Soft, nontender, nondistended, normoactive bowel sounds. No palpable organomegaly. MUSCULOSKELETAL: No joint swelling or deformity. EXTREMITIES: No cyanosis, clubbing, or pedal edema. NEUROLOGICAL: Gross neurological examination did not reveal any focal deficits. SKIN: No rashes. - Labs CBC & Chem 7: 12/27/18 06:32 12/27/18 06:32 Labs: Abnormal Lab Results - Last 24 Hours (Table) 12/27/18 12/27/18 Range/Units 06:32 06:32 RBC 2.50 L (4.30-5.90) m/uL Hgb 7.7 L (13.0-17.5) gm/dL Hct 25.1 L (39.0-53.0) % MCV 100.3 H (80.0-100.0) fL MCHC 30.7 L (31.0-37.0) g/dL RDW 17.4 H (11.5-15.5) % Lymphocytes # 0.6 L (1.0-4.8) k/uL Creatinine 4.70 H (0.66-1.25) mg/dL Calcium 7.9 L (8.4-10.2) mg/dL Microbiology - Last 24 Hours (Table) 12/23/18 14:30 Blood Culture Gram Stain - Preliminary Blood 12/23/18 14:30 Blood Culture - Final Blood 12/22/18 14:37 Blood Culture Gram Stain - Preliminary Blood Blood Culture - Preliminary Staphylococcus aureus Assessment and Plan Plan: -Sepsis secondary to infected dialysis catheter status post removal as mentioned above continue with the above-mentioned antibiotics possibility of discharge on Friday after placement of another hemodialysis access in renal replacement therapy -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 Patient will need the pharmacologic GI and DVT prophylaxis.
[2018-12-27] MEDS: ACETAMINOPHEN TAB 325 MG TAB PO PRN (09:51)
[2018-12-27] MEDS: FAMOTIDINE 20 MG TAB PO SCH (09:57)
--- NOTE | 2018-12-27 12:34 | P.PN ---
Subjective Progress Note Date: 12/27/18 Seen and examined for the follow-up of ESRD. Permacath was removed yesterday for MRSA bacteremia. Objective - Vital Signs Vital signs: Vital Signs Temp 97.8 F 12/27/18 09:20 Pulse 71 12/27/18 09:20 Resp 20 12/27/18 09:20 BP 151/69 12/27/18 09:20 Pulse Ox 96 12/27/18 09:20 Intake & Output 12/26/18 12/27/18 12/27/18 18:59 06:59 18:59 Intake Total 590 Output Total 50 Balance 590 -50 Weight 68.5 kg Intake: Oral 590 Output: Urine 50 Other: # Voids 2 - Exam No acute distress. S1-S2 heard. Lungs clear No edema - Labs CBC & Chem 7: 12/27/18 06:32 12/27/18 06:32 Labs: Abnormal Lab Results - Last 24 Hours (Table) 12/27/18 12/27/18 Range/Units 06:32 06:32 RBC 2.50 L (4.30-5.90) m/uL Hgb 7.7 L (13.0-17.5) gm/dL Hct 25.1 L (39.0-53.0) % MCV 100.3 H (80.0-100.0) fL MCHC 30.7 L (31.0-37.0) g/dL RDW 17.4 H (11.5-15.5) % Lymphocytes # 0.6 L (1.0-4.8) k/uL Creatinine 4.70 H (0.66-1.25) mg/dL Calcium 7.9 L (8.4-10.2) mg/dL Microbiology - Last 24 Hours (Table) 12/23/18 14:30 Blood Culture Gram Stain - Preliminary Blood Blood Culture - Preliminary Presumptive Staph aureus 12/26/18 10:15 Catheter Tip Culture - Preliminary Catheter Tip 12/23/18 14:30 Blood Culture - Final Blood 12/22/18 14:37 Blood Culture Gram Stain - Preliminary Blood Blood Culture - Preliminary Staphylococcus aureus Assessment and Plan Assessment: #1 status bacteremia #2 end-stage renal disease on hemodialysis MWF scheduled. 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 #2 currently on antibiotics as per infectious disease.
--- NOTE | 2018-12-27 17:18 | P.PN ---
Subjective 82-year-old admitted the for sepsis from bacteremia from his hemodialysis access in the right subclavian area patient's urinalysis catheter was removed. Patient last positive blood cultures her on this month. Patient has MSSA patient is presently on both vancomycin and ceftezole and as per infectious disease patient is otherwise feeling well and patient probably on Friday will have another hemodialysis access and probably can be discharged after renal replacement therapy. 12/27/2018 Patient is not bacteremic since should be able to get the hemodialysis access tomorrow and possibility of discharge to subacute rehabilitation tomorrow Constitutional: Denied any fatigue denied any fever. Cardio vascular: denied any chest pain, palpitations Gastrointestinal denied any nausea vomiting Pulmonary: Denied any shortness of breath cough Neurologic denied any new focal deficits All inpatient medications were reviewed and appropriate changes in these medications as dictated in the interval history and assessment and plan. Objective - Vital Signs Vital signs: Vital Signs Temp 97.1 F L 12/27/18 15:00 Pulse 62 12/27/18 15:00 Resp 12 12/27/18 15:00 BP 164/84 12/27/18 15:00 Pulse Ox 97 12/27/18 15:00 Intake & Output 12/26/18 12/27/18 12/27/18 18:59 06:59 18:59 Intake Total 590 1000 Output Total 50 Balance 590 950 Weight 68.5 kg Intake: Oral 590 1000 Output: Urine 50 Other: # Voids 2 - Exam PHYSICAL EXAMINATION: GENERAL: The patient is alert and oriented x3, not in any acute distress. Well developed, well nourished. HEENT: Pupils are round and equally reacting to light. EOMI. No scleral icterus. No conjunctival pallor. Normocephalic, atraumatic. No pharyngeal erythema. No thyromegaly. CARDIOVASCULAR: S1 and S2 present. No murmurs, rubs, or gallops. PULMONARY: Chest is clear to auscultation, no wheezing or crackles. ABDOMEN: Soft, nontender, nondistended, normoactive bowel sounds. No palpable organomegaly. MUSCULOSKELETAL: No joint swelling or deformity. EXTREMITIES: No cyanosis, clubbing, or pedal edema. NEUROLOGICAL: Gross neurological examination did not reveal any focal deficits. SKIN: No rashes. - Labs CBC & Chem 7: 12/27/18 06:32 12/27/18 06:32 Labs: Abnormal Lab Results - Last 24 Hours (Table) 12/27/18 12/27/18 Range/Units 06:32 06:32 RBC 2.50 L (4.30-5.90) m/uL Hgb 7.7 L (13.0-17.5) gm/dL Hct 25.1 L (39.0-53.0) % MCV 100.3 H (80.0-100.0) fL MCHC 30.7 L (31.0-37.0) g/dL RDW 17.4 H (11.5-15.5) % Lymphocytes # 0.6 L (1.0-4.8) k/uL Creatinine 4.70 H (0.66-1.25) mg/dL Calcium 7.9 L (8.4-10.2) mg/dL Microbiology - Last 24 Hours (Table) 12/23/18 14:30 Blood Culture Gram Stain - Preliminary Blood Blood Culture - Preliminary Presumptive Staph aureus 12/26/18 10:15 Catheter Tip Culture - Preliminary Catheter Tip 12/23/18 14:30 Blood Culture - Final Blood Assessment and Plan Plan: -Sepsis secondary to infected dialysis catheter status post removal as mentioned above continue with the above-mentioned antibiotics possibility of discharge on Friday after placement of another hemodialysis access in renal replacement therapy -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 Patient will need the pharmacologic GI and DVT prophylaxis.
[2018-12-27] MEDS: HEPARIN SODIUM,PORCINE 5,000 UNIT/ML 1 ML VIAL SQ SCH (20:00)
[2018-12-27] MEDS: ATORVASTATIN 10 MG TAB PO SCH (20:00)
[2018-12-27] MEDS ORDERED: LORazepam 1 MG TAB PO STA (21:45)
[2018-12-28] MEDS: ACETAMINOPHEN TAB 325 MG TAB PO PRN ×2 (07:24→21:17)
[2018-12-28 07:26] LABS: Potassium 3.4 mmol/L (3.5-5.1)
[2018-12-28] MEDS: METOPROLOL SUCCINATE (ER) 25 MG TAB.ER.24H PO SCH (07:29)
[2018-12-28] MEDS: ASPIRIN 81 MG PO SCH (07:29)
[2018-12-28] MEDS: ISOSORBIDE MONONITRATE ER 15 MG TAB PO SCH (07:29)
[2018-12-28] MEDS: FAMOTIDINE 20 MG TAB PO SCH (07:29)
[2018-12-28] MEDS: LORATADINE 10 MG TAB PO SCH (07:30)
[2018-12-28] MEDS: PSYLLIUM HUSK 100% 6 GM PACKET PO SCH (07:30)
[2018-12-28] MEDS: HEPARIN SODIUM,PORCINE 5,000 UNIT/ML 1 ML VIAL SQ SCH ×2 (07:30→21:17)
[2018-12-28] MEDS: TAMSULOSIN 0.4 MG CAP.ER.24H PO SCH (07:30)
[2018-12-28 07:31] LABS: Vancomycin,Random 22.8 ug/mL
[2018-12-28] MEDS: ceFAZolin 1,000 MG in DEXTROSE/WATER 1 50ML.BAG IVPB SCH (07:33)
[2018-12-28] MEDS ORDERED: POTASSIUM CHLORIDE ER 20 MEQ TAB.ER PO STA (09:00)
--- NOTE | 2018-12-28 09:30 | P.PN ---
Subjective Patient is seen in follow-up for end-stage renal disease. He is maintained on hemodialysis on a Friday schedule via permacath. Currently resting in bed. No chest pain or shortness of breath. Blood culture positive for staph aureus. He is maintained on IV vancomycin. No active complaints at this time. Permacath was removed on December 26. Vital signs are stable. General: The patient appeared well nourished and normally developed. HEENT: Head exam is unremarkable. Neck is without jugular venous distension. LUNGS: Lungs are clear to auscultation and percussion. Breath sounds decreased. HEART: Rate and Rhythm are regular. First and second heart sounds normal. No murmurs, rubs or gallops. ABDOMEN: Abdominal exam reveals normal bowel sounds. Non-tender and non- distended. No evidence of peritonitis. EXTREMITITES: No clubbing, cyanosis, or edema. Objective - Vital Signs Vital signs: Vital Signs Temp 97.7 F 12/28/18 07:00 Pulse 77 12/28/18 07:00 Resp 17 12/28/18 07:30 BP 164/80 12/28/18 07:00 Pulse Ox 96 12/28/18 07:00 Intake & Output 12/27/18 12/28/18 12/28/18 18:59 06:59 18:59 Intake Total 1000 Output Total 50 Balance 950 Weight 67.5 kg Intake: Oral 1000 Output: Urine 50 Other: Voiding Method Urinal Urinal # Voids 1 2 # Bowel Movements 2 - Labs CBC & Chem 7: 12/27/18 06:32 12/28/18 06:49 Labs: Abnormal Lab Results - Last 24 Hours (Table) 12/28/18 Range/Units 06:49 Sodium 135 L (137-145) mmol/L Potassium 3.4 L (3.5-5.1) mmol/L Carbon Dioxide 21 L (22-30) mmol/L BUN 23 H (9-20) mg/dL Creatinine 5.85 H (0.66-1.25) mg/dL Calcium 8.0 L (8.4-10.2) mg/dL Microbiology - Last 24 Hours (Table) 12/26/18 10:15 Catheter Tip Culture - Preliminary Catheter Tip 12/23/18 14:30 Blood Culture Gram Stain - Preliminary Blood Blood Culture - Preliminary Presumptive Staph aureus 12/23/18 14:30 Blood Culture - Final Blood Assessment and Plan Plan: Assessment: 1. End-stage renal disease maintained on hemodialysis on a Friday schedule. 2. Fever and hypotension with concern for sepsis. Noted to have staph aureus bacteremia. Potential source permacath which was removed on December 26. Infectious disease following. 3. Anemia of chronic kidney disease. Iron replete. Maintained on Aranesp. 4. History of BPH. 5. Hypokalemia from poor oral intake. Plan: Replace potassium. 40 mEq today. Needs a new permacath once cleared by infectious disease. No urgent need for dialysis today. Phosphorus level at goal. Follow-up cultures. Continue to monitor labs closely on a daily basis.
[2018-12-28] MEDS: DARBEPOETIN ALFA 40 MCG/0.4 ML SYRINGE SQ SCH (12:04)
[2018-12-28] MEDS: ATORVASTATIN 10 MG TAB PO SCH (21:17)
--- NOTE | 2018-12-28 23:28 | P.PN ---
Subjective Progress Note Date: 12/28/18 Patient is doing well today he has no more fever or chills he admits to feeling stronger and may want to walk today he has less abdominal pain. He is currently on IV hydration and IV antibiotics and he has scheduled dialysis today he continues to improve. Currently permacath has been removed and patient was recultured per Dr. Sahu apparently F cultures negative by tomorrow patient may be able to insert a permacath for dialysis and IV antibiotics. Objective - Vital Signs Vital signs: Vital Signs Temp 97.7 F 12/28/18 20:20 Pulse 64 12/28/18 20:20 Resp 18 12/28/18 20:20 BP 159/84 12/28/18 20:20 Pulse Ox 98 12/28/18 20:20 Intake & Output 12/28/18 12/28/18 12/29/18 06:59 18:59 06:59 Weight 67.5 kg Other: Voiding Method Urinal Urinal # Voids 1 2 1 # Bowel Movements 2 - Exam GENERAL: Well-appearing, undernourished and in no acute distress. HEAD: Atraumatic, normocephalic. EYES: Pupils equal round and reactive to light, extraocular movements intact, sclera anicteric, conjunctiva are normal. ENT:nares patent, oropharynx clear without exudates. Moist mucous membranes. Heart of hearing with hearing aids out at this time NECK: Normal range of motion, supple without lymphadenopathy or JVD, no thyromegaly LUNGS: Slight wheezes bilateral HEART: Regular rate and rhythm without murmurs, rubs or gallops.S1S2 Normal ABDOMEN: Soft, nontender, normoactive bowel sounds. No guarding, no rebound. No masses appreciated. Multiple scars noted EXTREMITIES: range of motion ok for age, +2 edema. No clubbing or cyanosis. NEUROLOGICAL: Cranial nerves II through XII grossly intact. Normal speech, normal gait. PSYCH: Normal mood, normal affect. SKIN: Warm, Dry, normal turgor, no rashes or lesions noted. - Labs CBC & Chem 7: 12/27/18 06:32 12/28/18 06:49 Labs: Abnormal Lab Results - Last 24 Hours (Table) 12/28/18 Range/Units 06:49 Sodium 135 L (137-145) mmol/L Potassium 3.4 L (3.5-5.1) mmol/L Carbon Dioxide 21 L (22-30) mmol/L BUN 23 H (9-20) mg/dL Creatinine 5.85 H (0.66-1.25) mg/dL Calcium 8.0 L (8.4-10.2) mg/dL Microbiology - Last 24 Hours (Table) 12/23/18 14:30 Blood Culture Gram Stain - Preliminary Blood Blood Culture - Preliminary Staphylococcus aureus 12/22/18 14:37 Blood Culture Gram Stain - Final Blood Blood Culture - Final Staphylococcus aureus 12/27/18 06:32 Blood Culture - Preliminary Blood No Growth after 24 hours 12/26/18 10:15 Catheter Tip Culture - Preliminary Catheter Tip Assessment and Plan Assessment: 1. Acute sepsis. Mental status changes secondary to metabolic encephalopathy. End-stage renal disease chronic kidney failure requiring renal dialysis 3 times a week. Chronic diarrhea with currently large amounts fecal stasis. Multiple abdominal surgeries. Advanced age. 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 Generalized anasarca with evidence of fluid overload. Staphylococcus sepsis. Plan: Continued consultation by infectious disease and nephrology in progress. If culture is negative from removed permacath then we'll consider reinsertion of catheter and discharged. Await final cultures. Continue prophylaxis antibiotic therapy overall prognosis is guarded secondary to patient's advanced age and multiple cold morbidities patient wishes to be a DO NOT RESUSCITATE. We 'll continue to follow patient's progress
[2018-12-29] MEDS ORDERED: TEMAZEPAM 15 MG CAP PO PRN (00:30)
[2018-12-29] MEDS: hydrALAZINE HCL 20 MG/ML 1 ML VIAL IVP PRN (00:52)
[2018-12-29 07:30] LABS: Calcium 7.8 mg/dL (8.4-10.2); Potassium 3.6 mmol/L (3.5-5.1)
[2018-12-29] MEDS: FAMOTIDINE 20 MG TAB PO SCH (07:54)
[2018-12-29] MEDS: METOPROLOL SUCCINATE (ER) 25 MG TAB.ER.24H PO SCH (07:54)
[2018-12-29] MEDS: LORATADINE 10 MG TAB PO SCH (07:54)
[2018-12-29] MEDS: TAMSULOSIN 0.4 MG CAP.ER.24H PO SCH (07:54)
[2018-12-29] MEDS: PSYLLIUM HUSK 100% 6 GM PACKET PO SCH (07:55)
[2018-12-29] MEDS: ISOSORBIDE MONONITRATE ER 15 MG TAB PO SCH (07:55)
[2018-12-29] MEDS: ASPIRIN 81 MG PO SCH (07:55)
[2018-12-29] MEDS: HEPARIN SODIUM,PORCINE 5,000 UNIT/ML 1 ML VIAL SQ SCH ×2 (07:55→20:59)
[2018-12-29] MEDS: ACETAMINOPHEN TAB 325 MG TAB PO PRN (08:44)
[2018-12-29 09:20] LABS: Vancomycin,Random 19.4 ug/mL
--- NOTE | 2018-12-29 11:21 | P.PN ---
Subjective Patient is seen in follow-up for end-stage renal disease. He is maintained on hemodialysis on a Friday schedule via permacath. Currently resting in bed. No chest pain or shortness of breath. Blood culture positive for staph aureus. He is maintained on IV vancomycin. No active complaints at this time. Permacath was removed on December 26. Last set of blood cultures has been negative. Vital signs are stable. General: The patient appeared well nourished and normally developed. HEENT: Head exam is unremarkable. Neck is without jugular venous distension. LUNGS: Lungs are clear to auscultation and percussion. Breath sounds decreased. HEART: Rate and Rhythm are regular. First and second heart sounds normal. No murmurs, rubs or gallops. ABDOMEN: Abdominal exam reveals normal bowel sounds. Non-tender and non- distended. No evidence of peritonitis. EXTREMITITES: No clubbing, cyanosis, or edema. Objective - Vital Signs Vital signs: Vital Signs Temp 97.4 F L 12/29/18 07:00 Pulse 72 12/29/18 07:00 Resp 16 12/29/18 07:25 BP 162/81 12/29/18 07:00 Pulse Ox 95 12/29/18 07:00 Intake & Output 12/28/18 12/29/18 12/29/18 18:59 06:59 18:59 Weight 72.5 kg 72.5 kg Other: Voiding Method Urinal Urinal # Voids 2 2 - Labs CBC & Chem 7: 12/27/18 06:32 12/29/18 06:20 Labs: Abnormal Lab Results - Last 24 Hours (Table) 12/29/18 Range/Units 06:20 Sodium 135 L (137-145) mmol/L Carbon Dioxide 21 L (22-30) mmol/L BUN 28 H (9-20) mg/dL Creatinine 6.62 H (0.66-1.25) mg/dL Calcium 7.8 L (8.4-10.2) mg/dL Microbiology - Last 24 Hours (Table) 12/27/18 06:32 Blood Culture - Preliminary Blood No Growth after 48 hours 12/26/18 10:15 Catheter Tip Culture - Final Catheter Tip 12/23/18 14:30 Blood Culture Gram Stain - Final Blood Blood Culture - Final Staphylococcus aureus 12/22/18 14:37 Blood Culture Gram Stain - Final Blood Blood Culture - Final Staphylococcus aureus Assessment and Plan Plan: Assessment: 1. End-stage renal disease maintained on hemodialysis on a Friday schedule. 2. Fever and hypotension with concern for sepsis. Noted to have staph aureus bacteremia. Potential source permacath which was removed on December 26. Infectious disease following. 3. Anemia of chronic kidney disease. Iron replete. Maintained on Aranesp. 4. History of BPH. 5. Hypokalemia from poor oral intake. Better post replacement. Plan: Await clearance from infectious disease for new dialysis catheter placement. Will plan on 2 hours of hemodialysis treatment today and a full treatment tomorrow. Phosphorus level at goal.
[2018-12-29] MEDS ORDERED: fentaNYL (PF) 50 MCG/ML 2 ML AMP IVP ONE (15:40)
[2018-12-29] MEDS ORDERED: LIDOCAINE 1% INJ 10MG/ML (20 ML MDV) SQ ONE (15:45)
[2018-12-29] MEDS ORDERED: IV FLUID CONTINUATION 1,000 ML IV ONE (15:51)
[2018-12-29] MEDS ORDERED: VANCOMYCIN 1,250 MG in SODIUM CHLORIDE 0.9% 250 ML IVPB ONE (16:00)
--- NOTE | 2018-12-29 17:09 | XR ---
EXAMINATION TYPE: XR chest 1V portable DATE OF EXAM: 12/29/2018 COMPARISON: 12/21/2018 HISTORY: New dialysis catheter TECHNIQUE: Single frontal view of the chest is obtained. FINDINGS: There is right central venous catheter with the tip in the superior vena cava. No pneumoth orax. There is mild pulmonary vascular congestion. There is blunting of costophrenic angles. There is left axillary pacemaker noted with the lead tips over the right ventricle. IMPRESSION: Catheter in good position. Pleural effusions and mild heart failure slightly worse than last exam. There is possible bilateral lower lobe pneumonia.
--- NOTE | 2018-12-29 18:56 | IR ---
Fluoroscopy HISTORY: Dialysis catheter placement 1.9 minutes fluoroscopy time supplied to the referring clinician. 148 intraoperative C-arm images do cument the procedure. See dictated report from vascular surgery.
[2018-12-29] MEDS: ATORVASTATIN 10 MG TAB PO SCH (20:58)
--- NOTE | 2018-12-29 21:32 | P.PN ---
Subjective Progress Note Date: 12/29/18 Patient is doing well today he has no more fever or chills he admits to feeling stronger and may want to walk today he has less abdominal pain. He is currently on IV hydration and IV antibiotics and he has scheduled dialysis today he continues to improve. Currently permacath has been removed and patient was recultured per Dr. Sahu apparently F cultures negative hopes to do permacath dialysis catheter insertion today. Nephrology plans to get dialysis tomorrow and I'm hoping patient can be discharged tomorrow if everything works out well. Objective - Vital Signs Vital signs: Vital Signs Temp 97.6 F 12/29/18 15:00 Pulse 72 12/29/18 07:00 Resp 16 12/29/18 15:00 BP 160/80 12/29/18 15:00 Pulse Ox 96 12/29/18 15:00 Intake & Output 12/29/18 12/29/18 12/30/18 06:59 18:59 06:59 Intake Total 50 Balance 50 Weight 72.5 kg 72.5 kg Intake: IV 50 Other: Voiding Method Urinal # Voids 2 4 1 - Exam GENERAL: Well-appearing, undernourished and in no acute distress. HEAD: Atraumatic, normocephalic. EYES: Pupils equal round and reactive to light, extraocular movements intact, sclera anicteric, conjunctiva are normal. ENT:nares patent, oropharynx clear without exudates. Moist mucous membranes. Heart of hearing with hearing aids out at this time NECK: Normal range of motion, supple without lymphadenopathy or JVD, no thyromegaly LUNGS: Slight wheezes bilateral HEART: Regular rate and rhythm without murmurs, rubs or gallops.S1S2 Normal ABDOMEN: Soft, nontender, normoactive bowel sounds. No guarding, no rebound. No masses appreciated. Multiple scars noted EXTREMITIES: range of motion ok for age, +2 edema. No clubbing or cyanosis. NEUROLOGICAL: Cranial nerves II through XII grossly intact. Normal speech, normal gait. PSYCH: Normal mood, normal affect. SKIN: Warm, Dry, normal turgor, no rashes or lesions noted. - Labs CBC & Chem 7: 12/27/18 06:32 12/29/18 06:20 Labs: Abnormal Lab Results - Last 24 Hours (Table) 12/29/18 Range/Units 06:20 Sodium 135 L (137-145) mmol/L Carbon Dioxide 21 L (22-30) mmol/L BUN 28 H (9-20) mg/dL Creatinine 6.62 H (0.66-1.25) mg/dL Calcium 7.8 L (8.4-10.2) mg/dL Microbiology - Last 24 Hours (Table) 12/27/18 06:32 Blood Culture - Preliminary Blood No Growth after 48 hours 12/26/18 10:15 Catheter Tip Culture - Final Catheter Tip 12/23/18 14:30 Blood Culture Gram Stain - Final Blood Blood Culture - Final Staphylococcus aureus Assessment and Plan Assessment: 1. Acute sepsis. Mental status changes secondary to metabolic encephalopathy. End-stage renal disease chronic kidney failure requiring renal dialysis 3 times a week. Chronic diarrhea with currently large amounts fecal stasis. Multiple abdominal surgeries. Advanced age. 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 Generalized anasarca with evidence of fluid overload. Staphylococcus sepsis. Plan: Continued consultation by infectious disease and nephrology in progress. If culture is negative from removed permacath then we'll consider reinsertion of catheter and discharged. Await final cultures. Continue prophylaxis antibiotic therapy overall prognosis is guarded secondary to patient's advanced age and multiple cold morbidities patient wishes to be a DO NOT RESUSCITATE. We 'll continue to follow patient's progress
--- NOTE | 2018-12-29 21:57 | PCN ---
PROCEDURE NOTE PREOP DIAGNOSIS: Acute on chronic renal failure. PROCEDURE PERFORMED: Ultrasound-guided 90 cm dialysis catheter placed right jugular approach. SEDATION: Time is 36 minutes. DESCRIPTION OF PROCEDURE: The patient brought to the pit laborer. Right side of the neck and chest was prepped and drapes applied in usual sterile manner. 1% lidocaine infiltrated. Ultrasound-guided micropuncture into the right internal jugular vein. Then we passed a guidewire and a regular guide was passed and through the sheath and guide was parked in the inferior vena cava. Then the tunnel was created. Through the tunnel we brought 90 cm dialysis catheter. Sheath was advanced on the top of the guidewire. Through the sheath we introduced the dialysis catheter. Tip of the catheter in superior vena cava and atrium, flushed with heparin saline and hep-locked. Incision was closed with Vicryl and nylon. Dressing applied. Patient tolerated the procedure well. MMODL / IJN: [id number] /
[2018-12-30] MEDS: hydrALAZINE HCL 20 MG/ML 1 ML VIAL IVP PRN (00:19)
[2018-12-30 07:25] LABS: Calcium 7.7 mg/dL (8.4-10.2); Potassium 3.9 mmol/L (3.5-5.1)
[2018-12-30 07:28] VITALS: BP 161/69; PULSE 69; RESP 18; TEMP 98.3
[2018-12-30] MEDS: ACETAMINOPHEN TAB 325 MG TAB PO PRN (08:00)
--- NOTE | 2018-12-30 10:05 | P.PN ---
Subjective Patient is seen in follow-up for end-stage renal disease. He is maintained on hemodialysis on a Friday schedule via permacath. Currently resting in bed. No chest pain or shortness of breath. Blood culture positive for staph aureus. He is maintained on IV vancomycin. No active complaints at this time. Permacath was removed on December 26 and a new one was placed on December 29. He underwent hemodialysis yesterday and is currently seen while undergoing hemodialysis today. Last set of blood cultures has been negative. Vital signs are stable. General: The patient appeared well nourished and normally developed. HEENT: Head exam is unremarkable. Neck is without jugular venous distension. LUNGS: Lungs are clear to auscultation and percussion. Breath sounds decreased. HEART: Rate and Rhythm are regular. First and second heart sounds normal. No murmurs, rubs or gallops. ABDOMEN: Abdominal exam reveals normal bowel sounds. Non-tender and non- distended. No evidence of peritonitis. EXTREMITITES: No clubbing, cyanosis, or edema. Objective - Vital Signs Vital signs: Vital Signs Temp 98.3 F 12/30/18 07:54 Pulse 69 12/30/18 07:54 Resp 18 12/30/18 07:54 BP 161/69 12/30/18 07:54 Pulse Ox 97 12/30/18 07:54 Intake & Output 12/29/18 12/30/18 12/30/18 18:59 06:59 18:59 Intake Total 50 Balance 50 Weight 72.5 kg 71.5 kg Intake: IV 50 Other: Voiding Method Urinal # Voids 4 1 - Labs CBC & Chem 7: 12/27/18 06:32 12/30/18 06:34 Labs: Abnormal Lab Results - Last 24 Hours (Table) 12/30/18 Range/Units 06:34 Sodium 135 L (137-145) mmol/L BUN 23 H (9-20) mg/dL Creatinine 5.40 H (0.66-1.25) mg/dL Calcium 7.7 L (8.4-10.2) mg/dL Microbiology - Last 24 Hours (Table) 12/27/18 06:32 Blood Culture - Preliminary Blood No Growth after 72 hours 12/26/18 10:15 Catheter Tip Culture - Final Catheter Tip 12/23/18 14:30 Blood Culture Gram Stain - Final Blood Blood Culture - Final Staphylococcus aureus Assessment and Plan Plan: Assessment: 1. End-stage renal disease maintained on hemodialysis on a Friday schedule. 2. Fever and hypotension with concern for sepsis. Noted to have staph aureus bacteremia. Potential source permacath which was removed on December 26 and a new catheter was placed December 29. Infectious disease following. 3. Anemia of chronic kidney disease. Iron replete. Maintained on Aranesp. 4. History of BPH. 5. Hypokalemia from poor oral intake. Better post replacement. Plan: Currently seen while undergoing hemodialysis. Next treatment on Friday. Phosphorus level at goal. Stable for discharge from nephrology standpoint if cleared by infectious disease.
[2018-12-30] MEDS: PSYLLIUM HUSK 100% 6 GM PACKET PO SCH (10:32)
[2018-12-30] MEDS: FAMOTIDINE 20 MG TAB PO SCH (10:32)
[2018-12-30] MEDS: TAMSULOSIN 0.4 MG CAP.ER.24H PO SCH (10:32)
[2018-12-30] MEDS: HEPARIN SODIUM,PORCINE 5,000 UNIT/ML 1 ML VIAL SQ SCH (10:32)
[2018-12-30] MEDS: ASPIRIN 81 MG PO SCH (10:33)
[2018-12-30] MEDS: ISOSORBIDE MONONITRATE ER 15 MG TAB PO SCH (10:33)
[2018-12-30] MEDS: LORATADINE 10 MG TAB PO SCH (10:33)
[2018-12-30] MEDS: METOPROLOL SUCCINATE (ER) 25 MG TAB.ER.24H PO SCH (10:33)
[2018-12-30] MEDS: ceFAZolin 1,000 MG in DEXTROSE/WATER 1 50ML.BAG IVPB SCH (10:37)
--- NOTE | 2018-12-30 23:15 | P.DS ---
Providers Date of admission: 12/21/18 11:01 Attending physician: Garfield Hanna Consults: 12/21/18 10:45 Consult Physician Stat Consulting Provider: Grzegorz Gonzalez Consult Reason/Comments: Sepsis Do you want consulting provider notified?: Yes Consult Physician Stat Consulting Provider: Faizan Del Valle Consult Reason/Comments: Dialysis Do you want consulting provider notified?: Yes 12/25/18 20:44 Consult Physician Stat Consulting Provider: Didier Barrios Consult Reason/Comments: Removal of Dialysis Cath. Do you want consulting provider notified?: Yes Primary care physician: Garfield Hanna - Discharge Diagnosis(es) (1) Abdominal pain Status: Acute (2) Acute on chronic renal failure Status: Acute (3) Chest pain Status: Acute (4) End-stage renal disease on hemodialysis Status: Acute (5) Fever Status: Acute (6) Staphylococcal sepsis Status: Acute Hospital Course: Patient is a pleasant 88-year-old white male who was admitted to the hospital for acute sepsis. Later found to be pneumococcal associated sepsis. Infectious disease was consulted Dr. Gonzalez. He is placed on prophylactic broad -spectrum spectrum antibiotic. Is currently on vancomycin IV. His per right permacath was removed and a new culture and new catheter was inserted he remains on dialysis Friday but has been cleared for discharge today Patient Condition at Discharge: Stable Plan - Discharge Summary Discharge Rx Participant: No New Discharge Prescriptions: New Vancomycin 0 mg IVPB Q24HR #28 day Continue Simvastatin [Zocor] 20 mg PO HS Tamsulosin [Flomax] 0.4 mg PO PC-BRKFST #30 tab Acetaminophen [Tylenol] 650 mg PO DAILY PRN PRN Reason: Pain Metoprolol Succinate [Toprol XL] 12.5 mg PO DAILY Isosorbide Mononitrate ER [Imdur] 15 mg PO DAILY Psyllium Husk 100% [Metamucil Packet] 6 gm PO DAILY Aspirin 81 mg PO DAILY #30 chew Loratadine [Claritin] 10 mg PO DAILY #30 tab Discontinued Krill Oil 500 mg PO DAILY Discharge Medication List Simvastatin [Zocor] 20 mg PO HS 12/19/15 [History] Tamsulosin [Flomax] 0.4 mg PO PC-BRKFST #30 tab 06/12/18 [Rx] Acetaminophen [Tylenol] 650 mg PO DAILY PRN 09/18/18 [History] Isosorbide Mononitrate ER [Imdur] 15 mg PO DAILY 11/05/18 [History] Metoprolol Succinate [Toprol XL] 12.5 mg PO DAILY 11/05/18 [History] Psyllium Husk 100% [Metamucil Packet] 6 gm PO DAILY 11/05/18 [History] Aspirin 81 mg PO DAILY #30 chew 11/10/18 [Rx] Loratadine [Claritin] 10 mg PO DAILY #30 tab 11/10/18 [Rx] Vancomycin 0 mg IVPB Q24HR #28 day 12/25/18 [Rx] Follow up Appointment(s)/Referral(s): Garfield Hanna DO [Primary Care Provider] - 1 Week ([facility]) Faizan Del Valle DO [STAFF PHYSICIAN] - As Needed (Please follow up at dialysis.) Ambulatory/Diagnostic Orders: Basic Metabolic Panel [LAB.AMB] Location: None Selected Complete Blood Count w/diff [LAB.AMB] Location: None Selected Vancomycin,Trough [LAB.AMB] Location: None Selected Patient Instructions/Handouts: Bacteremia (DC) Activity/Diet/Wound Care/Special Instructions: Vancomycin faxed to [facility] where they will infuse with hemodialysis treatments for 28 treatments Discharge Disposition: HOME SELF-CARE
== END 2018-12-30 15:19 | disposition home or self-care (01) | DRG 314 ==
LOC: EC 07:12 → 3SCARD 11:01 → 4SSUR 12-24 09:48
PROVIDERS: ADMIT Family Medicine; ATTEND Family Medicine
PROC: 5A1D70Z Performance of Urinary Filtration, Intermittent, Less than 6 Hours Per Day (ICD-10-PCS; 2018-12-25)
PROC: 05PY33Z Removal of Infusion Device from Upper Vein, Percutaneous Approach (ICD-10-PCS; 2018-12-26)
PROC: 0JH60XZ Insertion of Tunneled Vascular Access Device into Chest Subcutaneous Tissue and Fascia, Open Approach (ICD-10-PCS; principal; 2018-12-29 15:32)
PROC: 02HV33Z Insertion of Infusion Device into Superior Vena Cava, Percutaneous Approach (ICD-10-PCS; 2018-12-29 15:32)
DX: T82.7XXA Infection and inflammatory reaction due to other cardiac and vascular devices, implants and grafts, initial encounter (principal); A41.01 Sepsis due to Methicillin susceptible Staphylococcus aureus; G93.41 Metabolic encephalopathy; N18.6 End stage renal disease; I13.2 Hypertensive heart and chronic kidney disease with heart failure and with stage 5 chronic kidney disease, or end stage renal disease; N17.9 Acute kidney failure, unspecified; J98.11 Atelectasis; I50.9 Heart failure, unspecified; D63.1 Anemia in chronic kidney disease; E78.5 Hyperlipidemia, unspecified; E87.6 Hypokalemia; E83.89 Other disorders of mineral metabolism; K52.9 Noninfective gastroenteritis and colitis, unspecified; N20.0 Calculus of kidney; N40.0 Benign prostatic hyperplasia without lower urinary tract symptoms; E55.9 Vitamin D deficiency, unspecified; M19.90 Unspecified osteoarthritis, unspecified site; K57.90 Diverticulosis of intestine, part unspecified, without perforation or abscess without bleeding; Z66 Do not resuscitate; Z79.82 Long term (current) use of aspirin; Z79.899 Other long term (current) drug therapy; Z99.2 Dependence on renal dialysis; Z96.641 Presence of right artificial hip joint; Z95.0 Presence of cardiac pacemaker; Z87.09 Personal history of other diseases of the respiratory system; Z90.49 Acquired absence of other specified parts of digestive tract; Z98.42 Cataract extraction status, left eye; Z98.41 Cataract extraction status, right eye; Z96.1 Presence of intraocular lens; Z87.891 Personal history of nicotine dependence; Z82.49 Family history of ischemic heart disease and other diseases of the circulatory system; Y83.8 Other surgical procedures as the cause of abnormal reaction of the patient, or of later complication, without mention of misadventure at the time of the procedure
CPT/HCPCS: 36415; 36558; 71045; 71046; 74176; 76937; 77001; 80048; 80053; 80202; 81001; 82533; 82550; 82553; 82728; 83540; 83550; 83605; 83690; 83880; 84100; 84484; 85025; 85610; 85730; 87040; 87070; 87077; 87086; 87186; 90935; 93005; 94760; 96361; 96365; 96366; 96375; 99285

== ENCOUNTER 2019-01-10 14:47 | Observation (INO) | payer MEDICARE, OTHER ==
[2019-01-10] MEDS ORDERED: SODIUM CHLORIDE 0.9% 500 ML 500 ML IV ONE (15:42)
[2019-01-10] MEDS ORDERED: DIPH,PERTUS(ACELL)TETVAC-LF 0.5 ML VIAL IM ONE (15:42)
--- NOTE | 2019-01-10 15:48 | ED ---
General Adult HPI - General Source: patient, RN notes reviewed Mode of arrival: wheelchair Limitations: no limitations <Evin Junior - Last Filed: 01/10/19 17:01> <Danny Mercedes - Last Filed: 01/10/19 18:50> - General Chief complaint: Fall Stated complaint: Head lac/fall Time Seen by Provider: 01/10/19 15:00 - History of Present Illness Initial comments: This is an 88-year-old male who presents emergency Department after he lost his balance and fell. Patient did strike his head but did not lose consciousness and denies any headache. Patient also denies being dazed. Patient states he turned quickly lost his balance that is why fell. Patient denies any neck pain patient denies any numbness or weakness. Patient believes his mental status is more depressed since his fall but he has been experiencing similar symptoms of altered mental status since his last admission to the hospital. Patient denies any chest pain shortness of breath or difficulty breathing. Patient denies any recent fever chills or cough. Patient denies any abdominal pain patient denies nausea vomiting or diarrhea recently. (Evin Junior) - Related Data Home Medications Medication Instructions Recorded Confirmed Simvastatin [Zocor] 20 mg PO HS 12/19/15 01/10/19 Isosorbide Mononitrate ER [Imdur] 15 mg PO DAILY 11/05/18 01/10/19 Metoprolol Succinate [Toprol XL] 12.5 mg PO DAILY 11/05/18 01/10/19 Calcium Acetate [Phoslo] 667 mg PO TID 01/10/19 01/10/19 Cholestyramine (with Sugar) 4 gm PO HS PRN 01/10/19 01/10/19 [Cholestyramine Packet] Krill Oil 500 mg PO DAILY 01/10/19 01/10/19 Previous Rx's Medication Instructions Recorded Tamsulosin [Flomax] 0.4 mg PO PC-BRKFST #30 tab 06/12/18 Aspirin 81 mg PO DAILY #30 chew 11/10/18 Loratadine [Claritin] 10 mg PO DAILY #30 tab 11/10/18 Allergies Allergy/AdvReac Type Severity Reaction Status Date / Time No Known Allergies Allergy Verified 01/10/19 15:21 Review of Systems ROS Other: All systems not noted in ROS Statement are negative. <Evin Junior - Last Filed: 01/10/19 17:01> ROS Other: All systems not noted in ROS Statement are negative. <Danny Mercedes - Last Filed: 01/10/19 18:50> ROS Statement: Those systems with pertinent positive or pertinent negative responses have been documented in the HPI. Past Medical History Past Medical History: Blood Disorder, Dialysis, Hyperlipidemia, Hypertension, Osteoarthritis (OA), Prostate Disorder, Renal Disease Additional Past Medical History / Comment(s): ESRD with hemodialysis which started about 3 weeks ago, anemia, heart block with pacer, arthritis in hands, neck, back pain, bowel obstructions, diverticulitis, vitamin D deficiency, BPH with surgery, asthma as a child, sinusitis. History of Any Multi-Drug Resistant Organisms: None Reported Past Surgical History: Adenoidectomy, Appendectomy, Bowel Resection, Joint Replacement, Pacemaker, Prostate Surgery, Tonsillectomy Additional Past Surgical History / Comment(s): R sided permacath, bowel resections x 3/lysis of adhesions, total R hip arthroplasty, cataract removal with lens implants bilaterally, colonoscopy, circumcism Past Anesthesia/Blood Transfusion Reactions: No Reported Reaction Additional Past Anesthesia/Blood Transfusion Reaction / Comment(s): Pt has received blood without reaction. Type of Cardiac Device: Permanent Pacemaker Device Placement Date:: 06/11/18 Past Psychological History: No Psychological Hx Reported Smoking Status: Former smoker Past Alcohol Use History: Occasional Past Drug Use History: None Reported - Past Family History Father Family Medical History: Coronary Artery Disease (CAD) Additional Family Medical History / Comment(s): Father at 75 of heart problems. Mother Family Medical History: No Reported History Additional Family Medical History / Comment(s): Mother was healthy. She at 71 yrs in MVA. <Evin Junior - Last Filed: 01/10/19 17:01> General Exam Limitations: no limitations <Evin Junior - Last Filed: 01/10/19 17:01> <Danny Mercedes - Last Filed: 01/10/19 18:50> - General Exam Comments Initial Comments: GENERAL: Patient is well-developed and well-nourished. Patient is nontoxic and well- hydrated and is in no acute distress. Patient has a small avulsion on the forehead measuring approximately 1 cm in diameter ENT: Neck is soft and supple. No significant lymphadenopathy is noted. Oropharynx is clear. Moist mucous membranes. Neck has full range of motion without eliciting any pain. EYES: The sclera were anicteric and conjunctiva were pink and moist. Extraocular movements were intact and pupils were equal round and reactive to light. Eyelids were unremarkable. PULMONARY: Unlabored respirations. Good breath sounds bilaterally. No audible rales rhonchi or wheezing was noted. CARDIOVASCULAR: There is a regular rate and rhythm without any murmurs gallops or rubs. ABDOMEN: Soft and nontender with normal bowel sounds. No palpable organomegaly was noted. There is no palpable pulsatile mass. SKIN: Skin is clear with no lesions or rashes and otherwise unremarkable. NEUROLOGIC: Patient is alert and oriented x3. Cranial nerves II through XII are grossly intact. Motor and sensory are also intact. Normal speech, volume and content. Symmetrical smile. MUSCULOSKELETAL: Normal extremities with adequate strength and full range of motion. No lower extremity swelling or edema. No calf tenderness. LYMPHATICS: No significant lymphadenopathy is noted PSYCHIATRIC: Normal psychiatric evaluation. (Evin Junior) Vital Signs 01/10/19 01/10/19 01/10/19 14:53 17:00 17:29 Temperature 97.7 F 97.4 F L Pulse Rate 89 60 Respiratory 18 20 22 Rate Blood Pressure 156/90 165/108 O2 Sat by Pulse 97 97 96 Oximetry Medical Decision Making - Lab Data Result diagrams: 01/10/19 16:10 01/10/19 16:10 <Evin Junior - Last Filed: 01/10/19 17:01> - Lab Data Result diagrams: 01/10/19 16:10 01/10/19 16:10 - Radiology Data Radiology results: report reviewed (Computed tomography scan the brain shows atrophy with preventricular white matter ischemic type change. Punctate hyperdensity likely calcification, this was also present in 2016. Soft tissue swelling.) <Danny Mercedes - Last Filed: 01/10/19 18:50> - Medical Decision Making EKG shows a paced rhythm at 61 bpm there is no P waves secondary to the paced rhythm QRS is 150 QTC is 492 QTC is 495. Patient's EKG shows no ST segment elevation or depression. Dr. Mercedes taking over the care of this patient at 5 PM (Evin uJnior) Patient reevaluated and resting comfortably in bed. Patient smells does appear dry. Family states patient has been more confused over the past couple of weeks since discharge. Patient is been more fatigued and sleeping more often. They're worried the patient's speech is somewhat off. No focal weaknesses. No focal deficits on exam. Patient does have small puncture to the upper scalp. Case was discussed in detail with Dr. Laurent, covering for Dr. Hanna who will admit. Troponin is slightly increased from the normal range however patient is on dialysis. Urinalysis is suspicious and culture will be ordered. Patient will be given a dose of Rocephin at this time. Family is interested in discontinuing all nonessential medications. (Danny Mercedes) - Lab Data Lab Results 01/10/19 01/10/19 01/10/19 Range/Units 16:10 16:10 16:10 WBC 7.5 (3.8-10.6) k/uL RBC 2.94 L (4.30-5.90) m/uL Hgb 9.0 L (13.0-17.5) gm/dL Hct 31.0 L (39.0-53.0) % MCV 105.6 H D (80.0-100.0) fL MCH 30.8 (25.0-35.0) pg MCHC 29.1 L (31.0-37.0) g/dL RDW 18.2 H (11.5-15.5) % Plt Count 191 (150-450) k/uL Neutrophils % 74 % Lymphocytes % 10 % Monocytes % 10 % Eosinophils % 4 % Basophils % 1 % Neutrophils # 5.6 (1.3-7.7) k/uL Lymphocytes # 0.7 L (1.0-4.8) k/uL Monocytes # 0.7 (0-1.0) k/uL Eosinophils # 0.3 (0-0.7) k/uL Basophils # 0.1 (0-0.2) k/uL Hypochromasia Marked Anisocytosis Slight Macrocytosis Marked PT (9.0-12.0) sec INR (<1.2) APTT (22.0-30.0) sec Sodium 136 L (137-145) mmol/L Potassium 3.8 (3.5-5.1) mmol/L Chloride 99 (98-107) mmol/L Carbon Dioxide 30 (22-30) mmol/L Anion Gap 7 mmol/L BUN 16 (9-20) mg/dL Creatinine 4.36 H (0.66-1.25) mg/dL Est GFR (CKD-EPI)AfAm 13 (>60 ml/min/1.73 sqM) Est GFR (CKD-EPI)NonAf 11 (>60 ml/min/1.73 sqM) Glucose 96 (74-99) mg/dL Calcium 7.8 L (8.4-10.2) mg/dL Total Bilirubin 0.4 (0.2-1.3) mg/dL AST 24 (17-59) U/L ALT 27 (21-72) U/L Alkaline Phosphatase 89 (38-126) U/L Total Creatine Kinase 74 (55-170) U/L CK-MB (CK-2) 3.1 H (0.0-2.4) ng/mL CK-MB (CK-2) Rel Index 4.2 Troponin I 0.050 H* (0.000-0.034) ng/mL Total Protein 5.4 L (6.3-8.2) g/dL Albumin 3.0 L (3.5-5.0) g/dL Urine Color Urine Appearance (Clear) Urine pH (5.0-8.0) Ur Specific Wallace (1.001-1.035) Urine Protein (Negative) Urine Glucose (UA) (Negative) Urine Ketones (Negative) Urine Blood (Negative) Urine Nitrite (Negative) Urine Bilirubin (Negative) Urine Urobilinogen (<2.0) mg/dL Ur Leukocyte Esterase (Negative) Urine RBC (0-5) /hpf Urine WBC (0-5) /hpf Amorphous Sediment (None) /hpf Urine Opiates Screen (NotDetected) Ur Oxycodone Screen (NotDetected) Urine Methadone Screen (NotDetected) Ur Propoxyphene Screen (NotDetected) Ur Barbiturates Screen (NotDetected) U Tricyclic Antidepress (NotDetected) Ur Phencyclidine Scrn (NotDetected) Ur Amphetamines Screen (NotDetected) U Methamphetamines Scrn (NotDetected) U Benzodiazepines Scrn (NotDetected) Urine Cocaine Screen (NotDetected) U Marijuana (THC) Screen (NotDetected) 01/10/19 01/10/19 Range/Units 16:10 17:22 WBC (3.8-10.6) k/uL RBC (4.30-5.90) m/uL Hgb (13.0-17.5) gm/dL Hct (39.0-53.0) % MCV (80.0-100.0) fL MCH (25.0-35.0) pg MCHC (31.0-37.0) g/dL RDW (11.5-15.5) % Plt Count (150-450) k/uL Neutrophils % % Lymphocytes % % Monocytes % % Eosinophils % % Basophils % % Neutrophils # (1.3-7.7) k/uL Lymphocytes # (1.0-4.8) k/uL Monocytes # (0-1.0) k/uL Eosinophils # (0-0.7) k/uL Basophils # (0-0.2) k/uL Hypochromasia Anisocytosis Macrocytosis PT 12.2 H (9.0-12.0) sec INR 1.2 H (<1.2) APTT 26.9 (22.0-30.0) sec Sodium (137-145) mmol/L Potassium (3.5-5.1) mmol/L Chloride (98-107) mmol/L Carbon Dioxide (22-30) mmol/L Anion Gap mmol/L BUN (9-20) mg/dL Creatinine (0.66-1.25) mg/dL Est GFR (CKD-EPI)AfAm (>60 ml/min/1.73 sqM) Est GFR (CKD-EPI)NonAf (>60 ml/min/1.73 sqM) Glucose (74-99) mg/dL Calcium (8.4-10.2) mg/dL Total Bilirubin (0.2-1.3) mg/dL AST (17-59) U/L ALT (21-72) U/L Alkaline Phosphatase (38-126) U/L Total Creatine Kinase (55-170) U/L CK-MB (CK-2) (0.0-2.4) ng/mL CK-MB (CK-2) Rel Index Troponin I (0.000-0.034) ng/mL Total Protein (6.3-8.2) g/dL Albumin (3.5-5.0) g/dL Urine Color Yellow Urine Appearance Clear (Clear) Urine pH 6.0 (5.0-8.0) Ur Specific Wallace 1.008 (1.001-1.035) Urine Protein 1+ H (Negative) Urine Glucose (UA) Negative (Negative) Urine Ketones Negative (Negative) Urine Blood Small H (Negative) Urine Nitrite Negative (Negative) Urine Bilirubin Negative (Negative) Urine Urobilinogen <2.0 (<2.0) mg/dL Ur Leukocyte Esterase Moderate H (Negative) Urine RBC 1 (0-5) /hpf Urine WBC 10 H (0-5) /hpf Amorphous Sediment Occasional H (None) /hpf Urine Opiates Screen Not Detected (NotDetected) Ur Oxycodone Screen Not Detected (NotDetected) Urine Methadone Screen Not Detected (NotDetected) Ur Propoxyphene Screen Not Detected (NotDetected) Ur Barbiturates Screen Not Detected (NotDetected) U Tricyclic Antidepress Not Detected (NotDetected) Ur Phencyclidine Scrn Not Detected (NotDetected) Ur Amphetamines Screen Not Detected (NotDetected) U Methamphetamines Scrn Not Detected (NotDetected) U Benzodiazepines Scrn Not Detected (NotDetected) Urine Cocaine Screen Not Detected (NotDetected) U Marijuana (THC) Screen Not Detected (NotDetected) - Radiology Data Interpreted by me: Two-view chest x-ray does not reveal any acute abnormality. Dialysis catheter present right chest. Cardiac device left chest. (Danny Mercedes) Disposition <Evin Junior - Last Filed: 01/10/19 17:01> Is patient prescribed a controlled substance at d/c from ED?: No Decision Time: 18:49 <Danny Mercedes - Last Filed: 01/10/19 18:50> Clinical Impression: Fall, General weakness Disposition: ADMITTED IP TO THIS HOSP Referrals: Garfield Hanna DO [Primary Care Provider] - 1-2 days
[2019-01-10 16:25] LABS: Anisocytosis Slight; Basophils # (A) 0.1 k/uL (0-0.2); Basophils % (A) 1 %; Eosinophils # (A) 0.3 k/uL (0-0.7); Eosinophils % (A) 4 %; Hypochromasia Marked; Lymphocytes # (A) 0.7 k/uL (1.0-4.8); Lymphocytes % (A) 10 %; MCH 30.8 pg (25.0-35.0); MCHC 29.1 g/dL (31.0-37.0); Macrocytosis Marked; Mean Platelet Volume 7.6; Monocytes # (A) 0.7 k/uL (0-1.0); Monocytes % (A) 10 %; Neutrophils # (A) 5.6 k/uL (1.3-7.7); Neutrophils % (A) 74 %; Platelet Count 191 k/uL (150-450); RBC 2.94 m/uL (4.30-5.90); RDW 18.2 % (11.5-15.5); WBC 7.5 k/uL (3.8-10.6)
[2019-01-10 16:27] LABS: MCV 105.6 fL (80.0-100.0)
[2019-01-10 16:34] LABS: Calcium 7.8 mg/dL (8.4-10.2); INR 1.2 (<1.2); Partial Thromboplastin Time 26.9 sec (22.0-30.0); Potassium 3.8 mmol/L (3.5-5.1); Prothrombin Time 12.2 sec (9.0-12.0); Total Bilirubin 0.4 mg/dL (0.2-1.3); Total Protein 5.4 g/dL (6.3-8.2)
--- NOTE | 2019-01-10 17:07 | CT ---
EXAMINATION TYPE: CT brain wo con DATE OF EXAM: 01/10/2019 COMPARISON: 06/04/2018, 09/05/2016 INDICATION: Laceration to forehead after fall injury DLP: 1068.4 mGycm, Automated exposure control for dose reduction was used. CONTRAST: None CT of the brain is performed utilizing 3 mm thick sections through the posterior fossa and 3 mm thick sections through the remaining calvarium. Study is performed within 24 hours of arrival to the hosp ital. There is a 4 mm slightly irregular hyperintensity in the superior right frontal lobe. Series 205 imag e 37. This however was present and 06/04/2018. Calcification is more likely. Rebleed at this site would be unusual. No mass lesion is evident. No acute infarcts are evident. Periventricular white matter hypodensity is present, likely on the bas is of chronic white matter ischemic change. Ventricles and sulci are mildly prominent for the patient age. Paranasal sinuses and mastoid air cells within the [id number] are clear. There is soft tissue swelling over the right frontal region. IMPRESSIONS: 1. Atrophy with periventricular white matter ischemic type changes. 2. Punctate hyperintensity in the frontal region likely calcification. This was present 2015. 3. Soft tissue swelling over the right frontal region with a soft tissue laceration.
[2019-01-10 17:09] LABS: Creatine Kinase MB 3.1 ng/mL (0.0-2.4)
[2019-01-10 17:13] LABS: Troponin I 0.05 ng/mL (0.000-0.034)
[2019-01-10 17:54] LABS: Amorphous Sediment,Urine Occasional /hpf; Appearance,Urine Clear (Clear); Bilirubin,Urine Negative (Negative); Blood,Urine Small (Negative); Color,Urine Yellow; Glucose,Urine (UA) Negative (Negative); Ketones,Urine Negative (Negative); Leukocyte Esterase,Urine Moderate (Negative); Nitrite,Urine Negative (Negative); Protein,Urine 1+ (Negative); RBC,Urine 1 /hpf (0-5); Specific Gravity,Urine 1.008 (1.001-1.035); Urobilinogen,Urine <2.0 mg/dL (<2.0); WBC,Urine 10 /hpf (0-5)
[2019-01-10 18:04] LABS: Amphetamine Screen,Urine Not Detected (NotDetected); Barbiturate Screen,Urine Not Detected (NotDetected); Benzodiazepines Screen,Urine Not Detected (NotDetected); Cocaine Screen,Urine Not Detected (NotDetected); Methadone Screen, Urine Not Detected (NotDetected); Opiate Screen,Urine Not Detected (NotDetected); Phencyclidine Screen,Urine Not Detected (NotDetected); Tricyclic Antidepressant,Urine Not Detected (NotDetected); Urn Cannabinoid Scrn Not Detected (NotDetected)
[2019-01-10 18:05] LABS: Oxycodone Screen, Urine Not Detected (NotDetected)
[2019-01-10] MEDS ORDERED: NALOXONE 0.4 MG/ML 1 ML VIAL IV PRN (18:50)
[2019-01-10] MEDS: SODIUM CHLORIDE 0.9% 1,000 ML IV SCH (19:10)
--- NOTE | 2019-01-10 19:18 | XR ---
EXAMINATION TYPE: XR chest 2V DATE OF EXAM: 01/10/2019 COMPARISON: 12/29/2018 INDICATION: Altered mental status TECHNIQUE: Frontal and lateral views of the chest are obtained. FINDINGS: The heart size is normal. The pulmonary vasculature is prominent. There is diffuse increased central lung markings. Correlate for volume overload. Pacemaker overlies l eft chest. Double-lumen catheter is present on the right with the tips in the superior vena cava jasmin on.. IMPRESSION: 1. Correlate for volume overload.
[2019-01-10 23:17] LABS: Creatine Kinase MB 3.6 ng/mL (0.0-2.4)
[2019-01-10 23:22] LABS: Troponin I 0.056 ng/mL (0.000-0.034)
[2019-01-11 04:25] LABS: Anisocytosis Slight; Basophils # (A) 0.1 k/uL (0-0.2); Basophils % (A) 1 %; Eosinophils # (A) 0.3 k/uL (0-0.7); Eosinophils % (A) 4 %; HCT 33.6 % (39.0-53.0); HGB 9.7 gm/dL (13.0-17.5); Hypochromasia Marked; Lymphocytes # (A) 0.7 k/uL (1.0-4.8); Lymphocytes % (A) 7 %; MCHC 28.9 g/dL (31.0-37.0); MCV 107.4 fL (80.0-100.0); Macrocytosis Marked; Mean Platelet Volume 7.3; Monocytes # (A) 0.6 k/uL (0-1.0); Monocytes % (A) 7 %; Neutrophils # (A) 7.2 k/uL (1.3-7.7); Neutrophils % (A) 80 %; Platelet Count 214 k/uL (150-450); RBC 3.13 m/uL (4.30-5.90); RDW 18.5 % (11.5-15.5)
[2019-01-11 04:38] LABS: Albumin 3.1 g/dL (3.5-5.0); Potassium 4.1 mmol/L (3.5-5.1); Total Bilirubin 0.5 mg/dL (0.2-1.3); Total Protein 5.7 g/dL (6.3-8.2)
[2019-01-11 04:57] LABS: Creatine Kinase MB 3.8 ng/mL (0.0-2.4)
[2019-01-11 05:16] LABS: Troponin I 0.062 ng/mL (0.000-0.034)
[2019-01-11] MEDS: METOPROLOL SUCCINATE (ER) 25 MG TAB.ER.24H PO SCH (11:31)
[2019-01-11] MEDS: ASPIRIN 81 MG PO SCH (11:32)
[2019-01-11] MEDS: CALCIUM ACETATE 667 MG CAP PO SCH ×3 (11:32→22:15)
[2019-01-11] MEDS: ISOSORBIDE MONONITRATE ER 15 MG TAB PO SCH (11:33)
[2019-01-11] MEDS: TAMSULOSIN 0.4 MG CAP.ER.24H PO SCH (11:34)
[2019-01-11] MEDS ORDERED: VANCOMYCIN IV PER PHARMACY 1 EACH MISC MISCELLANE PRN (14:43)
[2019-01-11] MEDS ORDERED: VANCOMYCIN 1,500 MG in SODIUM CHLORIDE 0.9% 250 ML IVPB ONE (16:00)
--- NOTE | 2019-01-11 17:31 | CONS ---
CONSULTATION Patient is an 88-year-old male who was admitted to the hospital after a fall. Patient did hit his head. He states he did not lose consciousness. He stated he had been feeling weak. He has had some vague abdominal pain. No significant nausea, vomiting or diarrhea. Patient was recently discharged from the hospital after admission with bacteremia and catheter-related infection. His blood cultures were positive for Staph aureus. Patient had a new dialysis catheter placed on December 29. He is receiving vancomycin as outpatient. On this admission, patient is found to have a possible urinary tract infection. His troponins were also mildly elevated. Blood pressure was not low at the time of admission. Patient is maintained on a Friday, Friday, Friday schedule for hemodialysis. PAST MEDICAL HISTORY: 1. End-stage renal disease, recently started on dialysis. 2. Hyperlipidemia. 3. Hypertension. 4. Osteoarthritis. 5. History of BPH. 6. History of bowel obstructions. 7. History of asthma. 8. Sinusitis. PAST SURGICAL HISTORY: 1. Adenoidectomy. 2. Appendicectomy. 3. Bowel resection. 4. PermCath placement x2. 5. Bowel resection x3. 6. Right hip arthroplasty. 7. Cataract surgery. 8. Colonoscopy. 9. Circumcision. 10.Permanent pacemaker placement. SOCIAL HISTORY: Patient is a former smoker. No history of drug abuse or alcohol abuse. MEDICATIONS: Medications at home prior to admission included: 1. PhosLo. 2. Toprol. 3. Imdur. 4. Zocor. 5. Krill oil. 6. Flomax. 7. Aspirin. 8. Claritin. ALLERGIES: NONE. REVIEW OF SYSTEMS: As per HPI. Other systems negative. PHYSICAL EXAMINATION: Patient is comfortable, awake, alert, oriented x3, not in any acute distress. Blood pressure was 182/88, heart rate 68 per minute. He is afebrile. EXAMINATION OF THE HEART: S1, S2. EXAMINATION OF LUNGS: Bilateral breath sounds are heard. ABDOMEN: Soft, non-tender. Examination of lower extremities shows no significant edema. PCTS exam is grossly intact. LABS: Sodium of 135, potassium 4.1, hemoglobin 9.7, creatinine 4.73. ASSESSMENT: 1. End-stage renal disease, on hemodialysis on a Friday, Friday, Friday schedule via right IJ PermCath. 2. Recent Staphylococcus aureus bacteremia secondary to dialysis catheter-related infection. It was MSSA and patient is maintained on vancomycin as outpatient. He had a new catheter placed on December 29. 3. Status post fall, etiology unclear. Patient was not hypotensive. I doubt significant urine tract infection. Urine culture is currently pending. Patient is maintained on antibiotics, which we will continue. 4. Volume overload. Plan hemodialysis today and increase UF as tolerated. 5. Hypertension, partly volume-sensitive. Expect improvement with increased UF with dialysis. 6. 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 7. History of benign prostatic hypertrophy. PLAN: Hemodialysis today. Increase UF as tolerated. Continue with PhosLo. Continue to encourage increased oral intake. Continue Rocephin. We will follow up on the urine cultures. Thank you for this consultation. Will continue to follow the patient with you during his hospitalization. SARAH BETH / STARLAN: [id number] /
--- NOTE | 2019-01-11 21:11 | P.HPIM ---
History of Present Illness H&P Date: 01/11/19 Chief Complaint: Fall with contusion to head This is a pleasant 88-year-old white male who apparently lost balance yesterday and fell in had sustained a contusion laceration to his frontal scalp. Patient is awake and alert at this current time he denies any headache however his daughter is at bedside said he is been confused mentally for quite some time patient suffers from end-stage renal disease currently on a dialysis Friday and has multiple admissions in the last month. Patient has chronic abdominal pain due to multiple surgeries he sustained in the past he denies any current abdominal pain. He does well as years to be a urinary tract infection Past Medical History Past Medical History: Blood Disorder, Dialysis, Hyperlipidemia, Hypertension, Osteoarthritis (OA), Prostate Disorder, Renal Disease Additional Past Medical History / Comment(s): ESRD with hemodialysis which started about 3 weeks ago, anemia, heart block with pacer, arthritis in hands, neck, back pain, bowel obstructions, diverticulitis, vitamin D deficiency, BPH with surgery, asthma as a child, sinusitis. History of Any Multi-Drug Resistant Organisms: None Reported Past Surgical History: Adenoidectomy, Appendectomy, Bowel Resection, Joint Replacement, Pacemaker, Prostate Surgery, Tonsillectomy Additional Past Surgical History / Comment(s): R sided permacath, bowel resections x 3/lysis of adhesions, total R hip arthroplasty, cataract removal with lens implants bilaterally, colonoscopy, circumcism Past Anesthesia/Blood Transfusion Reactions: No Reported Reaction Additional Past Anesthesia/Blood Transfusion Reaction / Comment(s): Pt has received blood without reaction. Type of Cardiac Device: Permanent Pacemaker Device Placement Date:: 06/11/18 Past Psychological History: No Psychological Hx Reported Additional Psychological History / Comment(s): Pt resides alone at [facility]. He has a daughter that lives in [place] and helps him and friends that also help. 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 He uses no assistive device. He drives. Smoking Status: Former smoker Past Alcohol Use History: Occasional Additional Past Alcohol Use History / Comment(s): Pt quit smoking in 1990. He had smoked lighly for 30 yrs, usually 5-10 cigarettes a day. Occasional alcohol intake. [facility] and has a cat named Radha Cummins. He served in the [employer] for 23 years and traveled all over the world. He did serve in [place]. No recent travel. 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 Past Drug Use History: None Reported - Past Family History Father Family Medical History: Coronary Artery Disease (CAD) Additional Family Medical History / Comment(s): Father at 75 of heart problems. Mother Family Medical History: No Reported History Additional Family Medical History / Comment(s): Mother was healthy. She at 71 yrs in MVA. Medications and Allergies Home Medications Medication Instructions Recorded Confirmed Type Simvastatin [Zocor] 20 mg PO HS 12/19/15 01/10/19 History Tamsulosin [Flomax] 0.4 mg PO PC-BRKFST #30 tab 06/12/18 01/10/19 Rx Isosorbide Mononitrate ER [Imdur] 15 mg PO DAILY 11/05/18 01/10/19 History Metoprolol Succinate [Toprol XL] 12.5 mg PO DAILY 11/05/18 01/10/19 History Aspirin 81 mg PO DAILY #30 chew 11/10/18 01/10/19 Rx Loratadine [Claritin] 10 mg PO DAILY #30 tab 11/10/18 01/10/19 Rx Calcium Acetate [Phoslo] 667 mg PO TID 01/10/19 01/10/19 History Cholestyramine (with Sugar) 4 gm PO HS PRN 01/10/19 01/10/19 History [Cholestyramine Packet] Krill Oil 500 mg PO DAILY 01/10/19 01/10/19 History Allergies Allergy/AdvReac Type Severity Reaction Status Date / Time No Known Allergies Allergy Verified 01/10/19 15:21 Physical Exam Osteopathic Statement: No significant issues noted on an osteopathic structural exam other than those noted in the History and Physical/Consult. Vitals: Vital Signs Temp Pulse Resp BP Pulse Ox 01/11/19 12:59 97.4 F L 60 18 183/101 93 L 01/11/19 05:00 97.5 F L 68 16 182/88 92 L Intake and Output 01/11/19 01/11/19 01/11/19 06:59 14:59 22:59 Intake Total 750 300 Balance 750 300 Intake: Intake, IV Titration 160 Amount Sodium Chloride 0.9% 1, 160 000 ml @ 20 mls/hr IV . Q24H [facility] Rx#:[id number] Oral 590 300 Other: Voiding Method Toilet # Bowel Movements 1 GENERAL: This is a 88 -year-old in no apparent distress at the time of examination. Pleasant and cooperative. HEENT: Head is bandaged with a small contusion laceration to his frontal scalp.. Pupils are equal, round, and reactive to light. Sclerae anicteric. Conjunctivae are clear. Mucus membranes of the mouth are moist. Neck is supple with decreased range of motion secondary to marked degree of cervical osteoarthritis. RESPIRATORY: Clear to auscultation. No wheezes, rales, or rhonchi. No use of accessory muscles. Patient maintaining oxygen saturation greater than 92%. No chest wall tenderness is noted on palpation or with deep breathing. CARDIOVASCULAR: Regular rate and rhythm. S1 and S2 noted. No systolic or diastolic murmur auscultated. No JVD noted. No S3 or S4 noted. GASTROINTESTINAL: No distention noted. Abdomen soft and round. Normal active bowel sounds auscultated x 4 quadrants. No pain or tenderness noted upon palpation. Multiple scars throughout the entire abdomen INTEGUMENTARY: No cyanosis. No jaundice. No rashes noted. No cellulitis noted. EXTREMITIES: 2+ peripheral pulses. No evidence of peripheral edema. No calf tenderness noted. NEUROLOGIC: Cranial nerves II-XII intact. PSYCHIATRIC: Awake, alert, and oriented X 3. Results CBC & Chem 7: 01/11/19 04:01 01/11/19 04:01 Labs: Abnormal Lab Results - Last 24 Hours (Table) 01/10/19 01/11/19 01/11/19 Range/Units 22:19 04:01 04:01 RBC 3.13 L (4.30-5.90) m/uL Hgb 9.7 L (13.0-17.5) gm/dL Hct 33.6 L (39.0-53.0) % MCV 107.4 H (80.0-100.0) fL MCHC 28.9 L (31.0-37.0) g/dL RDW 18.5 H (11.5-15.5) % Lymphocytes # 0.7 L (1.0-4.8) k/uL Sodium 135 L (137-145) mmol/L Creatinine 4.73 H (0.66-1.25) mg/dL Calcium 8.0 L (8.4-10.2) mg/dL CK-MB (CK-2) 3.6 H (0.0-2.4) ng/mL Troponin I 0.056 H* (0.000-0.034) ng/mL Total Protein 5.7 L (6.3-8.2) g/dL Albumin 3.1 L (3.5-5.0) g/dL 01/11/19 Range/Units 04:01 RBC (4.30-5.90) m/uL Hgb (13.0-17.5) gm/dL Hct (39.0-53.0) % MCV (80.0-100.0) fL MCHC (31.0-37.0) g/dL RDW (11.5-15.5) % Lymphocytes # (1.0-4.8) k/uL Sodium (137-145) mmol/L Creatinine (0.66-1.25) mg/dL Calcium (8.4-10.2) mg/dL CK-MB (CK-2) 3.8 H (0.0-2.4) ng/mL Troponin I 0.062 H* (0.000-0.034) ng/mL Total Protein (6.3-8.2) g/dL Albumin (3.5-5.0) g/dL Microbiology - Last 24 Hours (Table) 01/10/19 18:52 Urine Culture - Final Urine,Catheterized Thrombosis Risk Factor Assmnt - Choose All That Apply Any of the Below Risk Factors Present?: No Other Risk Factors: Yes Each Risk Factor Represents 2 Points: Central venous access Each Risk Factor Represents 3 Points: Age 75 years or older Other congenital or acquired thrombophilia - If yes, enter type in comment: No Thrombosis Risk Factor Assessment Total Risk Factor Score: 5 Thrombosis Risk Factor Assessment Level: High Risk Assessment and Plan Assessment: Acute urinary tract infection Generalized weakness (1) Fall Current Visit: Yes Status: Acute Code(s): W19.XXXA - UNSPECIFIED FALL, INITIAL ENCOUNTER SNOMED Code(s): 3248824 (2) General weakness Current Visit: Yes Status: Acute Code(s): R53.1 - WEAKNESS SNOMED Code(s) : 72970071 (3) Acute on chronic renal failure Current Visit: No Status: Acute Code(s): N17.9 - ACUTE KIDNEY FAILURE, UNSPECIFIED; N18.9 - CHRONIC KIDNEY DISEASE, UNSPECIFIED SNOMED Code(s): 537266821 (4) End-stage renal disease on hemodialysis Current Visit: No Status: Acute Code(s): N18.6 - END STAGE RENAL DISEASE; Z99.2 - DEPENDENCE ON RENAL DIALYSIS SNOMED Code(s): 991294314 Plan: Continue IV antibiotics hydration renal dialysis a late noticed that patient had a sustained run of ventricular tachycardia will go ahead and consult cardiology as well to assess pacemaker continue to follow patient's overall poor prognosis last physical therapy to see patient DVT prophylaxis.
[2019-01-11] MEDS: ATORVASTATIN 10 MG TAB PO SCH (22:18)
[2019-01-11] MEDS: SODIUM CHLORIDE 0.9% 1,000 ML IV SCH (22:19)
[2019-01-12] MEDS: ASPIRIN 81 MG PO SCH (08:17)
[2019-01-12] MEDS: TAMSULOSIN 0.4 MG CAP.ER.24H PO SCH (08:17)
[2019-01-12] MEDS: METOPROLOL SUCCINATE (ER) 25 MG TAB.ER.24H PO SCH (08:18)
[2019-01-12] MEDS: ISOSORBIDE MONONITRATE ER 15 MG TAB PO SCH (08:22)
[2019-01-12] MEDS: CALCIUM ACETATE 667 MG CAP PO SCH ×3 (08:23→21:34)
[2019-01-12 08:31] LABS: Potassium 3.8 mmol/L (3.5-5.1)
[2019-01-12] MEDS ORDERED: VANCOMYCIN 1,500 MG in SODIUM CHLORIDE 0.9% 250 ML IVPB ONE (12:00)
[2019-01-12] MEDS ORDERED: METOPROLOL SUCCINATE (ER) 25 MG TAB.ER.24H PO STA ×2 (15:09→18:23)
--- NOTE | 2019-01-12 15:15 | P.CRDCN ---
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 He follows in the office with Dr. Delacruz. We have been asked to see him in consultation for arrhythmia noted on telemetry. He presented to the hospital 2 days ago after falling at home. He is somewhat of a poor historian and information is obtained from nursing staff and medical record. He apparently lost his balance and fell forward striking his head. He denies feeling dizzy, light headed, short of breath, nauseated or diaphoretic prior to falling. He also denies ever feeling any chest pain or palpitations. He denies loss of consciousness. CT of the brain was obtained and reveals atrophy with periventricular white matter ischemic type changes, hypersensitivity in the frontal region likely a calcification this was also present in 2016. There is also soft tissue swelling over the right frontal region with a soft tissue laceration noted. He is currently receiving vancomycin as an outpatient secondary to positive blood cultures for staph aureus related to catheter related infection. He had a new dialysis catheter placed December 29. He undergoes dialysis Friday and Friday. Telemetry tracing reviewed and reveal short bursts of tachycardia, indiscernible P-waves. Possibly burst of atrial fibrillation. He underwent dialysis yesterday. EKG reveals ventricular paced rhythm heart rate 61 with underlying right bundle branch block. Chest x-ray reveals evidence of fluid volume overload. Laboratory data reviewed, WBC 9.0, hemoglobin 9.7, platelets 214, sodium 138, potassium 3.8, creatinine 3.8, troponin 0.05, 0.056, 0.062. Current cardiac medications include aspirin 81 mg daily, Imdur 15 mg daily, Toprol 12.5 mg daily and simvastatin 20 mg daily. Most recent echocardiogram obtained October 2018 reveals preserved left ventricular systolic function with ejection fraction 50-55%. At the time of my exam: CONSTITUTIONAL: Denies fever. Denies chills. EYES: Denies blurred vision. Denies vision changes. Denies eye pain. EARS, NOSE, MOUTH & THROAT: Denies headache. Denies sore throat. Denies ear pain. CARDIOVASCULAR: Denies chest pain. Denies shortness of breath. Denies orthopnea. Denies PND. Denies palpitations. RESPIRATORY: Denies cough. GASTROINTESTINAL: Denies abdominal pain. Denies diarrhea. Denies constipation. Denies nausea. Denies vomiting. MUSCULOSKELETAL: Denies myalgias. INTEGUMENTARY: Denies pruitis. Denies rash. NEUROLOGIC: Denies numbness. Denies tingling. Denies weakness. PSYCHIATRIC: Denies anxiety. Denies depression. ENDOCRINE: Denies fatigue. Denies weight change. Denies polydipsia. Denies polyurina. GENITOURINARY: Denies burning, hematuria or urgency with micturation. HEMATOLOGIC: Denies history of anemia. Denies bleeding. Blood pressure 181/88 heart rate 66 afebrile maintaining oxygen saturation on room air GENERAL: This is a 88-year-old male in no apparent distress at the time of my examination. HEENT: Head is atraumatic, normocephalic. Pupils are equal, round. Sclerae anicteric. Conjunctivae are clear. Mucous membranes of the mouth are moist. Neck is supple. There is no jugular venous distention. No carotid bruit is heard. LUNGS: Clear to auscultation no wheezes, rales or rhonchi. No chest wall tenderness is noted on palpation or with deep breathing. HEART: Regular rate and rhythm with systolic ejection murmurs at the base, no rubs or gallops. S1 and S2 heard. ABDOMEN: Soft, nontender. Bowel sounds are heard. No organomegaly noted. EXTREMITIES: No evidence of peripheral edema and no calf tenderness noted. VASCULAR: Radial and dorsalis pedis pulses palpated, no evidence of clubbing. NEUROLOGIC: Patient is awake, alert and oriented to self. ASSESSMENT Fall from standing Altered mental status Arrhythmia, not VT. Appears to be atrial driven. Will interrogate pacemaker. Hypertension History of high grade AV s/p permanent pacemaker implantation End stage renal disease on hemodialysis Dyslipidemia Coronary artery disease on maximum medical therapy Mild troponin leak not indicative of an acute coronary event in the absence of anginal symptoms, secondary to renal function. PLAN Interrogate pacemaker. Initiate on amlodipine 10 mg daily and increase toprol to 25 mg daily. Further recommendations to follow based on clinical course. Thank you kindly for this consultation. Nurse Practitioner note has been reviewed, I agree with a documented findings and plan of care. Patient was seen and examined. Past Medical History Past Medical History: Blood Disorder, Dialysis, Hyperlipidemia, Hypertension, Osteoarthritis (OA), Prostate Disorder, Renal Disease Additional Past Medical History / Comment(s): ESRD with hemodialysis which started about 3 weeks ago, anemia, heart block with pacer, arthritis in hands, neck, back pain, bowel obstructions, diverticulitis, vitamin D deficiency, BPH with surgery, asthma as a child, sinusitis. History of Any Multi-Drug Resistant Organisms: None Reported Past Surgical History: Adenoidectomy, Appendectomy, Bowel Resection, Joint Replacement, Pacemaker, Prostate Surgery, Tonsillectomy Additional Past Surgical History / Comment(s): R sided permacath, bowel resections x 3/lysis of adhesions, total R hip arthroplasty, cataract removal with lens implants bilaterally, colonoscopy, circumcism Past Anesthesia/Blood Transfusion Reactions: No Reported Reaction Additional Past Anesthesia/Blood Transfusion Reaction / Comment(s): Pt has received blood without reaction. Type of Cardiac Device: Permanent Pacemaker Device Placement Date:: 06/11/18 Past Psychological History: No Psychological Hx Reported Additional Psychological History / Comment(s): Pt resides alone at [facility]. He has a daughter that lives in [place] and helps him and friends that also help. 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 He uses no assistive device. He drives. Smoking Status: Former smoker Past Alcohol Use History: Occasional Additional Past Alcohol Use History / Comment(s): Pt quit smoking in 1990. He had smoked lighly for 30 yrs, usually 5-10 cigarettes a day. Occasional alcohol intake. Patient lives alone in a [facility] and has a cat named Radha Cummins. He served in the [employer] for 23 years and traveled all over the world. He did serve in [employer]. No recent travel. 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 Past Drug Use History: None Reported - Past Family History Father Family Medical History: Coronary Artery Disease (CAD) Additional Family Medical History / Comment(s): Father at 75 of heart problems. Mother Family Medical History: No Reported History Additional Family Medical History / Comment(s): Mother was healthy. She at 71 yrs in MVA. Medications and Allergies Home Medications Medication Instructions Recorded Confirmed Type Simvastatin [Zocor] 20 mg PO HS 12/19/15 01/10/19 History Tamsulosin [Flomax] 0.4 mg PO PC-BRKFST #30 tab 06/12/18 01/10/19 Rx Isosorbide Mononitrate ER [Imdur] 15 mg PO DAILY 11/05/18 01/10/19 History Metoprolol Succinate [Toprol XL] 12.5 mg PO DAILY 11/05/18 01/10/19 History Aspirin 81 mg PO DAILY #30 chew 11/10/18 01/10/19 Rx Loratadine [Claritin] 10 mg PO DAILY #30 tab 11/10/18 01/10/19 Rx Calcium Acetate [Phoslo] 667 mg PO TID 01/10/19 01/10/19 History Cholestyramine (with Sugar) 4 gm PO HS PRN 01/10/19 01/10/19 History [Cholestyramine Packet] Krill Oil 500 mg PO DAILY 01/10/19 01/10/19 History Allergies Allergy/AdvReac Type Severity Reaction Status Date / Time No Known Allergies Allergy Verified 01/10/19 15:21 Physical Exam Vitals: Vital Signs Temp Pulse Resp BP Pulse Ox 01/12/19 05:00 97.6 F 60 17 177/87 98 01/11/19 21:00 97.5 F L 70 18 129/71 96 Intake and Output 01/11/19 01/12/19 01/12/19 22:59 06:59 14:59 Other: Voiding Method Toilet # Voids 0 1 # Bowel Movements 1 Results 01/11/19 04:01 01/12/19 07:39 Comprehensive Metabolic Panel 01/12/19 Range/Units 07:39 Sodium 138 (137-145) mmol/L Potassium 3.8 (3.5-5.1) mmol/L Chloride 104 (98-107) mmol/L Carbon Dioxide 27 (22-30) mmol/L BUN 16 (9-20) mg/dL Creatinine 3.80 H (0.66-1.25) mg/dL Glucose 104 H (74-99) mg/dL Calcium 8.0 L (8.4-10.2) mg/dL Current Medications Generic Name Dose Route Start Last Admin Trade Name Freq PRN Reason Stop Dose Admin Aspirin 81 mg 01/11/19 10:45 01/12/19 08:17 Aspirin PO 81 mg DAILY LORI Administration Atorvastatin Calcium 10 mg 01/11/19 21:00 01/11/19 22:18 Lipitor PO 10 mg HS LORI Administration Calcium Acetate 667 mg 01/11/19 10:45 01/12/19 08:23 Phoslo PO 667 mg TID LORI Administration Sodium Chloride 1,000 mls @ 20 mls/hr 01/10/19 19:00 01/11/19 22:19 Saline 0.9% IV 20 mls/hr .Q24H LORI Administration Ceftriaxone Sodium 1 gm/ 50 mls @ 100 mls/hr 01/11/19 09:00 01/12/19 08:23 Sodium Chloride IVPB 100 mls/hr Q24HR LORI Administration Isosorbide Mononitrate 15 mg 01/11/19 10:45 01/12/19 08:22 Imdur PO 15 mg DAILY LORI Administration Metoprolol Succinate 12.5 mg 01/11/19 10:45 01/12/19 08:18 Toprol Xl PO 12.5 mg DAILY LORI Administration Miscellaneous Information 1 each 01/11/19 14:43 Pharmacy To Dose Iv Vancomycin MISCELLANE DIRECTED PRN Per Protocol Naloxone HCl 0.2 mg 01/10/19 18:50 Narcan IV Q2M PRN Opioid Reversal Tamsulosin HCl 0.4 mg 01/11/19 10:45 01/12/19 08:17 Flomax PO 0.4 mg PC-BRKFST LORI Administration Intake and Output 01/11/19 01/12/19 01/12/19 22:59 06:59 14:59 Other: Voiding Method Toilet # Voids 0 1 # Bowel Movements 1 01/11/19 04:01 01/12/19 07:39
[2019-01-12] MEDS: amLODIPine 10 MG TAB PO SCH (16:59)
--- NOTE | 2019-01-12 18:54 | PN ---
PROGRESS NOTE Patient is seen for followup for end-stage renal disease. He is due for dialysis tomorrow. Patient denies any significant complaints today. On examination, blood pressure was elevated at 181/88, heart rate 66 per minute. He is afebrile. EXAMINATION OF THE HEART: S1, S2. EXAMINATION OF LUNGS: Bilateral breath sounds are heard. ABDOMEN: Soft, non-tender. Examination of lower extremities shows no evidence of edema. LEAN MANAGER exam is grossly intact. Labs show sodium 138, potassium 3.8, BUN 16, serum creatinine 3.8, hemoglobin 9.7 g/dL. ASSESSMENT: 1. End-stage renal disease, on hemodialysis on a Friday, Friday, Friday schedule. 2. History of fall on admission, currently stable. Blood pressure is not low. Patient will be dialyzed tomorrow. 3. Pyuria with no evidence of urinary tract infection. 4. Recent methicillin-susceptible Staphylococcus aeruginosa bacteremia, status post removal of PermCath and new catheter placement. Currently maintained on vancomycin to complete the course. 5. 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 6. Hypertension. Blood pressure is uncontrolled. We can start the Toprol today and expect improvement in blood pressure after hemodialysis in a.m. MMODL / IJN: [id number] /
[2019-01-12] MEDS: ATORVASTATIN 10 MG TAB PO SCH (20:03)
[2019-01-12] MEDS: SODIUM CHLORIDE 0.9% 1,000 ML IV SCH (20:09)
--- NOTE | 2019-01-12 21:44 | P.PN ---
Subjective Progress Note Date: 01/12/19 Mr. Lezama is a pleasant 88-year-old white male who was admitted status post fall and confusion. His known problems with end-stage renal disease currently on dialysis Friday. He is doing better today with only slight confusion. But he wishes to go home on discharge. Which is [facility] with assistance. He is scheduled to undergo dialysis tomorrow morning and out anticipate discharge in 24 hours. Of note his blood pressures been elevated today and cardiology is been consulted. Objective - Vital Signs Vital signs: Vital Signs Temp 97.3 F L 01/12/19 20:56 Pulse 70 01/12/19 20:56 Resp 20 01/12/19 20:56 BP 170/82 01/12/19 20:56 Pulse Ox 94 L 01/12/19 20:56 Intake & Output 01/12/19 01/12/19 01/13/19 06:59 18:59 06:59 Intake Total 300 Balance 300 Intake: Intake, IV Titration 300 Amount Vancomycin 1,500 mg In 250 Sodium Chloride 0.9% 250 ml @ 125 mls/hr IVPB ONCE ONE Rx#:[id number] cefTRIAXone 1 gm In 50 Sodium Chloride 0.9% 50 ml @ 100 mls/hr IVPB Q24HR [facility] Rx#:[id number] Other: Voiding Method Toilet # Voids 1 2 # Bowel Movements 1 2 - Exam GENERAL: This is a 88 -year-old in no apparent distress at the time of examination. Pleasant and cooperative. HEENT: Head is bandaged with a small contusion laceration to his frontal scalp.. Pupils are equal, round, and reactive to light. Sclerae anicteric. Conjunctivae are clear. Mucus membranes of the mouth are moist. Neck is supple with decreased range of motion secondary to marked degree of cervical osteoarthritis. RESPIRATORY: Clear to auscultation. No wheezes, rales, or rhonchi. No use of accessory muscles. Patient maintaining oxygen saturation greater than 92%. No chest wall tenderness is noted on palpation or with deep breathing. CARDIOVASCULAR: Regular rate and rhythm. S1 and S2 noted. No systolic or diastolic murmur auscultated. No JVD noted. No S3 or S4 noted. GASTROINTESTINAL: No distention noted. Abdomen soft and round. Normal active bowel sounds auscultated x 4 quadrants. No pain or tenderness noted upon palpation. Multiple scars throughout the entire abdomen INTEGUMENTARY: No cyanosis. No jaundice. No rashes noted. No cellulitis noted. EXTREMITIES: 2+ peripheral pulses. No evidence of peripheral edema. No calf tenderness noted. NEUROLOGIC: Cranial nerves II-XII intact. PSYCHIATRIC: Awake, alert, and oriented X 3. - Labs CBC & Chem 7: 01/11/19 04:01 01/12/19 07:39 Labs: Abnormal Lab Results - Last 24 Hours (Table) 01/12/19 Range/Units 07:39 Creatinine 3.80 H (0.66-1.25) mg/dL Glucose 104 H (74-99) mg/dL Calcium 8.0 L (8.4-10.2) mg/dL Microbiology - Last 24 Hours (Table) 01/10/19 18:52 Urine Culture - Final Urine,Catheterized Assessment and Plan Assessment: Acute urinary tract infection Generalized weakness (1) Fall Current Visit: Yes Status: Acute Code(s): W19.XXXA - UNSPECIFIED FALL, INITIAL ENCOUNTER SNOMED Code(s): 8645596 (2) General weakness Current Visit: Yes Status: Acute Code(s): R53.1 - WEAKNESS SNOMED Code(s) : 77387881 (3) Acute on chronic renal failure Current Visit: No Status: Acute Code(s): N17.9 - ACUTE KIDNEY FAILURE, UNSPECIFIED; N18.9 - CHRONIC KIDNEY DISEASE, UNSPECIFIED SNOMED Code(s): 374626571 (4) End-stage renal disease on hemodialysis Current Visit: No Status: Acute Code(s): N18.6 - END STAGE RENAL DISEASE; Z99.2 - DEPENDENCE ON RENAL DIALYSIS SNOMED Code(s): 255252603 Plan: Continue IV antibiotics hydration renal dialysis a late noticed that patient had a sustained run of ventricular tachycardia and hypertension will go ahead and consult cardiology as well to assess pacemaker continue to follow patient's overall poor prognosis last physical therapy to see patient DVT prophylaxis. Also urine culture was negative after 18 hours. Renal dialysis tomorrow and possible discharge
[2019-01-13 07:30] LABS: Calcium 8.3 mg/dL (8.4-10.2); Potassium 3.6 mmol/L (3.5-5.1)
[2019-01-13] MEDS: amLODIPine 10 MG TAB PO SCH (07:52)
[2019-01-13] MEDS: TAMSULOSIN 0.4 MG CAP.ER.24H PO SCH (07:52)
[2019-01-13] MEDS: CALCIUM ACETATE 667 MG CAP PO SCH ×3 (07:52→22:05)
[2019-01-13] MEDS: ASPIRIN 81 MG PO SCH (07:52)
[2019-01-13] MEDS: ISOSORBIDE MONONITRATE ER 15 MG TAB PO SCH (07:53)
[2019-01-13] MEDS ORDERED: METOPROLOL SUCCINATE (ER) 25 MG TAB.ER.24H PO SCH (09:00)
[2019-01-13 09:19] LABS: Vancomycin,Random 28.6 ug/mL
[2019-01-13] MEDS ORDERED: METOPROLOL SUCCINATE (ER) 25 MG TAB.ER.24H PO STA (12:58)
--- NOTE | 2019-01-13 13:33 | P.PN ---
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 He follows in the office with Dr. Delacruz. We have been asked to see him in consultation for arrhythmia noted on telemetry thought to be VT. It was not VT. Pacemaker interrogation indicates he has been in and out of atrial fibrillation approximately 80% of the time since October. Pacemaker has approximately 11 years remaining on the battery. He is seen and examined laying flat in bed in no acute distress. He continues to be confused and is frequently trying to get up and walk without his walker at the bedside. Blood pressure 180/ 81 heart rate 76. Laboratory data reviewed, sodium 138, potassium 3.6, creatinine 4.85. Currently maintained on amlodipine 10 mg daily, toprol 25 mg daily, aspirin 81 mg daily, imdur 15 mg daily and atorvastatin 10 mg daily. Daughter is at the bedside during my exam GENERAL: This is a 88-year-old male in no apparent distress at the time of my examination. HEENT: Head is atraumatic, normocephalic. Pupils are equal, round. Sclerae anicteric. Conjunctivae are clear. Mucous membranes of the mouth are moist. Neck is supple. There is no jugular venous distention. No carotid bruit is heard. LUNGS: Clear to auscultation no wheezes, rales or rhonchi. No chest wall tenderness is noted on palpation or with deep breathing. HEART: Regular rate and rhythm with systolic ejection murmurs at the base, no rubs or gallops. S1 and S2 heard. EXTREMITIES: No evidence of peripheral edema and no calf tenderness noted. ASSESSMENT Fall from standing Altered mental status New-onset paroxysmal atrial fibrillation, currently in sinus rhythm Hypertension History of high grade AV s/p permanent pacemaker implantation End stage renal disease on hemodialysis Dyslipidemia Coronary artery disease on maximum medical therapy Mild troponin leak not indicative of an acute coronary event in the absence of anginal symptoms, secondary to renal function. PLAN Lengthy discussion had with the daughter, Deborah Najera who is the power of energy attorney, detailed explanation of atrial fibrillation and indication for anticoagulation. She has discussed this with her other siblings and they have decided against long-term anticoagulation due to his frequent falling and altered mental status. I have explained in great detail the risk of stroke and they are prepared to take the risk. Increase Toprol to 50 mg daily. Follow up with Dr. Delacruz upon discharge. We will follows as needed. Nurse Practitioner note has been reviewed, I agree with a documented findings and plan of care. Patient was seen and examined. Objective - Vital Signs Vital signs: Vital Signs Temp 97.6 F 01/13/19 12:05 Pulse 76 01/13/19 12:05 Resp 20 01/13/19 12:05 BP 180/81 01/13/19 12:05 Pulse Ox 94 L 01/13/19 12:05 Intake & Output 01/12/19 01/13/19 01/13/19 18:59 06:59 18:59 Intake Total 300 Balance 300 Intake: Intake, IV Titration 300 Amount Vancomycin 1,500 mg In 250 Sodium Chloride 0.9% 250 ml @ 125 mls/hr IVPB ONCE ONE Rx#:[id number] cefTRIAXone 1 gm In 50 Sodium Chloride 0.9% 50 ml @ 100 mls/hr IVPB Q24HR [facility] Rx#:[id number] Other: Voiding Method Toilet Toilet Toilet # Voids 2 # Bowel Movements 2 - Labs CBC & Chem 7: 01/11/19 04:01 01/13/19 06:56 Labs: Abnormal Lab Results - Last 24 Hours (Table) 01/13/19 Range/Units 06:56 BUN 27 H (9-20) mg/dL Creatinine 4.85 H (0.66-1.25) mg/dL Calcium 8.3 L (8.4-10.2) mg/dL
[2019-01-13] MEDS: SODIUM CHLORIDE 0.9% 1,000 ML IV SCH (15:17)
--- NOTE | 2019-01-13 16:25 | P.PN ---
Subjective Progress Note Date: 01/13/19 Mr. Lezama is a pleasant 88-year-old white male who was admitted status post fall and confusion. His known problems with end-stage renal disease currently on dialysis Friday. He is doing better today with only slight confusion. But he wishes to go home on discharge. Which is [facility] with assistance. He is scheduled to undergo dialysis tomorrow morning and out anticipate discharge in 24 hours. Of note his blood pressures been elevated today and cardiology is been consulted. Objective - Vital Signs Vital signs: Vital Signs Temp 97.6 F 01/13/19 12:05 Pulse 76 01/13/19 12:05 Resp 20 01/13/19 12:05 BP 180/81 01/13/19 12:05 Pulse Ox 94 L 01/13/19 12:05 Intake & Output 01/12/19 01/13/19 01/13/19 18:59 06:59 18:59 Intake Total 300 50 Balance 300 50 Intake: Intake, IV Titration 300 50 Amount Vancomycin 1,500 mg In 250 Sodium Chloride 0.9% 250 ml @ 125 mls/hr IVPB ONCE ONE Rx#:[id number] cefTRIAXone 1 gm In 50 50 Sodium Chloride 0.9% 50 ml @ 100 mls/hr IVPB Q24HR [facility] Rx#:[id number] Other: Voiding Method Toilet Toilet Toilet # Voids 2 # Bowel Movements 2 - Exam GENERAL: This is a 88 -year-old in no apparent distress at the time of examination. Pleasant and cooperative. HEENT: Head is bandaged with a small contusion laceration to his frontal scalp.. Pupils are equal, round, and reactive to light. Sclerae anicteric. Conjunctivae are clear. Mucus membranes of the mouth are moist. Neck is supple with decreased range of motion secondary to marked degree of cervical osteoarthritis. RESPIRATORY: Clear to auscultation. No wheezes, rales, or rhonchi. No use of accessory muscles. Patient maintaining oxygen saturation greater than 92%. No chest wall tenderness is noted on palpation or with deep breathing. CARDIOVASCULAR: Regular rate and rhythm. S1 and S2 noted. No systolic or diastolic murmur auscultated. No JVD noted. No S3 or S4 noted. GASTROINTESTINAL: No distention noted. Abdomen soft and round. Normal active bowel sounds auscultated x 4 quadrants. No pain or tenderness noted upon palpation. Multiple scars throughout the entire abdomen INTEGUMENTARY: No cyanosis. No jaundice. No rashes noted. No cellulitis noted. EXTREMITIES: 2+ peripheral pulses. No evidence of peripheral edema. No calf tenderness noted. NEUROLOGIC: Cranial nerves II-XII intact. PSYCHIATRIC: Awake, alert, and oriented X 3. - Labs CBC & Chem 7: 01/11/19 04:01 01/13/19 06:56 Labs: Abnormal Lab Results - Last 24 Hours (Table) 01/13/19 Range/Units 06:56 BUN 27 H (9-20) mg/dL Creatinine 4.85 H (0.66-1.25) mg/dL Calcium 8.3 L (8.4-10.2) mg/dL Assessment and Plan Assessment: Acute urinary tract infection Generalized weakness (1) Fall Current Visit: Yes Status: Acute Code(s): W19.XXXA - UNSPECIFIED FALL, INITIAL ENCOUNTER SNOMED Code(s): 1958035 (2) General weakness Current Visit: Yes Status: Acute Code(s): R53.1 - WEAKNESS SNOMED Code(s) : 19784119 (3) Acute on chronic renal failure Current Visit: No Status: Acute Code(s): N17.9 - ACUTE KIDNEY FAILURE, UNSPECIFIED; N18.9 - CHRONIC KIDNEY DISEASE, UNSPECIFIED SNOMED Code(s): 689111672 (4) End-stage renal disease on hemodialysis Current Visit: No Status: Acute Code(s): N18.6 - END STAGE RENAL DISEASE; Z99.2 - DEPENDENCE ON RENAL DIALYSIS SNOMED Code(s): 268048693 Plan: Continue IV antibiotics hydration renal dialysis a late noticed that patient had a sustained run of ventricular tachycardia and hypertension will go ahead and consult cardiology as well to assess pacemaker continue to follow patient's overall poor prognosis last physical therapy to see patient DVT prophylaxis. Also urine culture was negative after 18 hours. Renal dialysis tomorrow and possible dischargepatient does not qualify for rehab because he is currently in observation. Patient should be considered for an inpatient and not observation so he'll qualify for rehab. I will talk to case maker to get this straightened around if he can go to rehab okay to discharge tomorrow if not we' ll have to make other arrangements. Dr. [facility] hospitalists group is covering for me as of 4:00 today
--- NOTE | 2019-01-13 19:46 | PN ---
PROGRESS NOTE Patient is seen for followup for end-stage renal disease. This afternoon he is much more confused than yesterday. I was able to carry out a normal conversation with the patient yesterday morning. This afternoon he does not know where he is. He has been able to eat. Patient is scheduled for hemodialysis today. On examination, blood pressure was 180/81, heart rate 76 per minute. He is afebrile. EXAMINATION OF THE HEART: S1, S2. EXAMINATION OF LUNGS: Bilateral breath sounds are heard. ABDOMEN: Soft, non-tender. Examination of lower extremities shows no significant edema. Labs show sodium 138, potassium 3.6, serum creatinine 4.85. Hemoglobin was 9.7 yesterday. ASSESSMENT: 1. End-stage renal disease, currently on hemodialysis. Patient is scheduled for hemodialysis today. 2. Confusion, etiology unclear. No evidence of significant infection. Patient is not on any medications notorious for causing mental status changes. Consider CT of the head. Patient did have an initial CT on 01/10/2019 which was negative. 3. 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 4. Hypertension, currently uncontrolled. Start ZARIA inhibitors. Continue with Toprol, Imdur and Norvasc. PLAN: Hemodialysis today. Consider repeat CT if mentation does not improve. I will add ZARIA inhibitors, as blood pressure remains elevated. MMODL / IJN: [id number] /
[2019-01-13] MEDS: LISINOPRIL 5 MG TAB PO SCH (21:26)
[2019-01-13] MEDS: ATORVASTATIN 10 MG TAB PO SCH (21:28)
[2019-01-13 23:30] LABS: Hepatitis B Surface AB- Quant 3.5 mIU/mL
[2019-01-14] MEDS: ASPIRIN 81 MG PO SCH (07:34)
[2019-01-14] MEDS: LISINOPRIL 5 MG TAB PO SCH (07:34)
[2019-01-14] MEDS: CALCIUM ACETATE 667 MG CAP PO SCH ×3 (07:34→21:14)
[2019-01-14] MEDS: amLODIPine 10 MG TAB PO SCH (07:34)
[2019-01-14] MEDS: METOPROLOL SUCCINATE (ER) 50 MG TAB.ER.24H PO SCH (07:34)
[2019-01-14] MEDS: TAMSULOSIN 0.4 MG CAP.ER.24H PO SCH (07:34)
[2019-01-14] MEDS: ISOSORBIDE MONONITRATE ER 15 MG TAB PO SCH (07:34)
[2019-01-14 09:14] LABS: Potassium 3.8 mmol/L (3.5-5.1)
[2019-01-14 09:18] LABS: Vancomycin,Random 22.9 ug/mL
--- NOTE | 2019-01-14 12:04 | P.DS ---
Providers Date of admission: 01/10/19 18:50 Expected date of discharge: 01/14/19 Attending physician: Garfield Hanna Consults: 01/11/19 10:46 Consult Physician Stat Consulting Provider: Brenda Leonardo Consult Reason/Comments: dialysis Do you want consulting provider notified?: Yes 01/11/19 16:10 Consult Physician Urgent Consulting Provider: Norbert Delacruz Consult Reason/Comments: run of VT; possible pacemaker malfunction Do you want consulting provider notified?: Yes Primary care physician: Garfield Hanna Hospital Course: Final Diagnoses: -Acute UTI -Generalized weakness with Fall -Acute on chronic renal failure -End-stage renal disease on hemodialysis -Paroxysmal atrial fibrillation, pacemaker interrogated. No anticoagulation as per medical DPOA Hospital course:Mr. Lezama is a pleasant 88-year-old white male who was admitted status post fall and confusion. His known problems with end-stage renal disease currently on dialysis Friday. He is doing better today with only slight confusion. But he wishes to go home on discharge. Which is [facility] with assistance. He is scheduled to undergo dialysis tomorrow morning and out anticipate discharge in 24 hours. Of note his blood pressures been elevated today and cardiology is been consulted. Initially thought to have had a run of sustained V. tach. Evaluated by cardiology, arrhythmia not VT but proximal atrial fibrillation. Pacemaker interrogated, reporting paroximal atrial fibrillation approximately 80% of the time since October. Anticoagulation discussed between cardiology and power of outbound sales advisor/daughter Deborah Najera. POA and other siblings have decided against long-term anticoagulation secondary to patient's altered mental status, history of frequent falls. Beta guillermo increased.Patient has been cleared by consults for discharge. Final urine culture negative, afebrile .Patient to be discharged to [facility] subacute rehab in a stable condition with guarded prognosis. - Exam GENERAL: Alert and oriented 1-2, no acute distress. HEENT: Head is bandaged with a small contusion laceration to his frontal scalp.. Pupils are equal, round, and reactive to light. Sclerae anicteric. Conjunctivae are clear. Mucus membranes of the mouth are moist. Neck is supple with decreased range of motion secondary to marked degree of cervical osteoarthritis. RESPIRATORY: Clear to auscultation. No wheezes, rales, or rhonchi. CARDIOVASCULAR: Regular rate and rhythm. S1 and S2 noted. No murmurs, rubs or gallop GASTROINTESTINAL: Soft, nondistended, nontender. Abdomen soft and round. Normal active bowel sounds NEUROLOGIC: No focal deficits The impression and plan of care has been dictated as directed. : I performed a history and examination of this patient, discussed the same with the dictator. I agree with the dictator's note ,documented as a scribe. Any additional findings or plans will be noted. Time taken: 35 minutes Patient Condition at Discharge: Stable Plan - Discharge Summary Discharge Rx Participant: No New Discharge Prescriptions: New amLODIPine [Norvasc] 10 mg PO DAILY tab Lisinopril [Zestril] 5 mg PO DAILY tab Metoprolol Succinate (ER) [Toprol XL] 50 mg PO DAILY tab.er.24h Continue Simvastatin [Zocor] 20 mg PO HS Tamsulosin [Flomax] 0.4 mg PO PC-BRKFST #30 tab Isosorbide Mononitrate ER [Imdur] 15 mg PO DAILY Aspirin 81 mg PO DAILY #30 chew Loratadine [Claritin] 10 mg PO DAILY #30 tab Cholestyramine (with Sugar) [Cholestyramine Packet] 4 gm PO HS PRN PRN Reason: Constipation Calcium Acetate [PhosLo] 667 mg PO TID Krill Oil 500 mg PO DAILY Discontinued Metoprolol Succinate [Toprol XL] 12.5 mg PO DAILY Discharge Medication List Simvastatin [Zocor] 20 mg PO HS 12/19/15 [History] Tamsulosin [Flomax] 0.4 mg PO PC-BRKFST #30 tab 06/12/18 [Rx] Isosorbide Mononitrate ER [Imdur] 15 mg PO DAILY 11/05/18 [History] Aspirin 81 mg PO DAILY #30 chew 11/10/18 [Rx] Loratadine [Claritin] 10 mg PO DAILY #30 tab 11/10/18 [Rx] Calcium Acetate [PhosLo] 667 mg PO TID 01/10/19 [History] Cholestyramine (with Sugar) [Cholestyramine Packet] 4 gm PO HS PRN 01/10/19 [ History] Krill Oil 500 mg PO DAILY 01/10/19 [History] Lisinopril [Zestril] 5 mg PO DAILY tab 01/14/19 [Rx] Metoprolol Succinate (ER) [Toprol XL] 50 mg PO DAILY tab.er.24h 01/14/19 [Rx] amLODIPine [Norvasc] 10 mg PO DAILY tab 01/14/19 [Rx] Follow up Appointment(s)/Referral(s): Garfield Hanna DO [Primary Care Provider] - 1 Week (After DC from subacute rehab) Brenda Leonardo MD [STAFF PHYSICIAN] - 1 Week Activity/Diet/Wound Care/Special Instructions: Pending head CT [place] family declining anticoagulation HOME MEDICATIONS IN PHARMACY Confirm cardiology follow-up appointment prior to discharge Diet: Cardiac,renal Activity: As tolerated Hemodialysis as per nephrology
--- NOTE | 2019-01-14 13:14 | CT ---
EXAMINATION TYPE: CT brain wo con DATE OF EXAM: 01/14/2019 COMPARISON: 01/10/2019 HISTORY: Confusion. CT DLP: 1230 mGycm Automated exposure control for dose reduction was used. TECHNIQUE: CT scan of the head is performed without contrast. FINDINGS: There is no acute intracranial hemorrhage or midline shift identified. There is diffuse v entricular and sulcal prominence consistent with diffuse age-related cerebral atrophy. There is low- attenuation in the periventricular white matter consistent with chronic small vessel ischemic change. The globes are intact and the visualized sinuses are clear. Dystrophic punctate calcification in th e right frontal lobe is stable from 2016. IMPRESSION: No acute intracranial process. Redemonstration of dystrophic calcification of the right f rontal lobe unchanged from 2016.
--- NOTE | 2019-01-14 17:32 | PN ---
PROGRESS NOTE Patient is seen for followup for end-stage renal disease. Mentation is slightly better today. However, patient has still been confused. He is due for dialysis tomorrow. Plan is for discharge to rehab. On examination, blood pressure is 161/82, heart rate 61 per minute. Patient is afebrile. Examination shows patient is euvolemic with no evidence of edema, lower extremities. Abdomen is soft, nontender. Patient is moving all 4 extremities. Labs show sodium 135, potassium 3.8. ASSESSMENT: 1. End-stage renal disease, on hemodialysis on a Friday, Friday, Friday schedule. 2. Methicillin-susceptible Staphylococcus aeruginosa bacteremia, maintained on vancomycin, which we can continue. 3. Pyuria. No evidence of significant urinary tract infection. 4. Mental status changes, etiology unclear. Initial CT scan was negative. Repeat CT scan was done which showed no evidence of ischemia. PLAN: Hemodialysis in a.m. MMODL / IJN: [id number] /
[2019-01-14] MEDS ORDERED: VANCOMYCIN 1,500 MG in SODIUM CHLORIDE 0.9% 250 ML IVPB ONE (21:00)
[2019-01-14] MEDS: SODIUM CHLORIDE 0.9% 1,000 ML IV SCH (21:11)
[2019-01-14] MEDS: ATORVASTATIN 10 MG TAB PO SCH (21:14)
[2019-01-15] MEDS: ASPIRIN 81 MG PO SCH (08:08)
[2019-01-15] MEDS: TAMSULOSIN 0.4 MG CAP.ER.24H PO SCH (08:08)
[2019-01-15] MEDS: LISINOPRIL 5 MG TAB PO SCH (08:08)
[2019-01-15] MEDS: amLODIPine 10 MG TAB PO SCH (08:08)
[2019-01-15 08:40] LABS: Calcium 7.9 mg/dL (8.4-10.2); Potassium 3.9 mmol/L (3.5-5.1)
[2019-01-15] MEDS: CALCIUM ACETATE 667 MG CAP PO SCH ×3 (10:02→21:56)
[2019-01-15] MEDS: METOPROLOL SUCCINATE (ER) 50 MG TAB.ER.24H PO SCH (10:02)
[2019-01-15] MEDS: ISOSORBIDE MONONITRATE ER 15 MG TAB PO SCH (10:02)
--- NOTE | 2019-01-15 10:41 | P.PN ---
Subjective Patient is seen in follow-up for end-stage renal disease. He is maintained on hemodialysis on a Friday schedule via right chest permacath. Currently resting in bed. Feels tired. Patient presented with confusion. CT of the brain revealed no acute process. His mentation appears near baseline at this time. Vital signs are stable. General: The patient appeared well nourished and normally developed. HEENT: Head exam is unremarkable. Neck is without jugular venous distension. LUNGS: Lungs are clear to auscultation and percussion. Breath sounds decreased. HEART: Rate and Rhythm are regular. First and second heart sounds normal. No murmurs, rubs or gallops. ABDOMEN: Abdominal exam reveals normal bowel sounds. Non-tender and non- distended. No evidence of peritonitis. EXTREMITITES: No clubbing, cyanosis, or edema. Objective - Vital Signs Vital signs: Vital Signs Temp 97.9 F 01/15/19 05:00 Pulse 60 01/15/19 05:00 Resp 17 01/15/19 05:00 BP 151/80 01/15/19 05:00 Pulse Ox 95 01/15/19 05:00 Intake & Output 01/14/19 01/15/19 01/15/19 18:59 06:59 18:59 Intake Total 50 250 Balance 50 250 Intake: Intake, IV Titration 50 250 Amount Vancomycin 1,500 mg In 250 Sodium Chloride 0.9% 250 ml @ 125 mls/hr IVPB ONCE ONE Rx#:[id number] cefTRIAXone 1 gm In 50 Sodium Chloride 0.9% 50 ml @ 100 mls/hr IVPB Q24HR [facility] Rx#:[id number] Other: Voiding Method Toilet Toilet # Voids 2 # Bowel Movements 1 - Labs CBC & Chem 7: 01/11/19 04:01 01/15/19 07:41 Labs: Abnormal Lab Results - Last 24 Hours (Table) 01/15/19 Range/Units 07:41 Sodium 135 L (137-145) mmol/L BUN 30 H (9-20) mg/dL Creatinine 4.50 H (0.66-1.25) mg/dL Calcium 7.9 L (8.4-10.2) mg/dL Assessment and Plan Plan: Assessment: 1. End-stage renal disease maintained on hemodialysis on a Friday schedule. 2. Hypertension with chronic kidney disease. Controlled. 3. Chronic kidney disease mineral bone disease maintained on PhosLo. 4. Altered mental status. Etiology not clear. Brain CT negative. 5. MSSA bacteremia maintained on IV antibiotics. His dialysis catheter was exchanged last admission. Plan: Hemodialysis today.
[2019-01-15 11:21] VITALS: BMI 23.6
--- NOTE | 2019-01-15 16:18 | P.PN ---
Subjective Progress Note Date: 01/14/19 Interval history:Mr. Lezama is a pleasant 88-year-old white male who was admitted status post fall and confusion. His known problems with end-stage renal disease currently on dialysis Friday. He is doing better today with only slight confusion. But he wishes to go home on discharge. Which is [facility] assistance. He is scheduled to undergo dialysis tomorrow morning and out anticipate discharge in 24 hours. Of note his blood pressures been elevated today and cardiology is been consulted. 01/14/19 Initially thought to have had a run of sustained V. tach. Evaluated by cardiology, arrhythmia not VT but proximal atrial fibrillation. Pacemaker interrogated, reporting paroximal atrial fibrillation approximately 80% of the time since October. Anticoagulation discussed between cardiology and power of carpenter inspector/daughter Deborah Najera. POA and other siblings have decided against long-term anticoagulation secondary to patient's altered mental status, history of frequent falls. Beta guillermo increased. Final urine culture negative, afebrile . More alert, confused .Brain CT performed, reporting no acute intracranial process, dystrophic calcification right frontal lobe unchanged. Continues on vancomycin infused with hemodialysis as previously ordered for MSSA bacteremia-prior visit cultures, per Dr. Gonzalez. Afebrile. Objective - Vital Signs Vital signs: Vital Signs Temp 97.7 F 01/15/19 12:22 Pulse 61 01/15/19 12:22 Resp 18 01/15/19 12:22 BP 120/66 01/15/19 12:22 Pulse Ox 94 L 01/15/19 12:22 Intake & Output 01/14/19 01/15/19 01/15/19 18:59 06:59 18:59 Intake Total 50 250 50 Balance 50 250 50 Weight 72.575 kg Intake: Intake, IV Titration 50 250 50 Amount Vancomycin 1,500 mg In 250 Sodium Chloride 0.9% 250 ml @ 125 mls/hr IVPB ONCE ONE Rx#:[id number] cefTRIAXone 1 gm In 50 50 Sodium Chloride 0.9% 50 ml @ 100 mls/hr IVPB Q24HR [facility] Rx#:[id number] Other: Voiding Method Toilet Toilet # Voids 2 # Bowel Movements 1 - Exam VS: Temperature 97.7 oral, HR 61,BP 161/82, RR 16, O2Sat on RA 94% GENERAL: Alert and oriented 2, no acute distress. HEENT: Head is bandaged with a small contusion laceration to his frontal scalp.. Pupils are equal, round, and reactive to light. Sclerae anicteric. Conjunctivae are clear. Mucus membranes of the mouth are moist. Neck is supple with decreased range of motion secondary to marked degree of cervical osteoarthritis. RESPIRATORY: Clear to auscultation. No wheezes, rales, or rhonchi. CARDIOVASCULAR: Regular rate and rhythm. S1 and S2 noted. No murmurs, rubs or gallop GASTROINTESTINAL: Soft, nondistended, nontender. Abdomen soft and round. Normal active bowel sounds NEUROLOGIC: No focal deficits - Labs CBC & Chem 7: 01/11/19 04:01 01/15/19 07:41 Labs: Abnormal Lab Results - Last 24 Hours (Table) 01/15/19 Range/Units 07:41 Sodium 135 L (137-145) mmol/L BUN 30 H (9-20) mg/dL Creatinine 4.50 H (0.66-1.25) mg/dL Calcium 7.9 L (8.4-10.2) mg/dL Assessment and Plan Assessment: -Acute UTI -Generalized weakness with Fall -Acute on chronic renal failure -End-stage renal disease on hemodialysis -Paroxysmal atrial fibrillation, pacemaker interrogated. No anticoagulation as per medical DPOA -MSSA bacteremia, from prior cultures, continues on antibiotics as previously ordered per infectious disease Dr. Gonzalez Plan: Continue on current medication regime ,monitoring and symptomatic treatment. Continue on vancomycin. Hemodialysis tomorrow as per nephrology. Discharge planning in progress for subacute rehab pending authorization. The impression and plan of care has been dictated as directed. : I performed a history and examination of this patient, discussed the same with the dictator. I agree with the dictator's note ,documented as a scribe. Any additional findings or plans will be noted.
--- NOTE | 2019-01-15 16:33 | P.PN ---
Subjective Progress Note Date: 01/15/19 Interval history:Mr. Lezama is a pleasant 88-year-old white male who was admitted status post fall and confusion. His known problems with end-stage renal disease currently on dialysis Friday. He is doing better today with only slight confusion. But he wishes to go home on discharge. Which is [facility] with assistance. He is scheduled to undergo dialysis tomorrow morning and out anticipate discharge in 24 hours. Of note his blood pressures been elevated today and cardiology is been consulted. 01/14/19 Initially thought to have had a run of sustained V. tach. Evaluated by cardiology, arrhythmia not VT but proximal atrial fibrillation. Pacemaker interrogated, reporting paroximal atrial fibrillation approximately 80% of the time since October. Anticoagulation discussed between cardiology and power of tax attorney/daughter Deborah Najera. POA and other siblings have decided against long-term anticoagulation secondary to patient's altered mental status, history of frequent falls. Beta guillermo increased. Final urine culture negative, afebrile . More alert, confused .Brain CT performed, reporting no acute intracranial process, dystrophic calcification right frontal lobe unchanged. Continues on vancomycin infused with hemodialysis as previously ordered for MSSA bacteremia-prior visit cultures, per Dr. Gonzalez. Afebrile. 01/15/2019 Receiving hemodialysis today. Less confused today. Denies chest pain, palpitations or increased shortness of breath. Afebrile. Objective - Vital Signs Vital signs: Vital Signs Temp 97.7 F 01/15/19 12:22 Pulse 61 01/15/19 12:22 Resp 18 01/15/19 12:22 BP 120/66 01/15/19 12:22 Pulse Ox 94 L 01/15/19 12:22 Intake & Output 01/14/19 01/15/19 01/15/19 18:59 06:59 18:59 Intake Total 50 250 50 Balance 50 250 50 Weight 72.575 kg Intake: Intake, IV Titration 50 250 50 Amount Vancomycin 1,500 mg In 250 Sodium Chloride 0.9% 250 ml @ 125 mls/hr IVPB ONCE ONE Rx#:[id number] cefTRIAXone 1 gm In 50 50 Sodium Chloride 0.9% 50 ml @ 100 mls/hr IVPB Q24HR [facility] Rx#:[id number] Other: Voiding Method Toilet Toilet # Voids 2 # Bowel Movements 1 - Exam VS: As above GENERAL: Alert and oriented 2, no acute distress. HEENT: Frontal scalp bandage present.. Pupils are equal. Conjunctivae are clear. Oral mucosa moist. NECK: supple with decreased range of motion secondary to marked degree of cervical osteoarthritis. RESPIRATORY: Clear to auscultation. No wheezes, rales, or rhonchi. CARDIOVASCULAR: Regular rate and rhythm. S1 and S2 noted. No murmurs, rubs or gallop GASTROINTESTINAL: Soft, nondistended, nontender. Abdomen soft and round. Normal active bowel sounds NEUROLOGIC: No focal deficits - Labs CBC & Chem 7: 01/11/19 04:01 01/15/19 07:41 Labs: Abnormal Lab Results - Last 24 Hours (Table) 01/15/19 Range/Units 07:41 Sodium 135 L (137-145) mmol/L BUN 30 H (9-20) mg/dL Creatinine 4.50 H (0.66-1.25) mg/dL Calcium 7.9 L (8.4-10.2) mg/dL Assessment and Plan Assessment: -Acute UTI -Generalized weakness with Fall -Acute on chronic renal failure -End-stage renal disease on hemodialysis -Paroxysmal atrial fibrillation, pacemaker interrogated. No anticoagulation as per medical DPOA -MSSA bacteremia, from prior cultures, continues on antibiotics as previously ordered per infectious disease Dr. Gonzalez Plan: Continue on current medication regime ,monitoring and symptomatic treatment. Continue on vancomycin. Hemodialysis as per nephrology. Discharge planning in progress for subacute rehab pending authorization. The impression and plan of care has been dictated as directed. : I performed a history and examination of this patient, discussed the same with the dictator. I agree with the dictator's note ,documented as a scribe. Any additional findings or plans will be noted.
[2019-01-15] MEDS: ATORVASTATIN 10 MG TAB PO SCH (21:56)
[2019-01-16] MEDS: SODIUM CHLORIDE 0.9% 1,000 ML IV SCH (05:47)
[2019-01-16 07:18] LABS: Calcium 8.1 mg/dL (8.4-10.2); Vancomycin,Random 26.7 ug/mL
[2019-01-16] MEDS: ASPIRIN 81 MG PO SCH (09:12)
[2019-01-16] MEDS: CALCIUM ACETATE 667 MG CAP PO SCH ×3 (09:13→19:58)
[2019-01-16] MEDS: ISOSORBIDE MONONITRATE ER 15 MG TAB PO SCH (09:13)
[2019-01-16] MEDS: METOPROLOL SUCCINATE (ER) 50 MG TAB.ER.24H PO SCH (09:13)
[2019-01-16] MEDS: LISINOPRIL 5 MG TAB PO SCH (09:13)
[2019-01-16] MEDS: TAMSULOSIN 0.4 MG CAP.ER.24H PO SCH (09:14)
[2019-01-16] MEDS: amLODIPine 10 MG TAB PO SCH (09:14)
--- NOTE | 2019-01-16 19:13 | PN ---
PROGRESS NOTE The patient is seen for followup for end-stage renal disease. He is currently comfortable. He remains and somewhat confused. The patient had developed atrial fibrillation and now plans on not proceeding with anticoagulation at this time secondary to frequent falls and advanced age. PHYSICAL EXAMINATION: On examination today, blood pressure was 107/62, heart rate 62 per minute patient is afebrile. Examination of the heart S1, S2. Examination of lungs bilateral breath sounds are heard. Abdomen is soft, nontender. Exam of lower extremities shows no evidence of edema. KNOCKER OUT exam is grossly intact. LAB: Show sodium 135, potassium 4.0, BUN 20, serum creatinine 3.2. ASSESSMENT: 1. End-stage renal disease, on hemodialysis on a Friday, Friday, Friday schedule. 2. History of MSSA bacteremia. Maintained on vancomycin. 3. Mental status changes, etiology unclear. Possible transient ischemic attack. Brain CT has been negative x2. 4. CKD mineral bone disorder. Continue with phosphate binders. PLAN: Hemodialysis on Friday. MMODL / IJN: [id number] /
--- NOTE | 2019-01-16 19:25 | PN ---
PROGRESS NOTE DATE OF SERVICE: 01/16/2019 This 88-year-old gentleman who was admitted with multiple medical problems including acute UTI, generalized weakness, fall, is being worked up for ECF rehab. Had a peer consultation yesterday regarding the sanction for the ECF rehab. No chest pain. No palpitations. No fever. PHYSICAL EXAM: Alert and oriented x2. Pulse 62, blood pressure 107/60, respirations 16, temperature 97.9, pulse ox 97% on room air. HEENT: Conjunctivae normal. NECK: No jugular venous distention. CARDIOVASCULAR: S1, S2. RESPIRATORY: Breath sounds diminished in the bases. A few scattered rhonchi and crackles. ABDOMEN: Soft, nontender. No mass palpable. LEGS: No edema. No swelling. NERVOUS SYSTEM: Higher functions as mentioned earlier. Moves all 4 limbs. No focal deficits. Mild diffuse weakness. LAB STUDIES: At this time are sodium 132, potassium 4. ASSESSMENT: 1. Acute urinary tract infection. 2. Generalized weakness and fall. 3. Acute on chronic renal failure. 4. Endstage renal disease, on hemodialysis newly started. 5. Paroxysmal atrial fibrillation, pacemaker interrogated. No anticoagulation. 6. MSSA bacteremia from recent cultures. 7. Gait dysfunction. RECOMMENDATIONS AND DISCUSSION: This 88-year-old gentleman admitted with multiple complex medical issues. I would recommend to continue current management and symptomatic treatment. Otherwise PT/OT evaluation. Repeat labs also will be ordered. Otherwise, prognosis guarded because of multiple complex medical issues and further recommendations to follow. Prognosis guarded. Continue with the antibiotics. MMODL / IJN: [id number] /
[2019-01-16] MEDS: ATORVASTATIN 10 MG TAB PO SCH (19:58)
--- NOTE | 2019-01-17 02:22 | XR ---
EXAM: XR Chest, 1 View CLINICAL HISTORY: Reason: sob/congestion TECHNIQUE: Frontal view of the chest. COMPARISON: Chest x-ray 01/10/2019 and 12/29/2018 FINDINGS: Dual-lead cardiac pacer remains unchanged. Right-sided central venous catheter extends with tip in region of superior vena cava. Heart size upper limits of normal. Mediastinal structures are unremarkable. Pulmonary vascular congestion with increased interstitial opacities throughout both lungs. More confluence opacities in both lung bases. Small bilateral pleural effusions. No evidence of pneumothorax. Imaged bony thorax is unremarkable. IMPRESSION: Findings most suggestive of congestive failure and pulmonary edema with associated small bilateral pleural effusions. Basilar pneumonia cannot be excluded. Overall, there has been mild improvement in congestive changes since prior chest x-ray of 01/10/2019.
[2019-01-17] MEDS ORDERED: FUROSEMIDE 10 MG/ML 4 ML VIAL IV STA (02:23)
[2019-01-17] MEDS ORDERED: IPRATROPIUM-ALBUTEROL 3 ML NEB INHALATION PRN (02:24)
[2019-01-17 07:53] LABS: Anisocytosis Slight; Basophils # (A) 0.1 k/uL (0-0.2); Basophils % (A) 1 %; Eosinophils # (A) 0.3 k/uL (0-0.7); Eosinophils % (A) 5 %; HCT 31.4 % (39.0-53.0); HGB 9.5 gm/dL (13.0-17.5); Hypochromasia Marked; Lymphocytes # (A) 0.4 k/uL (1.0-4.8); Lymphocytes % (A) 6 %; MCH 32.1 pg (25.0-35.0); MCHC 30.3 g/dL (31.0-37.0); MCV 106.1 fL (80.0-100.0); Macrocytosis Marked; Mean Platelet Volume 6.9; Monocytes # (A) 0.6 k/uL (0-1.0); Monocytes % (A) 9 %; Neutrophils # (A) 5.8 k/uL (1.3-7.7); Neutrophils % (A) 79 %; Platelet Count 141 k/uL (150-450); RBC 2.96 m/uL (4.30-5.90); RDW 17.5 % (11.5-15.5); WBC 7.4 k/uL (3.8-10.6)
[2019-01-17 08:09] LABS: Calcium 8.1 mg/dL (8.4-10.2); Potassium 4.4 mmol/L (3.5-5.1)
[2019-01-17] MEDS: ASPIRIN 81 MG PO SCH (08:49)
[2019-01-17] MEDS: TAMSULOSIN 0.4 MG CAP.ER.24H PO SCH (08:49)
[2019-01-17] MEDS: LISINOPRIL 5 MG TAB PO SCH (08:49)
[2019-01-17] MEDS: amLODIPine 10 MG TAB PO SCH (08:49)
[2019-01-17] MEDS: CALCIUM ACETATE 667 MG CAP PO SCH ×3 (08:49→20:50)
[2019-01-17] MEDS: ISOSORBIDE MONONITRATE ER 15 MG TAB PO SCH (08:49)
[2019-01-17] MEDS: METOPROLOL SUCCINATE (ER) 50 MG TAB.ER.24H PO SCH (08:49)
[2019-01-17] MEDS ORDERED: FUROSEMIDE 10 MG/ML 10 ML VIAL IV STA (09:19)
--- NOTE | 2019-01-17 12:53 | PN ---
PROGRESS NOTE Patient is seen for followup for end-stage renal disease. Last night, he had trouble breathing. The patient had a dose of IV Lasix. He is feeling slightly better. The patient is scheduled for hemodialysis in a.m. EXAMINATION: Blood pressure was 159/85, heart rate 69 per minute. He is afebrile. Examination of the heart S1, S2. Examination of the lungs bilateral bases basal crackles are heard. Abdomen is soft, nontender. Examination of lower extremities shows no significant edema. COUNT TEAM MEMBER exam shows patient is moving all 4 extremities. Mental status is somewhat improved from yesterday. LABS SHOW: Hemoglobin 9.5 g/dL, sodium 136, potassium 4.4, BUN 31, serum creatinine 4.64. Chest x- ray from earlier this morning shows evidence of CHF. ASSESSMENT: 1. End-stage renal disease, on hemodialysis on a Friday, Friday, Friday schedule. 2. Fluid overload. I will repeat another dose of IV Lasix and patient will be dialyzed first thing tomorrow morning. If his respiratory status worsens tonight, we will dialyze him urgently tonight. 3. MSSA bacteremia from last admission, status post new PermCath placement and maintained on vancomycin. 4. CKD mineral bone disorder maintained on PhosLo. 5. Anemia of chronic disease, currently on Aranesp. PLAN: Repeat IV Lasix and hemodialysis biological inspector tomorrow. If patient's respiratory status worsens, he will be dialyzed tonight. MMODL / IJN: [id number] /
--- NOTE | 2019-01-17 13:17 | XR ---
EXAMINATION TYPE: XR chest 1V portable DATE OF EXAM: 01/17/2019 Comparison: 01/17/2019 Clinical History: 88-year-old male recheck CHF and pulmonary edema Findings: Left anterior chest wall pacemaker generator with right atrial and right ventricular leads. Heart is mildly enlarged. Right-sided double-lumen hemodialysis catheter with tips at the mid to lower SVC. Di ffuse interstitial and vascular prominence with patchy bibasilar opacities and trace effusions, relat ively similar. Impression: Findings suggest continued pulmonary vascular congestion. Trace effusions with adjacent atelectasis a nd/or consolidation also persists.
--- NOTE | 2019-01-17 17:23 | PN ---
PROGRESS NOTE DATE OF SERVICE: 11/16/2019. HISTORY: This 88-year-old gentleman was admitted with acute UTI, also generalized weakness and fall. Patient closely monitored. The patient is on chronic hemodialysis also. The patient is slated for ECF rehab. No chest pain. No palpitations. No fever. EXAM: Alert and oriented x2. Pulse 60, blood pressure 130/60, respirations 20, temperature 97.8, pulse ox 98 on room air. HEENT: Conjunctivae pink. CARDIOVASCULAR: S1 and S2 muffled. LUNGS: Breath sounds diminished in the bases. Few scattered rhonchi and crackles. ABDOMEN: Soft, nontender. EXTREMITIES: No edema, no swelling. FAMILY THERAPIST: Mild diffuse weakness. LAB STUDIES: WBC 11.7, hemoglobin 9.5, sodium 136. ASSESSMENT: 1. Acute urinary tract infection. 2. Generalized weakness and fall. 3. Acute on chronic renal failure. 4. Endstage renal disease on hemodialysis, newly started. 5. Paroxysmal atrial fibrillation with pacemaker interrogated, on anticoagulation. 6. Gait dysfunction. 7. Bacteremia with recent culture. RECOMMENDATIONS: Continue current management. Continue with PT and OT evaluation. Possible ECF rehab. Repeat labs. Guarded prognosis because of multiple complex medical issues. Further recommendations to follow. MMODL / IJN: [id number] /
[2019-01-17] MEDS: ATORVASTATIN 10 MG TAB PO SCH (20:50)
[2019-01-18] MEDS ORDERED: FUROSEMIDE 10 MG/ML 10 ML VIAL IV STA (02:58)
[2019-01-18 05:43] VITALS: BP 128/72; PULSE 60; RESP 20; TEMP 97.9
[2019-01-18] MEDS: amLODIPine 10 MG TAB PO SCH (08:43)
[2019-01-18] MEDS: METOPROLOL SUCCINATE (ER) 50 MG TAB.ER.24H PO SCH (08:44)
[2019-01-18] MEDS: LISINOPRIL 5 MG TAB PO SCH (08:44)
[2019-01-18] MEDS: ISOSORBIDE MONONITRATE ER 15 MG TAB PO SCH (08:44)
[2019-01-18 09:14] LABS: Anisocytosis Slight; Basophils % (A) 1 %; Eosinophils # (A) 0.2 k/uL (0-0.7); Eosinophils % (A) 8 %; HCT 29.7 % (39.0-53.0); HGB 9.1 gm/dL (13.0-17.5); Hypochromasia Marked; Lymphocytes # (A) 0.2 k/uL (1.0-4.8); Lymphocytes % (A) 7 %; MCH 32.4 pg (25.0-35.0); MCHC 30.7 g/dL (31.0-37.0); MCV 105.5 fL (80.0-100.0); Macrocytosis Marked; Mean Platelet Volume 7.1; Monocytes # (A) 0.1 k/uL (0-1.0); Monocytes % (A) 3 %; Neutrophils # (A) 2.5 k/uL (1.3-7.7); Neutrophils % (A) 81 %; Platelet Count 117 k/uL (150-450); RBC 2.81 m/uL (4.30-5.90); WBC 3.1 k/uL (3.8-10.6)
[2019-01-18] MEDS: CALCIUM ACETATE 667 MG CAP PO SCH (10:24)
--- NOTE | 2019-01-18 10:28 | P.DS ---
Providers Date of admission: 01/10/19 18:50 Expected date of discharge: 01/18/19 Attending physician: Garfield Golden Consults: 01/11/19 10:46 Consult Physician Stat Consulting Provider: Brenda Leonardo Consult Reason/Comments: dialysis Do you want consulting provider notified?: Yes 01/11/19 16:10 Consult Physician Urgent Consulting Provider: Norbert Delacruz Consult Reason/Comments: run of VT; possible pacemaker malfunction Do you want consulting provider notified?: Yes Primary care physician: Garfield Hanna Hospital Course: Final Diagnoses: -Acute UTI -Generalized weakness with Fall -Acute on chronic renal failure -End-stage renal disease on hemodialysis, newly started -Paroxysmal atrial fibrillation, pacemaker interrogated. No anticoagulation as per medical DPOA -MSSA bacteremia, from prior recent culture, continues on antibiotics as per infectious disease Dr. Gonzalez -Gait dysfunction [facility] Hospital course:Mr. Lezama is a pleasant 88-year-old white male who was admitted status post fall and confusion. His known problems with end-stage renal disease currently on dialysis Friday. He is doing better today with only slight confusion. But he wishes to go home on discharge. Which is [facility] with assistance. He is scheduled to undergo dialysis tomorrow morning and out anticipate discharge in 24 hours. Of note his blood pressures been elevated today and cardiology is been consulted. Initially thought to have had a run of sustained V. tach. Evaluated by cardiology, arrhythmia not VT but proximal atrial fibrillation. Pacemaker interrogated, reporting paroximal atrial fibrillation approximately 80% of the time since October. Anticoagulation discussed between cardiology and power of workers compensation attorney/daughter Deborah Najera. POA and other siblings have decided against long-term anticoagulation secondary to patient's altered mental status, history of frequent falls. Beta guillermo increased.Patient has been cleared by consults for discharge. Final urine culture negative, afebrile .Patient to be discharged to [facility] subacute rehab in a stable condition with guarded prognosis after hemodialysis completed today. - Exam GENERAL: Alert and oriented 2, no acute distress. RESPIRATORY: Bilateral bases Diminished, occasional scattered rhonchi and crackles. CARDIOVASCULAR: Regular rate and rhythm. S1 and S2 noted. No murmurs, rubs or gallop GASTROINTESTINAL: Soft, nondistended, nontender. Abdomen soft and round. Normal active bowel sounds NEUROLOGIC: No focal deficits The impression and plan of care has been dictated as directed. : I performed a history and examination of this patient, discussed the same with the dictator. I agree with the dictator's note ,documented as a scribe. Any additional findings or plans will be noted. Time taken: 35 minutes Patient Condition at Discharge: Stable Plan - Discharge Summary Discharge Rx Participant: No New Discharge Prescriptions: New amLODIPine [Norvasc] 10 mg PO DAILY tab Lisinopril [Zestril] 5 mg PO DAILY tab Metoprolol Succinate (ER) [Toprol XL] 50 mg PO DAILY tab.er.24h Continue Simvastatin [Zocor] 20 mg PO HS Tamsulosin [Flomax] 0.4 mg PO PC-BRKFST #30 tab Isosorbide Mononitrate ER [Imdur] 15 mg PO DAILY Aspirin 81 mg PO DAILY #30 chew Loratadine [Claritin] 10 mg PO DAILY #30 tab Cholestyramine (with Sugar) [Cholestyramine Packet] 4 gm PO HS PRN PRN Reason: Constipation Calcium Acetate [PhosLo] 667 mg PO TID Krill Oil 500 mg PO DAILY Discontinued Metoprolol Succinate [Toprol XL] 12.5 mg PO DAILY Discharge Medication List Simvastatin [Zocor] 20 mg PO HS 12/19/15 [History] Tamsulosin [Flomax] 0.4 mg PO PC-BRKFST #30 tab 06/12/18 [Rx] Isosorbide Mononitrate ER [Imdur] 15 mg PO DAILY 11/05/18 [History] Aspirin 81 mg PO DAILY #30 chew 11/10/18 [Rx] Loratadine [Claritin] 10 mg PO DAILY #30 tab 11/10/18 [Rx] Calcium Acetate [PhosLo] 667 mg PO TID 01/10/19 [History] Cholestyramine (with Sugar) [Cholestyramine Packet] 4 gm PO HS PRN 01/10/19 [ History] Krill Oil 500 mg PO DAILY 01/10/19 [History] Lisinopril [Zestril] 5 mg PO DAILY tab 01/14/19 [Rx] Metoprolol Succinate (ER) [Toprol XL] 50 mg PO DAILY tab.er.24h 01/14/19 [Rx] amLODIPine [Norvasc] 10 mg PO DAILY tab 01/14/19 [Rx] Follow up Appointment(s)/Referral(s): Brenda Leonardo MD [STAFF PHYSICIAN] - 01/20/19 11:40 am Nic Chavira DO [STAFF PHYSICIAN] - 3 Days Garfield Hanna DO [Primary Care Provider] - 1 Week (After DC from subacute rehab) Activity/Diet/Wound Care/Special Instructions: [facility] declining anticoagulation Antibiotics as per Dr. Gonzalez previously ; continue on vancomycin IV- infused with HD per prev. order. HOME MEDICATIONS IN PHARMACY Confirm cardiology follow-up appointment prior to discharge Diet: Cardiac,renal Activity: As tolerated Hemodialysis as per nephrology CBC, BMP in 3 days Discharge Disposition: TRANSFER TO SNF/ECF
[2019-01-18] MEDS: TAMSULOSIN 0.4 MG CAP.ER.24H PO SCH (10:34)
[2019-01-18] MEDS: ASPIRIN 81 MG PO SCH (10:34)
[2019-01-18 10:59] LABS: Poikilocytosis (M) Present
--- NOTE | 2019-01-18 13:09 | PN ---
PROGRESS NOTE The patient is seen for followup for end-stage renal disease. He is currently seen on dialysis. Patient is tolerating his treatment well. No significant complaints. PHYSICAL EXAMINATION: On examination, blood pressure was 128/72, heart rate 60 per minute. He is afebrile. EXAMINATION OF THE HEART: S1, S2. EXAMINATION OF THE LUNGS: Bilateral breath sounds are heard. Abdomen is soft, nontender. Examination of the lower extremities shows no significant edema. Bilateral basal crackles are heard. LAB: Labs show hemoglobin 9.1, sodium 136, potassium 4.4. ASSESSMENT: 1. End-stage renal disease, on hemodialysis on a Friday, Friday, Friday schedule. 2. Volume overload. Increase UF as tolerated with hemodialysis today. 3. Hypertension, currently controlled. 4. 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 5. MSSA bacteremia from last admission, maintained on vancomycin. PLAN: The patient is stable for discharge from nephrology standpoint, post hemodialysis today. MMODL / IJN: [id number] /
== END 2019-01-18 15:33 ==
LOC: EC 14:47 → 3NMEDONC 18:50
PROVIDERS: ADMIT Family Medicine; ATTEND Family Medicine
DX: N39.0 Urinary tract infection, site not specified (principal); S01.01XA Laceration without foreign body of scalp, initial encounter; W19.XXXA Unspecified fall, initial encounter; I12.0 Hypertensive chronic kidney disease with stage 5 chronic kidney disease or end stage renal disease; N18.6 End stage renal disease; Z99.2 Dependence on renal dialysis; G89.29 Other chronic pain; Z23 Encounter for immunization; M19.90 Unspecified osteoarthritis, unspecified site; E78.5 Hyperlipidemia, unspecified; E55.9 Vitamin D deficiency, unspecified; B95.61 Methicillin susceptible Staphylococcus aureus infection as the cause of diseases classified elsewhere; D63.8 Anemia in other chronic diseases classified elsewhere; I13.2 Hypertensive heart and chronic kidney disease with heart failure and with stage 5 chronic kidney disease, or end stage renal disease; I25.10 Atherosclerotic heart disease of native coronary artery without angina pectoris; I45.10 Unspecified right bundle-branch block; I48.0 Paroxysmal atrial fibrillation; I50.9 Heart failure, unspecified; J45.909 Unspecified asthma, uncomplicated; M89.9 Disorder of bone, unspecified; N17.9 Acute kidney failure, unspecified; N40.0 Benign prostatic hyperplasia without lower urinary tract symptoms; R78.81 Bacteremia; Z87.09 Personal history of other diseases of the respiratory system; Z91.81 History of falling; R29.6 Repeated falls; Z82.49 Family history of ischemic heart disease and other diseases of the circulatory system; Z87.891 Personal history of nicotine dependence; Z79.82 Long term (current) use of aspirin; Z79.899 Other long term (current) drug therapy; Z98.42 Cataract extraction status, left eye; Z98.41 Cataract extraction status, right eye; Z96.1 Presence of intraocular lens; Z95.0 Presence of cardiac pacemaker
CPT/HCPCS: 96376 ×2; 96361 ×3; 96366 ×7; 96367; 96375; 96365; 99285; 36415; 94760; 93005; 97116; 97110; 97162; 97166; 80053 ×2; 80048 ×6; 82550 ×2; 82553 ×2; 84484 ×2; 85025 ×4; 85610; 85730; 86706; 87340; 81001; 80202 ×3; 80306; 87086; 71045; 71046; 70450 ×2; 90715; G0257; G0378 ×9; J1644; J3370 ×3; J1940 ×3; J0696 ×8; 90935

== ENCOUNTER 2019-03-04 06:04 | Day surgery (SDC) | payer MEDICARE, OTHER ==
[2019-02-26 09:32] VITALS: BMI 19.9
[~2019-03-04 06:04] MED LIST: DEXAMETHASONE SOD PHOSPHATE 10 MG/ML 1 ML VIAL IV ONE; HEPARIN SODIUM,PORCINE 5,000 UNIT/ML 1 ML VIAL SQ ONE; HYDROmorphone 0.5 MG/0.5 ML SYRINGE IVP PRN; LACTATED RINGERS 1,000 ML IV SCH; LIDOCAINE 1% 20 ML VIAL (10MG/ML) FOR IV START INTRADERMA PRN; MIDAZOLAM 2 MG/2 ML VIAL IV PRN; ONDANSETRON 4 MG/2 ML VIAL IVP ONE; SCOPOLAMINE 1.5MG/72HR PATCH TRANSDERM ONE; ceFAZolin IN SWFI 2 GM/20 ML SYRINGE IVP ONE
[2019-03-04] MEDS ORDERED: SODIUM CHLORIDE 0.9% 1,000 ML IV ONE (07:12)
[2019-03-04] MEDS ORDERED: LIDOCAINE 1% INJ 10MG/ML (20 ML MDV) ONE (07:46)
[2019-03-04] MEDS ORDERED: fentaNYL (PF) 50 MCG/ML 2 ML AMP ONE (07:46)
[2019-03-04] MEDS ORDERED: ePHEDrine SULFATE/0.9% NACL/PF 50 MG/5 ML SYRINGE IV ONE (07:46)
[2019-03-04] MEDS ORDERED: ceFAZolin 1,000 MG VIAL ONE (07:46)
[2019-03-04] MEDS ORDERED: ESMOLOL 100 MG/10 ML VIAL ONE (07:46)
[2019-03-04] MEDS ORDERED: PROPOFOL 10 MG/ML 20 ML VIAL IV ONE (07:46)
[2019-03-04] MEDS ORDERED: SUCCINYLCHOLINE CHLORIDE 100 MG/5 ML SYR IV ONE (07:46)
--- NOTE | 2019-03-04 07:49 | P.GSHP ---
History of Present Illness H&P Date: 03/04/19 Chief Complaint: Left inguinal hernia This is a 80-year-old male who has developed a left inguinal hernia. Patient presents today for open repair. Past Medical History Past Medical History: Cancer, Dialysis, GERD/Reflux, Hyperlipidemia, Hypertension, Osteoarthritis (OA), Pneumonia, Prostate Disorder, Renal Disease Additional Past Medical History / Comment(s): heart block, arthritis in hands, neck, back pain, bowel obstructions, diverticulitis, diarrhea, vitamin D deficiency, BPH with surgery, asthma as a child, sinusitis. 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 Type of Cardiac Device: Permanent Pacemaker Device Placement Date:: 06/11/18 Smoking Status: Former smoker - Past Family History Father Family Medical History: Coronary Artery Disease (CAD) Additional Family Medical History / Comment(s): Father at 75 of heart problems. Mother Family Medical History: No Reported History Additional Family Medical History / Comment(s): Mother was healthy. She at 71 yrs in MVA. Daughter(s) Family Medical History: Cancer Medications and Allergies Home Medications Medication Instructions Recorded Confirmed Type Simvastatin [Zocor] 20 mg PO HS 12/19/15 03/04/19 History Tamsulosin [Flomax] 0.4 mg PO PC-BRKFST #30 tab 06/12/18 03/04/19 Rx Isosorbide Mononitrate ER [Imdur] 30 mg PO DAILY 11/05/18 03/04/19 History Aspirin 81 mg PO DAILY #30 chew 11/10/18 02/26/19 Rx Loratadine [Claritin] 10 mg PO DAILY #30 tab 11/10/18 03/04/19 Rx Calcium Acetate [PhosLo] 667 mg PO TID 01/10/19 02/26/19 History Cholestyramine (with Sugar) 4 gm PO HS PRN 01/10/19 03/04/19 History [Cholestyramine Packet] Krill Oil 500 mg PO DAILY 01/10/19 02/26/19 History Lisinopril [Zestril] 5 mg PO DAILY tab 01/14/19 03/04/19 Rx Metoprolol Succinate (ER) [Toprol 50 mg PO DAILY tab.er.24h 01/14/19 03/04/19 Rx XL] Allergies Allergy/AdvReac Type Severity Reaction Status Date / Time No Known Allergies Allergy Verified 02/26/19 09:05 Surgical - Exam Vital Signs Temp Pulse Resp BP Pulse Ox 97.8 F 71 16 172/88 98 03/04/19 06:41 03/04/19 06:41 03/04/19 06:41 03/04/19 06:41 03/04/19 06:41 - General well developed, well nourished, no distress - Eyes PERRL - ENT normal pinna - Neck no masses - Respiratory normal expansion - Cardiovascular Rhythm: regular - Abdomen Multiple laparotomy scars Abdomen: soft, non tender Hernia: reducible (Reducible left inguinal hernia) Results - Labs 03/04/19 06:50 Diabetes panel 03/04/19 Range/Units 06:50 Potassium 3.6 (3.5-5.1) mmol/L Pituitary panel 03/04/19 Range/Units 06:50 Potassium 3.6 (3.5-5.1) mmol/L Adrenal panel 03/04/19 Range/Units 06:50 Potassium 3.6 (3.5-5.1) mmol/L Assessment and Plan Assessment: Left inguinal hernia. We'll perform open repair.
[2019-03-04] MEDS ORDERED: SODIUM CHLORIDE 0.9% 100 ML with ceFAZolin 2,000 MG IV ONE ×2 (08:16)
[2019-03-04] MEDS ORDERED: BUPIVACAINE (PF) 0.5% 30 ML VIAL SQ ONE ×3 (08:25→08:42)
[2019-03-04 08:59] VITALS: TEMP 98
--- NOTE | 2019-03-04 09:12 | P.OP ---
Date of Procedure: 03/04/19 Preoperative Diagnosis: Left inguinal hernia Postoperative Diagnosis: Left inguinal hernia Procedure(s) Performed: Open repair of left inguinal hernia Anesthesia: GETA Estimated Blood Loss (ml): 5 Pathology: none sent Condition: stable Disposition: PACU Description of Procedure: InDESCRIPTION OF PROCEDURE: The patient was placed in the supine position after receiving adequate anesthesia. Patients left groin was prepped and draped in the usual sterile fashion. A standard hernia incision was made and the subcutaneous tissues were divided with electrocautery. The fascia of the external oblique was exposed. A vannessa the fascia was made with #15 blade. The fascia was then opened with pair of Metzenbaum scissors. A Weitlaner retractor was placed in the wound and the cord structures were grasped and dissected free from the inguinal canal. A rubber Hammond drain was placed around the cord structures. The hernial sac was seen on the anterior-medial portion of the cord and this was dissected free from the cord. The hernia sac was then invaginated to the peritoneal cavity. Using blunt finger dissection, the preperitoneal space was dissected and then the Prolene hernial mesh plug was placed into the prepared space. The inferior leaf was expanded. The superior leaf was secured to the pubic tubercle using 2-0 Prolene suture. The lateral portion of the superior leaf was incised and cords tied and secured to the transversalis fascia using 2-0 Prolene suture. Fascia of the external oblique was then closed using #0 Vicryl suture. The Hammond drain was removed. The Scarpas fascia was then closed with 3-0 Vicryl suture and skin was closed with 3-0 Monocryl. The patient tolerated the procedure well.
[2019-03-04 10:46] VITALS: RESP 18
[2019-03-04 11:42] VITALS: BP 120/70; PULSE 69
== END 2019-03-04 11:42 | disposition home or self-care (01) ==
LOC: OR 06:04
PROVIDERS: ATTEND Surgery
DX: K40.90 Unilateral inguinal hernia, without obstruction or gangrene, not specified as recurrent (principal); K21.9 Gastro-esophageal reflux disease without esophagitis; E78.5 Hyperlipidemia, unspecified; J45.909 Unspecified asthma, uncomplicated; E55.9 Vitamin D deficiency, unspecified; N40.0 Benign prostatic hyperplasia without lower urinary tract symptoms; M15.9 Polyosteoarthritis, unspecified; I13.2 Hypertensive heart and chronic kidney disease with heart failure and with stage 5 chronic kidney disease, or end stage renal disease; N18.6 End stage renal disease; I50.9 Heart failure, unspecified; Z99.2 Dependence on renal dialysis; Z90.49 Acquired absence of other specified parts of digestive tract; Z98.890 Other specified postprocedural states; Z95.0 Presence of cardiac pacemaker; Z85.828 Personal history of other malignant neoplasm of skin; Z87.891 Personal history of nicotine dependence; Z80.9 Family history of malignant neoplasm, unspecified; Z79.82 Long term (current) use of aspirin; Z79.51 Long term (current) use of inhaled steroids; Z79.899 Other long term (current) drug therapy
CPT/HCPCS: 84132; 49505; C1781; J1644; J1100; J2405; J0690 ×2; J2001; J3010; J0330; J2704

== ENCOUNTER 2019-04-22 06:58 | Day surgery (SDC) | payer MEDICARE, OTHER ==
[2019-04-19 10:59] VITALS: BMI 20.7
[2019-04-22] MEDS ORDERED: SODIUM CHLORIDE 0.9% 1,000 ML IV ONE (07:50)
[2019-04-22] MEDS ORDERED: METOPROLOL TARTRATE 5 MG/5 ML VIAL IVP ONE (07:50)
--- NOTE | 2019-04-22 07:52 | P.GSHP ---
History of Present Illness H&P Date: 04/22/19 Chief Complaint: Right inguinal hernia This a 89-year-old male who presents today for open repair of right inguinal hernia. Patient developed a tender mass right groin. Past Medical History Past Medical History: Cancer, Dialysis, GERD/Reflux, Hyperlipidemia, Hypertension, Osteoarthritis (OA), Pneumonia, Prostate Disorder, Renal Disease Additional Past Medical History / Comment(s): heart block, arthritis in hands, neck, back pain, bowel obstructions, diverticulitis, diarrhea, vitamin D deficiency, BPH with surgery, asthma as a child, sinusitis. 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 Type of Cardiac Device: Permanent Pacemaker Device Placement Date:: 06/11/18 Smoking Status: Former smoker - Past Family History Father Family Medical History: Coronary Artery Disease (CAD) Additional Family Medical History / Comment(s): Father at 75 of heart problems. Mother Family Medical History: No Reported History Additional Family Medical History / Comment(s): Mother was healthy. She at 71 yrs in MVA. Daughter(s) Family Medical History: Cancer Medications and Allergies Home Medications Medication Instructions Recorded Confirmed Type Simvastatin [Zocor] 20 mg PO HS 12/19/15 04/19/19 History Tamsulosin [Flomax] 0.4 mg PO PC-BRKFST #30 tab 06/12/18 04/19/19 Rx Isosorbide Mononitrate ER [Imdur] 30 mg PO DAILY 11/05/18 04/19/19 History Aspirin 81 mg PO DAILY #30 chew 11/10/18 04/19/19 Rx Loratadine [Claritin] 10 mg PO DAILY #30 tab 11/10/18 04/19/19 Rx Calcium Acetate [PhosLo] 667 mg PO TID 01/10/19 04/19/19 History Cholestyramine (with Sugar) 4 gm PO HS PRN 01/10/19 04/19/19 History [Cholestyramine Packet] Krill Oil 500 mg PO DAILY 01/10/19 04/19/19 History Lisinopril [Zestril] 5 mg PO DAILY tab 01/14/19 04/19/19 Rx Metoprolol Succinate (ER) [Toprol 50 mg PO DAILY tab.er.24h 01/14/19 04/19/19 Rx XL] Budesonide-Formot 160-4.5 Mcg 2 puff INHALATION BID 04/19/19 04/19/19 History [Symbicort 160-4.5 Mcg Inhaler] amLODIPine [Norvasc] 10 mg PO DAILY 04/19/19 04/19/19 History Allergies Allergy/AdvReac Type Severity Reaction Status Date / Time No Known Allergies Allergy Verified 04/22/19 07:12 Surgical - Exam Vital Signs Temp Pulse Resp BP Pulse Ox 97.4 F L 76 16 175/81 98 04/22/19 07:17 04/22/19 07:17 04/22/19 07:17 04/22/19 07:17 04/22/19 07:17 - General well developed, well nourished, no distress - Eyes PERRL - ENT normal pinna - Neck no masses - Respiratory normal expansion - Cardiovascular Rhythm: regular - Abdomen Abdomen: soft, non tender Assessment and Plan Assessment: Right inguinal hernia we'll perform open repair.
[2019-04-22] MEDS ORDERED: LIDOCAINE 1% INJ 10MG/ML (20 ML MDV) ONE (08:04)
[2019-04-22] MEDS ORDERED: fentaNYL (PF) 50 MCG/ML 2 ML AMP ONE (08:04)
[2019-04-22] MEDS ORDERED: MIDAZOLAM 2 MG/2 ML VIAL ONE (08:04)
[2019-04-22] MEDS ORDERED: PROPOFOL 10 MG/ML 20 ML VIAL IV ONE (08:04)
[2019-04-22] MEDS ORDERED: PHENYLEPHRINE-0.9% NACL SYG 1 MG/10 ML SYRINGE ONE (08:04)
[2019-04-22] MEDS ORDERED: LIDOCAINE 0.5%-EPI 1:200,000 50 ML VIAL SQ ONE ×2 (08:46→09:03)
--- NOTE | 2019-04-22 09:22 | P.OP ---
Date of Procedure: 04/22/19 Preoperative Diagnosis: Right inguinal hernia Postoperative Diagnosis: Right inguinal hernia Procedure(s) Performed: Right inguinal hernia repair Anesthesia: spinal Surgeon: Sly Lopez Estimated Blood Loss (ml): 5 Pathology: none sent Condition: stable Disposition: PACU Description of Procedure: IDESCRIPTION OF PROCEDURE: The patient was placed in the supine position after receiving adequate anesthesia. The patient's groin was prepped and draped in the usual sterile fashion. A standard hernia incision was made and the subcutaneous tissues were divided with electrocautery. The fascia of the external oblique was exposed. A vannessa the fascia was made with #15 blade. The fascia was then opened with pair of Metzenbaum scissors. A Weitlaner retractor was placed in the wound and the cord structures were grasped and dissected free from the inguinal canal. A rubber Willis drain was placed around the cord structures. The hernial sac was seen on the anterior-medial portion of the cord and this was dissected free from the cord. The hernia sac was then invaginated to the peritoneal cavity. Using blunt finger dissection, the preperitoneal space was dissected and then the Prolene hernial mesh plug was placed into the prepared space. The inferior leaf was expanded. The superior leaf was secured to the pubic tubercle using 2-0 Prolene suture. The lateral portion of the superior leaf was incised and cords tied and secured to the transversalis fascia using 2-0 Prolene suture. Fascia of the external oblique was then closed using #0 Vicryl suture. The Willis drain was removed. The Scarpas fascia was then closed with 3-0 Vicryl suture and skin was closed with cara. The patient tolerated the procedure well. ir
[2019-04-22 09:30] VITALS: TEMP 97.2
[2019-04-22 10:27] VITALS: RESP 16
[2019-04-22 13:15] VITALS: PULSE 60
[2019-04-22 14:39] VITALS: BP 114/69
== END 2019-04-22 15:27 | disposition home or self-care (01) ==
LOC: OR 06:58
PROVIDERS: ATTEND Surgery
DX: K40.90 Unilateral inguinal hernia, without obstruction or gangrene, not specified as recurrent (principal); E55.9 Vitamin D deficiency, unspecified; E78.5 Hyperlipidemia, unspecified; J45.909 Unspecified asthma, uncomplicated; K21.9 Gastro-esophageal reflux disease without esophagitis; N40.0 Benign prostatic hyperplasia without lower urinary tract symptoms; Z82.49 Family history of ischemic heart disease and other diseases of the circulatory system; Z87.891 Personal history of nicotine dependence; Z95.0 Presence of cardiac pacemaker; N18.6 End stage renal disease; Z99.2 Dependence on renal dialysis; I12.0 Hypertensive chronic kidney disease with stage 5 chronic kidney disease or end stage renal disease; Z90.49 Acquired absence of other specified parts of digestive tract; Z96.641 Presence of right artificial hip joint; Z98.42 Cataract extraction status, left eye; Z98.41 Cataract extraction status, right eye; Z96.1 Presence of intraocular lens; Z79.899 Other long term (current) drug therapy; Z79.51 Long term (current) use of inhaled steroids; Z79.82 Long term (current) use of aspirin

== ENCOUNTER 2019-06-30 22:01 | Inpatient (IN) | payer MEDICARE, OTHER ==
[2019-06-30 23:05] LABS: Basophils % (A) 1 %; Eosinophils # (A) 0.3 k/uL (0-0.7); Eosinophils % (A) 4 %; HCT 31.1 % (39.0-53.0); HGB 9.6 gm/dL (13.0-17.5); Lymphocytes # (A) 0.8 k/uL (1.0-4.8); Lymphocytes % (A) 10 %; MCH 33.1 pg (25.0-35.0); MCHC 30.7 g/dL (31.0-37.0); MCV 107.9 fL (80.0-100.0); Macrocytosis Moderate; Mean Platelet Volume 7.9; Monocytes # (A) 0.5 k/uL (0-1.0); Monocytes % (A) 6 %; Neutrophils # (A) 6.2 k/uL (1.3-7.7); Neutrophils % (A) 78 %; Platelet Count 137 k/uL (150-450); RBC 2.88 m/uL (4.30-5.90); RDW 13.7 % (11.5-15.5)
[2019-06-30 23:14] LABS: INR 1.3 (<1.2); Partial Thromboplastin Time 29.4 sec (22.0-30.0)
[2019-06-30 23:15] LABS: Albumin 2.9 g/dL (3.5-5.0); Calcium 7.8 mg/dL (8.4-10.2); Magnesium 1.6 mg/dL (1.6-2.3); Potassium 3.5 mmol/L (3.5-5.1); Total Bilirubin 0.8 mg/dL (0.2-1.3); Total Protein 5.4 g/dL (6.3-8.2)
--- NOTE | 2019-06-30 23:16 | ED ---
Syncope HPI - General Chief Complaint: Syncope Stated Complaint: dizziness Time Seen by Provider: 06/30/19 22:19 Source: patient Mode of arrival: wheelchair Limitations: no limitations - History of Present Illness Initial Comments: This patient is an 89-year-old man who presents with complaint of feeling like he was going to pass out being very lightheaded. The patient states that he had gone for his dialysis session yesterday. He states that following that he was going to get something to eat and almost passed out. The patient then had an urge to have bowel movement and noted that there was some redness. He states that he had attributed that to the fact that he had some cranberry juice to drink. He has subsequently had another bowel movement with some redness and this time was convinced that there was some blood. Patient denies having any abdominal pain other than a little bit of cramping prior to the bowel movement. He denies chest pain, palpitations, dyspnea or diaphoresis. MD Complaint: felt faint, almost passed out -: hour(s) Prodromal Symptoms: lightheaded Witnessed: yes - by bystander Injuries Sustained Associated with Event: None Current Symptoms: lightheaded Context: at rest Treatments Prior to Arrival: none - Related Data Home Medications Medication Instructions Recorded Confirmed Simvastatin [Zocor] 20 mg PO HS 12/19/15 06/30/19 Isosorbide Mononitrate ER [Imdur] 30 mg PO DAILY 11/05/18 06/30/19 Calcium Acetate [PhosLo] 667 mg PO TID 01/10/19 06/30/19 Atorvastatin [Lipitor] 10 mg PO HS 06/30/19 06/30/19 Clopidogrel Bisulfate [Plavix] 75 mg PO DAILY 06/30/19 06/30/19 Famotidine [Pepcid] 20 mg PO BID 06/30/19 06/30/19 Previous Rx's Medication Instructions Recorded Tamsulosin [Flomax] 0.4 mg PO PC-BRKFST #30 tab 06/12/18 Lisinopril [Zestril] 5 mg PO DAILY tab 01/14/19 Metoprolol Succinate (ER) [Toprol 50 mg PO DAILY tab.er.24h 01/14/19 XL] Allergies Allergy/AdvReac Type Severity Reaction Status Date / Time No Known Allergies Allergy Verified 07/31/19 22:54 Review of Systems ROS Statement: Those systems with pertinent positive or pertinent negative responses have been documented in the HPI. ROS Other: All systems not noted in ROS Statement are negative. Constitutional: Denies: fever, chills, weakness Eyes: Denies: vision change Respiratory: Denies: cough, dyspnea Cardiovascular: Reports: as per HPI, syncope (Near-syncopal episode). Denies: chest pain, palpitations, orthopnea, edema Gastrointestinal: Reports: melena. Denies: abdominal pain, nausea, vomiting, diarrhea, constipation, hematochezia Musculoskeletal: Denies: back pain Skin: Denies: rash Neurological: Denies: headache, weakness, numbness Hematological/Lymphatic: Denies: easy bleeding Past Medical History Past Medical History: Cancer, Dialysis, GERD/Reflux, Hyperlipidemia, Hypertension, Osteoarthritis (OA), Pneumonia, Prostate Disorder, Renal Disease Additional Past Medical History / Comment(s): heart block, arthritis in hands, neck, back pain, bowel obstructions, diverticulitis, diarrhea, vitamin D deficiency, BPH with surgery, asthma as a child, sinusitis. 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 Type of Cardiac Device: Permanent Pacemaker Device Placement Date:: 06/11/18 Past Psychological History: No Psychological Hx Reported Smoking Status: Former smoker - Past Family History Father Family Medical History: Coronary Artery Disease (CAD) Additional Family Medical History / Comment(s): Father at 75 of heart problems. Mother Family Medical History: No Reported History Additional Family Medical History / Comment(s): Mother was healthy. She at 71 yrs in MVA. Daughter(s) Family Medical History: Cancer General Exam Limitations: no limitations General appearance: alert, in no apparent distress Head exam: Present: atraumatic, normocephalic Eye exam: Present: normal appearance, PERRL, EOMI. Absent: scleral icterus, conjunctival injection ENT exam: Present: normal oropharynx Neck exam: Present: normal inspection Respiratory exam: Present: normal lung sounds bilaterally. Absent: respiratory distress, wheezes, rales, rhonchi, stridor Cardiovascular Exam: Present: regular rate, normal rhythm, normal heart sounds. Absent: systolic murmur, diastolic murmur, rubs, gallop GI/Abdominal exam: Present: soft. Absent: distended, tenderness, guarding, rebound, rigid, mass Rectal exam: Present: normal rectal tone, bloody stool, other (No evident external source of blood. There is bloody stool) Extremities exam: Present: normal inspection, normal capillary refill. Absent: pedal edema, calf tenderness Back exam: Present: normal inspection Neurological exam: Present: alert Skin exam: Present: warm, dry, intact, pallor. Absent: rash Course Vital Signs 06/30/19 07/01/19 07/01/19 22:02 00:03 00:30 Temperature 97.3 F L Pulse Rate 64 60 60 Respiratory 16 20 17 Rate Blood Pressure 104/63 51/40 66/42 O2 Sat by Pulse 99 Oximetry 07/01/19 07/01/19 07/01/19 01:10 01:30 01:40 Temperature Pulse Rate 60 60 60 Respiratory 16 16 20 Rate Blood Pressure 62/38 61/36 67/44 O2 Sat by Pulse Oximetry 07/01/19 07/01/19 07/01/19 01:50 02:10 02:20 Temperature Pulse Rate 60 60 Respiratory 16 16 16 Rate Blood Pressure 58/41 69/42 53/37 O2 Sat by Pulse Oximetry 07/01/19 07/01/19 07/01/19 02:26 02:32 02:40 Temperature Pulse Rate 60 60 62 Respiratory 20 18 18 Rate Blood Pressure 53/37 68/40 67/43 O2 Sat by Pulse Oximetry 07/01/19 07/01/19 07/01/19 02:46 02:50 02:55 Temperature Pulse Rate 60 60 60 Respiratory 18 18 18 Rate Blood Pressure 72/47 72/47 77/43 O2 Sat by Pulse Oximetry 07/01/19 07/01/19 07/01/19 03:00 03:04 03:05 Temperature 97.7 F Pulse Rate 60 60 Respiratory 18 18 Rate Blood Pressure 78/49 69/44 O2 Sat by Pulse Oximetry 07/01/19 07/01/19 07/01/19 03:06 03:45 04:00 Temperature 98.3 F Pulse Rate 60 58 L 60 Respiratory 18 12 Rate Blood Pressure 73/43 61/42 69/46 O2 Sat by Pulse 86 L 99 Oximetry 07/01/19 07/01/19 07/01/19 04:15 04:30 04:45 Temperature Pulse Rate 60 70 61 Respiratory 16 12 16 Rate Blood Pressure 78/45 63/42 44/32 O2 Sat by Pulse 100 100 100 Oximetry 07/01/19 07/01/19 07/01/19 05:00 05:15 05:30 Temperature Pulse Rate 60 60 60 Respiratory 14 16 12 Rate Blood Pressure 94/47 71/40 99/51 O2 Sat by Pulse 100 100 100 Oximetry 07/01/19 07/01/19 05:45 06:00 Temperature Pulse Rate 60 60 Respiratory 8 L 8 L Rate Blood Pressure 96/49 93/48 O2 Sat by Pulse 100 100 Oximetry EKG Findings - EKG Comments: EKG Findings:: There is a ventricular paced rhythm at 64 bpm. - EKG Results: EKG: interpreted by BRITTNEY Medical Decision Making - Medical Decision Making Patient is an 89-year-old man with history of dialysis. He presents following episode of lightheadedness and bowel movement with some blood. He did have another 2 episodes of bowel movements with some clots and dark blood in the emergency department. Patient is given protonic's and will be admitted. The patient did have some hypotension in the department and is given fluid bolus. Patient will have serial hemoglobins. Case discussed with Dr. Hanna. He states he will see the patient and add GI consultation or surgery. Discussed CODE STATUS and patient states he would not want CPR or intubation. He does want medical management. - Lab Data Result diagrams: 07/01/19 04:50 07/01/19 04:50 Lab Results 06/30/19 06/30/19 06/30/19 Range/Units 22:40 22:40 22:40 WBC 8.0 (3.8-10.6) k/uL RBC 2.88 L (4.30-5.90) m/uL Hgb 9.6 L (13.0-17.5) gm/dL Hct 31.1 L (39.0-53.0) % MCV 107.9 H (80.0-100.0) fL MCH 33.1 (25.0-35.0) pg MCHC 30.7 L (31.0-37.0) g/dL RDW 13.7 (11.5-15.5) % Plt Count 137 L (150-450) k/uL Neutrophils % 78 % Lymphocytes % 10 % Monocytes % 6 % Eosinophils % 4 % Basophils % 1 % Neutrophils # 6.2 (1.3-7.7) k/uL Lymphocytes # 0.8 L (1.0-4.8) k/uL Monocytes # 0.5 (0-1.0) k/uL Eosinophils # 0.3 (0-0.7) k/uL Basophils # 0.0 (0-0.2) k/uL Hypochromasia Macrocytosis Moderate PT (9.0-12.0) sec INR (<1.2) APTT (22.0-30.0) sec Sodium 135 L (137-145) mmol/L Potassium 3.5 (3.5-5.1) mmol/L Chloride 99 (98-107) mmol/L Carbon Dioxide 28 (22-30) mmol/L Anion Gap 8 mmol/L BUN 13 (9-20) mg/dL Creatinine 2.69 H (0.66-1.25) mg/dL Est GFR (CKD-EPI)AfAm 23 (>60 ml/min/1.73 sqM) Est GFR (CKD-EPI)NonAf 20 (>60 ml/min/1.73 sqM) Glucose 98 (74-99) mg/dL POC Glucose (mg/dL) (75-99) mg/dL POC Glu [facility] ID Calcium 7.8 L (8.4-10.2) mg/dL Phosphorus (2.5-4.5) mg/dL Magnesium 1.6 (1.6-2.3) mg/dL Total Bilirubin 0.8 (0.2-1.3) mg/dL AST 22 (17-59) U/L ALT 14 L (21-72) U/L Alkaline Phosphatase 104 (38-126) U/L Troponin I (0.000-0.034) ng/mL Total Protein 5.4 L (6.3-8.2) g/dL Albumin 2.9 L (3.5-5.0) g/dL Blood Type B Positive Blood Type Recheck No Antibody Screen NEGATIVE Spec Expiration Date 07/03/2019 - 233906/30/19 06/30/19 07/01/19 Range/Units 22:40 22:40 03:33 WBC (3.8-10.6) k/uL RBC (4.30-5.90) m/uL Hgb (13.0-17.5) gm/dL Hct (39.0-53.0) % MCV (80.0-100.0) fL MCH (25.0-35.0) pg MCHC (31.0-37.0) g/dL RDW (11.5-15.5) % Plt Count (150-450) k/uL Neutrophils % % Lymphocytes % % Monocytes % % Eosinophils % % Basophils % % Neutrophils # (1.3-7.7) k/uL Lymphocytes # (1.0-4.8) k/uL Monocytes # (0-1.0) k/uL Eosinophils # (0-0.7) k/uL Basophils # (0-0.2) k/uL Hypochromasia Macrocytosis PT 13.0 H (9.0-12.0) sec INR 1.3 H (<1.2) APTT 29.4 (22.0-30.0) sec Sodium (137-145) mmol/L Potassium (3.5-5.1) mmol/L Chloride (98-107) mmol/L Carbon Dioxide (22-30) mmol/L Anion Gap mmol/L BUN (9-20) mg/dL Creatinine (0.66-1.25) mg/dL Est GFR (CKD-EPI)AfAm (>60 ml/min/1.73 sqM) Est GFR (CKD-EPI)NonAf (>60 ml/min/1.73 sqM) Glucose (74-99) mg/dL POC Glucose (mg/dL) 91 (75-99) mg/dL POC Glu [facility] ID [place], [place] Calcium (8.4-10.2) mg/dL Phosphorus (2.5-4.5) mg/dL Magnesium (1.6-2.3) mg/dL Total Bilirubin (0.2-1.3) mg/dL AST (17-59) U/L ALT (21-72) U/L Alkaline Phosphatase (38-126) U/L Troponin I 0.051 H* (0.000-0.034) ng/mL Total Protein (6.3-8.2) g/dL Albumin (3.5-5.0) g/dL Blood Type Blood Type Recheck Antibody Screen Spec Expiration Date 07/01/19 07/01/19 07/01/19 Range/Units 04:38 04:50 04:50 WBC 10.7 H (3.8-10.6) k/uL RBC 2.02 L (4.30-5.90) m/uL Hgb 7.0 L D (13.0-17.5) gm/dL Hct 22.2 L (39.0-53.0) % MCV 110.2 H (80.0-100.0) fL MCH 34.6 (25.0-35.0) pg MCHC 31.4 (31.0-37.0) g/dL RDW 13.9 (11.5-15.5) % Plt Count 138 L (150-450) k/uL Neutrophils % % Lymphocytes % % Monocytes % % Eosinophils % % Basophils % % Neutrophils # (1.3-7.7) k/uL Lymphocytes # (1.0-4.8) k/uL Monocytes # (0-1.0) k/uL Eosinophils # (0-0.7) k/uL Basophils # (0-0.2) k/uL Hypochromasia Marked Macrocytosis Marked A PT (9.0-12.0) sec INR (<1.2) APTT (22.0-30.0) sec Sodium 135 L (137-145) mmol/L Potassium 3.9 (3.5-5.1) mmol/L Chloride 103 (98-107) mmol/L Carbon Dioxide 21 L (22-30) mmol/L Anion Gap 11 mmol/L BUN 18 (9-20) mg/dL Creatinine 2.96 H (0.66-1.25) mg/dL Est GFR (CKD-EPI)AfAm 21 (>60 ml/min/1.73 sqM) Est GFR (CKD-EPI)NonAf 18 (>60 ml/min/1.73 sqM) Glucose 123 H (74-99) mg/dL POC Glucose (mg/dL) 106 H (75-99) mg/dL POC Glu [facility] ID [place] Calcium 7.4 L (8.4-10.2) mg/dL Phosphorus 3.2 (2.5-4.5) mg/dL Magnesium 1.7 (1.6-2.3) mg/dL Total Bilirubin 0.5 (0.2-1.3) mg/dL AST 19 (17-59) U/L ALT 20 L (21-72) U/L Alkaline Phosphatase 83 (38-126) U/L Troponin I (0.000-0.034) ng/mL Total Protein 4.5 L (6.3-8.2) g/dL Albumin 2.4 L (3.5-5.0) g/dL Blood Type Blood Type Recheck Antibody Screen Spec Expiration Date Critical Care Time Critical Care Time: Yes (35 minutes) Disposition Clinical Impression: Hypotension, GI bleeding, Anemia Disposition: ADMITTED IP TO THIS [facility] Condition: Critical Referrals: Garfield Hanna DO [Primary Care Provider] - 1-2 days
[2019-06-30] MEDS ORDERED: SODIUM CHLORIDE 0.9% 500 ML 500 ML IV STA (23:52)
[2019-06-30] MEDS ORDERED: PANTOPRAZOLE 40 MG/10 ML VIAL IVP STA (23:52)
--- NOTE | 2019-07-01 00:03 | XR ---
INDICATION: Syncope COMPARISON: CXR 01/17/19 FINDINGS: Portable AP view of the chest is submitted for interpretation. There is a right-sided tunneled supraclavicular hemodialysis catheter with tip in the SVC. There is a left chest wall AICD-pacemaker with leads extending to the right atrium and right ventricle. The heart is mildly enlarged. There is pulmonary vascular congestion and increased bilateral perihilar interstitial lung markings. There are trace pleural effusions and bibasilar opacities. There is no pneumothorax. Regional skeleton appears intact. Chronic bilateral rotator cuff tears are suggested. IMPRESSION: 1. Pulmonary vascular congestion and interstitial edema. 2. Trace pleural effusions with bibasilar opacities, atelectasis or infiltrates.
[2019-07-01] MEDS ORDERED: MORPHINE SULFATE 4 MG/ML SYRINGE IV STA (01:24)
[2019-07-01] MEDS: NOREPINEPHRINE 4 MG in SODIUM CHLORIDE 0.9% 250 ML IV ONE ×3 (01:40→12:00)
[2019-07-01] MEDS ORDERED: SODIUM CHLORIDE 0.9% 500 ML 500 ML IV STA (01:49)
[2019-07-01] MEDS ORDERED: NALOXONE 0.4 MG/ML 1 ML VIAL IV PRN (02:06)
[2019-07-01] MEDS ORDERED: SODIUM CHLORIDE 0.9% 1,000 ML IV SCH (02:15)
[2019-07-01 03:35] LABS: Glucose,Whole Blood 91 mg/dL (75-99)
[2019-07-01 04:40] LABS: Glucose,Whole Blood 106 mg/dL (75-99)
--- NOTE | 2019-07-01 05:09 | CT ---
INDICATION: Code stroke TECHNIQUE: CT acquisition is performed through the brain. Sagittal and coronal reformatted images are provided. No IV contrast is administered. DOSE INFORMATION: DLP 1005.4 mGy-cm. This CT exam was performed using one or more of the following dose reduction techniques: automated exposure control, adjustment of the mA and/or kV according to patient size, and/or use of iterative reconstruction technique. COMPARISON: CT head 01/14/19. FINDINGS: There is stable dystrophic calcification in the right frontal lobe. Hypoattenuation in the periventricular and deep cerebral white matter is consistent with chronic small vessel ischemic disease. The roth-white matter differentiation appears preserved. There is no evidence of acute intracranial hemorrhage or abnormal extra-axial fluid collection. There is no mass effect or midline shift. There is generalized parenchymal volume loss with symmetric sulcal, basal cistern, and ventricular prominence. The calvarium is intact. There is a chronic left lamina papyracea fracture. The visualized paranasal sinuses and mastoid air cells are clear. IMPRESSION: 1. No CT evidence of acute intracranial process. 2. Involutional and chronic small vessel ischemic changes.
[2019-07-01 05:12] LABS: HCT 22.2 % (39.0-53.0); Hypochromasia Marked; MCH 34.6 pg (25.0-35.0); MCHC 31.4 g/dL (31.0-37.0); MCV 110.2 fL (80.0-100.0); Mean Platelet Volume 8.5; Platelet Count 138 k/uL (150-450); RBC 2.02 m/uL (4.30-5.90); RDW 13.9 % (11.5-15.5); WBC 10.7 k/uL (3.8-10.6)
[2019-07-01 05:22] LABS: Albumin 2.4 g/dL (3.5-5.0); Calcium 7.4 mg/dL (8.4-10.2); Magnesium 1.7 mg/dL (1.6-2.3); Phosphorus 3.2 mg/dL (2.5-4.5); Potassium 3.9 mmol/L (3.5-5.1); Total Bilirubin 0.5 mg/dL (0.2-1.3); Total Protein 4.5 g/dL (6.3-8.2)
[2019-07-01 05:48] LABS: Macrocytosis Marked
[2019-07-01] MEDS ORDERED: PANTOPRAZOLE 40 MG/10 ML VIAL IV SCH (09:00)
--- NOTE | 2019-07-01 10:20 | P.NPCON ---
History of Present Illness - Reason for Consult end stage renal disease - History of Present Illness Reason for consultation: End-stage renal disease History of present illness: Patient is a 89-year-old male seen in renal consultation for end-stage renal disease. He is maintained on hemodialysis on a Friday schedule. Patient completed hemodialysis yesterday. When he went home he felt dizzy and weak. He denies losing any consciousness. Patient does admit to noticing bright red blood in his stool. He also noticed blood in his urine. Patient's hemoglobin today is down to 7.0. He is scheduled to receive 1 unit of blood transfusion. GI has been consulted. He is currently on Levophed. Patient is awake and alert. However he feels tired. No fever or chills. No abdominal pain. No edema. Vital signs are stable. General: The patient appeared well nourished and normally developed. HEENT: Head exam is unremarkable. Neck is without jugular venous distension. LUNGS: Lungs are clear to auscultation and percussion. Breath sounds decreased. HEART: Rate and Rhythm are regular. First and second heart sounds normal. No murmurs, rubs or gallops. ABDOMEN: Abdominal exam reveals normal bowel sounds. Non-tender and non- distended. No evidence of peritonitis. EXTREMITITES: No clubbing, cyanosis, or edema. Past Medical History Past Medical History: Cancer, Dialysis, GERD/Reflux, Hyperlipidemia, Hypertension, Osteoarthritis (OA), Pneumonia, Prostate Disorder, Renal Disease Additional Past Medical History / Comment(s): heart block, arthritis in hands, neck, back pain, bowel obstructions, diverticulitis, diarrhea, vitamin D deficiency, BPH with surgery, asthma as a child, sinusitis. 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 Type of Cardiac Device: Permanent Pacemaker Device Placement Date:: 06/11/18 Past Psychological History: No Psychological Hx Reported Smoking Status: Former smoker - Past Family History Father Family Medical History: Coronary Artery Disease (CAD) Additional Family Medical History / Comment(s): Father at 75 of heart problems. Mother Family Medical History: No Reported History Additional Family Medical History / Comment(s): Mother was healthy. She at 71 yrs in MVA. Daughter(s) Family Medical History: Cancer Medications and Allergies Home Medications Medication Instructions Recorded Confirmed Type Simvastatin [Zocor] 20 mg PO HS 12/19/15 06/30/19 History Tamsulosin [Flomax] 0.4 mg PO PC-BRKFST #30 tab 06/12/18 06/30/19 Rx Isosorbide Mononitrate ER [Imdur] 30 mg PO DAILY 11/05/18 06/30/19 History Calcium Acetate [PhosLo] 667 mg PO TID 01/10/19 06/30/19 History Lisinopril [Zestril] 5 mg PO DAILY tab 01/14/19 06/30/19 Rx Metoprolol Succinate (ER) [Toprol 50 mg PO DAILY tab.er.24h 01/14/19 06/30/19 Rx XL] Atorvastatin [Lipitor] 10 mg PO HS 06/30/19 06/30/19 History Clopidogrel Bisulfate [Plavix] 75 mg PO DAILY 06/30/19 06/30/19 History Famotidine [Pepcid] 20 mg PO BID 06/30/19 06/30/19 History Allergies Allergy/AdvReac Type Severity Reaction Status Date / Time No Known Allergies Allergy Verified 06/30/19 22:54 Physical Exam Vitals: Vital Signs Temp Pulse Resp BP Pulse Ox 07/01/19 08:45 60 14 86/47 99 07/01/19 08:30 64 14 97/39 91 L 07/01/19 08:15 96.8 F L 62 80/44 98 07/01/19 08:00 65 17 99/47 91 L 07/01/19 07:45 60 122/53 98 07/01/19 07:30 60 118/50 100 07/01/19 07:15 60 18 121/54 99 07/01/19 07:00 60 119/55 100 07/01/19 06:45 60 66/46 100 07/01/19 06:30 61 71/43 98 07/01/19 06:15 60 18 91/45 97 07/01/19 06:00 60 8 L 93/48 100 07/01/19 05:45 60 8 L 96/49 100 07/01/19 05:30 60 12 99/51 100 07/01/19 05:15 60 16 71/40 100 07/01/19 05:00 60 14 94/47 100 07/01/19 04:45 61 16 44/32 100 07/01/19 04:30 70 12 63/42 100 07/01/19 04:15 60 16 78/45 100 07/01/19 04:00 98.3 F 60 12 69/46 99 07/01/19 03:45 58 L 61/42 86 L 07/01/19 03:06 60 18 73/43 07/01/19 03:05 60 18 69/44 07/01/19 03:04 97.7 F 07/01/19 03:00 60 18 78/49 07/01/19 02:55 60 18 77/43 07/01/19 02:50 60 18 72/47 07/01/19 02:46 60 18 72/47 07/01/19 02:40 62 18 67/43 07/01/19 02:32 60 18 68/40 07/01/19 02:26 60 20 53/37 07/01/19 02:20 60 16 53/37 07/01/19 02:10 60 16 69/42 07/01/19 01:50 16 58/41 07/01/19 01:40 60 20 67/44 07/01/19 01:30 60 16 61/36 07/01/19 01:10 60 16 62/38 07/01/19 00:30 60 17 66/42 07/01/19 00:03 60 20 51/40 06/30/19 22:02 97.3 F L 64 16 104/63 99 Intake and Output 06/30/19 07/01/19 07/01/19 22:59 06:59 14:59 Intake Total 190.457 272.419 Output Total 100 0 Balance 90.457 272.419 Intake: IV 60 40 Sodium Chloride 0.9% 1, 60 40 000 ml @ 20 mls/hr IV . Q24H [facility] Rx#:[id number] Intake, IV Titration 130.457 232.419 Amount Norepinephrine 4 mg In 130.457 232.419 Sodium Chloride 0.9% 250 ml @ 0.05 MCG/KG/MIN 11. 665 mls/hr IV .[id number] [facility] Rx#:[id number] Output: Stool 100 0 Other: # Voids 0 0 Weight 61.235 kg Results - Lab Results Most recent lab results Calcium 7.4 mg/dL (8.4-10.2) L 07/01/19 04:50 Phosphorus 3.2 mg/dL (2.5-4.5) 07/01/19 04:50 Magnesium 1.7 mg/dL (1.6-2.3) 07/01/19 04:50 07/01/19 04:50 07/01/19 04:50 Assessment and Plan Plan: Assessment: 1. End-stage renal disease maintained on hemodialysis on a Friday schedule. 2. Acute GI bleed. Hemoglobin 7.0 today. 3. Hypotension maintained on Levophed. 4. Chronic kidney disease mineral bone disease. Plan: Hemodialysis tomorrow. Add midodrine 5 mg 3 times daily. Wean Levophed. Scheduled for 1 unit of packed red blood cell transfusion. IV DDAVP once today. Thank you for the consultation. I will continue to follow the patient with you during his hospital stay.
[2019-07-01] MEDS ORDERED: DESMOPRESSIN ACETATE 18 MCG in SODIUM CHLORIDE 0.9% 50 ML IVPB ONE (11:00)
[2019-07-01] MEDS ORDERED: PEG 3350-NA SULF,BICARB,CL/KCL 4,000 ML BOTTLE PO ONE (11:55)
[2019-07-01] MEDS: SODIUM CHLORIDE 0.9% 1,000 ML IV SCH (12:00)
--- NOTE | 2019-07-01 12:13 | P.GSCN ---
<Adriana Miles A - Last Filed: 07/01/19 12:12> History of Present Illness Consult date: 07/01/19 Reason for Consult: GI bleed Requesting physician: Garfield Hanna History of present illness: CHIEF COMPLAINT: GI bleed HISTORY OF PRESENT ILLNESS: 89-year-old male who presented to the ER with a chief complaint of dizziness and bright red blood per rectum. Patients spouse is at the bedside and reports the patient was out to eat yesterday and started to feel dizzy. He went to the bathroom and noticed he had bright red blood coming from his rectum. Patient examined at the bedside in the ICU. He is sleepy but easily arousable and able to answer questions. He is on hemodialysis M, W, F. He has a rectal tube in place, inserted in the emergency room, with evidence of blood in drainage bag. He denies abdominal pain. Denies nausea or vomiting. Denies hematemesis. Patient takes plavix daily. The patient is on Levophed currently at 24mcg/min. He is scheduled to receive 2 units RBC. PAST MEDICAL HISTORY: See list. PAST SURGICAL HISTORY: See list. MEDICATIONS: See list. ALLERGIES: See list. SOCIAL HISTORY: No illicit drug use. REVIEW OF SYSTEMS: CONSTITUTIONAL: Denies fever or chills. HEENT: Denies blurred vision, vision changes, or eye pain. Denies hemoptysis ENDOCRINE: Denies heat or cold intolerance. CARDIOVASCULAR: Denies chest pain or pressure. RESPIRATORY: No shortness of breath. GASTROINTESTINAL: see HPI for pertinent findings NEURO: Denies history of seizures. Reports dizziness. PSYCH: No depression or suicidal ideation HEMATOLOGIC: Denies bleeding disorders. LYMPHATIC: The patient denies any lumps and bumps around the neck. GENITOURINARY: Denies any blood in urine or increased urinary frequency. MUSCULOSKELETAL: Denies myalgias. Denies joint swelling. Denies decreased range of motion beyond patients baseline. SKIN: Denies pruitis. Denies rash. PHYSICAL EXAM: VITAL SIGNS: Reviewed. on vasopressors. GENERAL: Well-developed in no acute distress. pale. HEENT: No sclera icterus. Extraocular movements grossly intact. Moist buccal mucosa. Head is atraumatic, normocephalic. Hears conversational speech. No nasal d rainage. NECK: Supple without lymphadenopathy. CHEST: Non-labored respirations and equal bilateral excursions. CARDIOVASCULAR: Regular rate with regular rhythm. Palpable 2+ radial pulses. ABDOMEN: Soft. Nondistended. nontender. Well-healed scars to midline abdomen and bilateral groins. Hernia present to lower aspect of midline incision. MUSCULOSKELETAL: No clubbing, cyanosis or edema. NEUROLOGIC: No focal or lateralizing signs. Cranial nerves II through XII grossly intact. PSYCH: Appropriate affect. Alert and oriented to person, place and time. Sleepy but easily arousable. SKIN: Well perfused. Good skin turgor. LABORATORY DATA: hemoglobin 9.6 on admission. Hemoglobin this morning 7.0. Baseline hemoglobin runs between 7 and 9 over the last year. ASSESSMENT: 1. Acute GI bleed 2. Bright red blood per rectum 3. Acute blood loss anemia 4. Anemia of chronic disease, baseline hemoglobin 7-9 per EMR review, secondary to CKD 5. History of recent inguinal hernia repair 6. History of multiple bowel obstructions and abdominal surgeries 7. Hypovolemia, requiring vasopressor support, secondary to acute blood loss PLAN: 1. Hold Plavix 2. Protonix 40mg IV BID 3. 0.9NS at 75cc/hr 4. Nephrology following for CKD. Patient to receive HD tomorrow 5. Wean levophed as tolerated to maintain MAP greater than 65 6. 2 units of RBCs 7. CBC q 6 hours 8. Discontinue fecal management system 9. GoLYTELY bowel prep this afternoon. Will order 2L prep instead of 4L prep secondary to CKD 10. Patient will be scheduled for EGD and colonoscopy tomorrow with Dr. Lopez Nurse practitioner note has been reviewed by physician. Signing provider agrees with the documented findings, assessment, and plan of care. Past Medical History Past Medical History: Cancer, Dialysis, GERD/Reflux, Hyperlipidemia, Hypertension, Osteoarthritis (OA), Pneumonia, Prostate Disorder, Renal Disease Additional Past Medical History / Comment(s): heart block, arthritis in hands, neck, back pain, bowel obstructions, diverticulitis, diarrhea, vitamin D deficiency, BPH with surgery, asthma as a child, sinusitis. 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 Type of Cardiac Device: Permanent Pacemaker Device Placement Date:: 06/11/18 Past Psychological History: No Psychological Hx Reported Smoking Status: Former smoker - Past Family History Father Family Medical History: Coronary Artery Disease (CAD) Additional Family Medical History / Comment(s): Father at 75 of heart problems. Mother Family Medical History: No Reported History Additional Family Medical History / Comment(s): Mother was healthy. She at 71 yrs in MVA. Daughter(s) Family Medical History: Cancer Medications and Allergies Home Medications Medication Instructions Recorded Confirmed Type Simvastatin [Zocor] 20 mg PO HS 12/19/15 06/30/19 History Tamsulosin [Flomax] 0.4 mg PO PC-BRKFST #30 tab 06/12/18 06/30/19 Rx Isosorbide Mononitrate ER [Imdur] 30 mg PO DAILY 11/05/18 06/30/19 History Calcium Acetate [PhosLo] 667 mg PO TID 01/10/19 06/30/19 History Lisinopril [Zestril] 5 mg PO DAILY tab 01/14/19 06/30/19 Rx Metoprolol Succinate (ER) [Toprol 50 mg PO DAILY tab.er.24h 01/14/19 06/30/19 Rx XL] Atorvastatin [Lipitor] 10 mg PO HS 06/30/19 06/30/19 History Clopidogrel Bisulfate [Plavix] 75 mg PO DAILY 06/30/19 06/30/19 History Famotidine [Pepcid] 20 mg PO BID 06/30/19 06/30/19 History Allergies Allergy/AdvReac Type Severity Reaction Status Date / Time No Known Allergies Allergy Verified 06/30/19 22:54 Surgical - Exam Vital Signs Temp Pulse Resp BP Pulse Ox 97.3 F L 64 16 104/63 99 06/30/19 22:02 06/30/19 22:02 06/30/19 22:02 06/30/19 22:02 06/30/19 22:02 Results - Labs 07/01/19 04:50 07/01/19 04:50 Abnormal Lab Results - Last 24 Hours (Table) 06/30/19 06/30/19 06/30/19 Range/Units 22:40 22:40 22:40 WBC (3.8-10.6) k/uL RBC 2.88 L (4.30-5.90) m/uL Hgb 9.6 L (13.0-17.5) gm/dL Hct 31.1 L (39.0-53.0) % MCV 107.9 H (80.0-100.0) fL MCHC 30.7 L (31.0-37.0) g/dL Plt Count 137 L (150-450) k/uL Lymphocytes # 0.8 L (1.0-4.8) k/uL Macrocytosis PT (9.0-12.0) sec INR (<1.2) Sodium 135 L (137-145) mmol/L Carbon Dioxide (22-30) mmol/L Creatinine 2.69 H (0.66-1.25) mg/dL Glucose (74-99) mg/dL POC Glucose (mg/dL) (75-99) mg/dL Calcium 7.8 L (8.4-10.2) mg/dL ALT 14 L (21-72) U/L Troponin I (0.000-0.034) ng/mL Total Protein 5.4 L (6.3-8.2) g/dL Albumin 2.9 L (3.5-5.0) g/dL Crossmatch See Detail 06/30/19 06/30/19 07/01/19 Range/Units 22:40 22:40 04:38 WBC (3.8-10.6) k/uL RBC (4.30-5.90) m/uL Hgb (13.0-17.5) gm/dL Hct (39.0-53.0) % MCV (80.0-100.0) fL MCHC (31.0-37.0) g/dL Plt Count (150-450) k/uL Lymphocytes # (1.0-4.8) k/uL Macrocytosis PT 13.0 H (9.0-12.0) sec INR 1.3 H (<1.2) Sodium (137-145) mmol/L Carbon Dioxide (22-30) mmol/L Creatinine (0.66-1.25) mg/dL Glucose (74-99) mg/dL POC Glucose (mg/dL) 106 H (75-99) mg/dL Calcium (8.4-10.2) mg/dL ALT (21-72) U/L Troponin I 0.051 H* (0.000-0.034) ng/mL Total Protein (6.3-8.2) g/dL Albumin (3.5-5.0) g/dL Crossmatch 07/01/19 07/01/19 Range/Units 04:50 04:50 WBC 10.7 H (3.8-10.6) k/uL RBC 2.02 L (4.30-5.90) m/uL Hgb 7.0 L D (13.0-17.5) gm/dL Hct 22.2 L (39.0-53.0) % MCV 110.2 H (80.0-100.0) fL MCHC (31.0-37.0) g/dL Plt Count 138 L (150-450) k/uL Lymphocytes # (1.0-4.8) k/uL Macrocytosis Marked A PT (9.0-12.0) sec INR (<1.2) Sodium 135 L (137-145) mmol/L Carbon Dioxide 21 L (22-30) mmol/L Creatinine 2.96 H (0.66-1.25) mg/dL Glucose 123 H (74-99) mg/dL POC Glucose (mg/dL) (75-99) mg/dL Calcium 7.4 L (8.4-10.2) mg/dL ALT 20 L (21-72) U/L Troponin I (0.000-0.034) ng/mL Total Protein 4.5 L (6.3-8.2) g/dL Albumin 2.4 L (3.5-5.0) g/dL Crossmatch Diabetes panel 06/30/19 07/01/19 Range/Units 22:40 04:50 Sodium 135 L 135 L (137-145) mmol/L Potassium 3.5 3.9 (3.5-5.1) mmol/L Chloride 99 103 (98-107) mmol/L Carbon Dioxide 28 21 L (22-30) mmol/L BUN 13 18 (9-20) mg/dL Creatinine 2.69 H 2.96 H (0.66-1.25) mg/dL Glucose 98 123 H (74-99) mg/dL Calcium 7.8 L 7.4 L (8.4-10.2) mg/dL AST 22 19 (17-59) U/L ALT 14 L 20 L (21-72) U/L Alkaline Phosphatase 104 83 (38-126) U/L Total Protein 5.4 L 4.5 L (6.3-8.2) g/dL Albumin 2.9 L 2.4 L (3.5-5.0) g/dL Calcium panel 06/30/19 07/01/19 Range/Units 22:40 04:50 Calcium 7.8 L 7.4 L (8.4-10.2) mg/dL Phosphorus 3.2 (2.5-4.5) mg/dL Albumin 2.9 L 2.4 L (3.5-5.0) g/dL Pituitary panel 06/30/19 07/01/19 Range/Units 22:40 04:50 Sodium 135 L 135 L (137-145) mmol/L Potassium 3.5 3.9 (3.5-5.1) mmol/L Chloride 99 103 (98-107) mmol/L Carbon Dioxide 28 21 L (22-30) mmol/L BUN 13 18 (9-20) mg/dL Creatinine 2.69 H 2.96 H (0.66-1.25) mg/dL Glucose 98 123 H (74-99) mg/dL Calcium 7.8 L 7.4 L (8.4-10.2) mg/dL Adrenal panel 06/30/19 07/01/19 Range/Units 22:40 04:50 Sodium 135 L 135 L (137-145) mmol/L Potassium 3.5 3.9 (3.5-5.1) mmol/L Chloride 99 103 (98-107) mmol/L Carbon Dioxide 28 21 L (22-30) mmol/L BUN 13 18 (9-20) mg/dL Creatinine 2.69 H 2.96 H (0.66-1.25) mg/dL Glucose 98 123 H (74-99) mg/dL Calcium 7.8 L 7.4 L (8.4-10.2) mg/dL Total Bilirubin 0.8 0.5 (0.2-1.3) mg/dL AST 22 19 (17-59) U/L ALT 14 L 20 L (21-72) U/L Alkaline Phosphatase 104 83 (38-126) U/L Total Protein 5.4 L 4.5 L (6.3-8.2) g/dL Albumin 2.9 L 2.4 L (3.5-5.0) g/dL <Shilpa Helm - Last Filed: 07/01/19 22:42> History of Present Illness History of present illness: Patient was seen and evaluated. Overall he feels better this evening and is tolerating his prep. No abdominal pain at this time. He is scheduled for lower and upper endoscopy tomorrow. Surgical - Exam Vital Signs Temp Pulse Resp BP Pulse Ox 97.3 F L 64 16 104/63 99 06/30/19 22:02 06/30/19 22:02 06/30/19 22:02 06/30/19 22:02 06/30/19 22:02 Results - Labs 07/01/19 22:14 07/01/19 04:50 Abnormal Lab Results - Last 24 Hours (Table) 06/30/19 06/30/19 06/30/19 Range/Units 22:40 22:40 22:40 WBC (3.8-10.6) k/uL RBC 2.88 L (4.30-5.90) m/uL Hgb 9.6 L (13.0-17.5) gm/dL Hct 31.1 L (39.0-53.0) % MCV 107.9 H (80.0-100.0) fL MCHC 30.7 L (31.0-37.0) g/dL RDW (11.5-15.5) % Plt Count 137 L (150-450) k/uL Lymphocytes # 0.8 L (1.0-4.8) k/uL Macrocytosis PT (9.0-12.0) sec INR (<1.2) Sodium 135 L (137-145) mmol/L Carbon Dioxide (22-30) mmol/L Creatinine 2.69 H (0.66-1.25) mg/dL Glucose (74-99) mg/dL POC Glucose (mg/dL) (75-99) mg/dL Calcium 7.8 L (8.4-10.2) mg/dL ALT 14 L (21-72) U/L Troponin I (0.000-0.034) ng/mL Total Protein 5.4 L (6.3-8.2) g/dL Albumin 2.9 L (3.5-5.0) g/dL Crossmatch See Detail 06/30/19 06/30/19 07/01/19 Range/Units 22:40 22:40 04:38 WBC (3.8-10.6) k/uL RBC (4.30-5.90) m/uL Hgb (13.0-17.5) gm/dL Hct (39.0-53.0) % MCV (80.0-100.0) fL MCHC (31.0-37.0) g/dL RDW (11.5-15.5) % Plt Count (150-450) k/uL Lymphocytes # (1.0-4.8) k/uL Macrocytosis PT 13.0 H (9.0-12.0) sec INR 1.3 H (<1.2) Sodium (137-145) mmol/L Carbon Dioxide (22-30) mmol/L Creatinine (0.66-1.25) mg/dL Glucose (74-99) mg/dL POC Glucose (mg/dL) 106 H (75-99) mg/dL Calcium (8.4-10.2) mg/dL ALT (21-72) U/L Troponin I 0.051 H* (0.000-0.034) ng/mL Total Protein (6.3-8.2) g/dL Albumin (3.5-5.0) g/dL Crossmatch 07/01/19 07/01/19 07/01/19 Range/Units 04:50 04:50 22:14 WBC 10.7 H (3.8-10.6) k/uL RBC 2.02 L 2.56 L (4.30-5.90) m/uL Hgb 7.0 L D 8.0 L (13.0-17.5) gm/dL Hct 22.2 L 25.8 L (39.0-53.0) % MCV 110.2 H 100.9 H D (80.0-100.0) fL MCHC 30.9 L (31.0-37.0) g/dL RDW 19.4 H (11.5-15.5) % Plt Count 138 L 103 L (150-450) k/uL Lymphocytes # 0.9 L (1.0-4.8) k/uL Macrocytosis Marked A PT (9.0-12.0) sec INR (<1.2) Sodium 135 L (137-145) mmol/L Carbon Dioxide 21 L (22-30) mmol/L Creatinine 2.96 H (0.66-1.25) mg/dL Glucose 123 H (74-99) mg/dL POC Glucose (mg/dL) (75-99) mg/dL Calcium 7.4 L (8.4-10.2) mg/dL ALT 20 L (21-72) U/L Troponin I (0.000-0.034) ng/mL Total Protein 4.5 L (6.3-8.2) g/dL Albumin 2.4 L (3.5-5.0) g/dL Crossmatch Diabetes panel 06/30/19 07/01/19 Range/Units 22:40 04:50 Sodium 135 L 135 L (137-145) mmol/L Potassium 3.5 3.9 (3.5-5.1) mmol/L Chloride 99 103 (98-107) mmol/L Carbon Dioxide 28 21 L (22-30) mmol/L BUN 13 18 (9-20) mg/dL Creatinine 2.69 H 2.96 H (0.66-1.25) mg/dL Glucose 98 123 H (74-99) mg/dL Calcium 7.8 L 7.4 L (8.4-10.2) mg/dL AST 22 19 (17-59) U/L ALT 14 L 20 L (21-72) U/L Alkaline Phosphatase 104 83 (38-126) U/L Total Protein 5.4 L 4.5 L (6.3-8.2) g/dL Albumin 2.9 L 2.4 L (3.5-5.0) g/dL Calcium panel 06/30/19 07/01/19 Range/Units 22:40 04:50 Calcium 7.8 L 7.4 L (8.4-10.2) mg/dL Phosphorus 3.2 (2.5-4.5) mg/dL Albumin 2.9 L 2.4 L (3.5-5.0) g/dL Pituitary panel 06/30/19 07/01/19 Range/Units 22:40 04:50 Sodium 135 L 135 L (137-145) mmol/L Potassium 3.5 3.9 (3.5-5.1) mmol/L Chloride 99 103 (98-107) mmol/L Carbon Dioxide 28 21 L (22-30) mmol/L BUN 13 18 (9-20) mg/dL Creatinine 2.69 H 2.96 H (0.66-1.25) mg/dL Glucose 98 123 H (74-99) mg/dL Calcium 7.8 L 7.4 L (8.4-10.2) mg/dL Adrenal panel 06/30/19 07/01/19 Range/Units 22:40 04:50 Sodium 135 L 135 L (137-145) mmol/L Potassium 3.5 3.9 (3.5-5.1) mmol/L Chloride 99 103 (98-107) mmol/L Carbon Dioxide 28 21 L (22-30) mmol/L BUN 13 18 (9-20) mg/dL Creatinine 2.69 H 2.96 H (0.66-1.25) mg/dL Glucose 98 123 H (74-99) mg/dL Calcium 7.8 L 7.4 L (8.4-10.2) mg/dL Total Bilirubin 0.8 0.5 (0.2-1.3) mg/dL AST 22 19 (17-59) U/L ALT 14 L 20 L (21-72) U/L Alkaline Phosphatase 104 83 (38-126) U/L Total Protein 5.4 L 4.5 L (6.3-8.2) g/dL Albumin 2.9 L 2.4 L (3.5-5.0) g/dL
--- NOTE | 2019-07-01 12:56 | P.CNPUL ---
History of Present Illness Consult date: 07/01/19 Requesting physician: Garfield Hanna Reason for consult: other (GI bleeding) Chief complaint: Dizziness and rectal bleeding History of present illness: This is an 89-year-old white male with history of end-stage renal disease, on hemodialysis, presented last night to the ER with chief complaint of dizziness, bright red blood per rectum. Patient starting feeling dizzy, almost passed out. and as he went to the bathroom noted to have bright red blood coming from his rectum. No previous history of GI bleeding. Patient is on hemodialysis Friday to Friday for his end-stage renal disease. Patient denies any abdominal pain, denies any headache, no blurred vision, he did feel dizzy and almost passed out before he presented to the ER. In the ER, his initial hemoglobin was noted to be 9.6, and his hemoglobin today is 7.0. Apparently he was noted to be also hypotensive when he was in the ER, placed on norepinephrine at a small dose, admitted to the ICU, and I was asked to see him on consultation. Shortly after I saw the patient, I recommended 2 units of packed RBCs to be given, and re commended to taper and discontinue norepinephrine. Patient has a rectal tube in place, and this was inserted in the emergency room, there is evidence of gross blood noted in the drainage bag. Patient is on Plavix. Review of Systems CONSTITUTIONAL: Denies fever or chills. Denies weight loss. HEENT: Denies blurred vision and diplopia. ENDOCRINE: Denies heat or cold intolerance. Denies any symptoms of diabetes. CARDIOVASCULAR: No chest pain, no palpitations. RESPIRATORY: No shortness of breath cough wheezing or hemoptysis. GASTROINTESTINAL: As noted in HPI. NEURO: Denies headache blurred vision, had symptoms of near syncope before he presented to the ER. PSYCH: Denies symptoms of active depression HEMATOLOGIC: Denies any history of bleeding disorder. LYMPHATIC: Denies any lymphadenopathy. GENITOURINARY: Denies any hematuria urgency frequen SKIN: Denies itching denies rashes. Past Medical History Past Medical History: Cancer, Dialysis, GERD/Reflux, Hyperlipidemia, Hypertension, Osteoarthritis (OA), Pneumonia, Prostate Disorder, Renal Disease Additional Past Medical History / Comment(s): heart block, arthritis in hands, neck, back pain, bowel obstructions, diverticulitis, diarrhea, vitamin D deficiency, BPH with surgery, asthma as a child, sinusitis. 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 Type of Cardiac Device: Permanent Pacemaker Device Placement Date:: 06/11/18 Past Psychological History: No Psychological Hx Reported Smoking Status: Former smoker - Past Family History Father Family Medical History: Coronary Artery Disease (CAD) Additional Family Medical History / Comment(s): Father at 75 of heart problems. Mother Family Medical History: No Reported History Additional Family Medical History / Comment(s): Mother was healthy. She at 71 yrs in MVA. Daughter(s) Family Medical History: Cancer Medications and Allergies Home Medications Medication Instructions Recorded Confirmed Type Simvastatin [Zocor] 20 mg PO HS 12/19/15 06/30/19 History Tamsulosin [Flomax] 0.4 mg PO PC-BRKFST #30 tab 06/12/18 06/30/19 Rx Isosorbide Mononitrate ER [Imdur] 30 mg PO DAILY 11/05/18 06/30/19 History Calcium Acetate [PhosLo] 667 mg PO TID 01/10/19 06/30/19 History Lisinopril [Zestril] 5 mg PO DAILY tab 01/14/19 06/30/19 Rx Metoprolol Succinate (ER) [Toprol 50 mg PO DAILY tab.er.24h 01/14/19 06/30/19 Rx XL] Atorvastatin [Lipitor] 10 mg PO HS 06/30/19 06/30/19 History Clopidogrel Bisulfate [Plavix] 75 mg PO DAILY 07/31/19 07/31/19 History Famotidine [Pepcid] 20 mg PO BID 06/30/19 06/30/19 History Allergies Allergy/AdvReac Type Severity Reaction Status Date / Time No Known Allergies Allergy Verified 06/30/19 22:54 Physical Exam Vitals: Vital Signs Temp Pulse Resp BP Pulse Ox 07/01/19 12:00 97.3 F L 94/41 100 07/01/19 11:45 61 118/81 100 07/01/19 11:30 61 14 114/50 100 07/01/19 11:15 60 14 132/49 100 07/01/19 11:00 60 15 136/55 100 07/01/19 10:45 60 14 100/44 100 07/01/19 10:30 60 14 103/67 100 07/01/19 10:15 61 16 85/38 100 07/01/19 10:00 68 19 89/44 100 07/01/19 09:45 62 82/66 100 07/01/19 09:30 61 16 127/57 87 L 07/01/19 09:15 60 14 94/61 100 07/01/19 09:00 60 16 94/63 99 07/01/19 08:45 60 14 86/47 99 07/01/19 08:30 64 14 97/39 91 L 07/01/19 08:15 96.8 F L 62 80/44 98 07/01/19 08:00 65 17 99/47 91 L 07/01/19 07:45 60 122/53 98 07/01/19 07:30 60 118/50 100 07/01/19 07:15 60 18 121/54 99 07/01/19 07:00 60 119/55 100 07/01/19 06:45 60 66/46 100 07/01/19 06:30 61 71/43 98 07/01/19 06:15 60 18 91/45 97 07/01/19 06:00 60 8 L 93/48 100 07/01/19 05:45 60 8 L 96/49 100 07/01/19 05:30 60 12 99/51 100 07/01/19 05:15 60 16 71/40 100 07/01/19 05:00 60 14 94/47 100 07/01/19 04:45 61 16 44/32 100 07/01/19 04:30 70 12 63/42 100 07/01/19 04:15 60 16 78/45 100 07/01/19 04:00 98.3 F 60 12 69/46 99 07/01/19 03:45 58 L 61/42 86 L 07/01/19 03:06 60 18 73/43 07/01/19 03:05 60 18 69/44 07/01/19 03:04 97.7 F 07/01/19 03:00 60 18 78/49 07/01/19 02:55 60 18 77/43 07/01/19 02:50 60 18 72/47 07/01/19 02:46 60 18 72/47 07/01/19 02:40 62 18 67/43 07/01/19 02:32 60 18 68/40 07/01/19 02:26 60 20 53/37 07/01/19 02:20 60 16 53/37 07/01/19 02:10 60 16 69/42 07/01/19 01:50 16 58/41 07/01/19 01:40 60 20 67/44 07/01/19 01:30 60 16 61/36 07/01/19 01:10 60 16 62/38 07/01/19 00:30 60 17 66/42 07/01/19 00:03 60 20 51/40 06/30/19 22:02 97.3 F L 64 16 104/63 99 Intake and Output 06/30/19 07/01/19 07/01/19 22:59 06:59 14:59 Intake Total 190.457 552.408 Output Total 100 0 Balance 90.457 552.408 Intake: IV 60 175 Sodium Chloride 0.9% 1, 60 175 000 ml @ 20 mls/hr IV . Q24H [facility] Rx#:[id number] Intake, IV Titration 130.457 377.408 Amount Desmopressin Acetate 18 54 mcg In Sodium Chloride 0. 9% 50 ml @ 200 mls/hr IVPB ONCE ONE Rx#: [id number] Norepinephrine 4 mg In 130.457 323.408 Sodium Chloride 0.9% 250 ml @ 0.05 MCG/KG/MIN 11. 665 mls/hr IV .[id number] ONE Rx#:[id number] Output: Stool 100 0 Other: # Voids 0 0 Weight 61.235 kg GENERAL: Revealed a 89-year-old white male, very pleasant, frail looking, in no distress. Looks pale. HEENT: PERRLA, EOMI, no icterus. Head atraumatic normocephalic NECK: Normal range of motion, supple, no neck masses, no JVD, no thyromegaly. CHEST: Clear bilaterally no crackles or rhonchi or wheezes symmetrical chest ex pansion noted. CARDIOVASCULAR: Regular rate and rhythm normal S1 and S2, no S3 gallop. No murmur. ABDOMEN: Scaphoid, soft, nontender, multiple healed scars noted from previous bilateral surgeries. MUSCULOSKELETAL: No limitation in range of motion. Adequate strength bilaterally NEUROLOGIC: Alert and oriented 3, no gross focal neurologic deficits. Psychiatric: Normal mood and affect, normal mental status examination. SKIN: Good skin turgor, no rashes. Results - Laboratory Findings CBC and BMP: 07/01/19 04:50 07/01/19 04:50 PT/INR, D-dimer PT 13.0 sec (9.0-12.0) H 06/30/19 22:40 INR 1.3 (<1.2) H 06/30/19 22:40 Abnormal lab findings: Abnormal Labs 06/30/19 06/30/19 06/30/19 22:40 22:40 22:40 WBC RBC 2.88 L Hgb 9.6 L Hct 31.1 L MCV 107.9 H MCHC 30.7 L Plt Count 137 L Lymphocytes # 0.8 L Macrocytosis PT INR Sodium 135 L Carbon Dioxide Creatinine 2.69 H Glucose POC Glucose (mg/dL) Calcium 7.8 L ALT 14 L Troponin I Total Protein 5.4 L Albumin 2.9 L Crossmatch See Detail 06/30/19 06/30/19 07/01/19 22:40 22:40 04:38 WBC RBC Hgb Hct MCV MCHC Plt Count Lymphocytes # Macrocytosis PT 13.0 H INR 1.3 H Sodium Carbon Dioxide Creatinine Glucose POC Glucose (mg/dL) 106 H Calcium ALT Troponin I 0.051 H* Total Protein Albumin Crossmatch 07/01/19 07/01/19 04:50 04:50 WBC 10.7 H RBC 2.02 L Hgb 7.0 L D Hct 22.2 L MCV 110.2 H MCHC Plt Count 138 L Lymphocytes # Macrocytosis Marked A PT INR Sodium 135 L Carbon Dioxide 21 L Creatinine 2.96 H Glucose 123 H POC Glucose (mg/dL) Calcium 7.4 L ALT 20 L Troponin I Total Protein 4.5 L Albumin 2.4 L Crossmatch - Diagnostic Findings Chest x-ray: image reviewed (Chest x-ray is showing trace pleural effusions, basilar atelectasis, mild pulmonary vascular congestion.) Additional studies: CT brain on admission showed no evidence of acute intracranial process. Assessment and Plan Assessment: Impression: 1 acute GI bleeding, most likely lower GI in nature, strongly suspect diverticular disease and diverticular bleeding, however that is yet to be d etermined. 2 acute on chronic anemia secondary to GI blood loss. 3 chronic kidney disease, patient is on hemodialysis. 4 hypotension secondary to hypovolemia, will improve with blood transfusion. Will likely taper and discontinue norepinephrine. 5 history of degenerative joint disease, hypertension, hyperlipidemia, GERD and remote history of diverticulitis. Recommendation: Fully agree with the present treatment plan, patient is yet to be seen by gastroenterology on consultation, in the meantime transfuse the patient keep hemoglobin above 7, taper and discontinue the norepinephrine. We'l l continue to monitor the patient in the intensive care unit, continue Protonix, hold any anticoagulants or blood thinners. We will continue to follow. Time with Patient: Greater than 30
[2019-07-01] MEDS: MIDODRINE 5 MG TAB PO SCH ×2 (13:48→17:10)
[2019-07-01] MEDS: NOREPINEPHRINE 4 MG in SODIUM CHLORIDE 0.9% 250 ML IV SCH (14:00)
--- NOTE | 2019-07-01 14:29 | P.HPIM ---
History of Present Illness H&P Date: 07/01/19 Chief Complaint: GI Bleed This is a pleasant 89-year-old gentleman, resides at [facility] with history of multiple abdominal surgeries, recent hernia repair 03/19, chronic diarrhea history of seizures, heart block-pacemaker, former nicotine dependence, end-stage renal disease on hemodialysis, BPH presented to the ER with complaints of lightheadedness, dizziness, near syncope after completing his dialysis session yesterday. He proceeded to have red rectal bleeding with stools, accompanied by cramping.Denies abdominal pain, chest pain, palpitations, shortness of breath. Hemoglobin on arrival to the ER 9.6, dropped to 7.0, MCV 107.9, INR 1.3, creatinine 2.69- 2.96, troponin 0.05, afebrile, normal WBC-now up to 10.7. Blood pressure 104/63 on admission, dropped to 51/40. Levophed initiated. Repeat CT nonacute. Rectal tube with drainage bag placed in the ER w ith gross blood noted, ordered to be discontinued. Heart rate in the 60s, maintaining O2 sats of 99%. EKG Vpaced. Chest x-ray reporting pulmonary vascular congestion, interstitial edema bibasilar opacity's with trace pleural effusions. Admitted to ICU. Review of Systems ROS Statement: Those systems with pertinent positive or pertinent negative responses have been documented in the HPI. ROS Other: All systems not noted in ROS Statement are negative. Past Medical History Past Medical History: Cancer, Dialysis, GERD/Reflux, Hyperlipidemia, Hypertension, Osteoarthritis (OA), Pneumonia, Prostate Disorder, Renal Disease Additional Past Medical History / Comment(s): heart block, arthritis in hands, neck, back pain, bowel obstructions, diverticulitis, diarrhea, vitamin D deficiency, BPH with surgery, asthma as a child, sinusitis. 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 Type of Cardiac Device: Permanent Pacemaker Device Placement Date:: 06/11/18 Past Psychological History: No Psychological Hx Reported Smoking Status: Former smoker - Past Family History Father Family Medical History: Coronary Artery Disease (CAD) Additional Family Medical History / Comment(s): Father at 75 of heart problems. Mother Family Medical History: No Reported History Additional Family Medical History / Comment(s): Mother was healthy. She at 71 yrs in MVA. Daughter(s) Family Medical History: Cancer Medications and Allergies Home Medications Medication Instructions Recorded Confirmed Type Simvastatin [Zocor] 20 mg PO HS 12/19/15 06/30/19 History Tamsulosin [Flomax] 0.4 mg PO PC-BRKFST #30 tab 06/12/18 06/30/19 Rx Isosorbide Mononitrate ER [Imdur] 30 mg PO DAILY 11/05/18 06/30/19 History Calcium Acetate [PhosLo] 667 mg PO TID 01/10/19 06/30/19 History Lisinopril [Zestril] 5 mg PO DAILY tab 01/14/19 06/30/19 Rx Metoprolol Succinate (ER) [Toprol 50 mg PO DAILY tab.er.24h 01/14/19 06/30/19 Rx XL] Atorvastatin [Lipitor] 10 mg PO HS 06/30/19 06/30/19 History Clopidogrel Bisulfate [Plavix] 75 mg PO DAILY 06/30/19 06/30/19 History Famotidine [Pepcid] 20 mg PO BID 06/30/19 06/30/19 History Allergies Allergy/AdvReac Type Severity Reaction Status Date / Time No Known Allergies Allergy Verified 06/30/19 22:54 Physical Exam Vitals: Vital Signs Temp Pulse Resp BP Pulse Ox 07/01/19 10:30 60 14 103/67 100 07/01/19 10:15 61 16 85/38 100 07/01/19 10:00 68 19 89/44 100 07/01/19 09:45 62 82/66 100 08/01/19 09:30 61 16 127/57 87 L 07/01/19 09:15 60 14 94/61 100 07/01/19 09:00 60 16 94/63 99 07/01/19 08:45 60 14 86/47 99 07/01/19 08:30 64 14 97/39 91 L 07/01/19 08:15 96.8 F L 62 80/44 98 07/01/19 08:00 65 17 99/47 91 L 07/01/19 07:45 60 122/53 98 07/01/19 07:30 60 118/50 100 07/01/19 07:15 60 18 121/54 99 07/01/19 07:00 60 119/55 100 07/01/19 06:45 60 66/46 100 07/01/19 06:30 61 71/43 98 07/01/19 06:15 60 18 91/45 97 07/01/19 06:00 60 8 L 93/48 100 07/01/19 05:45 60 8 L 96/49 100 07/01/19 05:30 60 12 99/51 100 07/01/19 05:15 60 16 71/40 100 07/01/19 05:00 60 14 94/47 100 07/01/19 04:45 61 16 44/32 100 07/01/19 04:30 70 12 63/42 100 07/01/19 04:15 60 16 78/45 100 07/01/19 04:00 98.3 F 60 12 69/46 99 07/01/19 03:45 58 L 61/42 86 L 07/01/19 03:06 60 18 73/43 07/01/19 03:05 60 18 69/44 07/01/19 03:04 97.7 F 07/01/19 03:00 60 18 78/49 07/01/19 02:55 60 18 77/43 07/01/19 02:50 60 18 72/47 07/01/19 02:46 60 18 72/47 07/01/19 02:40 62 18 67/43 07/01/19 02:32 60 18 68/40 07/01/19 02:26 60 20 53/37 07/01/19 02:20 60 16 53/37 07/01/19 02:10 60 16 69/42 08/01/19 01:50 16 58/41 08/01/19 01:40 60 20 67/44 07/01/19 01:30 60 16 61/36 07/01/19 01:10 60 16 62/38 07/01/19 00:30 60 17 66/42 07/01/19 00:03 60 20 51/40 06/30/19 22:02 97.3 F L 64 16 104/63 99 Intake and Output 06/30/19 07/01/19 07/01/19 22:59 06:59 14:59 Intake Total 190.457 383.408 Output Total 100 0 Balance 90.457 383.408 Intake: IV 60 60 Sodium Chloride 0.9% 1, 60 60 000 ml @ 20 mls/hr IV . Q24H [facility] Rx#:[id number] Intake, IV Titration 130.457 323.408 Amount Norepinephrine 4 mg In 130.457 323.408 Sodium Chloride 0.9% 250 ml @ 0.05 MCG/KG/MIN 11. 665 mls/hr IV .[id number] ONE Rx#:[id number] Output: Stool 100 0 Other: # Voids 0 0 Weight 61.235 kg PHYSICAL EXAM: VITAL SIGNS: As above GENERAL: This is a pale 89 -year-old in no apparent distress at the time of examination. Pleasant and cooperative. HEENT: Pupils are equal, round, and reactive to light. Sclerae anicteric. Conjunctivae are clear. Mucus membranes of the mouth are dry. Neck is supple with decreased range of motion secondary to marked degree of cervical osteoarthritis. RESPIRATORY: Clear to auscultation. No wheezes, rales, or rhonchi. No use of accessory muscles. Patient maintaining oxygen saturation of 100%/2Lnc. No chest wall tenderness is noted on palpation or with deep breathing. CARDIOVASCULAR: Regular rate and rhythm. S1 and S2 noted. No systolic or diastolic murmur auscultated. No JVD noted. No S3 or S4 noted. GASTROINTESTINAL: No distention noted. Abdomen soft and round. Normal active bowel sounds auscultated x 4 quadrants. No pain or tenderness noted upon palpation. Multiple scars throughout the entire abdomen INTEGUMENTARY: No cyanosis. No jaundice. No rashes noted. No cellulitis noted. EXTREMITIES: 2+ peripheral pulses. No evidence of peripheral edema. No calf tenderness noted. NEUROLOGIC: Cranial nerves II-XII intact. PSYCHIATRIC: Awake, alert, and oriented X 3. Results CBC & Chem 7: 07/01/19 04:50 07/01/19 04:50 Labs: Abnormal Lab Results - Last 24 Hours (Table) 06/30/19 06/30/19 06/30/19 Range/Units 22:40 22:40 22:40 WBC (3.8-10.6) k/uL RBC 2.88 L (4.30-5.90) m/uL Hgb 9.6 L (13.0-17.5) gm/dL Hct 31.1 L (39.0-53.0) % MCV 107.9 H (80.0-100.0) fL MCHC 30.7 L (31.0-37.0) g/dL Plt Count 137 L (150-450) k/uL Lymphocytes # 0.8 L (1.0-4.8) k/uL Macrocytosis PT (9.0-12.0) sec INR (<1.2) Sodium 135 L (137-145) mmol/L Carbon Dioxide (22-30) mmol/L Creatinine 2.69 H (0.66-1.25) mg/dL Glucose (74-99) mg/dL POC Glucose (mg/dL) (75-99) mg/dL Calcium 7.8 L (8.4-10.2) mg/dL ALT 14 L (21-72) U/L Troponin I (0.000-0.034) ng/mL Total Protein 5.4 L (6.3-8.2) g/dL Albumin 2.9 L (3.5-5.0) g/dL Crossmatch See Detail 06/30/19 06/30/19 07/01/19 Range/Units 22:40 22:40 04:38 WBC (3.8-10.6) k/uL RBC (4.30-5.90) m/uL Hgb (13.0-17.5) gm/dL Hct (39.0-53.0) % MCV (80.0-100.0) fL MCHC (31.0-37.0) g/dL Plt Count (150-450) k/uL Lymphocytes # (1.0-4.8) k/uL Macrocytosis PT 13.0 H (9.0-12.0) sec INR 1.3 H (<1.2) Sodium (137-145) mmol/L Carbon Dioxide (22-30) mmol/L Creatinine (0.66-1.25) mg/dL Glucose (74-99) mg/dL POC Glucose (mg/dL) 106 H (75-99) mg/dL Calcium (8.4-10.2) mg/dL ALT (21-72) U/L Troponin I 0.051 H* (0.000-0.034) ng/mL Total Protein (6.3-8.2) g/dL Albumin (3.5-5.0) g/dL Crossmatch 07/01/19 07/01/19 Range/Units 04:50 04:50 WBC 10.7 H (3.8-10.6) k/uL RBC 2.02 L (4.30-5.90) m/uL Hgb 7.0 L D (13.0-17.5) gm/dL Hct 22.2 L (39.0-53.0) % MCV 110.2 H (80.0-100.0) fL MCHC (31.0-37.0) g/dL Plt Count 138 L (150-450) k/uL Lymphocytes # (1.0-4.8) k/uL Macrocytosis Marked A PT (9.0-12.0) sec INR (<1.2) Sodium 135 L (137-145) mmol/L Carbon Dioxide 21 L (22-30) mmol/L Creatinine 2.96 H (0.66-1.25) mg/dL Glucose 123 H (74-99) mg/dL POC Glucose (mg/dL) (75-99) mg/dL Calcium 7.4 L (8.4-10.2) mg/dL ALT 20 L (21-72) U/L Troponin I (0.000-0.034) ng/mL Total Protein 4.5 L (6.3-8.2) g/dL Albumin 2.4 L (3.5-5.0) g/dL Crossmatch Thrombosis Risk Factor Assmnt - Choose All That Apply Any of the Below Risk Factors Present?: Yes Each Factor Represents 1 point: Medical pt on bed rest Each Risk Factor Represents 3 Points: Age 75 years or older Thrombosis Risk Factor Assessment Total Risk Factor Score: 4 Thrombosis Risk Factor Assessment Level: Moderate Risk Assessment and Plan Assessment: -Acute suspected lower GI Bleed, possibly diverticular in a patient with history of diverticulitis, endoscopies pending -Acute blood loss anemia, 2 units of packed RBCs ordered -Hypovolemic hypotension secondary to the above -Anemia of chronic disease -End-stage kidney disease on hemodialysis -History of multiple abdominal surgeries, bowel obstructions, inguinal hernia repairs -Gastroesophageal reflux disease -History of hypertension -Hyperlipidemia Plan: Continue current medication regime ,monitoring and symptomatic treatment. IV fluid hydration, transfuse 2 units of packed RBCs ,wean off levophed. DC rectal tube. Hold blood thinners, anticoagulants. IV PPI twice a day. Serial CBCs, electrolytes, renal function. Surgery consulted with EGD and colonoscopy scheduled for tomorrow. Hemodialysis as per nephrology. Further recommendations to follow. Prognosis guarded given multiple complex medical issues. The impression and plan of care has been dictated as directed. : I performed a history and examination of this patient, discussed the same with the dictator. I agree with the dictator's note ,documented as a scribe. Any additional findings or plans will be noted. Time taken: 35 min.
[2019-07-01] MEDS: ATORVASTATIN 80 MG TAB PO SCH (20:18)
[2019-07-01] MEDS: PANTOPRAZOLE 40 MG/10 ML VIAL IVP SCH (20:18)
[2019-07-01 22:29] LABS: Anisocytosis Slight; Basophils % (A) 1 %; Eosinophils # (A) 0.2 k/uL (0-0.7); Eosinophils % (A) 2 %; HCT 25.8 % (39.0-53.0); Hypochromasia Marked; Lymphocytes # (A) 0.9 k/uL (1.0-4.8); Lymphocytes % (A) 10 %; MCH 31.2 pg (25.0-35.0); MCHC 30.9 g/dL (31.0-37.0); Macrocytosis Moderate; Monocytes # (A) 0.7 k/uL (0-1.0); Monocytes % (A) 8 %; Neutrophils # (A) 6.6 k/uL (1.3-7.7); Neutrophils % (A) 77 %; Platelet Count 103 k/uL (150-450); RBC 2.56 m/uL (4.30-5.90); RDW 19.4 % (11.5-15.5); WBC 8.5 k/uL (3.8-10.6)
[2019-07-01 22:37] LABS: MCV 100.9 fL (80.0-100.0)
[2019-07-02 05:54] LABS: Anisocytosis Moderate; Basophils % (A) 0 %; Eosinophils # (A) 0.3 k/uL (0-0.7); Eosinophils % (A) 4 %; HCT 23.3 % (39.0-53.0); HGB 7.6 gm/dL (13.0-17.5); Lymphocytes % (A) 14 %; MCH 31.2 pg (25.0-35.0); MCHC 32.6 g/dL (31.0-37.0); Macrocytosis Slight; Mean Platelet Volume 8.7; Monocytes # (A) 0.7 k/uL (0-1.0); Monocytes % (A) 9 %; Neutrophils # (A) 5.3 k/uL (1.3-7.7); Neutrophils % (A) 71 %; RBC 2.43 m/uL (4.30-5.90); RDW 20.3 % (11.5-15.5); WBC 7.4 k/uL (3.8-10.6)
[2019-07-02 06:24] LABS: Platelet Count 96 k/uL (150-450)
[2019-07-02] MEDS: SODIUM CHLORIDE 0.9% 1,000 ML IV SCH ×2 (06:45→15:57)
[2019-07-02] MEDS: MIDODRINE 5 MG TAB PO SCH ×3 (06:45→17:31)
[2019-07-02 08:18] LABS: Calcium 7.3 mg/dL (8.4-10.2); Magnesium 1.6 mg/dL (1.6-2.3); Phosphorus 4.1 mg/dL (2.5-4.5); Potassium 4.3 mmol/L (3.5-5.1)
[2019-07-02] MEDS: PANTOPRAZOLE 40 MG/10 ML VIAL IVP SCH ×2 (09:39→20:25)
[2019-07-02] MEDS: NOREPINEPHRINE 4 MG in SODIUM CHLORIDE 0.9% 250 ML IV SCH (10:26)
--- NOTE | 2019-07-02 10:26 | P.PN ---
Subjective Progress Note Date: 07/02/19 CHIEF COMPLAINT: GI bleed HISTORY OF PRESENT ILLNESS: Patient examined at the bedside. Denies abdominal pain. Denies nausea or vomiting. He reports he completed bowel prep overnight. Hemoglobin is 7.6 today. He received 2 units RBCs. PHYSICAL EXAM: VITAL SIGNS: Reviewed. GENERAL: Well-developed in no acute distress. HEENT: No sclera icterus. Extraocular movements grossly intact. Moist buccal mucosa. Head is atraumatic, normocephalic. Hears conversational speech. No nasal drainage. NECK: Supple without lymphadenopathy. CHEST: Non-labored respirations and equal bilateral excursions. CARDIOVASCULAR: Regular rate with regular rhythm. Palpable 2+ radial pulses. ABDOMEN: Soft. Nondistended. Nontender. Well-healed scars to midline abdomen and bilateral groins. Hernia present to lower aspect of midline incision. MUSCULOSKELETAL: No clubbing, cyanosis or edema. NEUROLOGIC: No focal or lateralizing signs. Cranial nerves II through XII grossly intact. PSYCH: Appropriate affect. Alert and oriented to person, place and time. Sleepy but easily arousable. SKIN: Well perfused. Good skin turgor. ASSESSMENT: 1. Acute GI bleed 2. Bright red blood per rectum 3. Acute blood loss anemia 4. Anemia of chronic disease, baseline hemoglobin 7-9 per EMR review, secondary to CKD 5. History of recent inguinal hernia repair 6. History of multiple bowel obstructions and abdominal surgeries 7. Hypovolemia, requiring vasopressor support, secondary to acute blood loss PLAN: 1. Hold Plavix 2. Protonix 40mg IV BID 3. Monitor hemoglobin 4. Nephrology following for CKD. Patient to receive HD this afternoon 5. Patient scheduled for EGD and colonoscopy today with Dr. Lopez Nurse practitioner note has been reviewed by physician. Signing provider agrees with the documented findings, assessment, and plan of care. Objective - Vital Signs Vital signs: Vital Signs Temp 97.9 F 07/02/19 08:00 Pulse 60 07/02/19 10:00 Resp 15 07/02/19 10:00 BP 105/65 07/02/19 10:00 Pulse Ox 95 07/02/19 10:00 Intake & Output 07/01/19 07/02/19 07/02/19 18:59 06:59 18:59 Intake Total 3488.447 1900 300 Output Total 0 0 Balance 3488.447 1900 300 Weight 65 kg Intake: IV 550 900 300 Sodium Chloride 0.9% 1, 550 900 75 000 ml @ 20 mls/hr IV . Q24H [facility] Rx#:[id number] Sodium Chloride 0.9% 1, 225 000 ml @ 75 mls/hr IV . [id number] [facility] Rx#:[id number] Intake, IV Titration 698.447 Amount Desmopressin Acetate 18 54 mcg In Sodium Chloride 0. 9% 50 ml @ 200 mls/hr IVPB ONCE ONE Rx#: [id number] Norepinephrine 4 mg In 524.526 Sodium Chloride 0.9% 250 ml @ 0.05 MCG/KG/MIN 11. 665 mls/hr IV .[id number] [facility] Rx#:[id number] Norepinephrine 4 mg In 119.921 Sodium Chloride 0.9% 250 ml @ 0.05 MCG/KG/MIN 11. 665 mls/hr IV .[id number] [facility] Rx#:[id number] Oral 1000 1000 Blood Product 1240 Rc As-1 Unit 310 [id number] Rc As-1 Unit 310 [id number] Output: Urine 0 Stool 0 0 Other: # Voids 0 0 0 # Bowel Movements 1 1 1 - Labs CBC & Chem 7: 07/02/19 05:38 07/02/19 07:50 Labs: Abnormal Lab Results - Last 24 Hours (Table) 06/30/19 07/01/19 07/02/19 Range/Units 22:40 22:14 05:38 RBC 2.56 L 2.43 L (4.30-5.90) m/uL Hgb 8.0 L 7.6 L (13.0-17.5) gm/dL Hct 25.8 L 23.3 L (39.0-53.0) % MCV 100.9 H D (80.0-100.0) fL MCHC 30.9 L (31.0-37.0) g/dL RDW 19.4 H 20.3 H (11.5-15.5) % Plt Count 103 L 96 L (150-450) k/uL Lymphocytes # 0.9 L (1.0-4.8) k/uL BUN (9-20) mg/dL Creatinine (0.66-1.25) mg/dL Calcium (8.4-10.2) mg/dL Crossmatch See Detail 07/02/19 Range/Units 07:50 RBC (4.30-5.90) m/uL Hgb (13.0-17.5) gm/dL Hct (39.0-53.0) % MCV (80.0-100.0) fL MCHC (31.0-37.0) g/dL RDW (11.5-15.5) % Plt Count (150-450) k/uL Lymphocytes # (1.0-4.8) k/uL BUN 37 H (9-20) mg/dL Creatinine 3.65 H (0.66-1.25) mg/dL Calcium 7.3 L (8.4-10.2) mg/dL Crossmatch
--- NOTE | 2019-07-02 12:07 | P.PN ---
Subjective Progress Note Date: 07/02/19 This is a pleasant 89-year-old gentleman, resides at [facility] with history of multiple abdominal surgeries, recent hernia repair 03/19, chronic diarrhea history of seizures, heart block-pacemaker, former nicotine dependence, end-stage renal disease on hemodialysis, BPH presented to the ER with complaints of lightheadedness, dizziness, near syncope after completing his dialysis session yesterday. He proceeded to have red rectal bleeding with stools, accompanied by cramping.Denies abdominal pain, chest pain, palpitations, shortness of breath. Hemoglobin on arrival to the ER 9.6, dropped to 7.0, MCV 107.9, INR 1.3, creatinine 2.69- 2.96, troponin 0.05, afebrile, normal WBC-now up to 10.7. Blood pressure 104/63 on admission, dropped to 51/40. Levophed initiated. Brain CT nonacute. Rectal tube with drainage bag placed in the ER with gross blood noted, ordered to be discontinued. Heart rate in the 60s, maintaining O2 sats of 99%. EKG Vpaced. Chest x-ray reporting pulmonary vascular congestion, interstitial edema bibasilar opacity's with trace pleural effusions. Admitted to ICU. 07/02/2018 Levophed weaned off last night. continued to have 4 soft bright red clotty bowel movements throughout the night,hemoglobin down to 7.6.denies abdominal pain.denies nausea or vomiting. Received 2 units of packed RBCs yesterday. Telemetry sinus bradycardia. Creatinine up to 3.65. Scheduled for hemodialysis as well as EGD and colonoscopy today.VSS, maintaining O2 sats in the high 90s on 2 L nasal cannula. Objective - Vital Signs Vital signs: Vital Signs Temp 97.6 F 07/02/19 04:00 Pulse 60 07/02/19 07:00 Resp 12 07/02/19 07:00 BP 111/65 07/02/19 07:00 Pulse Ox 98 07/02/19 07:00 Intake & Output 07/01/19 07/02/19 07/02/19 18:59 06:59 18:59 Intake Total 3488.447 1900 75 Output Total 0 Balance 3488.447 1900 75 Intake: IV 550 900 75 Sodium Chloride 0.9% 1, 550 900 75 000 ml @ 20 mls/hr IV . Q24H [facility] Rx#:[id number] Intake, IV Titration 698.447 Amount Desmopressin Acetate 18 54 mcg In Sodium Chloride 0. 9% 50 ml @ 200 mls/hr IVPB ONCE ONE Rx#: [id number] Norepinephrine 4 mg In 524.526 Sodium Chloride 0.9% 250 ml @ 0.05 MCG/KG/MIN 11. 665 mls/hr IV .[id number] [facility] Rx#:[id number] Norepinephrine 4 mg In 119.921 Sodium Chloride 0.9% 250 ml @ 0.05 MCG/KG/MIN 11. 665 mls/hr IV .[id number] [facility] Rx#:[id number] Oral 1000 1000 Blood Product 1240 Rc As-1 Unit 310 [id number] Rc As-1 Unit 310 [id number] Output: Stool 0 Other: # Voids 0 0 0 # Bowel Movements 1 1 - Exam PHYSICAL EXAM: VITAL SIGNS: As above GENERAL: alert and oriented 3, no acute distress, Pleasant and cooperative. HEENT: Pupils are equal, round, and reactive to light. Sclerae anicteric. Conjunctivae are clear. Mucus membranes of the mouth are dry. Neck is supple with decreased range of motion secondary to marked degree of cervical osteoart hritis. RESPIRATORY: Clear to auscultation. No wheezes, rales, or rhonchi. No use of accessory muscles. Patient maintaining oxygen saturation of 100%/2Lnc. No chest wall tenderness is noted on palpation or with deep breathing. CARDIOVASCULAR: Regular rate and rhythm. S1 and S2 noted. No systolic or diastolic murmur auscultated. No JVD noted. No S3 or S4 noted. GASTROINTESTINAL: No distention noted. Abdomen soft and round. Normal active bowel sounds auscultated x 4 quadrants. No pain or tenderness noted upon palpation. Multiple scars throughout the entire abdomen INTEGUMENTARY: No cyanosis. No jaundice. No rashes noted. No cellulitis noted. EXTREMITIES: 2+ peripheral pulses. No evidence of peripheral edema. No calf tenderness noted. NEUROLOGIC: Cranial nerves II-XII intact. PSYCHIATRIC: Awake, alert, and oriented X 3. - Labs CBC & Chem 7: 07/02/19 05:38 07/02/19 07:50 Labs: Abnormal Lab Results - Last 24 Hours (Table) 06/30/19 07/01/19 07/02/19 Range/Units 22:40 22:14 05:38 RBC 2.56 L 2.43 L (4.30-5.90) m/uL Hgb 8.0 L 7.6 L (13.0-17.5) gm/dL Hct 25.8 L 23.3 L (39.0-53.0) % MCV 100.9 H D (80.0-100.0) fL MCHC 30.9 L (31.0-37.0) g/dL RDW 19.4 H 20.3 H (11.5-15.5) % Plt Count 103 L 96 L (150-450) k/uL Lymphocytes # 0.9 L (1.0-4.8) k/uL Crossmatch See Detail Assessment and Plan Assessment: -Acute suspected lower GI Bleed, possibly diverticular in a patient with history of diverticulitis, endoscopies pending -Acute blood loss anemia, 2 units of packed RBCs ordered -Hypovolemic hypotension secondary to the above -Anemia of chronic disease -End-stage kidney disease on hemodialysis -History of multiple abdominal surgeries, bowel obstructions, inguinal hernia repairs -Gastroesophageal reflux disease -History of hypertension -Hyperlipidemia Plan: Continue current medication regime ,monitoring and symptomatic treatment. IV fluid hydration, Blood thinners, anticoagulants remain on hold. IV PPI twice a day. hemodialysis, EGD and colonoscopy today.close monitoring of hemoglobin, lytes, renal function, with repeat labs ordered for a.m..Prognosis guarded given multiple complex medical issues. The impression and plan of care has been dictated as directed. : I performed a history and examination of this patient, discussed the same with the dictator. I agree with the dictator's note ,documented as a scribe. Any additional findings or plans will be noted. Time taken: 35 min.
--- NOTE | 2019-07-02 12:34 | P.PN ---
Subjective Progress Note Date: 07/02/19 Principal diagnosis: Acute GI bleed This is an 89-year-old white male with history of end-stage renal disease, on hemodialysis, presented last night to the ER with chief complaint of dizziness, bright red blood per rectum. Patient starting feeling dizzy, almost passed out. and as he went to the bathroom noted to have bright red blood coming from his rectum. No previous history of GI bleeding. Patient is on hemodialysis Friday to Friday for his end-stage renal disease. Patient denies any abdominal pain, denies any headache, no blurred vision, he did feel dizzy and almost passed out before he presented to the ER. In the ER, his initial hemoglobin was noted to be 9.6, and his hemoglobin today is 7.0. Apparently he was noted to be also hypotensive when he was in the ER, placed on norepinephrine at a small dose, admitted to the ICU, and I was asked to see him on consultation. Shortly after I saw the patient, I recommended 2 units of packed RBCs to be given, and recommended to taper and discontinue norepinephrine. Patient has a rectal tube in place, and this was inserted in the emergency room, there is evidence of gross blood noted in the drainage bag. Patient is on Plavix. Reevaluated today on 07/02/2019, remains in the ICU, but no clinical evidence of active bleeding at this point. Received a total of 2 units of packed RBCs, hemoglobin today is 7.6. Patient is scheduled to undergo colonoscopy and EGD by general surgery today, and this was sometime this afternoon. Hence we'll hold on transferring the patient out of the ICU until we know more about his source of bleeding. And whether it is active or not. Clinically does not seem to be active. Patient denies any shortness of breath, denies any cough no wheezing, no chest pain, denies any abdominal pain, denies any hematemesis. And has not seen any bloody bowel movement since yesterday. His rectal tube was removed. Objective - Vital Signs Vital signs: Vital Signs Temp 97.9 F 07/02/19 08:00 Pulse 61 07/02/19 11:00 Resp 16 07/02/19 11:00 BP 111/84 07/02/19 11:00 Pulse Ox 100 07/02/19 11:00 Intake & Output 07/01/19 07/02/1919 18:59 06:59 18:59 Intake Total 3488.447 1900 350 Output Total 0 0 Balance 3488.447 1900 350 Weight 65 kg Intake: IV 550 900 350 Sodium Chloride 0.9% 1, 550 900 75 000 ml @ 20 mls/hr IV . Q24H [facility] Rx#:[id number] Sodium Chloride 0.9% 1, 275 000 ml @ 50 mls/hr IV . Q20H [facility] Rx#:[id number] Intake, IV Titration 698.447 Amount Desmopressin Acetate 18 54 mcg In Sodium Chloride 0. 9% 50 ml @ 200 mls/hr IVPB ONCE ONE Rx#: [id number] Norepinephrine 4 mg In 524.526 Sodium Chloride 0.9% 250 ml @ 0.05 MCG/KG/MIN 11. 665 mls/hr IV .[id number] [facility] Rx#:[id number] Norepinephrine 4 mg In 119.921 Sodium Chloride 0.9% 250 ml @ 0.05 MCG/KG/MIN 11. 665 mls/hr IV .[id number] [facility] Rx#:[id number] Oral 1000 1000 Blood Product 1240 Rc As-1 Unit 310 [id number] Rc As-1 Unit 310 [id number] Output: Urine 0 Stool 0 0 Other: # Voids 0 0 0 # Bowel Movements 1 1 1 - Exam GENERAL: Revealed a 89-year-old white male, very pleasant, frail looking, in no distress. HEENT: PERRLA, EOMI, no icterus. Head atraumatic normocephalic NECK: Normal range of motion, supple, no neck masses, no JVD, no thyromegaly. CHEST: Clear bilaterally no crackles or rhonchi or wheezes symmetrical chest expansion noted. CARDIOVASCULAR: Regular rate and rhythm normal S1 and S2, no S3 gallop. No murmur. ABDOMEN: Scaphoid, soft, nontender, multiple healed scars noted from previous bilateral surgeries. MUSCULOSKELETAL: No limitation in range of motion. Adequate strength bilaterally NEUROLOGIC: Alert and oriented 3, no gross focal neurologic deficits. Psychiatric: Normal mood and affect, normal mental status examination. SKIN: Good skin turgor, no rashes. - Labs CBC & Chem 7: 07/02/19 05:38 07/02/19 07:50 Labs: Abnormal Lab Results - Last 24 Hours (Table) 06/30/19 07/01/19 07/02/19 Range/Units 22:40 22:14 05:38 RBC 2.56 L 2.43 L (4.30-5.90) m/uL Hgb 8.0 L 7.6 L (13.0-17.5) gm/dL Hct 25.8 L 23.3 L (39.0-53.0) % MCV 100.9 H D (80.0-100.0) fL MCHC 30.9 L (31.0-37.0) g/dL RDW 19.4 H 20.3 H (11.5-15.5) % Plt Count 103 L 96 L (150-450) k/uL Lymphocytes # 0.9 L (1.0-4.8) k/uL BUN (9-20) mg/dL Creatinine (0.66-1.25) mg/dL Calcium (8.4-10.2) mg/dL Crossmatch See Detail 07/02/19 Range/Units 07:50 RBC (4.30-5.90) m/uL Hgb (13.0-17.5) gm/dL Hct (39.0-53.0) % MCV (80.0-100.0) fL MCHC (31.0-37.0) g/dL RDW (11.5-15.5) % Plt Count (150-450) k/uL Lymphocytes # (1.0-4.8) k/uL BUN 37 H (9-20) mg/dL Creatinine 3.65 H (0.66-1.25) mg/dL Calcium 7.3 L (8.4-10.2) mg/dL Crossmatch Assessment and Plan Assessment: Impression: 1 acute GI bleeding, most likely lower GI in nature, 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 Lopez.. 2 acute on chronic anemia secondary to GI blood loss. 3 chronic kidney disease, patient is on hemodialysis. 4 hypotension secondary to hypovolemia, and anemia. improved with blood transfusion, presently off norepinephrine. 5 history of degenerative joint disease, hypertension, hyperlipidemia, GERD and remote history of diverticulitis. Recommendation: Proceed with further GI workup as scheduled by Dr. Lopez, patient will likely have EGD and, today. And based on the findings we'll determine whether the patient needs to remain in the ICU or possibly transferred to a regular medical floor. Even if transferred, we will continue to monitor for any active GI bleeding, keep hemoglobin above 7, continue present treatment plan including PPIs. Will follow. Continue to hold blood thinners. Discussed and updated his family members on his condition at bedside Time with Patient: Less than 30
[2019-07-02] MEDS ORDERED: LIDOCAINE 1% INJ 10MG/ML (20 ML MDV) ONE (14:59)
[2019-07-02] MEDS ORDERED: KETAMINE 10 MG/ML 20 ML VIAL ONE (14:59)
[2019-07-02] MEDS ORDERED: PROPOFOL 10 MG/ML 20 ML VIAL IV ONE (14:59)
[2019-07-02] MEDS ORDERED: MIDAZOLAM 2 MG/2 ML VIAL ONE (14:59)
[2019-07-02] MEDS ORDERED: SODIUM CHLORIDE 0.9% 1,000 ML IV ONE (15:21)
--- NOTE | 2019-07-02 15:22 | P.OP ---
Date of Procedure: 07/02/19 Preoperative Diagnosis: GI bleed Postoperative Diagnosis: Gastritis Evidence of lower GI bleed Poor prep Procedure(s) Performed: EGD Colonoscopy Anesthesia: MAC Surgeon: Sly Lopez Pathology: other (Antrum) Condition: stable Disposition: PACU Description of Procedure: The patient's placed on the endoscopy table in the lateral position. He received IV sedation. The gastroscope placed oropharynx passed in the esophagus into the stomach. Scope was then placed at the pylorus. The pylorus could not be entered. At this point a biopsy of the antrum performed. There is some mild antral gastritis. The scope was unretroflexed and remainder of the stomach appeared normal. The GE junction was at 40 cm the distal esophagus appeared normal. The proximal esophagus appeared normal. Scope was withdrawn for patient. Next digital rectal exam was performed which revealed some blood-tinged stool. The flexible colonoscope was then placed patient anus and passed throughout the colon. Scope and passed beyond the left colon secondary to poor bowel prep. There is a large amount of liquidy maroon-colored stool. Scope was withdrawn. There was no active bleeding seen in the descending colon and sigmoid colon the scope was brought back the rectum and this appeared normal. Scope was withdrawn for patient.
--- NOTE | 2019-07-02 15:34 | PN ---
PROGRESS NOTE Patient is seen for followup for end-stage renal disease. Patient was seen this morning. He was sleeping. He was comfortable. He has had 3-4 small bloody bowel movements. However, they have not had a large amount of blood. The patient was scheduled for colonoscopy and endoscopy today. He is also scheduled for hemodialysis today. On examination this morning, blood pressure was 111/65, heart rate of 60 per minute. Patient is afebrile. EXAMINATION OF THE HEART: S1 and S2. EXAMINATION OF LUNGS: Bilateral breath sounds are heard. ABDOMEN: Soft, non-tender. Examination of lower extremities shows no evidence of edema. COMPUTATIONAL THEORY SCIENTIST exam is grossly intact. Labs show hemoglobin 7.6 from this morning. Sodium 137, potassium 4.3, BUN 37, serum creatinine 3.65. ASSESSMENT: 1. End-stage renal disease, on hemodialysis on a Friday, Friday, Friday schedule. Patient is scheduled for hemodialysis today. 2. Gastrointestinal bleed, scheduled for colonoscopy and esophagogastroduodenoscopy today. Bleeding seems to have improved. 3. Hypertension, controlled. 4. Anemia secondary to gastrointestinal bleed and anemia of chronic disease. 5. Chronic kidney disease mineral bone disorder. Phosphorus is currently not elevated. Patient is not eating. Continue off of phosphate binders. 6. Dyslipidemia. PLAN: Hemodialysis today. No significant ultrafiltration. Transfuse packed RBCs if hemoglobin drops further. MMODL / IJN: [id number] /
[2019-07-02] MEDS: ATORVASTATIN 80 MG TAB PO SCH (20:25)
[2019-07-03 05:51] LABS: Anisocytosis Slight; Basophils % (A) 0 %; Eosinophils # (A) 0.2 k/uL (0-0.7); Eosinophils % (A) 3 %; HGB 7.3 gm/dL (13.0-17.5); Hypochromasia Marked; Lymphocytes # (A) 0.8 k/uL (1.0-4.8); Lymphocytes % (A) 12 %; MCH 31.6 pg (25.0-35.0); MCHC 30.5 g/dL (31.0-37.0); Macrocytosis Marked; Mean Platelet Volume 8.6; Monocytes # (A) 0.6 k/uL (0-1.0); Monocytes % (A) 10 %; Neutrophils # (A) 4.6 k/uL (1.3-7.7); Neutrophils % (A) 73 %; Platelet Count 109 k/uL (150-450); RBC 2.31 m/uL (4.30-5.90); RDW 19.8 % (11.5-15.5); WBC 6.3 k/uL (3.8-10.6)
[2019-07-03 06:22] LABS: MCV 103.9 fL (80.0-100.0)
[2019-07-03 06:58] LABS: Calcium 7.4 mg/dL (8.4-10.2)
[2019-07-03] MEDS: MIDODRINE 5 MG TAB PO SCH ×3 (07:01→17:53)
--- NOTE | 2019-07-03 08:40 | P.PN ---
Progress Note - Text Progress Note Date: 07/03/19 The patient is resting comfortably in his bed. He's had no further evidence of GI bleed. His he will in the 7.3. On exam his vital signs are stable. Abdomen is soft. Patient continue full liquid diet. He will be observed.
--- NOTE | 2019-07-03 11:27 | P.PN ---
Subjective Progress Note Date: 07/03/19 Principal diagnosis: Acute GI bleed This is an 89-year-old white male with history of end-stage renal disease, on hemodialysis, presented last night to the ER with chief complaint of dizziness, bright red blood per rectum. Patient starting feeling dizzy, almost passed out. and as he went to the bathroom noted to have bright red blood coming from his rectum. No previous history of GI bleeding. Patient is on hemodialysis Friday to Friday for his end-stage renal disease. Patient denies any abdominal pain, denies any headache, no blurred vision, he did feel dizzy and almost passed out before he presented to the ER. In the ER, his initial hemoglobin was noted to be 9.6, and his hemoglobin today is 7.0. Apparently he was noted to be also hypotensive when he was in the ER, placed on norepinephrine at a small dose, admitted to the ICU, and I was asked to see him on consultation. Shortly after I saw the patient, I recommended 2 units of packed RBCs to be given, and recommended to taper and discontinue norepinephrine. Patient has a rectal tube in place, and this was inserted in the emergency room, there is evidence of gross blood noted in the drainage bag. Patient is on Plavix. Reevaluated today on 07/02/2019, remains in the ICU, but no clinical evidence of active bleeding at this point. Received a total of 2 units of packed RBCs, hemoglobin today is 7.6. Patient is scheduled to undergo colonoscopy and EGD by general surgery today, and this was sometime this afternoon. Hence we'll hold on transferring the patient out of the ICU until we know more about his source of bleeding. And whether it is active or not. Clinically does not seem to be active. Patient denies any shortness of breath, denies any cough no wheezing, no chest pain, denies any abdominal pain, denies any hematemesis. And has not seen any bloody bowel movement since yesterday. His rectal tube was removed. Reevaluated today on 07/03/2019, patient is doing well, no active bleeding going on, his hemoglobin is 7.3, it was 7.6 yesterday. His EGD and colonoscopy revealed no evidence of active bleeding,. Clinically the patient is doing well, he is not noticing any bleeding. Denies any shortness of breath no cough no wheezing no chest pain. He is ambulating in the hallway in the intensive care unit. His electrolytes are normal renal profile is improved with creatinine do wn to 2.74 and it was 3.65 yesterday. Daughter is at bedside, updated on his condition, and I plan to transfer the patient out of the ICU to a regular medical floor with remote telemetry. Objective - Vital Signs Vital signs: Vital Signs Temp 98.2 F 07/03/19 04:00 Pulse 60 07/03/19 07:00 Resp 14 07/03/19 07:00 BP 122/77 07/03/19 07:00 Pulse Ox 98 07/03/19 07:00 Intake & Output 07/02/19 07/03/19 07/03/19 18:59 06:59 18:59 Intake Total 1000 650 Output Total 1500 0 Balance -500 650 Weight 66.3 kg Intake: IV 1000 650 Sodium Chloride 0.9% 1, 75 000 ml @ 20 mls/hr IV . Q24H [facility] Rx#:[id number] Sodium Chloride 0.9% 1, 625 650 000 ml @ 50 mls/hr IV . Q20H [facility] Rx#:[id number] Output: Urine 0 0 Hemodialysis 1500 Other: # Voids 0 0 # Bowel Movements 1 - Exam GENERAL: Revealed a 89-year-old white male, very pleasant, frail looking, in no distress. HEENT: PERRLA, EOMI, no icterus. Head atraumatic normocephalic NECK: Normal range of motion, supple, no neck masses, no JVD, no thyromegaly. CHEST: Clear bilaterally no crackles or rhonchi or wheezes symmetrical chest expansion noted. CARDIOVASCULAR: Regular rate and rhythm normal S1 and S2, no S3 gallop. No murmur. ABDOMEN: Scaphoid, soft, nontender, multiple healed scars noted from previous bilateral surgeries. MUSCULOSKELETAL: No limitation in range of motion. Adequate strength bilaterally NEUROLOGIC: Alert and oriented 3, no gross focal neurologic deficits. Psychiatric: Normal mood and affect, normal mental status examination. SKIN: Good skin turgor, no rashes. - Labs CBC & Chem 7: 07/03/19 05:40 07/03/19 05:40 Labs: Abnormal Lab Results - Last 24 Hours (Table) 07/03/19 07/03/19 Range/Units 05:40 05:40 RBC 2.31 L (4.30-5.90) m/uL Hgb 7.3 L (13.0-17.5) gm/dL Hct 24.0 L (39.0-53.0) % MCV 103.9 H D (80.0-100.0) fL MCHC 30.5 L (31.0-37.0) g/dL RDW 19.8 H (11.5-15.5) % Plt Count 109 L (150-450) k/uL Lymphocytes # 0.8 L (1.0-4.8) k/uL Macrocytosis Marked A Sodium 133 L (137-145) mmol/L Carbon Dioxide 20 L (22-30) mmol/L BUN 26 H (9-20) mg/dL Creatinine 2.74 H (0.66-1.25) mg/dL Calcium 7.4 L (8.4-10.2) mg/dL Assessment and Plan Assessment: Impression: 1 acute GI bleeding, most likely lower GI in nature, 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 2 acute on chronic anemia secondary to GI blood loss. 3 chronic kidney disease, patient is on hemodialysis. Being followed by nephrology, creatinine is improved today compared to yesterday. 4 hypotension secondary to hypovolemia, and anemia. improved with blood transfusion, 5 history of degenerative joint disease, hypertension, hyperlipidemia, GERD and remote history of diverticulitis. Recommendation: Transfer patient out of the ICU to regular medical floor, with a remote telemetry. Ambulate the patient, continue to monitor for any GI bleeding, transfuse for hemoglobin is below 7, continue to ambulate the patient, continue hemodialysis, discussed with the family his EGD and colonoscopy findings, patient does not need ICU monitoring at this point. We'll continue to follow on when necessary basis. Time with Patient: Less than 30
[2019-07-03] MEDS: NOREPINEPHRINE 4 MG in SODIUM CHLORIDE 0.9% 250 ML IV SCH (12:11)
[2019-07-03] MEDS: SODIUM CHLORIDE 0.9% 1,000 ML IV SCH (12:12)
[2019-07-03] MEDS: PANTOPRAZOLE 40 MG/10 ML VIAL IVP SCH ×2 (13:05→19:47)
[2019-07-03] MEDS ORDERED: MIDODRINE 5 MG TAB PO ONE (13:15)
--- NOTE | 2019-07-03 13:29 | P.PN ---
Subjective Patient is a 89-year-old pleasant gentleman was admitted secondary to GI bleed mostly upper GI bleed upper GI endoscopy did show gastritis esophagitis no active bleeding ulcer colonoscopy is it was incomplete because of significant amount of blood. Patient had dark stools today 1 probably from the previous bleeding. Hemoglobin remained fairly stable at this time. 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 Patient has low blood pressure on Midodrin. Constitutional: Denied any fatigue denied any fever. Cardio vascular: denied any chest pain, palpitations Gastrointestinal denied any nausea vomiting Pulmonary: Denied any shortness of breath cough Neurologic denied any new focal deficits All inpatient medications were reviewed and appropriate changes in these medications as dictated in the interval history and assessment and plan. Objective - Vital Signs Vital signs: Vital Signs Temp 98.0 F 07/03/19 12:00 Pulse 65 07/03/19 13:00 Resp 19 07/03/19 13:00 BP 102/55 07/03/19 13:00 Pulse Ox 99 07/03/19 12:00 Intake & Output 07/02/19 07/03/19 07/03/19 18:59 06:59 18:59 Intake Total 1000 650 Output Total 1500 0 0 Balance -500 650 0 Weight 66.3 kg Intake: IV 1000 650 Sodium Chloride 0.9% 1, 75 000 ml @ 20 mls/hr IV . Q24H LOR[facility] Rx#:[id number] Sodium Chloride 0.9% 1, 625 650 000 ml @ 50 mls/hr IV . Q20H [facility]ORI Rx#:[id number] Output: Urine 0 0 0 Stool 0 Hemodialysis 1500 Other: # Voids 0 0 0 # Bowel Movements 1 1 - Exam PHYSICAL EXAMINATION: GENERAL: The patient is alert and oriented x3, not in any acute distress. Thin built HEENT: Pupils are round and equally reacting to light. EOMI. No scleral icterus. Does have conjunctival pallor. Normocephalic, atraumatic. No pharyngeal erythem a. No thyromegaly. CARDIOVASCULAR: S1 and S2 present. No murmurs, rubs, or gallops. PULMONARY: Chest is clear to auscultation, no wheezing or crackles. ABDOMEN: Soft, nontender, nondistended, normoactive bowel sounds. No palpable organomegaly. MUSCULOSKELETAL: No joint swelling or deformity. EXTREMITIES: No cyanosis, clubbing, or pedal edema. NEUROLOGICAL: Gross neurological examination did not reveal any focal deficits. SKIN: No rashes. - Labs CBC & Chem 7: 07/03/19 05:40 07/03/19 05:40 Labs: Abnormal Lab Results - Last 24 Hours (Table) 07/03/19 07/03/19 Range/Units 05:40 05:40 RBC 2.31 L (4.30-5.90) m/uL Hgb 7.3 L (13.0-17.5) gm/dL Hct 24.0 L (39.0-53.0) % MCV 103.9 H D (80.0-100.0) fL MCHC 30.5 L (31.0-37.0) g/dL RDW 19.8 H (11.5-15.5) % Plt Count 109 L (150-450) k/uL Lymphocytes # 0.8 L (1.0-4.8) k/uL Macrocytosis Marked A Sodium 133 L (137-145) mmol/L Carbon Dioxide 20 L (22-30) mmol/L BUN 26 H (9-20) mg/dL Creatinine 2.74 H (0.66-1.25) mg/dL Calcium 7.4 L (8.4-10.2) mg/dL Assessment and Plan Plan: Possible upper GI bleed: Patient is on Protonix patient had 1 dark stools today because of which patient will be monitored in ICU clinically this appears to be from his previous retained blood. Patient is status post upper GI endoscopy and colonoscopy. -Hyponatremia possibly hypovolemic expected to improve with) -End-stage renal disease on hemodialysis Hypotension seconded GI bleed and hypovolemia improved now IV fluids were discontinued -Hypertension -Hyperlipidemia -Benign prostatic hypertrophy
--- NOTE | 2019-07-03 14:20 | US ---
EXAMINATION TYPE: US venous doppler duplex UE LT DATE OF EXAM: 07/03/2019 COMPARISON: NONE CLINICAL HISTORY: Arm swelling . IV left arm, swelling SIDE PERFORMED: Left Left Arm: Negative for DVT Soft tissue edema noted at left forearm IMPRESSION: THIS EXAMINATION IS NEGATIVE FOR DVT WITHIN THE LEFT ARM.
--- NOTE | 2019-07-03 15:47 | PN ---
PROGRESS NOTE The patient is seen for followup for end-stage renal disease. She was dialyzed yesterday. However, patient had about 2.5 hour treatment. He had a colonoscopy done yesterday and an EGD. There was poor bowel prep, so the large intestine was not easily seen. However, there was large amount of liquidy maroon colored stool noted. EGD did not show any significant findings in the stomach. PHYSICAL EXAMINATION: Today, this morning blood pressure was 122/77, heart rate of 66 per minute. Patient is afebrile. Examination of the heart S1, S2. Examination of the lungs, bilateral breath sounds are heard. Abdomen is soft, nontender. Exam of lower extremities shows no significant edema. [employer] exam is grossly intact. LABS: Hemoglobin 7.3, sodium 133, potassium 4.0, BUN 26, serum creatinine 2.74, albumin 2.4. ASSESSMENT: 1. End-stage renal disease, on hemodialysis on a Friday, Friday, Friday schedule. We will plan for dialysis again on Friday and discontinue the IV fluids. 2. Gastrointestinal bleed status post EGD, which did not reveal any major findings. Colonoscopy showed liquid maroon-colored stools. Bowel prep was poor. Therefore it was not an adequate study. 3. Anemia secondary to blood loss and gastrointestinal bleed. 4. Hypotension, currently improved. PLAN: Discontinue IV fluids. Encourage increased oral intake. Next dialysis on Friday. Continue with the proton pump inhibitors. MMODL / IJN: [id number] /
[2019-07-03] MEDS: ATORVASTATIN 80 MG TAB PO SCH (19:47)
[2019-07-04 03:27] LABS: Anisocytosis Slight; Basophils % (A) 0 %; Eosinophils # (A) 0.1 k/uL (0-0.7); Eosinophils % (A) 2 %; Hypochromasia Slight; Lymphocytes # (A) 0.7 k/uL (1.0-4.8); Lymphocytes % (A) 11 %; MCH 32.4 pg (25.0-35.0); MCV 101.1 fL (80.0-100.0); Macrocytosis Moderate; Mean Platelet Volume 8.5; Monocytes # (A) 0.6 k/uL (0-1.0); Monocytes % (A) 10 %; Neutrophils # (A) 4.7 k/uL (1.3-7.7); Neutrophils % (A) 76 %; Platelet Count 135 k/uL (150-450); RBC 1.58 m/uL (4.30-5.90); RDW 19.9 % (11.5-15.5); WBC 6.3 k/uL (3.8-10.6)
[2019-07-04 03:34] LABS: HGB 5.1 gm/dL (13.0-17.5)
[2019-07-04] MEDS: MIDODRINE 5 MG TAB PO SCH ×3 (07:06→17:09)
[2019-07-04 07:31] LABS: Calcium 6.7 mg/dL (8.4-10.2); Potassium 4.2 mmol/L (3.5-5.1)
[2019-07-04] MEDS ORDERED: DESMOPRESSIN ACETATE 20 MCG in SODIUM CHLORIDE 0.9% 50 ML IVPB ONE (08:00)
[2019-07-04] MEDS: PANTOPRAZOLE 40 MG/10 ML VIAL IVP SCH ×2 (08:07→20:48)
--- NOTE | 2019-07-04 09:45 | P.PN ---
Progress Note - Text Progress Note Date: 07/04/19 The patient had new lower GI bleed last night. His he will was 5. He is receiving 2 units of packed red cells. Vital signs appear stable. His abdomen soft. Patient will be scheduled for repeat colonoscopy in the a.m.
--- NOTE | 2019-07-04 10:29 | PN ---
PROGRESS NOTE The patient was seen this morning for followup for end-stage renal disease. He had another episode of active gastrointestinal bleed and hemoglobin has dropped down to 5.1 g/dL. The patient has received 1 unit packed RBCs. He will be receiving his 2nd unit. Blood pressure had dropped initially, currently it is improved, systolic around 130 mmHg. The patient is scheduled for hemodialysis tomorrow. PHYSICAL EXAMINATION: On examination, blood pressure was 123/59, heart rate 60 per minute, patient is afebrile. Examination of the heart S1, S2. Examination of the lungs, decreased breath sounds at the bases. Abdomen is soft, nontender. Examination lower extremities shows no evidence of edema. LABS: Hemoglobin 5.1, sodium 132, potassium 4.2. ASSESSMENT: 1. End-stage renal disease, on hemodialysis on a Friday, Friday, Friday schedule. 2. Gastrointestinal bleed status post EGD, which did not show any active bleeding. The colonoscopy did not reveal much as it was a poor prep. The patient is scheduled for colonoscopy again tomorrow by Dr. Lopez. I will give him a dose of DDAVP. The patient will be receiving a 2nd unit of packed RBCs today. 3. Hypotension secondary to gastrointestinal bleed. 4. Dyslipidemia. PLAN: Hemodialysis in a.m. and DDAVP x1 to help with the bleeding. MMODL / IJN: [id number] /
[2019-07-04 11:33] VITALS: BMI 21.6
--- NOTE | 2019-07-04 11:40 | P.PN ---
Subjective Patient is a 89-year-old pleasant gentleman was admitted secondary to GI bleed mostly upper GI bleed upper GI endoscopy did show gastritis esophagitis no active bleeding ulcer colonoscopy is it was incomplete because of significant amount of blood. Patient had dark stools today 1 probably from the previous bleeding. Hemoglobin remained fairly stable at this time. 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 Patient has low blood pressure on Midodrin. 07/04/2019 Patient started having jaziel blood in the stools today patient probably has lower GI bleed as well. Patient will undergo colonoscopy tomorrow patient received 2 units of blood transfusion. Constitutional: Denied any fatigue denied any fever. Cardio vascular: denied any chest pain, palpitations Gastrointestinal denied any nausea vomiting Pulmonary: Denied any shortness of breath cough Neurologic denied any new focal deficits All inpatient medications were reviewed and appropriate changes in these medications as dictated in the interval history and assessment and plan. Objective - Vital Signs Vital signs: Vital Signs Temp 97.6 F 07/04/19 10:20 Pulse 60 07/04/19 11:00 Resp 15 07/04/19 11:00 BP 108/55 07/04/19 11:00 Pulse Ox 98 07/04/19 11:00 Intake & Output 07/03/19 07/04/19 07/04/19 18:59 06:59 18:59 Intake Total 325 300 670 Output Total 0 0 0 Balance 325 300 670 Weight 66.4 kg 66.4 kg Intake: IV 50 Desmopressin Acetate 20 50 mcg In Sodium Chloride 0. 9% 50 ml @ 200 mls/hr IVPB ONCE ONE Rx#: [id number] Oral 325 300 Blood Product 0 620 Rc As-1 Unit 0 310 [id number] Rc As-1 Unit 310 [id number] Output: Urine 0 0 0 Stool 0 Other: # Voids 1 0 0 # Bowel Movements 1 - Exam PHYSICAL EXAMINATION: GENERAL: The patient is alert and oriented x3, not in any acute distress. Thin built HEENT: Pupils are round and equally reacting to light. EOMI. No scleral icterus. Does have conjunctival pallor. Normocephalic, atraumatic. No pharyngeal erythema. No thyromegaly. CARDIOVASCULAR: S1 and S2 present. No murmurs, rubs, or gallops. PULMONARY: Chest is clear to auscultation, no wheezing or crackles. ABDOMEN: Soft, nontender, nondistended, normoactive bowel sounds. No palpable organomegaly. MUSCULOSKELETAL: No joint swelling or deformity. EXTREMITIES: No cyanosis, clubbing, or pedal edema. NEUROLOGICAL: Gross neurological examination did not reveal any focal deficits. SKIN: No rashes. - Labs CBC & Chem 7: 07/04/19 02:51 07/04/19 02:51 Labs: Abnormal Lab Results - Last 24 Hours (Table) 07/04/19 07/04/19 07/04/19 Range/Units 02:51 02:51 03:51 RBC 1.58 L (4.30-5.90) m/uL Hgb 5.1 L* D (13.0-17.5) gm/dL Hct 16.0 L* (39.0-53.0) % MCV 101.1 H (80.0-100.0) fL RDW 19.9 H (11.5-15.5) % Plt Count 135 L (150-450) k/uL Lymphocytes # 0.7 L (1.0-4.8) k/uL Sodium 132 L (137-145) mmol/L BUN 34 H (9-20) mg/dL Creatinine 3.44 H (0.66-1.25) mg/dL Calcium 6.7 L (8.4-10.2) mg/dL Crossmatch See Detail Assessment and Plan Plan: Possible upper as well as lower GI bleed: Patient is on Protonix for GI endoscopy showed gastritis and the vaginitis without any acute bleeding patient started having jaziel blood in the stools again patient will undergo colonoscopy. Received 2 units of PRBC transfusion -Hyponatremia possibly hypovolemic expected to improve with dialysis and blood transfusion -End-stage renal disease on hemodialysis Hypotension seconded GI bleed and hypovolemia improved -Hypertension -Hyperlipidemia -Benign prostatic hypertrophy
--- NOTE | 2019-07-04 11:42 | P.PN ---
Subjective Progress Note Date: 07/04/19 Principal diagnosis: Acute GI bleed This is an 89-year-old white male with history of end-stage renal disease, on hemodialysis, presented last night to the ER with chief complaint of dizziness, bright red blood per rectum. Patient starting feeling dizzy, almost passed out. and as he went to the bathroom noted to have bright red blood coming from his rectum. No previous history of GI bleeding. Patient is on hemodialysis Friday to Friday for his end-stage renal disease. Patient denies any abdominal pain, denies any headache, no blurred vision, he did feel dizzy and almost passed out before he presented to the ER. In the ER, his initial hemoglobin was noted to be 9.6, and his hemoglobin today is 7.0. Apparently he was noted to be also hypotensive when he was in the ER, placed on norepinephrine at a small dose, admitted to the ICU, and I was asked to see him on consultation. Shortly after I saw the patient, I recommended 2 units of packed RBCs to be given, and recommended to taper and discontinue norepinephrine. Patient has a rectal tube in place, and this was inserted in the emergency room, there is evidence of gross blood noted in the drainage bag. Patient is on Plavix. Reevaluated today on 07/02/2019, remains in the ICU, but no clinical evidence of active bleeding at this point. Received a total of 2 units of packed RBCs, hemoglobin today is 7.6. Patient is scheduled to undergo colonoscopy and EGD by general surgery today, and this was sometime this afternoon. Hence we'll hold on transferring the patient out of the ICU until we know more about his source of bleeding. And whether it is active or not. Clinically does not seem to be active. Patient denies any shortness of breath, denies any cough no wheezing, no chest pain, denies any abdominal pain, denies any hematemesis. And has not seen any bloody bowel movement since yesterday. His rectal tube was removed. Reevaluated today on 07/03/2019, patient is doing well, no active bleeding going on, his hemoglobin is 7.3, it was 7.6 yesterday. His EGD and colonoscopy revealed no evidence of active bleeding,. Clinically the patient is doing well, he is not noticing any bleeding. Denies any shortness of breath no cough no wheezing no chest pain. He is ambulating in the hallway in the intensive care unit. His electrolytes are normal renal profile is improved with creatinine do wn to 2.74 and it was 3.65 yesterday. Daughter is at bedside, updated on his condition, and I plan to transfer the patient out of the ICU to a regular medical floor with remote telemetry. Reevaluated today on 07/04/2019,patient is experiencing active bleeding again, he has bright red blood per rectum, his hemoglobin dropped down to 5.1 this morning, and he is receiving 2 units of packed RBCs ordered by surgery on the case.clinically however the patient feels fine, asymptomatic except for bright red blood per rectum, denies any shortness of breath, denies any chest pain, he is hemodynamically stable. He is receiving blood transfusion during my evaluation.and at this point I recommended to keep the patient in the intensive care unit, and not to be transferred out of the ICU. Objective - Vital Signs Vital signs: Vital Signs Temp 97.6 F 07/04/19 10:20 Pulse 60 07/04/19 11:00 Resp 15 07/04/19 11:00 BP 108/55 07/04/19 11:00 Pulse Ox 98 07/04/19 11:00 Intake & Output 07/03/19 07/04/19 07/04/19 18:59 06:59 18:59 Intake Total 325 300 670 Output Total 0 0 0 Balance 325 300 670 Weight 66.4 kg 66.4 kg Intake: IV 50 Desmopressin Acetate 20 50 mcg In Sodium Chloride 0. 9% 50 ml @ 200 mls/hr IVPB ONCE ONE Rx#: [id number] Oral 325 300 Blood Product 0 620 Rc As-1 Unit 0 310 [id number] Rc As-1 Unit 310 [id number] Output: Urine 0 0 0 Stool 0 Other: # Voids 1 0 0 # Bowel Movements 1 - Exam GENERAL: Revealed a 89-year-old white male, very pleasant, frail looking, in no distress. HEENT: PERRLA, EOMI, no icterus. Head atraumatic normocephalic NECK: Normal range of motion, supple, no neck masses, no JVD, no thyromegaly. CHEST: Clear bilaterally no crackles or rhonchi or wheezes symmetrical chest expansion noted. CARDIOVASCULAR: Regular rate and rhythm normal S1 and S2, no S3 gallop. No murmur. ABDOMEN: Scaphoid, soft, nontender, multiple healed scars noted from previous bilateral surgeries. MUSCULOSKELETAL: No limitation in range of motion. Adequate strength bilaterally NEUROLOGIC: Alert and oriented 3, no gross focal neurologic deficits. Psychiatric: Normal mood and affect, normal mental status examination. SKIN: Good skin turgor, no rashes. - Labs CBC & Chem 7: 07/04/19 02:51 07/04/19 02:51 Labs: Abnormal Lab Results - Last 24 Hours (Table) 07/04/19 07/04/19 07/04/19 Range/Units 02:51 02:51 03:51 RBC 1.58 L (4.30-5.90) m/uL Hgb 5.1 L* D (13.0-17.5) gm/dL Hct 16.0 L* (39.0-53.0) % MCV 101.1 H (80.0-100.0) fL RDW 19.9 H (11.5-15.5) % Plt Count 135 L (150-450) k/uL Lymphocytes # 0.7 L (1.0-4.8) k/uL Sodium 132 L (137-145) mmol/L BUN 34 H (9-20) mg/dL Creatinine 3.44 H (0.66-1.25) mg/dL Calcium 6.7 L (8.4-10.2) mg/dL Crossmatch See Detail Assessment and Plan Assessment: Impression: 1 acute GI bleeding, most likely lower GI in nature, considering that he counseled the bleeding, patient will remain in the ICU today. And he is to receive 2 units of packed RBCs today. 2 acute on chronic anemia secondary to GI blood loss. 3 chronic kidney disease, patient is on hemodialysis. . 4 hypotension secondary to hypovolemia, and anemia. improved with blood transfusion, 5 history of degenerative joint disease, hypertension, hyperlipidemia, GERD and remote history of diverticulitis. Recommendation:transfuse patient with history of packed RBCs, continue to monit or in the ICU, will continue to follow closely. Discussed his condition with the surgeon on the case. Time with Patient: Less than 30
[2019-07-04 12:11] LABS: Anisocytosis Moderate; HCT 24.6 % (39.0-53.0); MCH 30.2 pg (25.0-35.0); MCHC 32.3 g/dL (31.0-37.0); Macrocytosis Slight; Mean Platelet Volume 8.3; Platelet Count 124 k/uL (150-450); RBC 2.63 m/uL (4.30-5.90); WBC 7.5 k/uL (3.8-10.6)
[2019-07-04 12:16] LABS: HGB 7.9 gm/dL (13.0-17.5)
[2019-07-04 12:17] LABS: MCV 93.6 fL (80.0-100.0)
[2019-07-04 15:34] LABS: Anisocytosis Moderate; HCT 22.4 % (39.0-53.0); HGB 7.4 gm/dL (13.0-17.5); MCH 30.8 pg (25.0-35.0); MCHC 33.1 g/dL (31.0-37.0); MCV 93.2 fL (80.0-100.0); Macrocytosis Slight; Mean Platelet Volume 9.2; Platelet Count 114 k/uL (150-450); RDW 20.3 % (11.5-15.5); WBC 7.8 k/uL (3.8-10.6)
[2019-07-04] MEDS ORDERED: PEG 3350-NA SULF,BICARB,CL/KCL 4,000 ML BOTTLE PO ONE (16:57)
[2019-07-04] MEDS: ATORVASTATIN 80 MG TAB PO SCH (20:49)
[2019-07-04 21:33] LABS: Anisocytosis Slight; HGB 7.5 gm/dL (13.0-17.5); MCH 29.7 pg (25.0-35.0); MCHC 32.4 g/dL (31.0-37.0); MCV 91.4 fL (80.0-100.0); Macrocytosis Slight; Mean Platelet Volume 8.6; Platelet Count 132 k/uL (150-450); RBC 2.52 m/uL (4.30-5.90); RDW 19.3 % (11.5-15.5)
[2019-07-05] MEDS: MORPHINE SULFATE 2 MG/ML SYRINGE IV PRN ×2 (00:51→16:58)
[2019-07-05 04:08] LABS: Anisocytosis Slight; HCT 21.3 % (39.0-53.0); HGB 7.1 gm/dL (13.0-17.5); MCH 30.5 pg (25.0-35.0); MCHC 33.5 g/dL (31.0-37.0); MCV 90.9 fL (80.0-100.0); Mean Platelet Volume 9.7; Platelet Count 119 k/uL (150-450); RBC 2.34 m/uL (4.30-5.90); RDW 19.4 % (11.5-15.5); WBC 7.5 k/uL (3.8-10.6)
[2019-07-05 04:21] LABS: Calcium 6.8 mg/dL (8.4-10.2); Potassium 4.3 mmol/L (3.5-5.1)
--- NOTE | 2019-07-05 08:07 | XR ---
EXAMINATION TYPE: XR chest 1V portable DATE OF EXAM: 07/05/2019 COMPARISON: 06/30/2019 HISTORY: Shortness of breath FINDINGS: There are bilateral pleural effusions with cardiomegaly and bibasilar infiltrate. There is a diffuse interstitial pattern. Dialysis catheter. Cardiac device stable. No sizable pneumothorax. Arthropathy of the shoulders. IMPRESSION: 1. Stable bilateral infiltrate, pleural effusion. Correlate for CHF, otherwise consider pneumonia.
[2019-07-05] MEDS: MIDODRINE 5 MG TAB PO SCH ×3 (08:33→16:58)
[2019-07-05] MEDS: PANTOPRAZOLE 40 MG/10 ML VIAL IVP SCH ×2 (08:42→20:32)
--- NOTE | 2019-07-05 09:20 | P.PN ---
Subjective Progress Note Date: 07/05/19 Principal diagnosis: Acute GI bleed This is an 89-year-old white male with history of end-stage renal disease, on hemodialysis, presented last night to the ER with chief complaint of dizziness, bright red blood per rectum. Patient starting feeling dizzy, almost passed out. and as he went to the bathroom noted to have bright red blood coming from his rectum. No previous history of GI bleeding. Patient is on hemodialysis Friday to Friday for his end-stage renal disease. Patient denies any abdominal pain, denies any headache, no blurred vision, he did feel dizzy and almost passed out before he presented to the ER. In the ER, his initial hemoglobin was noted to be 9.6, and his hemoglobin today is 7.0. Apparently he was noted to be also hypotensive when he was in the ER, placed on norepinephrine at a small dose, admitted to the ICU, and I was asked to see him on consultation. Shortly after I saw the patient, I recommended 2 units of packed RBCs to be given, and recommended to taper and discontinue norepinephrine. Patient has a rectal tube in place, and this was inserted in the emergency room, there is evidence of gross blood noted in the drainage bag. Patient is on Plavix. Reevaluated today on 07/02/2019, remains in the ICU, but no clinical evidence of active bleeding at this point. Received a total of 2 units of packed RBCs, hemoglobin today is 7.6. Patient is scheduled to undergo colonoscopy and EGD by general surgery today, and this was sometime this afternoon. Hence we'll hold on transferring the patient out of the ICU until we know more about his source of bleeding. And whether it is active or not. Clinically does not seem to be active. Patient denies any shortness of breath, denies any cough no wheezing, no chest pain, denies any abdominal pain, denies any hematemesis. And has not seen any bloody bowel movement since yesterday. His rectal tube was removed. Reevaluated today on 07/03/2019, patient is doing well, no active bleeding going on, his hemoglobin is 7.3, it was 7.6 yesterday. His EGD and colonoscopy revealed no evidence of active bleeding,. Clinically the patient is doing well, he is not noticing any bleeding. Denies any shortness of breath no cough no wheezing no chest pain. He is ambulating in the hallway in the intensive care unit. His electrolytes are normal renal profile is improved with creatinine do wn to 2.74 and it was 3.65 yesterday. Daughter is at bedside, updated on his condition, and I plan to transfer the patient out of the ICU to a regular medical floor with remote telemetry. Reevaluated today on 07/04/2019,patient is experiencing active bleeding again, he has bright red blood per rectum, his hemoglobin dropped down to 5.1 this morning, and he is receiving 2 units of packed RBCs ordered by surgery on the case.clinically however the patient feels fine, asymptomatic except for bright red blood per rectum, denies any shortness of breath, denies any chest pain, he is hemodynamically stable. He is receiving blood transfusion during my evaluation.and at this point I recommended to keep the patient in the intensive care unit, and not to be transferred out of the ICU. The patient is seen today 07/05/2019 in follow-up in the intensive care unit. He is awake and alert in no acute distress. He is maintaining O2 saturations in the 90s on room air. No active bleeding overnight. Chest x-ray is stable with small bilateral pleural effusions. He is status post 4 units of packed red blood cells this admission. Current hemoglobin 7.1. White count 7.5. Platelets 119,000. Creatinine 3.87. The plan is for repeat colonoscopy today. Objective - Vital Signs Vital signs: Vital Signs Temp 97.8 F 07/05/19 08:00 Pulse 61 07/05/19 08:00 Resp 19 07/05/19 08:00 BP 120/55 07/05/19 08:00 Pulse Ox 97 07/05/19 08:00 Intake & Output 07/04/19 07/05/19 07/05/19 18:59 06:59 18:59 Intake Total 1070 1300 0 Output Total 400 1000 0 Balance 670 300 0 Weight 66.4 kg 67.4 kg Intake: IV 50 Desmopressin Acetate 20 50 mcg In Sodium Chloride 0. 9% 50 ml @ 200 mls/hr IVPB ONCE ONE Rx#: [id number] Oral 400 1300 0 Blood Product 620 Rc As-1 Unit 310 [id number] Rc As-1 Unit 310 [id number] Output: Urine 0 0 0 Stool 400 1000 Other: # Voids 0 # Bowel Movements 1 - Exam GENERAL: Revealed a 89-year-old white male, very pleasant, frail looking, in no distress. On room air. HEENT: PERRLA, EOMI, no icterus. Head atraumatic normocephalic NECK: Normal range of motion, supple, no neck masses, no JVD, no thyromegaly. CHEST: Crackles in the bilateral posterior bases. CARDIOVASCULAR: Regular rate and rhythm normal S1 and S2, no S3 gallop. No murmur. ABDOMEN: Scaphoid, soft, nontender, multiple healed scars noted from previous bilateral surgeries. MUSCULOSKELETAL: No limitation in range of motion. Adequate strength b ilaterally NEUROLOGIC: Alert and oriented 3, no gross focal neurologic deficits. Psychiatric: Normal mood and affect, normal mental status examination. SKIN: Good skin turgor, no rashes. - Labs CBC & Chem 7: 07/05/19 04:01 07/05/19 04:01 Labs: Abnormal Lab Results - Last 24 Hours (Table) 07/04/19 07/04/19 07/04/19 Range/Units 03:51 11:37 15:20 RBC 2.63 L 2.40 L (4.30-5.90) m/uL Hgb 7.9 L D 7.4 L (13.0-17.5) gm/dL Hct 24.6 L 22.4 L (39.0-53.0) % RDW 20.0 H 20.3 H (11.5-15.5) % Plt Count 124 L 114 L (150-450) k/uL Sodium (137-145) mmol/L BUN (9-20) mg/dL Creatinine (0.66-1.25) mg/dL Calcium (8.4-10.2) mg/dL Crossmatch See Detail 07/04/19 07/05/19 07/05/19 Range/Units 21:16 04:01 04:01 RBC 2.52 L 2.34 L (4.30-5.90) m/uL Hgb 7.5 L 7.1 L (13.0-17.5) gm/dL Hct 23.0 L 21.3 L (39.0-53.0) % RDW 19.3 H 19.4 H (11.5-15.5) % Plt Count 132 L 119 L (150-450) k/uL Sodium 133 L (137-145) mmol/L BUN 38 H (9-20) mg/dL Creatinine 3.87 H (0.66-1.25) mg/dL Calcium 6.8 L (8.4-10.2) mg/dL Crossmatch Assessment and Plan Assessment: Impression: 1 acute GI bleeding, most likely lower GI in nature, status post 4 units packed red blood cells this admission. Plan is for repeat colonoscopy today.. 2 acute on chronic anemia secondary to GI blood loss. 3 chronic kidney disease, patient is on hemodialysis. . 4 hypotension secondary to hypovolemia, and anemia. improved with blood transfusion, 5 history of degenerative joint disease, hypertension, hyperlipidemia, GERD and remote history of diverticulitis. Recommendation: The patient was seen and evaluated by Dr. Reddy. Chest x-ray and labs reviewed. He is on room air. He is stable from the pulmonary and critical care standpoint. We plan is for repeat colonoscopy today. Probable transfer out of the ICU today. I, the cosigning physician, performed a history & physical examination of the patient. Lungs sounds with crackles in the bilateral posterior bases. Maintaining good O2 saturations in the 90s on room air. I discussed the assessment and plan of care with my nurse practitioner, Ivette Harris. I attest to the above note as dictated by her.
--- NOTE | 2019-07-05 09:38 | P.PN ---
Subjective Patient is seen in follow-up for end-stage renal disease. He is maintained on hemodialysis on a Friday schedule. Patient's hemoglobin dropped down to 5.1 yesterday and received multiple units of blood transfusion. Hemoglobin 7.1 this morning. He's been having bloody bowel movements. EGD done on July 02 revealed gastritis. Scheduled for colonoscopy today. Vital signs are stable. General: The patient appeared well nourished and normally developed. HEENT: Head exam is unremarkable. Neck is without jugular venous distension. LUNGS: Lungs are clear to auscultation and percussion. Breath sounds decreased. HEART: Rate and Rhythm are regular. First and second heart sounds normal. No murmurs, rubs or gallops. ABDOMEN: Abdominal exam reveals normal bowel sounds. Non-tender and non- distended. No evidence of peritonitis. EXTREMITITES: No clubbing, cyanosis, or edema. Objective - Vital Signs Vital signs: Vital Signs Temp 97.8 F 07/05/19 08:00 Pulse 61 07/05/19 08:00 Resp 19 07/05/19 08:00 BP 120/55 07/05/19 08:00 Pulse Ox 97 07/05/19 08:00 Intake & Output 07/04/19 07/05/19 07/05/19 18:59 06:59 18:59 Intake Total 1070 1300 0 Output Total 400 1000 0 Balance 670 300 0 Weight 66.4 kg 67.4 kg Intake: IV 50 Desmopressin Acetate 20 50 mcg In Sodium Chloride 0. 9% 50 ml @ 200 mls/hr IVPB ONCE ONE Rx#: [id number] Oral 400 1300 0 Blood Product 620 As-1 Unit 310 [id number] As-1 Unit 310 [id number] Output: Urine 0 0 0 Stool 400 1000 Other: # Voids 0 # Bowel Movements 1 - Labs CBC & Chem 7: 07/05/19 04:01 07/05/19 04:01 Labs: Abnormal Lab Results - Last 24 Hours (Table) 07/04/19 07/04/19 07/04/19 Range/Units 03:51 11:37 15:20 RBC 2.63 L 2.40 L (4.30-5.90) m/uL Hgb 7.9 L D 7.4 L (13.0-17.5) gm/dL Hct 24.6 L 22.4 L (39.0-53.0) % RDW 20.0 H 20.3 H (11.5-15.5) % Plt Count 124 L 114 L (150-450) k/uL Sodium (137-145) mmol/L BUN (9-20) mg/dL Creatinine (0.66-1.25) mg/dL Calcium (8.4-10.2) mg/dL Crossmatch See Detail 07/04/19 07/05/19 07/05/19 Range/Units 21:16 04:01 04:01 RBC 2.52 L 2.34 L (4.30-5.90) m/uL Hgb 7.5 L 7.1 L (13.0-17.5) gm/dL Hct 23.0 L 21.3 L (39.0-53.0) % RDW 19.3 H 19.4 H (11.5-15.5) % Plt Count 132 L 119 L (150-450) k/uL Sodium 133 L (137-145) mmol/L BUN 38 H (9-20) mg/dL Creatinine 3.87 H (0.66-1.25) mg/dL Calcium 6.8 L (8.4-10.2) mg/dL Crossmatch Assessment and Plan Plan: Assessment: 1. End-stage renal disease maintained on hemodialysis on a Friday schedule. 2. Acute GI bleed status post multiple units of blood transfusion and DDAVP. Hemoglobin 7.1 today. EGD revealed gastritis. Colonoscopy scheduled for today. 3. Hypotension maintained on midodrine. 4. Chronic kidney disease mineral bone disease. Plan: Hemodialysis today. Monitor hemoglobin.
--- NOTE | 2019-07-05 09:43 | P.PN ---
Subjective Progress Note Date: 07/05/19 This is a pleasant 89-year-old gentleman, resides at [facility] with history of multiple abdominal surgeries, recent hernia repair 03/19, chronic diarrhea history of seizures, heart block-pacemaker, former nicotine dependence, end-stage renal disease on hemodialysis, BPH presented to the ER with complaints of lightheadedness, dizziness, near syncope after completing his dialysis session yesterday. He proceeded to have red rectal bleeding with stools, accompanied by cramping.Denies abdominal pain, chest pain, palpitations, shortness of breath. Hemoglobin on arrival to the ER 9.6, dropped to 7.0, MCV 107.9, INR 1.3, creatinine 2.69- 2.96, troponin 0.05, afebrile, normal WBC-now up to 10.7. Blood pressure 104/63 on admission, dropped to 51/40. Levophed initiated. Brain CT nonacute. Rectal tube with drainage bag placed in the ER with gross blood noted, ordered to be discontinued. Heart rate in the 60s, maintaining O2 sats of 99%. EKG Vpaced. Chest x-ray reporting pulmonary vascular congestion, interstitial edema bibasilar opacity's with trace pleural effusions. Admitted to ICU. 07/02/2018 Levophed weaned off last night. continued to have 4 soft bright red clotty bowel movements throughout the night,hemoglobin down to 7.6.denies abdominal pain.denies nausea or vomiting. Received 2 units of packed RBCs yesterday. Telemetry sinus bradycardia. Creatinine up to 3.65. Scheduled for hemodialysis as well as EGD and colonoscopy today.VSS, maintaining O2 sats in the high 90s on 2 L nasal cannula. 07/05/2019 yesterday received 2 units packed RBCs for hemoglobin of 5.1, current hemoglobin 7.1. Platelets 119. No further bleeding. Scheduled for repeat colonoscopy today. VSS. Chest x-ray reporting stable bilateral infiltrate, pleural effusion. Maintaining O2 sats in the high 90s on room air. Afebrile, normal WBC. Creatinine 3.87. Denies chest pain, palpitations. Objective - Vital Signs Vital signs: Vital Signs Temp 97.9 F 07/05/19 04:00 Pulse 60 07/05/19 07:00 Resp 25 H 07/05/19 07:00 BP 118/56 07/05/19 07:00 Pulse Ox 98 07/05/19 07:00 Intake & Output 07/04/19 07/05/19 07/05/19 18:59 06:59 18:59 Intake Total 1070 1300 0 Output Total 400 1000 0 Balance 670 300 0 Weight 66.4 kg 67.4 kg Intake: IV 50 Desmopressin Acetate 20 50 mcg In Sodium Chloride 0. 9% 50 ml @ 200 mls/hr IVPB ONCE ONE Rx#: [id number] Oral 400 1300 0 Blood Product 620 Rc As-1 Unit 310 [id number] Rc As-1 Unit 310 [id number] Output: Urine 0 0 0 Stool 400 1000 Other: # Voids 0 - Exam PHYSICAL EXAM: VITAL SIGNS: As above GENERAL: alert and oriented 3, no acute distress, Pleasant and cooperative. HEENT: Pupils are equal, round, and reactive to light. Conjunctivae are clear. Mucus membranes of the mouth are dry. Neck is supple with decreased range of motion secondary to marked degree of cervical osteoarthritis. RESPIRATORY: Diminished with bibasilar crackles. No use of accessory muscles. CARDIOVASCULAR: Regular rate and rhythm. S1 and S2 noted. No systolic or diastolic murmur auscultated. No JVD noted. No S3 or S4 noted. GASTROINTESTINAL: Soft, nondistended Abdomen soft and round. Normal active bowel sounds auscultated x 4 quadrants. No pain or tenderness noted upon palpation. Multiple healed scars of the entire abdomen INTEGUMENTARY: No cyanosis. No jaundice. No rashes noted. EXTREMITIES: 2+ peripheral pulses. No evidence of peripheral edema. No calf tenderness noted. NEUROLOGIC: Cranial nerves II-XII intact. PSYCHIATRIC: Awake, alert, and oriented X 3. - Labs CBC & Chem 7: 07/05/19 04:01 07/05/19 04:01 Labs: Abnormal Lab Results - Last 24 Hours (Table) 07/04/19 07/04/19 07/04/19 Range/Units 03:51 11:37 15:20 RBC 2.63 L 2.40 L (4.30-5.90) m/uL Hgb 7.9 L D 7.4 L (13.0-17.5) gm/dL Hct 24.6 L 22.4 L (39.0-53.0) % RDW 20.0 H 20.3 H (11.5-15.5) % Plt Count 124 L 114 L (150-450) k/uL Sodium (137-145) mmol/L BUN (9-20) mg/dL Creatinine (0.66-1.25) mg/dL Calcium (8.4-10.2) mg/dL Crossmatch See Detail 07/04/19 07/05/19 07/05/19 Range/Units 21:16 04:01 04:01 RBC 2.52 L 2.34 L (4.30-5.90) m/uL Hgb 7.5 L 7.1 L (13.0-17.5) gm/dL Hct 23.0 L 21.3 L (39.0-53.0) % RDW 19.3 H 19.4 H (11.5-15.5) % Plt Count 132 L 119 L (150-450) k/uL Sodium 133 L (137-145) mmol/L BUN 38 H (9-20) mg/dL Creatinine 3.87 H (0.66-1.25) mg/dL Calcium 6.8 L (8.4-10.2) mg/dL Crossmatch Assessment and Plan Assessment: -Acute suspected lower GI Bleed, possibly diverticular in a patient with history of diverticulitis, Gastritis with evidence of lower GI bleed per initial colonoscopy,repeat colonoscopy pending. -Acute blood loss anemia, status post transfusion of 4 units of packed RBCs -Hypovolemic hypotension secondary to the above, improved -Anemia of chronic disease -End-stage kidney disease on hemodialysis -History of multiple abdominal surgeries, bowel obstructions, inguinal hernia repairs -Gastroesophageal reflux disease -History of hypertension -Hyperlipidemia -Degenerative joint disease Plan: Continue current medication regime ,monitoring and symptomatic treatment. Gentle IV fluid hydration, Blood thinners, anticoagulants remain on hold. Repeat colonoscopy rescheduled for today. IV PPI twice a day. hemodialysis as per nephrology.close monitoring of hemoglobin, lytes, renal function, with repea t labs ordered for a.m. online marketer discussing potential transfer out of ICU today.Prognosis guarded given multiple complex medical issues. The impression and plan of care has been dictated as directed. : I performed a history and examination of this patient, discussed the same with the dictator. I agree with the dictator's note ,documented as a scribe. Any additional findings or plans will be noted. Time taken: 35 min.
[2019-07-05] MEDS ORDERED: PHENYLEPHRINE-0.9% NACL SYG 1 MG/10 ML SYRINGE ONE (12:53)
[2019-07-05] MEDS ORDERED: PROPOFOL 10 MG/ML 20 ML VIAL IV ONE (12:53)
[2019-07-05] MEDS ORDERED: SODIUM CHLORIDE 0.9% 500 ML 500 ML IV ONE (13:10)
--- NOTE | 2019-07-05 13:13 | P.OP ---
Date of Procedure: 07/05/19 Preoperative Diagnosis: Lower GI bleed Postoperative Diagnosis: Lower GI bleed Diverticulosis Procedure(s) Performed: Colonoscopy Anesthesia: MAC Surgeon: Sly Lopez Pathology: none sent Condition: stable Disposition: PACU Description of Procedure: The patient received IV sedation. Digital rectal exam performed which revealed no ebonized. The possible colonoscope was then placed patient anus passed rotator colon. The colon was quite tortuous. The bowel prep was suboptimal. There was a large amount of liquid maroon stool in the colon. The colonoscope was advanced to the level of the right colon. He cannot placed the cecum secondary tortuous the bowel. This point scope was withdrawn. There is extensive diverticular changes noted throughout the entire colon. The visualized right colon had significant diverticular disease. The transverse colon had significant diverticular disease. The descending sigmoid colon had extensive diverticular disease with some very large diverticula. No active bleeding was seen. It was presumed that his lower GI bleed was due to diverticular bleeding. The rectumAppeared Normal. Scope was withdrawn for patient.
[2019-07-05 14:56] LABS: Anisocytosis Slight; Basophils % (A) 0 %; Eosinophils # (A) 0.1 k/uL (0-0.7); Eosinophils % (A) 4 %; Lymphocytes # (A) 0.5 k/uL (1.0-4.8); Lymphocytes % (A) 22 %; MCHC 33.3 g/dL (31.0-37.0); MCV 90.3 fL (80.0-100.0); Mean Platelet Volume 8.8; Monocytes # (A) 0.1 k/uL (0-1.0); Monocytes % (A) 5 %; Neutrophils # (A) 1.5 k/uL (1.3-7.7); Neutrophils % (A) 67 %; Platelet Count 120 k/uL (150-450); RBC 2.07 m/uL (4.30-5.90); RDW 19.8 % (11.5-15.5); WBC 2.2 k/uL (3.8-10.6)
[2019-07-05 15:03] LABS: HCT 18.7 % (39.0-53.0); HGB 6.2 gm/dL (13.0-17.5)
[2019-07-05 18:46] LABS: Anisocytosis Slight; HCT 24.3 % (39.0-53.0); MCH 29.6 pg (25.0-35.0); MCHC 33.6 g/dL (31.0-37.0); MCV 88.1 fL (80.0-100.0); Mean Platelet Volume 7.5; Platelet Count 138 k/uL (150-450); RBC 2.76 m/uL (4.30-5.90); RDW 18.5 % (11.5-15.5); WBC 5.9 k/uL (3.8-10.6)
[2019-07-05 18:51] LABS: HGB 8.2 gm/dL (13.0-17.5)
[2019-07-05] MEDS: ATORVASTATIN 80 MG TAB PO SCH (20:32)
[2019-07-06 00:35] LABS: Anisocytosis Moderate; HCT 22.8 % (39.0-53.0); HGB 7.8 gm/dL (13.0-17.5); MCH 30.5 pg (25.0-35.0); MCHC 34.2 g/dL (31.0-37.0); MCV 88.9 fL (80.0-100.0); Mean Platelet Volume 7.9; Platelet Count 146 k/uL (150-450); RBC 2.56 m/uL (4.30-5.90); RDW 20.7 % (11.5-15.5); WBC 6.4 k/uL (3.8-10.6)
[2019-07-06 04:49] LABS: Anisocytosis Moderate; Basophils % (A) 1 %; Eosinophils # (A) 0.2 k/uL (0-0.7); Eosinophils % (A) 3 %; HCT 24.6 % (39.0-53.0); HGB 8.3 gm/dL (13.0-17.5); Lymphocytes # (A) 0.8 k/uL (1.0-4.8); Lymphocytes % (A) 13 %; MCH 30.3 pg (25.0-35.0); MCHC 33.8 g/dL (31.0-37.0); MCV 89.5 fL (80.0-100.0); Mean Platelet Volume 8.1; Monocytes # (A) 0.4 k/uL (0-1.0); Monocytes % (A) 6 %; Neutrophils # (A) 4.7 k/uL (1.3-7.7); Neutrophils % (A) 76 %; Platelet Count 164 k/uL (150-450); Poikilocytosis Slight; RBC 2.75 m/uL (4.30-5.90); RDW 21.5 % (11.5-15.5); WBC 6.1 k/uL (3.8-10.6)
[2019-07-06 05:18] LABS: Potassium 3.9 mmol/L (3.5-5.1)
[2019-07-06 05:19] LABS: Calcium 7.6 mg/dL (8.4-10.2)
--- NOTE | 2019-07-06 08:26 | XR ---
EXAMINATION TYPE: XR chest 1V portable DATE OF EXAM: 07/06/2019 COMPARISON: 07/05/2019 HISTORY: Shortness of breath TECHNIQUE: Single frontal view of the chest is obtained. FINDINGS: There are bilateral pleural effusions with cardiomegaly and bibasilar infiltrate. There is a diffuse interstitial pattern. Dialysis catheter. Cardiac device stable. No sizable pneumothorax. A rthropathy of the shoulders. Underlying COPD suggested. IMPRESSION: 1. Stable bilateral infiltrate, pleural effusion. Correlate for CHF, otherwise consider pneumonia.
--- NOTE | 2019-07-06 08:48 | PN ---
PROGRESS NOTE This is a pulmonary/critical care progress note. DATE OF SERVICE: July 06, 2019 This is an 89-year-old gentleman with history of GI bleed. The patient has received 4 units of PRBCs since admission to the hospital. The patient had a repeat colonoscopy yesterday. It showed extensive diverticulosis throughout his entire large bowel. There was no active bleeding. The patient does have acute on chronic anemia secondary to GI blood loss, chronic kidney disease, currently on hemodialysis and hypotension, secondary to anemia. In addition, the patient does have a history of DJD, hypertension, hyperlipidemia, GERD, and history of diverticulitis. Currently, the patient is not receiving any O2. He is DNR. His IV has been discontinued. His IV fluids have been discontinued. He did receive 1 additional unit apparently yesterday for hemoglobin of 6.2. Today's hemoglobin is stable. His 6.2 hemoglobin was on July 05. Currently, the patient is sleeping comfortably. Not complaining of anything. Again, not receiving any supplemental oxygen. Apparently the family is going to consider hospice for this patient. That though has not yet been decided. PHYSICAL EXAMINATION: VITAL SIGNS: Current vital signs are reviewed. His temperature 92, heart rate 60, respiratory rate 13, blood pressure 121/60, mean 80 and room air saturations are 98%. He appears in no acute distress. Resting comfortably. HEENT: Examination is grossly unremarkable. No supplemental oxygen noted. NECK: Supple. Full range of motion. No adenopathy or thyromegaly. Neck veins are flat. CARDIOVASCULAR: Examination reveals regular rhythm and rate. Heart rate 60. S1, S2 normal. LUNGS: Are relatively clear. Breath sounds equal. No wheezes or rhonchi. No crackles. ABDOMEN: Soft. Bowel sounds are heard. No masses or tenderness. EXTREMITIES: Are intact. No cyanosis, clubbing, or edema. SKIN: Without rash. NEUROLOGIC: Examination is brief but nonfocal. LABS: Labs are reviewed. White count 6.1, hemoglobin 8.3, hematocrit 24.6, platelet count 164,000. Sodium, potassium, chloride, CO2 all normal. Anion gap is 7. BUN and creatinine were 26 and 2.85. Microbiology is reviewed. A chest x-ray is done. It shows some bibasilar atelectasis and small effusions. Microbiology is pending or negative. MEDICATIONS: Medications are reviewed. He is basically just on Lipitor, midodrine, morphine, Narcan, and Protonix. ASSESSMENT: 1. Acute gastrointestinal bleed, secondary to extensive diverticulosis throughout the large bowel. The patient has received a total of 5 units of PRBCs. 2. Acute on chronic anemia secondary to gastrointestinal blood loss. 3. Chronic kidney disease, patient currently on hemodialysis. 4. Hypotension, resolved, secondary to anemia and hypovolemia, status post blood transfusions and fluid resuscitation. 5. History of degenerative joint disease. 6. History of hypertension. 7. History of hyperlipidemia. 8. History of gastroesophageal reflux disease. 9. Remote history of diverticulitis. PLAN: The patient's overall prognosis remains poor. There was no active bleeding noted on colonoscopy yesterday. The patient had very extensive diverticulosis throughout colon. Some of the diverticula were quite large. No additional recommendations are made. There was some about the family transitioning the patient to either palliative care or hospice care. SARAH BETH / STARLAN: [id number] /
[2019-07-06] MEDS: MIDODRINE 5 MG TAB PO SCH ×4 (09:02→18:11)
[2019-07-06] MEDS: PANTOPRAZOLE 40 MG/10 ML VIAL IVP SCH ×2 (09:02→21:16)
--- NOTE | 2019-07-06 09:58 | P.PN ---
Subjective Patient is seen in follow-up for end-stage renal disease. He is maintained on hemodialysis on a Friday schedule. Tolerated hemodialysis well yesterday. Hemoglobin 8.3 today. Colonoscopy done on July 05 revealed extensive diverticulosis without any active bleeding. Vital signs are stable. General: The patient appeared well nourished and normally developed. HEENT: Head exam is unremarkable. Neck is without jugular venous distension. LUNGS: Lungs are clear to auscultation and percussion. Breath sounds decreased. HEART: Rate and Rhythm are regular. First and second heart sounds normal. No murmurs, rubs or gallops. ABDOMEN: Abdominal exam reveals normal bowel sounds. Non-tender and non- distended. No evidence of peritonitis. EXTREMITITES: No clubbing, cyanosis, or edema. Objective - Vital Signs Vital signs: Vital Signs Temp 98 F 07/06/19 08:00 Pulse 64 07/06/19 09:00 Resp 13 07/06/19 09:00 BP 131/63 07/06/19 09:00 Pulse Ox 98 07/06/19 09:00 Intake & Output 07/05/19 07/06/19 07/06/19 18:59 06:59 18:59 Intake Total 410 520 0 Output Total 2000 300 0 Balance -1590 220 0 Weight 69 kg Intake: IV 100 Oral 0 520 0 Blood Product 310 Rc As-1 Unit 310 [id number] Output: Urine 0 0 0 Stool 300 Hemodialysis 2000 Other: # Bowel Movements 1 - Labs CBC & Chem 7: 07/06/19 04:39 07/06/19 04:39 Labs: Abnormal Lab Results - Last 24 Hours (Table) 07/04/19 07/05/19 07/05/19 Range/Units 03:51 14:49 18:30 WBC 2.2 L (3.8-10.6) k/uL RBC 2.07 L 2.76 L (4.30-5.90) m/uL Hgb 6.2 L* 8.2 L D (13.0-17.5) gm/dL Hct 18.7 L* 24.3 L (39.0-53.0) % RDW 19.8 H 18.5 H (11.5-15.5) % Plt Count 120 L 138 L (150-450) k/uL Lymphocytes # 0.5 L (1.0-4.8) k/uL BUN (9-20) mg/dL Creatinine (0.66-1.25) mg/dL Calcium (8.4-10.2) mg/dL Crossmatch See Detail 07/06/19 07/06/19 07/06/19 Range/Units 00:27 04:39 04:39 WBC (3.8-10.6) k/uL RBC 2.56 L 2.75 L (4.30-5.90) m/uL Hgb 7.8 L 8.3 L (13.0-17.5) gm/dL Hct 22.8 L 24.6 L (39.0-53.0) % RDW 20.7 H 21.5 H (11.5-15.5) % Plt Count 146 L (150-450) k/uL Lymphocytes # 0.8 L (1.0-4.8) k/uL BUN 26 H (9-20) mg/dL Creatinine 2.85 H (0.66-1.25) mg/dL Calcium 7.6 L (8.4-10.2) mg/dL Crossmatch Assessment and Plan Plan: Assessment: 1. End-stage renal disease maintained on hemodialysis on a Friday schedule. 2. Acute GI bleed status post multiple units of blood transfusion and DDAVP. Hemoglobin 8.3 today. EGD revealed gastritis. Colonoscopy revealed extensive diverticulosis. 3. Hypotension maintained on midodrine. 4. Chronic kidney disease mineral bone disease. Plan: Hemodialysis tomorrow. Monitor hemoglobin. Add Aranesp.
[2019-07-06] MEDS ORDERED: DARBEPOETIN ALFA 40 MCG/0.4 ML SYRINGE SQ SCH (10:00)
--- NOTE | 2019-07-06 13:39 | P.PN ---
Subjective Progress Note Date: 07/06/19 CHIEF COMPLAINT: GI bleed HISTORY OF PRESENT ILLNESS: Patient examined at the bedside. Denies abdominal pain. Denies nausea or vomiting. He underwent colonoscopy yesterday revealing significant diverticular disease. No active bleeding was seen however was presu med that lower GI bleed was due to diverticular bleeding. Tagged RBC scan was ordered for this morning. However family declined to have procedure completed. Hemoglobin this morning 8.3. Patient did receive 1 unit RBC yesterday for a total of 5 units since admission. PHYSICAL EXAM: VITAL SIGNS: Reviewed. GENERAL: Well-developed in no acute distress. HEENT: No sclera icterus. Extraocular movements grossly intact. Moist buccal mucosa. Head is atraumatic, normocephalic. Hears conversational speech. No nasal drainage. ABDOMEN: Soft. Nondistended. Nontender. Well-healed scars to midline abdomen and bilateral groins. Hernia present to lower aspect of midline incision. NEUROLOGIC: No focal or lateralizing signs. Cranial nerves II through XII grossly intact. ASSESSMENT: 1. Acute GI bleed 2. Bright red blood per rectum 3. Acute blood loss anemia 4. Anemia of chronic disease, baseline hemoglobin 7-9 per EMR review, secondary to CKD 5. History of recent inguinal hernia repair 6. History of multiple bowel obstructions and abdominal surgeries 7. Hypovolemia, requiring vasopressor support, secondary to acute blood loss PLAN: Patient and family declining tagged RBC scan which is reasonable considering patients age and comorbidities. Patient is very high risk for surgical intervention. Discussion held at the bedside with patient and daughter with BOWLING BALL MARKER and Dr. Lopez. Hospice consult was requested yesterday. Agreeable to hospice consult. Continue supportive measures. Okay transfer out of ICU from surgical standpoint. Nurse practitioner note has been reviewed by physician. Signing provider agrees with the documented findings, assessment, and plan of care. Objective - Vital Signs Vital signs: Vital Signs Temp 98.6 F 07/06/19 12:00 Pulse 60 07/06/19 13:00 Resp 21 07/06/19 13:00 BP 93/47 07/06/19 13:00 Pulse Ox 97 07/06/19 13:00 Intake & Output 07/05/19 07/06/19 07/06/19 18:59 06:59 18:59 Intake Total 410 520 820 Output Total 2000 300 0 Balance -1590 220 820 Weight 69 kg Intake: IV 100 Oral 0 520 820 Blood Product 310 Rc As-1 Unit 310 [id number] Output: Urine 0 0 0 Stool 300 Hemodialysis 2000 Other: # Bowel Movements 1 1 - Labs CBC & Chem 7: 07/06/19 04:39 07/06/19 04:39 Labs: Abnormal Lab Results - Last 24 Hours (Table) 07/04/19 07/05/19 07/05/19 Range/Units 03:51 14:49 18:30 WBC 2.2 L (3.8-10.6) k/uL RBC 2.07 L 2.76 L (4.30-5.90) m/uL Hgb 6.2 L* 8.2 L D (13.0-17.5) gm/dL Hct 18.7 L* 24.3 L (39.0-53.0) % RDW 19.8 H 18.5 H (11.5-15.5) % Plt Count 120 L 138 L (150-450) k/uL Lymphocytes # 0.5 L (1.0-4.8) k/uL BUN (9-20) mg/dL Creatinine (0.66-1.25) mg/dL Calcium (8.4-10.2) mg/dL Crossmatch See Detail 07/06/19 07/06/19 07/06/19 Range/Units 00:27 04:39 04:39 WBC (3.8-10.6) k/uL RBC 2.56 L 2.75 L (4.30-5.90) m/uL Hgb 7.8 L 8.3 L (13.0-17.5) gm/dL Hct 22.8 L 24.6 L (39.0-53.0) % RDW 20.7 H 21.5 H (11.5-15.5) % Plt Count 146 L (150-450) k/uL Lymphocytes # 0.8 L (1.0-4.8) k/uL BUN 26 H (9-20) mg/dL Creatinine 2.85 H (0.66-1.25) mg/dL Calcium 7.6 L (8.4-10.2) mg/dL Crossmatch
--- NOTE | 2019-07-06 14:29 | P.PN ---
Subjective Progress Note Date: 07/06/19 This is a pleasant 89-year-old gentleman, resides at [facility] with history of multiple abdominal surgeries, recent hernia repair 03/19, chronic diarrhea history of seizures, heart block-pacemaker, former nicotine dependence, end-stage renal disease on hemodialysis, BPH presented to the ER with complaints of lightheadedness, dizziness, near syncope after completing his dialysis session yesterday. He proceeded to have red rectal bleeding with stools, accompanied by cramping.Denies abdominal pain, chest pain, palpitations, shortness of breath. Hemoglobin on arrival to the ER 9.6, dropped to 7.0, MCV 107.9, INR 1.3, creatinine 2.69- 2.96, troponin 0.05, afebrile, normal WBC-now up to 10.7. Blood pressure 104/63 on admission, dropped to 51/40. Levophed initiated. Brain CT nonacute. Rectal tube with drainage bag placed in the ER with gross blood noted, ordered to be discontinued. Heart rate in the 60s, maintaining O2 sats of 99%. EKG Vpaced. Chest x-ray reporting pulmonary vascular congestion, interstitial edema bibasilar opacity's with trace pleural effusions. Admitted to ICU. 07/02/2018 Levophed weaned off last night. continued to have 4 soft bright red clotty bowel movements throughout the night,hemoglobin down to 7.6.denies abdominal pain.denies nausea or vomiting. Received 2 units of packed RBCs yesterday. Telemetry sinus bradycardia. Creatinine up to 3.65. Scheduled for hemodialysis as well as EGD and colonoscopy today.VSS, maintaining O2 sats in the high 90s on 2 L nasal cannula. 07/05/2019 yesterday received 2 units packed RBCs for hemoglobin of 5.1, current hemoglobin 7.1. Platelets 119. No further bleeding. Scheduled for repeat colonoscopy today. VSS. Chest x-ray reporting stable bilateral infiltrate, pleural effusion. Maintaining O2 sats in the high 90s on room air. Afebrile, normal WBC. Creatinine 3.87. Denies chest pain, palpitations. 07/06/2019 status post repeat colonoscopy reporting suboptimal bowel prep, tortuous colon, large amount of liquid maroon stool in the colon, extensive diverticular changes noted throughout the entire colon visualized, no active bleeding; presumed lower GI bleed secondary to diverticular bleeding. Dr Salas discussed with patient's daughters the patient is not a surgical candidate. Patient had previously stated no further abdominal surgeries. Patient and daughters discussing options of potentially withdrawing hemodialysis, hospice. Hemoglobin currently 8.3 with no further bleeding reported. Denies abdominal pain. Received hemodialysis yesterday. Objective - Vital Signs Vital signs: Vital Signs Temp 98 F 07/06/19 08:00 Pulse 64 07/06/19 09:00 Resp 13 07/06/19 09:00 BP 131/63 07/06/19 09:00 Pulse Ox 98 07/06/19 09:00 Intake & Output 07/05/19 07/06/19 07/06/19 18:59 06:59 18:59 Intake Total 410 520 0 Output Total 2000 300 0 Balance -1590 220 0 Weight 69 kg Intake: IV 100 Oral 0 520 0 Blood Product 310 Rc As-1 Unit 310 [id number] Output: Urine 0 0 0 Stool 300 Hemodialysis 2000 Other: # Bowel Movements 1 - Exam PHYSICAL EXAM: VITAL SIGNS: As above GENERAL: alert and oriented 3, no acute distress, Pleasant and cooperative. HEENT: Pupils are equal, round, and reactive to light. Conjunctivae are clear. Mucus membranes of the mouth are dry. RESPIRATORY: Essentially clear, bilateral bases diminished CARDIOVASCULAR: Regular rate and rhythm. S1 and S2 noted. No systolic or diastolic murmur auscultated. No JVD noted. No S3 or S4 noted. GASTROINTESTINAL: Soft, nondistended Abdomen soft and round. Normal active bowel sounds auscultated x 4 quadrants. No pain or tenderness noted upon palpation. Multiple healed scars of the entire abdomen INTEGUMENTARY: No cyanosis. No jaundice. No rashes noted. EXTREMITIES: 2+ peripheral pulses. No evidence of peripheral edema. No calf tenderness noted. NEUROLOGIC: Cranial nerves II-XII intact. No focal deficits. PSYCHIATRIC: Awake, alert, and oriented X 3. - Labs CBC & Chem 7: 07/06/19 04:39 07/06/19 04:39 Labs: Abnormal Lab Results - Last 24 Hours (Table) 07/04/19 07/05/19 07/05/19 Range/Units 03:51 14:49 18:30 WBC 2.2 L (3.8-10.6) k/uL RBC 2.07 L 2.76 L (4.30-5.90) m/uL Hgb 6.2 L* 8.2 L D (13.0-17.5) gm/dL Hct 18.7 L* 24.3 L (39.0-53.0) % RDW 19.8 H 18.5 H (11.5-15.5) % Plt Count 120 L 138 L (150-450) k/uL Lymphocytes # 0.5 L (1.0-4.8) k/uL BUN (9-20) mg/dL Creatinine (0.66-1.25) mg/dL Calcium (8.4-10.2) mg/dL Crossmatch See Detail 07/06/19 07/06/19 07/06/19 Range/Units 00:27 04:39 04:39 WBC (3.8-10.6) k/uL RBC 2.56 L 2.75 L (4.30-5.90) m/uL Hgb 7.8 L 8.3 L (13.0-17.5) gm/dL Hct 22.8 L 24.6 L (39.0-53.0) % RDW 20.7 H 21.5 H (11.5-15.5) % Plt Count 146 L (150-450) k/uL Lymphocytes # 0.8 L (1.0-4.8) k/uL BUN 26 H (9-20) mg/dL Creatinine 2.85 H (0.66-1.25) mg/dL Calcium 7.6 L (8.4-10.2) mg/dL Crossmatch Assessment and Plan Assessment: -Acute lower GI Bleed secondary to extensive diverticular changes throughout the colon. No active bleed. -Acute blood loss anemia, status post transfusion of multiple units of RBCs -Hypovolemic hypotension secondary to the above, improved -Anemia of chronic disease -End-stage kidney disease on hemodialysis -History of multiple abdominal surgeries, bowel obstructions, inguinal hernia repairs -Gastroesophageal reflux disease -History of hypertension -Hyperlipidemia -Degenerative joint disease Plan: Continue current medication regime ,monitoring and symptomatic treatment. Patient and Family discussing options regarding palliative, hospice care.diet initiated to clear liquids, advance as tolerated. Gentle IV fluid hydration, Blood thinners, anticoagulants remain on hold. Repeat colonoscopy rescheduled for today. IV PPI twice a day. hemodialysis as per nephrology.close monitoring of hemoglobin, lytes, renal function, with repeat labs ordered for a.m. priest discussing potential transfer out of ICU today.Prognosis guarded ellie candelario multiple complex medical issues. The impression and plan of care has been dictated as directed. : I performed a history and examination of this patient, discussed the same with the dictator. I agree with the dictator's note ,documented as a scribe. Any additional findings or plans will be noted. Time taken: 35 min.
[2019-07-06] MEDS: ATORVASTATIN 80 MG TAB PO SCH (21:16)
[2019-07-07 05:10] LABS: Anisocytosis Moderate; Basophils % (A) 0 %; Eosinophils # (A) 0.2 k/uL (0-0.7); Eosinophils % (A) 3 %; HCT 26.5 % (39.0-53.0); HGB 8.2 gm/dL (13.0-17.5); Hypochromasia Slight; Lymphocytes # (A) 0.8 k/uL (1.0-4.8); Lymphocytes % (A) 11 %; MCH 29.7 pg (25.0-35.0); MCHC 30.9 g/dL (31.0-37.0); Macrocytosis Slight; Mean Platelet Volume 7.8; Monocytes # (A) 0.7 k/uL (0-1.0); Monocytes % (A) 10 %; Neutrophils # (A) 5.5 k/uL (1.3-7.7); Neutrophils % (A) 74 %; Platelet Count 169 k/uL (150-450); RBC 2.75 m/uL (4.30-5.90); RDW 21.5 % (11.5-15.5); WBC 7.4 k/uL (3.8-10.6)
[2019-07-07 05:16] LABS: MCV 96.1 fL (80.0-100.0)
[2019-07-07 05:33] LABS: Poikilocytosis (M) Present; Polychromasia Present
[2019-07-07] MEDS: MIDODRINE 5 MG TAB PO SCH ×2 (08:22→12:23)
[2019-07-07] MEDS: PANTOPRAZOLE 40 MG/10 ML VIAL IVP SCH (08:22)
[2019-07-07] MEDS: MORPHINE SULFATE 2 MG/ML SYRINGE IV PRN (09:03)
--- NOTE | 2019-07-07 09:08 | PN ---
PROGRESS NOTE This is a pulmonary/critical care progress note. DATE OF SERVICE: July 07, 2019 This is an 89-year-old gentleman who was admitted back on July 01 with GI bleed. Since he has been here, he has received at least 4 units of PRBCs. A recent colonoscopy reveals severe and significant diverticular disease throughout his colon. Currently, no active bleeding. He is not receiving any supplemental oxygen or an IV. Discharge planning underway. The patient could be transferred out of the ICU as a selective overflow patient. There was some talk of discharge home, but that has not been decided as yet. The patient does have a history of chronic anemia secondary to GI blood loss, chronic kidney disease, currently on hemodialysis and hypotension. In addition, the patient has a history of DJD, hypertension, hyperlipidemia, GERD, and diverticulitis. The patient is a DO NOT RESUSCITATE patient. Currently, the patient is resting comfortably in bed. He is hoping to be discharged relatively soon. He denies any chest pain or chest discomfort. There is no abdominal pain. No additional bleeding. No respiratory complaints. PHYSICAL EXAMINATION: VITAL SIGNS: Current vital signs are reviewed. Temperature is 98.2, heart rate 60, respiratory rate 17, blood pressure 120/65, mean 83, and saturations on room air 100%. Appears in no acute distress. HEENT: Examination is grossly unremarkable. Mucous membranes are dry. NECK: Supple. Full range of motion. No adenopathy or thyromegaly. Neck veins are flat. CARDIOVASCULAR: Examination reveals regular rhythm and rate. S1, S2 normal. No S3, S4, or murmur. LUNGS: Revealed diminished breath sounds. A few scattered mild rhonchi. No wheezes or crackles. Breath sounds equal. ABDOMEN: Soft. Bowel sounds are heard. EXTREMITIES: Are intact. Mild edema. SKIN: Without rash. There are some ecchymoses noted. NEUROLOGIC: Examination is brief but nonfocal. LABS: Labs are reviewed. White count 7.4, hemoglobin 8.2, hematocrit 26.5, platelet count 169,000. No recent x-ray to report. Last chest x-ray was on July 06, which revealed stable bilateral infiltrates and/or pleural effusion. MEDICATIONS: Medications are reviewed. The patient is just on Lipitor, Aranesp, midodrine p.r.n., morphine, Narcan, and Protonix. ASSESSMENT: 1. Acute gastrointestinal bleed secondary to extensive diverticulosis throughout the large bowel. The patient apparently has received a total of 5 units of PRBCs since being here in the unit. 2. Acute on chronic anemia secondary to gastrointestinal blood loss. 3. Chronic kidney disease, patient currently on hemodialysis. 4. Hypotension, resolved, secondary to both anemia and hypovolemia, status post blood transfusion and fluid resuscitation. 5. History of degenerative joint disease. 6. History of hypertension. 7. History of hyperlipidemia. 8. History of gastroesophageal reflux disease. 9. Remote history of diverticulitis. PLAN: The patient's hemoglobin this morning is stable. He is not receiving any supplemental oxygen or IV fluids. The patient could be downgraded to selective overflow patient. The patient's business continuity planner has been working on possible discharge from the hospital eventually. No additional recommendations are made. Prognosis is guarded. MMODL / IJN: [id number] /
--- NOTE | 2019-07-07 10:22 | P.PN ---
Subjective Patient is seen in follow-up for end-stage renal disease. He is maintained on hemodialysis on a Friday schedule. Currently seen while undergoing hemodialysis. Hemoglobin stable at 8.2 today. Colonoscopy done on July 05 revealed extensive diverticulosis without any active bleeding. No active bleeding overnight. Vital signs are stable. General: The patient appeared well nourished and normally developed. HEENT: Head exam is unremarkable. Neck is without jugular venous distension. LUNGS: Lungs are clear to auscultation and percussion. Breath sounds decreased. HEART: Rate and Rhythm are regular. First and second heart sounds normal. No murmurs, rubs or gallops. ABDOMEN: Abdominal exam reveals normal bowel sounds. Non-tender and non- distended. No evidence of peritonitis. EXTREMITITES: No clubbing, cyanosis, or edema. Objective - Vital Signs Vital signs: Vital Signs Temp 97.8 F 07/07/19 08:00 Pulse 60 07/07/19 08:00 Resp 16 07/07/19 08:00 BP 126/72 07/07/19 08:00 Pulse Ox 100 07/07/19 04:00 Intake & Output 07/06/19 07/07/19 07/07/19 18:59 06:59 18:59 Intake Total 1500 200 200 Output Total 0 1000 0 Balance 1500 -800 200 Weight 70.7 kg Intake: Oral 1500 200 200 Output: Urine 0 1000 0 Other: # Voids 1 0 0 # Bowel Movements 1 - Labs CBC & Chem 7: 07/07/19 04:40 07/06/19 04:39 Labs: Abnormal Lab Results - Last 24 Hours (Table) 07/04/19 07/07/19 Range/Units 03:51 04:40 RBC 2.75 L (4.30-5.90) m/uL Hgb 8.2 L (13.0-17.5) gm/dL Hct 26.5 L (39.0-53.0) % MCHC 30.9 L (31.0-37.0) g/dL RDW 21.5 H (11.5-15.5) % Lymphocytes # 0.8 L (1.0-4.8) k/uL Crossmatch See Detail Assessment and Plan Plan: Assessment: 1. End-stage renal disease maintained on hemodialysis on a Friday schedule. 2. Acute GI bleed status post multiple units of blood transfusion and DDAVP. Hemoglobin 8.2 today. EGD revealed gastritis. Colonoscopy revealed extensive diverticulosis. Maintained on Aranesp. 3. Hypotension maintained on midodrine. 4. Chronic kidney disease mineral bone disease. Plan: Currently seen while undergoing hemodialysis. Next treatment on Friday. Monitor hemoglobin.
--- NOTE | 2019-07-07 11:13 | P.PN ---
Subjective Progress Note Date: 07/07/19 CHIEF COMPLAINT: GI bleed HISTORY OF PRESENT ILLNESS: Patient examined at the bedside. Denies abdominal pain. Denies nausea or vomiting. denies further episodes of rectal bleeding. Hemoglobin stable at 8.2. He is currently undergoing hemodialysis. PHYSICAL EXAM: VITAL SIGNS: Reviewed. GENERAL: Well-developed in no acute distress. HEENT: No sclera icterus. Extraocular movements grossly intact. Moist buccal mucosa. Head is atraumatic, normocephalic. Hears conversational speech. No nasal drainage. ABDOMEN: Soft. Nondistended. Nontender. Well-healed scars to midline abdomen and bilateral groins. Hernia present to lower aspect of midline incision. NEUROLOGIC: No focal or lateralizing signs. Cranial nerves II through XII edouard sly intact. ASSESSMENT: 1. Acute GI bleed 2. Bright red blood per rectum 3. Acute blood loss anemia 4. Anemia of chronic disease, baseline hemoglobin 7-9 per EMR review, secondary to CKD 5. History of recent inguinal hernia repair 6. History of multiple bowel obstructions and abdominal surgeries 7. Hypovolemia, requiring vasopressor support, secondary to acute blood loss PLAN: Yesterday, the patient decided he wanted to go on hospice. This morning the patient states he is unsure and would like to speak with Dr. Lopez more regarding his condition. From a surgical standpoint, there is no surgical intervention recommended. Patient is very high risk for surgery. We will support patient either way in his decision regarding hospice. He may be discharged from a surgical standpoint. Dr. Lopez will speak to patient this afternoon per patient request. We will then sign off. Please reconsult if needed. Nurse practitioner note has been reviewed by physician. Signing provider agrees with the documented findings, assessment, and plan of care. Objective - Vital Signs Vital signs: Vital Signs Temp 97.8 F 07/07/19 08:00 Pulse 60 07/07/19 08:00 Resp 16 07/07/19 08:00 BP 126/72 07/07/19 08:00 Pulse Ox 100 07/07/19 04:00 Intake & Output 07/06/19 07/07/19 07/07/19 18:59 06:59 18:59 Intake Total 1500 200 200 Output Total 0 1000 0 Balance 1500 -800 200 Weight 70.7 kg Intake: Oral 1500 200 200 Output: Urine 0 1000 0 Other: # Voids 1 0 0 # Bowel Movements 1 - Labs CBC & Chem 7: 07/07/19 04:40 07/06/19 04:39 Labs: Abnormal Lab Results - Last 24 Hours (Table) 07/04/19 07/07/19 Range/Units 03:51 04:40 RBC 2.75 L (4.30-5.90) m/uL Hgb 8.2 L (13.0-17.5) gm/dL Hct 26.5 L (39.0-53.0) % MCHC 30.9 L (31.0-37.0) g/dL RDW 21.5 H (11.5-15.5) % Lymphocytes # 0.8 L (1.0-4.8) k/uL Crossmatch See Detail
--- NOTE | 2019-07-07 12:15 | P.DS ---
Providers Date of admission: 07/01/19 02:06 Expected date of discharge: 07/07/19 Attending physician: Garfield Hanna Consults: 07/01/19 02:06 Consult Physician Stat Consulting Provider: Paulo Singh Consult Reason/Comments: ICU management Do you want consulting provider notified?: Already Contacted 07/01/19 06:34 Consult Physician Routine Consulting Provider: Brenda Leonardo Consult Reason/Comments: dialysis patient Do you want consulting provider notified?: Yes 07/01/19 11:04 Consult Physician Urgent Consulting Provider: Sly Lopez Consult Reason/Comments: GI bleed Do you want consulting provider notified?: Already Contacted Primary care physician: Garfield Hanna [facility] Course: Final Diagnoses: -Acute lower GI Bleed secondary to extensive diverticular changes throughout the colon. No active bleed. -Acute blood loss anemia, status post transfusion of multiple units of RBCs -Hypovolemic hypotension secondary to the above, improved -Anemia of chronic disease -End-stage kidney disease on hemodialysis -History of multiple abdominal surgeries, bowel obstructions, inguinal hernia repairs -Gastroesophageal reflux disease -History of hypertension -Hyperlipidemia -Degenerative joint disease Hospital course:This is a pleasant 89-year-old gentleman, resides at [facility] with history of multiple abdominal surgeries, recent hernia repair 03/19, chronic diarrhea history of seizures, heart block-pacemaker, former nicotine dependence, end-stage renal disease on hemodialysis, BPH presented to the ER with complaints of lightheadedness, dizziness, near syncope after completing his dialysis session yesterday. He proceeded to have red rectal bleeding with stools, accompanied by cramping.Denies abdominal pain, chest pain, palpitations, shortness of breath. Hemoglobin on arrival to the ER 9.6, dropped to 7.0, MCV 107.9, INR 1.3, creatinine 2.69- 2.96, troponin 0.05, afebrile, normal WBC-now up to 10.7. Blood pressure 104/63 on admission, dropped to 51/40. Levophed initiated. Brain CT nonacute. Rectal tube with drainage bag placed in the ER with gross blood noted, ordered to be discontinued. Heart rate in the 60s, maintaining O2 sats of 99%. EKG Vpaced. Chest x-ray reporting pulmonary vascular congestion, interstitial edema bibasilar opacity's with trace pleural effusions. Admitted to ICU. 07/02/2018 Levophed weaned off last night. continued to have 4 soft bright red clotty bowel movements throughout the night,hemoglobin down to 7.6.denies abdominal pain.denies nausea or vomiting. Received 2 units of packed RBCs yesterday. Telemetry sinus bradycardia. Creatinine up to 3.65. Scheduled for hemodialysis as well as EGD and colonoscopy today.VSS, maintaining O2 sats in the high 90s on 2 L nasal cannula. 07/05/2019 yesterday received 2 units packed RBCs for hemoglobin of 5.1, current hemoglobin 7.1. Platelets 119. No further bleeding. Scheduled for repeat colonoscopy today. VSS. Chest x-ray reporting stable bilateral infiltrate, pleural effusion. Maintaining O2 sats in the high 90s on room air. Afebrile, normal WBC. Creatinine 3.87. Denies chest pain, palpitations. 07/06/2019 status post repeat colonoscopy reporting suboptimal bowel prep, tortuous colon, large amount of liquid maroon stool in the colon, extensive diverticular changes noted throughout the entire colon visualized, no active bleeding; presumed lower GI bleed secondary to diverticular bleeding. discussed with patient's daughters the patient is not a surgical candidate. Patient had previously stated no further abdominal surgeries. Patient and daughters discussing options of potentially withdrawing hemodialysis, hospice. Hemoglobin currently 8.3 with no further bleeding reported. Denies abdominal pain. Received hemodialysis yesterday. Hemoglobin stable at 8.2, no further active bleeding overnight. Receiving hemodialysis this morning. Patient undecided regarding hospice. Patient will be discharged to [facility] today in a stable condition with guarded prognosis. Discussed with both patient and daughter. PHYSICAL EXAM: VITAL SIGNS: As above GENERAL: alert and oriented 3, no acute distress, RESPIRATORY: Essentially clear, bilateral bases diminished CARDIOVASCULAR: Regular rate and rhythm. S1 and S2 noted. No systolic or diastolic murmur auscultated. No JVD noted. No S3 or S4 noted. GASTROINTESTINAL: Soft, nondistended Abdomen soft and round. Normal active bowel sounds auscultated x 4 quadrants. No pain or tenderness noted upon palpation. Multiple healed scars of the entire abdomen NEUROLOGIC: Cranial nerves II-XII intact. No focal deficits. The impression and plan of care has been dictated as directed. : I performed a history and examination of this patient, discussed the same with the dictator. I agree with the dictator's note ,documented as a scribe. Any additional findings or plans will be noted. Time taken: 35 minutes Patient Condition at Discharge: Stable Plan - Discharge Summary Discharge Rx Participant: No New Discharge Prescriptions: New Pantoprazole Sodium [Protonix] 40 mg PO BID #60 tablet.dr Discontinued Famotidine [Pepcid] 20 mg PO BID No Action Simvastatin [Zocor] 20 mg PO HS Tamsulosin [Flomax] 0.4 mg PO PC-BRKFST #30 tab Calcium Acetate [PhosLo] 667 mg PO TID Metoprolol Succinate (ER) [Toprol XL] 50 mg PO DAILY tab.er.24h Atorvastatin [Lipitor] 10 mg PO HS Discharge Medication List Simvastatin [Zocor] 20 mg PO HS 12/19/15 [History] Tamsulosin [Flomax] 0.4 mg PO PC-BRKFST #30 tab 06/12/18 [Rx] Calcium Acetate [PhosLo] 667 mg PO TID 01/10/19 [History] Metoprolol Succinate (ER) [Toprol XL] 50 mg PO DAILY tab.er.24h 01/14/19 [Rx] Atorvastatin [Lipitor] 10 mg PO HS 06/30/19 [History] Pantoprazole Sodium [Protonix] 40 mg PO BID #60 tablet. 07/07/19 [Rx] Follow up Appointment(s)/Referral(s): Garfield Hanna DO [Primary Care Provider] - 3 Days Faizan Del Valle DO [STAFF PHYSICIAN] - 1 Week Ambulatory/Diagnostic Orders: Complete Blood Count w/diff [LAB.AMB] Time Frame: 3 Days, Location: None Selected Activity/Diet/Wound Care/Special Instructions: Patient to be discharged to [facility], patient is undecided about hospice at this time. Hemodialysis as per Dr. Del Valle. Reevaluation by PT pending. Patient wishes to speak with Dr. Lopez again, prior to discharge
[2019-07-07 15:09] VITALS: BP 115/74; PULSE 61; RESP 16; TEMP 97.7
== END 2019-07-07 16:07 | disposition hospice, home (50) | DRG 377 ==
LOC: EC 22:01 → 2SICU 07-01 02:06
PROVIDERS: ADMIT Family Medicine; ATTEND Family Medicine
PROC: 30233N1 Transfusion of Nonautologous Red Blood Cells into Peripheral Vein, Percutaneous Approach (ICD-10-PCS; 2019-07-01)
PROC: 5A1D70Z Performance of Urinary Filtration, Intermittent, Less than 6 Hours Per Day (ICD-10-PCS; 2019-07-02)
PROC: 0DB78ZX Excision of Stomach, Pylorus, Via Natural or Artificial Opening Endoscopic, Diagnostic (ICD-10-PCS; principal; 2019-07-02 13:55)
PROC: 0DJD8ZZ Inspection of Lower Intestinal Tract, Via Natural or Artificial Opening Endoscopic (ICD-10-PCS; 2019-07-02 13:55)
PROC: 0DJD8ZZ Inspection of Lower Intestinal Tract, Via Natural or Artificial Opening Endoscopic (ICD-10-PCS; 2019-07-05)
DX: K57.31 Diverticulosis of large intestine without perforation or abscess with bleeding (principal); N18.6 End stage renal disease; D62 Acute posthemorrhagic anemia; I12.0 Hypertensive chronic kidney disease with stage 5 chronic kidney disease or end stage renal disease; J90 Pleural effusion, not elsewhere classified; E87.1 Hypo-osmolality and hyponatremia; I95.89 Other hypotension; E86.1 Hypovolemia; R31.9 Hematuria, unspecified; D63.1 Anemia in chronic kidney disease; G40.909 Epilepsy, unspecified, not intractable, without status epilepticus; E78.5 Hyperlipidemia, unspecified; K21.0 Gastro-esophageal reflux disease with esophagitis; K29.70 Gastritis, unspecified, without bleeding; M19.042 Primary osteoarthritis, left hand; M19.041 Primary osteoarthritis, right hand; M47.9 Spondylosis, unspecified; E83.89 Other disorders of mineral metabolism; N40.0 Benign prostatic hyperplasia without lower urinary tract symptoms; R55 Syncope and collapse; I83.90 Asymptomatic varicose veins of unspecified lower extremity; M10.9 Gout, unspecified; Z66 Do not resuscitate; Z79.02 Long term (current) use of antithrombotics/antiplatelets; Z79.899 Other long term (current) drug therapy; Z99.2 Dependence on renal dialysis; Z96.641 Presence of right artificial hip joint; Z87.891 Personal history of nicotine dependence; Z87.01 Personal history of pneumonia (recurrent); Z90.49 Acquired absence of other specified parts of digestive tract; Z95.0 Presence of cardiac pacemaker; Z98.42 Cataract extraction status, left eye; Z98.41 Cataract extraction status, right eye; Z96.1 Presence of intraocular lens; Z85.828 Personal history of other malignant neoplasm of skin; Z82.49 Family history of ischemic heart disease and other diseases of the circulatory system; Z80.9 Family history of malignant neoplasm, unspecified
CPT/HCPCS: 36410; 36415; 43239; 45378; 70450; 71045; 76937; 80048; 80053; 83735; 84100; 84484; 85025; 85027; 85610; 85730; 86850; 86900; 86901; 86920; 88305; 90935; 93005; 96365; 96375; 99285